=== PATIENT | male | born 1940 | race Caucasian/White ===

== ENCOUNTER 2016-09-14 11:49 | Observation (INO) | payer MEDICARE, BC ==
--- NOTE | 2016-09-14 12:02 | ED ---
General Adult HPI - General Chief complaint: Chest Pain Stated complaint: CHEST PAIN Time Seen by Provider: 09/14/16 12:01 Source: patient, family, RN notes reviewed, old records reviewed Mode of arrival: wheelchair Limitations: no limitations - History of Present Illness Initial comments: This is a 76-year-old male the ER for reevaluation of chest pain right shoulder pain abdominal pain. Patient has history of bowel surgery secondary to trauma, high blood pressure. Patient is also having irregular heart rate and heart rhythm, sometimes is having is elevated and sometimes as low, patient has known A. fib or irregular heart, but is been bradycardic, patient does not feel syncopal or weak but he has had continued pain which she is most concerned about. Patient states he has chronic pain but this pain is worse - Related Data Home Medications Medication Instructions Recorded Confirmed Gabapentin [Neurontin] 800 mg PO TID 12/20/13 09/14/16 Losartan/Hydrochlorothiazide 1 tab PO DAILY 12/20/13 09/14/16 [Losartan-Hctz 100-25 mg Tab] Lovastatin [Mevacor] 20 mg PO HS 12/20/13 09/14/16 Ranitidine HCl 150 mg PO BID 12/20/13 09/14/16 Albuterol Inhaler [Ventolin Hfa 1 - 2 puff INHALATION RT-Q6H PRN 09/14/16 Inhaler] Budesonide [Pulmicort Flexhaler] 1 puff INHALATION RT-HS PRN 09/14/16 09/14/16 Allergies Allergy/AdvReac Type Severity Reaction Status Date / Time No Known Allergies Allergy Verified 09/14/16 13:09 Review of Systems ROS Statement: Those systems with pertinent positive or pertinent negative responses have been documented in the HPI. ROS Other: All systems not noted in ROS Statement are negative. Past Medical History Past Medical History: GERD/Reflux, GI Bleed, Hyperlipidemia, Hypertension History of Any Multi-Drug Resistant Organisms: None Reported Past Surgical History: Orthopedic Surgery Past Psychological History: No Psychological Hx Reported Smoking Status: Never smoker Past Alcohol Use History: Occasional Past Drug Use History: None Reported General Exam Limitations: no limitations General appearance: alert, in no apparent distress Head exam: Present: atraumatic, normocephalic, normal inspection Eye exam: Present: normal appearance, PERRL, EOMI. Absent: scleral icterus, conjunctival injection, periorbital swelling ENT exam: Present: normal exam, mucous membranes moist Neck exam: Present: normal inspection. Absent: tenderness, meningismus, lymphadenopathy Respiratory exam: Present: normal lung sounds bilaterally. Absent: respiratory distress, wheezes, rales, rhonchi, stridor Cardiovascular Exam: Present: bradycardia, irregular rhythm, normal heart sounds. Absent: systolic murmur, diastolic murmur, rubs, gallop, clicks GI/Abdominal exam: Present: soft, normal bowel sounds. Absent: distended, tenderness, guarding, rebound, rigid Extremities exam: Present: normal inspection, full ROM, normal capillary refill. Absent: tenderness, pedal edema, joint swelling, calf tenderness Back exam: Present: normal inspection Neurological exam: Present: alert, oriented X3, CN II-XII intact Psychiatric exam: Present: normal affect, normal mood Skin exam: Present: warm, dry, intact, normal color. Absent: rash Course Vital Signs 09/14/16 11:51 Temperature 97.2 F L Pulse Rate 57 L Respiratory 16 Rate Blood Pressure 172/79 O2 Sat by Pulse 97 Oximetry - Reevaluation(s) Reevaluation #1: 09/14/16 15:49 Patient remains with pain, heart rate in the 40s and 50s EKG Findings - EKG Comments: EKG Findings:: EKG shows A. fib rate of 75, QRS 118, QTC 435 Medical Decision Making - Medical Decision Making 76 male to the ER with chest pain, patient presents here with chest pain discomfort heaviness and pressure, also found to be in A. fib with a slow rate, rates been in the bradycardic range of 40s, irregular, blood pressure is maintaining, patient is without syncope. But still remains a chest pain, will admit for cardiac observation - Lab Data Result diagrams: 09/14/16 12:15 09/14/16 12:15 Lab Results 09/14/16 09/14/16 09/14/16 Range/Units 12:15 12:15 12:15 WBC 6.1 (3.8-10.6) k/uL RBC 4.50 (4.30-5.90) m/uL Hgb 14.7 (13.0-17.5) gm/dL Hct 43.0 (39.0-53.0) % MCV 95.6 (80.0-100.0) fL MCH 32.7 (25.0-35.0) pg MCHC 34.2 (31.0-37.0) g/dL RDW 12.4 (11.5-15.5) % Plt Count 162 (150-450) k/uL Neutrophils % 60 % Lymphocytes % 25 % Monocytes % 8 % Eosinophils % 3 % Basophils % 1 % Neutrophils # 3.7 (1.3-7.7) k/uL Lymphocytes # 1.5 (1.0-4.8) k/uL Monocytes # 0.5 (0-1.0) k/uL Eosinophils # 0.2 (0-0.7) k/uL Basophils # 0.1 (0-0.2) k/uL PT (9.0-12.0) sec INR (<1.1) APTT (22.0-30.0) sec D-Dimer (<0.60) mg/L FEU Sodium 140 (137-145) mmol/L Potassium 4.2 (3.5-5.1) mmol/L Chloride 102 (98-107) mmol/L Carbon Dioxide 27 (22-30) mmol/L Anion Gap 11 mmol/L BUN 12 (9-20) mg/dL Creatinine 0.78 (0.66-1.25) mg/dL Est GFR (MDRD) Af Amer >60 (>60 ml/min/1.73 sqM) Est GFR (MDRD) Non-Af >60 (>60 ml/min/1.73 sqM) Glucose 288 H (74-99) mg/dL Calcium 9.4 (8.4-10.2) mg/dL Magnesium 1.8 (1.6-2.3) mg/dL Total Bilirubin 0.7 (0.2-1.3) mg/dL AST 26 (17-59) U/L ALT 48 (21-72) U/L Alkaline Phosphatase 68 (38-126) U/L Total Creatine Kinase 54 L (55-170) U/L CK-MB (CK-2) 0.8 (0.0-2.4) ng/mL CK-MB (CK-2) Rel Index 1.5 Troponin I <0.012 (0.000-0.034) ng/mL NT-Pro-B Natriuret Pep pg/mL Total Protein 6.5 (6.3-8.2) g/dL Albumin 3.8 (3.5-5.0) g/dL Lipase 108 (23-300) U/L 09/14/16 09/14/16 Range/Units 12:15 12:15 WBC (3.8-10.6) k/uL RBC (4.30-5.90) m/uL Hgb (13.0-17.5) gm/dL Hct (39.0-53.0) % MCV (80.0-100.0) fL MCH (25.0-35.0) pg MCHC (31.0-37.0) g/dL RDW (11.5-15.5) % Plt Count (150-450) k/uL Neutrophils % % Lymphocytes % % Monocytes % % Eosinophils % % Basophils % % Neutrophils # (1.3-7.7) k/uL Lymphocytes # (1.0-4.8) k/uL Monocytes # (0-1.0) k/uL Eosinophils # (0-0.7) k/uL Basophils # (0-0.2) k/uL PT 10.5 (9.0-12.0) sec INR 1.0 (<1.1) APTT 23.3 (22.0-30.0) sec D-Dimer 0.36 (<0.60) mg/L FEU Sodium (137-145) mmol/L Potassium (3.5-5.1) mmol/L Chloride (98-107) mmol/L Carbon Dioxide (22-30) mmol/L Anion Gap mmol/L BUN (9-20) mg/dL Creatinine (0.66-1.25) mg/dL Est GFR (MDRD) Af Amer (>60 ml/min/1.73 sqM) Est GFR (MDRD) Non-Af (>60 ml/min/1.73 sqM) Glucose (74-99) mg/dL Calcium (8.4-10.2) mg/dL Magnesium (1.6-2.3) mg/dL Total Bilirubin (0.2-1.3) mg/dL AST (17-59) U/L ALT (21-72) U/L Alkaline Phosphatase (38-126) U/L Total Creatine Kinase (55-170) U/L CK-MB (CK-2) (0.0-2.4) ng/mL CK-MB (CK-2) Rel Index Troponin I (0.000-0.034) ng/mL NT-Pro-B Natriuret Pep 242 pg/mL Total Protein (6.3-8.2) g/dL Albumin (3.5-5.0) g/dL Lipase (23-300) U/L - Radiology Data Radiology results: report reviewed (Chest x-ray is negative for acute disease, CTA chest and pelvis negative for acute disease), image reviewed Disposition Clinical Impression: Atypical chest pain, Chest pain, Bradycardia, Atrial fibrillation Disposition: ADMITTED IP TO THIS HOSP Condition: Good Instructions: Chest Pain (ED) Referrals: Aquiles Szymanski MD [Primary Care Provider] - 1-2 days
[2016-09-14] MEDS ORDERED: RX INFO: IV CONTRAST WAS GIVEN 1 EACH MISC MISCELLANE PRN (13:24)
[2016-09-14] MEDS ORDERED: SODIUM CHLORIDE 0.9% 1,000 ML IV STA (13:24)
[2016-09-14] MEDS ORDERED: MORPHINE SULFATE 4 MG/ML SYRINGE IV STA (13:24)
[2016-09-14 13:35] LABS: Basophils # (A) 0.1 k/uL (0-0.2); Basophils % (A) 1 %; CH 33.7; CHCM 35.4; Eosinophils # (A) 0.2 k/uL (0-0.7); Eosinophils % (A) 3 %; HDW 2.67; HGB 14.7 gm/dL (13.0-17.5); Luc # (Auto) 0.18; Luc % (Auto) 3; Lymphocytes # (A) 1.5 k/uL (1.0-4.8); Lymphocytes % (A) 25 %; MCH 32.7 pg (25.0-35.0); MCHC 34.2 g/dL (31.0-37.0); MCV 95.6 fL (80.0-100.0); Monocytes # (A) 0.5 k/uL (0-1.0); Monocytes % (A) 8 %; Neutrophils # (A) 3.7 k/uL (1.3-7.7); Neutrophils % (A) 60 %; RDW 12.4 % (11.5-15.5); WBC 6.1 k/uL (3.8-10.6); WBC (Perox) 6.07
[2016-09-14 13:49] LABS: Partial Thromboplastin Time 23.3 sec (22.0-30.0); Prothrombin Time 10.5 sec (9.0-12.0)
[2016-09-14 14:06] LABS: ALT 48 U/L (21-72); AST 26 U/L (17-59); Alkaline Phosphatase 68 U/L (38-126); Anion Gap 11 mmol/L; Blood Urea Nitrogen 12 mg/dL (9-20); Calcium 9.4 mg/dL (8.4-10.2); Carbon Dioxide 27 mmol/L (22-30); Chloride 102 mmol/L (98-107); Glucose 288 mg/dL (74-99); Magnesium 1.8 mg/dL (1.6-2.3); Non-African American GFR(MDRD) >60 (>60 ml/min/1.73 sqM); Potassium 4.2 mmol/L (3.5-5.1); Sodium 140 mmol/L (137-145); Total Bilirubin 0.7 mg/dL (0.2-1.3); Total Protein 6.5 g/dL (6.3-8.2)
[2016-09-14 14:14] LABS: Creatine Kinase 54 U/L (55-170)
[2016-09-14 14:26] LABS: Creatine Kinase MB 0.8 ng/mL (0.0-2.4); Troponin I <0.012 ng/mL (0.000-0.034)
[2016-09-14] MEDS ORDERED: ASPIRIN 81 MG CHEW PO STA (14:54)
[2016-09-14] MEDS ORDERED: NITROGLYCERIN SL TABS 0.4 MG TAB SUBLINGUAL PRN (14:54)
[2016-09-14] MEDS ORDERED: MORPHINE SULFATE 4 MG/ML SYRINGE IV PRN (14:54)
--- NOTE | 2016-09-14 15:23 | CT ---
EXAMINATION TYPE: CT angio chest DATE OF EXAM: 09/14/2016 2:51 PM COMPARISON: NONE HISTORY: Chest pain and shortness of breath. CT DLP: 2041.00 mGycm. Automated Exposure Control for Dose Reduction was Utilized. CONTRAST: CTA scan of the thorax is performed with IV Contrast, patient injected with 100 mL of Omnipaque 350, pulmonary embolism protocol. MIP Images are created on CT scanner and reviewed. FINDINGS: LUNGS: Exam is noted suboptimal as there is significant respiratory motion artifact degradation. Low lung volumes are present. Linear atelectatic change and/or scarring dependently and in both lower ajit gs is seen. No jennifer consolidation is identified. No significant pleural effusion or pneumothorax is evident bilaterally. Tracheobronchial tree is patent. MEDIASTINUM: There is satisfactory enhancement of the pulmonary artery and its branches, there is no CT evidence for pulmonary embolism. There are no greater than 1 cm hilar or mediastinal lymph nodes . There is marked cardiomegaly with severe biatrial dilatation. There is unusual tortuous course to t he right brachiocephalic artery which extends into the mediastinum inferiorly adjacent to the trachea . OTHER: Please refer to same day CT abdomen study for complete details of the upper abdomen. Multileve l spurring in the spine is present. IMPRESSION: 1. No CT evidence for pulmonary embolism. 2. Marked cardiomegaly with low lung volumes and scattered lower lung atelectatic change and/or scarr ing. No suspicious focal consolidation seen.
--- NOTE | 2016-09-14 15:29 | CT ---
EXAMINATION TYPE: CT abdomen pelvis w con DATE OF EXAM: 09/14/2016 2:53 PM COMPARISON: NONE HISTORY: Chest pain and shortness of breath. Abdominal pain not further specified CT DLP: 2041.00 mGycm, Automated Exposure Control for Dose Reduction was Utilized. CONTRAST: CT scan of the abdomen and pelvis is performed without oral and with IV Contrast, patient injected wi th 100 mL of Omnipaque 350. FINDINGS: LUNG BASES: Please refer to same day CTA chest report for complete details. LIVER/GB: Liver is low dense and may reflect product of fatty infiltration but should be correlated w ith ultrasound. PANCREAS: No significant abnormality is seen. SPLEEN: No significant abnormality is seen. ADRENALS: No significant abnormality is seen. KIDNEYS: There is lobulated otherwise simple appearing 6.3 cm cyst extending exophytically from the l ower pole of the left kidney medial aspect. A few scattered pelvic phleboliths are seen. BOWEL: Evaluation bowel is suboptimal due to lack of enteric contrast. There is no suspicious small o r large bowel dilatation seen. Sigmoid colonic diverticulosis is seen in somewhat redundant sigmoid c olon. No acute diverticulitis is clearly identified. PROSTATE/SEMINAL VESICLES: No gross abnormality seen. LYMPH NODES: No greater than 1cm abdominal or pelvic lymph nodes are appreciated. OSSEOUS STRUCTURES: Multilevel spurring in the thoracolumbar spine is present. There is facet arthrop athy lower lumbar levels. There is joint space loss and sclerosis at bilateral sacroiliac joints. The re is moderate joint space loss in both hips. There is old trauma to level of left superior and infer ior pelvic rami. OTHER: No significant additional abnormality is seen. IMPRESSION: No significant acute finding is seen to account for patient's clinical symptoms. Note is made of remote left pelvic trauma and chronic bilateral sacroiliitis.
[2016-09-14 18:05] VITALS: BMI 27.8
[2016-09-14] MEDS ORDERED: BUDESONIDE 0.5 MG/2 ML NEBU INHALATION PRN (19:03)
[2016-09-14] MEDS ORDERED: ALBUTEROL NEBULIZED 2.5 MG/3 ML INHALATION PRN (19:03)
[2016-09-14] MEDS ORDERED: TEMAZEPAM 15 MG CAP PO PRN (19:04)
[2016-09-14] MEDS ORDERED: ALPRAZolam 0.25 MG TAB PO PRN (19:04)
--- NOTE | 2016-09-14 19:32 | XR ---
EXAMINATION TYPE: XR chest 1V portable DATE OF EXAM: 09/14/2016 7:27 PM CLINICAL HISTORY: Chest pain and shortness of breath TECHNIQUE: Single AP portable frontal upright view of the chest is obtained. COMPARISON: Chest x-ray December 20, 2013. CTA chest from earlier today. FINDINGS: There is low lung volumes without suspicious focal air space opacity, pleural effusion, or pneumothorax seen. Elevated right hemidiaphragm is redemonstrated. The cardiac silhouette size remai ns enlarged. The osseous structures are demineralized. Surgical changes right humerus are partially imaged. IMPRESSION: Lung volumes and cardiomegaly redemonstrated without suspicious acute pulmonary process s een.
[2016-09-14 19:52] LABS: Creatine Kinase 44 U/L (55-170)
[2016-09-14 20:02] LABS: Creatine Kinase MB 0.8 ng/mL (0.0-2.4); Troponin I <0.012 ng/mL (0.000-0.034)
--- NOTE | 2016-09-14 20:35 | HP ---
DATE OF ADMISSION: CHIEF COMPLAINT: Chest pain and generalized aches and pains. HISTORY OF PRESENT ILLNESS: This 76-year-old gentleman with a past medical history of asthma, GERD, hypertension, hyperlipidemia, being followed Dr. Aquiles Szymanski as well as Elias Matthews in the outpatient setting is complaining of aches and pains for the last several days. The pain was increasing since yesterday. The patient reports pressure type of sensation to the lower part of the chest and as well as both shoulders, right arm, achy pain and because of multiple symptoms the family was concerned and the patient was taken to [facility] and admitted for further evaluation and treatment. The initial EKG showed multiple PVCs with almost like bigeminal rhythm. Otherwise, an abdominal and pelvis CT scan was also done, which showed no significant acute findings. A chest CT was also done and that showed no evidence of pulmonary embolism. Marked cardiomegaly was also noted. There is no history of fever, rigors. No history of headache, loss of consciousness or seizures. The patient apparently had complete cardiac work-up about a year ago with Dr. Hudson which was reported negative. Official report is not available at this time. The patient also complaining of some minimal increase in the pain while taking deep breath. PAST MEDICAL HISTORY: History of gastroesophageal reflux disease, history of asthma, hypertension, hyperlipidemia, history of DJD. Medications prior to admission include: 1. Pulmicort 1 mg q.h.s. p.r.n. 2. Amantadine 150 mg p.o. b.i.d. 3. Mevacor 20 mg q.h.s. 4. Losartan hydrochlorothiazide 100/25 mg p.o. daily. 5. Neurontin 800 mg p.o. t.i.d. 6. Ventolin HFA 1 puff q.6 p.r.n. ALLERGIES: None. FAMILY HISTORY: History of congestive heart failure in the family. SOCIAL HISTORY: No history of smoking, occasional alcohol intake. REVIEW OF SYSTEMS: ENT: No diminished hearing. No diminished vision. CARDIOVASCULAR: As mentioned earlier. RESPIRATORY: As mentioned earlier. GI: No nausea. : No dysuria. NERVOUS SYSTEM: No numbness or weakness. ALLERGY/IMMUNOLOGY: No asthma or hayfever. MUSCULOSKELETAL: As mentioned earlier. HEMATOLOGY: No history of anemia. ENDOCRINE: No history of diabetes or hypothyroidism. CONSTITUTIONAL: As mentioned earlier. DERMATOLOGY: Negative. RHEUMATOLOGY: Negative. PSYCHIATRY: As mentioned earlier. PHYSICAL EXAMINATION: Pulse is 58, blood pressure 150/74, respirations 16, temperature 97.7, pulse ox 97% on 2 liters. HEENT: Conjunctivae normal. Oral mucosa moist. NECK: No jugular venous distention or carotid bruit. No lymph node enlargement. CARDIOVASCULAR: S1 and S2, muffled. No S3, no S4. RESPIRATORY: Breath sounds diminished at the bases. No rhonchi, no crackles. No bronchial breath sounds. ABDOMEN: Soft, nontender. No mass palpable. No hepatosplenomegaly. No ascites. LEGS: No edema, no swelling. Pulses felt normally. NERVOUS SYSTEM: Higher function as mentioned. Moves all four limbs. No focal motor deficits. LYMPHATIC: No lymphadenopathy in the neck, axillae or groin. SKIN: No ulcer, rash or bleeding. Labs are CBC within normal limits. Glucose 288. Creatine kinase 54. ASSESSMENT: 1. Chest pain for evaluation rule out coronary artery disease. 2. Rule out pleuropericarditis. 3. Diffuse myalgia. 4. Possible diabetes mellitus type 2. 5. History of asthma. 6. History of gastroesophageal reflux disease. 7. History of gastrointestinal bleed. 8. Hypertension. 9. Hyperlipidemia. 10. History of degenerative joint disease. 11. FULL CODE. RECOMMENDATIONS AND DISCUSSION: In this 73-year-old gentleman who presented with multiple complex medical issues, we will monitor the patient closely. Continue the current medications, continue the symptomatic treatment. Rule out myocardial infarction. Cardiology consultation. Unstable angina protocol. I would also recommend resume the home medications. Accu-Cheks a.c. and at bedtime. Guarded prognosis because of multiple complex medical issues. Further recommendations to follow. Copy of dictation forwarded to Dr. Szymanski who is the primary physician. See orders for details.
[2016-09-14] MEDS: BUDESONIDE 0.5 MG/2 ML NEBU INHALATION PRN (20:39)
[2016-09-14] MEDS: LOSARTAN-HCTZ 50-12.5 MG 1 EACH TAB PO SCH (22:16)
[2016-09-14] MEDS: HYDROcodone/APAP 5-325MG 1 EACH TAB PO PRN (22:17)
[2016-09-14] MEDS: ATORVASTATIN 10 MG TAB PO SCH (22:18)
[2016-09-14] MEDS: GABAPENTIN 400 MG CAP PO SCH (22:18)
[2016-09-14] MEDS: FAMOTIDINE 20 MG TAB PO SCH (22:18)
[2016-09-15 01:26] LABS: Creatine Kinase MB 0.7 ng/mL (0.0-2.4); Troponin I 0.019 ng/mL (0.000-0.034)
[2016-09-15 07:30] LABS: Basophils % (A) 0 %; CH 33.1; CHCM 33.9; Eosinophils # (A) 0.2 k/uL (0-0.7); Eosinophils % (A) 5 %; HCT 41.1 % (39.0-53.0); HDW 2.67; HGB 13.5 gm/dL (13.0-17.5); Luc # (Auto) 0.18; Luc % (Auto) 4; Lymphocytes # (A) 1.3 k/uL (1.0-4.8); Lymphocytes % (A) 28 %; MCH 32.2 pg (25.0-35.0); MCHC 32.9 g/dL (31.0-37.0); MCV 98.2 fL (80.0-100.0); Mean Platelet Volume 7.2; Monocytes # (A) 0.4 k/uL (0-1.0); Monocytes % (A) 7 %; Neutrophils # (A) 2.7 k/uL (1.3-7.7); Neutrophils % (A) 56 %; RBC 4.19 m/uL (4.30-5.90); RDW 12.5 % (11.5-15.5); WBC 4.8 k/uL (3.8-10.6)
[2016-09-15] MEDS ORDERED: PANTOPRAZOLE 40 MG TABLET PO SCH (07:30)
[2016-09-15 07:43] LABS: Anion Gap 8 mmol/L; Blood Urea Nitrogen 9 mg/dL (9-20); Calcium 8.7 mg/dL (8.4-10.2); Carbon Dioxide 28 mmol/L (22-30); Chloride 106 mmol/L (98-107); Cholesterol 144 mg/dL (<200); Glucose 164 mg/dL (74-99); HDL Cholesterol 40 mg/dL (40-60); Non-African American GFR(MDRD) >60 (>60 ml/min/1.73 sqM); Potassium 3.9 mmol/L (3.5-5.1); Sodium 142 mmol/L (137-145); Triglycerides 165 mg/dL (<150)
[2016-09-15] MEDS: SODIUM CHLORIDE 0.9% 1,000 ML IV SCH ×3 (08:05→11:42)
[2016-09-15 09:05] LABS: Appearance,Urine Clear (Clear); Bilirubin,Urine Negative (Negative); Glucose,Urine (UA) 1+ (Negative); Ketones,Urine Negative (Negative); Leukocyte Esterase,Urine Negative (Negative); Nitrite,Urine Negative (Negative); PH, Urine 5.5 (5.0-8.0); Protein,Urine Negative (Negative); UA Billing (MACRO vs. MICRO) CHEM; Urobilinogen,Urine <2.0 mg/dL (<2.0)
[2016-09-15] MEDS: GABAPENTIN 400 MG CAP PO SCH ×3 (09:22→22:24)
[2016-09-15] MEDS: FAMOTIDINE 20 MG TAB PO SCH ×2 (09:22→22:24)
--- NOTE | 2016-09-15 11:18 | ECHOF ---
Referral Reason:chf MEASUREMENTS -------- HEIGHT: 170.2 cm WEIGHT: 80.3 kg BP: 140/70 RVIDd: 3.7 cm (< 3.3) IVSd: 1.4 cm (0.6 - 1.1) LVIDd: 5.1 cm (3.9 - 5.3) LVPWd: 1.4 cm (0.6 - 1.1) IVSs: 2.4 cm LVIDs: 3.2 cm LVPWs: 1.9 cm LA Diam: 4.7 cm (2.7 - 3.8) LAESV Index (A-L): 34.81 ml/m Ao Diam: 3.6 cm (2.0 - 3.7) AV Cusp: 1.8 cm (1.5 - 2.6) MV EXCURSION: 19.913 mm (> 18.000) MV EF SLOPE: 54 mm/s (70 - 150) EPSS: 0.2 cm MV E Yuan: 0.84 m/s MV DecT: 273 ms MV A Yuan: 1.18 m/s MV E/A Ratio: 0.72 AR PHT: 1888 ms RAP: 5.00 mmHg RVSP: 32.38 mmHg FINDINGS -------- Resting bradycardia (HR<60bpm). This was a technically good study. There is moderate concentric left ventricular hypertrophy. Overall left ventricular systolic function is normal with, an EF between 55 - 60 %. The right ventricle is mildly enlarged. LA is moderately dilated 34-39 ml/m2 The right atrium is normal in size. Aneurysmal Interatrial septum. Aortic valve is trileaflet and is mildly thickened. There is mild aortic regurgitation. The mitral valve leaflets are mildly thickened. Mild mitral annular calcification present. Venx-sm-pktffapy mitral regurgitation is present. There is mild mitral valve prolapse. Mild tricuspid regurgitation present. Right ventricular systolic pressure is normal at < 35 mmHg. Trace/mild (physiologic) pulmonic regurgitation. The aortic root size is normal. Normal inferior vena cava with normal inspiratory collapse consistent with estimated right atrial pressure of 5 mmHg. There is no pericardial effusion. CONCLUSIONS -------- 1. Resting bradycardia (HR<60bpm). 2. There is mild aortic regurgitation. 3. The mitral valve leaflets are mildly thickened. 4. Mild mitral annular calcification present. 5. Figo-oa-wplgdjad mitral regurgitation is present. 6. There is mild mitral valve prolapse. 7. Mild tricuspid regurgitation present. 8. Right ventricular systolic pressure is normal at < 35 mmHg. 9. Trace/mild (physiologic) pulmonic regurgitation. 10. The aortic root size is normal. 11. There is no pericardial effusion. 12. This was a technically good study. 13. There is moderate concentric left ventricular hypertrophy. 14. Overall left ventricular systolic function is normal with, an EF between 55 - 60 %. 15. The right ventricle is mildly enlarged. 16. LA is moderately dilated 34-39 ml/m2 17. The right atrium is normal in size. 18. Aneurysmal Interatrial septum. 19. Aortic valve is trileaflet and is mildly thickened. CORE WINDING OPERATOR: Dyana Parker RDCS
--- NOTE | 2016-09-15 12:45 | CONS ---
DATE OF CONSULTATION: Mr. Dale is a 76-year-old male who was transferred from a [place] with symptoms of chest discomfort. He has a known history of arrhythmia. He has been followed in the past by Dr. Chaudhary. He has underwent full cardiac work-up according to him including a stress test and echocardiogram about a year ago that were unremarkable. He started to complain of right chest and right arm discomfort a few days ago worsening with position and subsequently started to have discomfort in the middle of the chest. The discomfort was worse with deep breathing as well as with coughing and is positional in pattern. He has some dyspnea on exertion. He denies any syncope. He has some palpitations. He has no history of significant peripheral edema. No PND, orthopnea. No significant peripheral edema. According to him, he has no prior cardiac history except the history of the arrhythmia that was documented in the past according to him. He still has some discomfort during my examination. The discomfort is worse when he takes a deep breath as well as when he coughs. His coronary risk factors are remarkable for history of hypertension and hyperlipidemia. He is nonsmoker, nondiabetic. His medications at home include: 1. Albuterol. 2. Gabapentin. 3. Losartan/HCT 125 mg daily. 4. Lovastatin 20 mg daily. 5. Loratadine 150 mg twice a day. 6. Pulmicort. REVIEW OF SYSTEMS: RESPIRATORY SYSTEM: History of mild asthma. He has the recent cough. The dyspnea on exertion. GI system: He denies any recent GI bleeding. No peptic ulcer disease. system: No dysuria or hematuria. Nervous system: No stroke or seizure. PHYSICAL EXAMINATION: Blood pressure running in the 140s with a heart in the 70s. HEAD: Normocephalic. EYES: Sclerae anicteric. NECK: Good upstroke. No bruit. No jugular venous distention. LUNGS: Clear to auscultation. HEART: Regular rate rhythm. S1, S2 with extrasystole and a systolic murmur. No diastolic murmur. No rub. ABDOMEN: Soft, nontender, positive bowel sounds. No organomegaly. EXTREMITIES: No edema. Intact distal pulses. Musculoskeletal with reproducible pain with palpation of the chest. Lab data revealed BUN and creatinine of 9 and 0.75. His blood sugar is 164. Hemoglobin is 13.5. Troponin less than 0.012 and less than 0.019. NT-proBNP of 242. Cholesterol 144, LDL of 71. EKG revealed a sinus mechanism with, first-degree AV block and intraventricular conduction delay and frequent PACs. IMPRESSION: 1. Chest discomfort, atypical for ischemic heart disease, ( ) to be musculoskeletal in etiology. 2. Atrial arrhythmia and ventricular arrhythmia, chronic. 3. History of hypertension. 4. Hyperlipidemia. 5. Possible diabetes mellitus. RECOMMENDATION: From the cardiac standpoint, I will obtain the results of his prior work-up. I will obtain echocardiogram with Doppler. If there is no significant abnormality, then I do not believe that any further cardiac work-up will be needed at this time. He can follow up on a regular basis with Dr. Chaudhary. Thank you for this consult. We will follow with you.
[2016-09-15] MEDS: ASPIRIN 325 MG TAB PO SCH (16:23)
[2016-09-15] MEDS: MULTIVITAMINS, THERA 1 EACH TAB PO SCH (16:24)
--- NOTE | 2016-09-15 18:32 | P.CNPUL ---
History of Present Illness Consult date: 09/15/16 Reason for consult: dyspnea, chest pain History of present illness: 76-year-old male patient, who was transferred from [place] because of an evaluation of chest pain and some degree of shortness of breath. The patient started approximately week ago to experience pain involving the entire right hand, right shoulder, right upper back and right anterior chest. He felt that the patient was other constant and he was unable to make any decisions to activity or breathing. He was getting progressively more uncomfortable and for that reason he came into the hospital. Apparently discomfort was worse with some certain positional changes. No reported cough or sputum production however the patient has been having some increased shortness of breath and he claims to have some degree of wheeze. From a cardiac standpoint, the patient has been investigated in the past through Dr. Chaudhary. He has undergone a echocardiogram approximately a year ago and repeat echocardiogram was done during this current hospital stay and there is no evidence of any significant abnormalities. A stress test was done approximately year ago that was also negative. His current EKG showing some bradycardia arrhythmias with sinus bradycardia and occasional PVCs and his troponins all negative. Dr. Davidson will be seeing this patient and we are awaiting further input regarding any cardiac pathology contributing to this pain. Meanwhile, the patient has over the undergone a CT angios the chest and shows small lung volumes with elevation of the diaphragms bilaterally more so on the right. I noted that this patient also has a restrictive pattern on his permanent function test that was done through our office. The patient has a total lung capacity of around 69% of predicted and the patient has an FEV1 of 61 % of predicted with minimal reversibility post-bronchodilation. The patient was given a diagnosis of asthma on outpatient basis and he was treated on few occasions with a combination of bronchodilators and systemic steroids however this has not been a ongoing coronary chronic treatment for this patient. His been a lifetime nonsmoker. His CT angios the chest does not show any evidence of blood clots or pulmonary emboli. He has no calf pain. No DVTs. No swelling in lower extremities bilaterally. No heartburn. No signs of pneumonia on the computed tomography scan of the chest. 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 History of Any Multi-Drug Resistant Organisms: None Reported Past Surgical History: Orthopedic Surgery Additional Past Surgical History / Comment(s): torn rotator cuff, cervical disc removed in neck and fused 3 arthroscopy of the left knee, abdominal surgery, left hand/thumb surgery Past Anesthesia/Blood Transfusion Reactions: No Reported Reaction Past Psychological History: No Psychological Hx Reported Smoking Status: Never smoker Past Alcohol Use History: Occasional Past Drug Use History: None Reported - Past Family History Father History Unknown: Yes Family Medical History: Congestive Heart Failure (CHF) Mother History Unknown: Yes Family Medical History: Myocardial Infarction ([place]) Medications and Allergies Home Medications Medication Instructions Recorded Confirmed Type Gabapentin [Neurontin] 800 mg PO TID 12/20/13 09/14/16 History Losartan/Hydrochlorothiazide 1 tab PO DAILY 12/20/13 09/14/16 History [Losartan-Hctz 100-25 mg Tab] Lovastatin [Mevacor] 20 mg PO HS 12/20/13 09/14/16 History Ranitidine HCl 150 mg PO BID 12/20/13 09/14/16 History Albuterol Inhaler [Ventolin Hfa 1 - 2 puff INHALATION RT-Q6H PRN 09/14/16 History Inhaler] Budesonide [Pulmicort Flexhaler] 1 puff INHALATION RT-HS PRN 09/14/16 09/14/16 History Allergies Allergy/AdvReac Type Severity Reaction Status Date / Time No Known Allergies Allergy Verified 09/14/16 13:09 Physical Exam Vitals: Vital Signs Temp Pulse Pulse Pulse Resp BP BP 09/15/16 11:52 162/76 09/15/16 07:41 97.5 F L 71 18 164/118 199/77 09/15/16 04:00 97.5 F L 42 L 16 140/70 09/15/16 00:00 44 L 16 09/14/16 23:54 97.6 F 57 L 16 123/70 09/14/16 20:36 69 09/14/16 20:00 98.1 F 45 L 16 137/69 BP Pulse Ox 09/15/16 11:52 154/78 09/15/16 07:41 95 09/15/16 04:00 96 09/15/16 00:00 09/14/16 23:54 96 09/14/16 20:36 09/14/16 20:00 98 Intake and Output 09/15/16 09/15/16 09/15/16 06:59 14:59 22:59 Intake Total 236 Balance 236 Intake: Oral 236 Other: Voiding Method Toilet Toilet Toilet # Voids 1 Head exam was generally normal. There was no scleral icterus or corneal arcus. Mucous membranes were moist.Neck was supple and without jugular venous distension, thyromegaly, or carotid bruits. Carotids were easily palpable bilaterally. There was no adenopathy. Lung sounds are diminished in lung bases more so on the rightCardiac exam revealed the PMI to be normally situated and sized. The rhythm was regular and no extrasystoles were noted during several minutes of auscultation. The first and second heart sounds were normal and physiologic splitting of the second heart sound was noted. There were no murmurs , rubs, clicks, or gallops.Abdominal exam revealed normal bowel sounds. The abdomen was soft, non-tender, and without masses, organomegaly, or appreciable enlargement of the abdominal aorta.Examination of the extremities revealed easily palpable radial, femoral and pedal pulses. There was no cyanosis, clubbing or edema. Results - Laboratory Findings CBC and BMP: 09/15/16 07:01 09/15/16 07:01 PT/INR, D-dimer PT 10.5 sec (9.0-12.0) 09/14/16 12:15 INR 1.0 (<1.1) 09/14/16 12:15 D-Dimer 0.36 mg/L FEU (<0.60) 09/14/16 12:15 Abnormal lab findings: Abnormal Labs 09/14/16 09/15/16 09/15/16 19:01 00:31 07:01 RBC Plt Count Glucose 164 H Total Creatine Kinase 44 L 40 L Triglycerides 165 H Urine Glucose (UA) 09/15/16 09/15/16 07:01 08:45 RBC 4.19 L Plt Count 131 L Glucose Total Creatine Kinase Triglycerides Urine Glucose (UA) 1+ H - Diagnostic Findings CT scan - chest: image reviewed Assessment and Plan Plan: Impression 1 pain involving the right chest, shoulder, right upper extremity and back. Certainly this is not a cardiac pain and was still awaiting cardiology evaluation in this regard. Echocardiogram is nonrevealing. Cardiac enzymes have been negative and the BNP level is not elevated. Skeletal pain is to be considered. Certainly, this patient is also known pulmonary in nature. CT angios the chest shows no major pathology revealed the patient's thorax including no evidence of any pulmonary embolism, pneumonia, atelectasis, effusions, or any other abnormalities contributing to pain. 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 Suspected cervical spine surgery affecting the patient's diaphragmatic functions 3 questionable asthma 4 episodic shortness of breath 5 atrial arrhythmia/PAC 6 hypertension 7 hyperlipidemia Plan Reassured the patient. Give the patient trial of bronchodilators and I will placed on DuoNeb nebulized treatments around the clock 4 times a day and a quick prednisone burst taper for a suspected underlying asthmatic disorder. Nevertheless, the patient shortness of breath essentially due to chronic restrictive lung disease as mentioned above. Consider also an outpatient cardiac stress test.
[2016-09-15] MEDS: IPRATROPIUM-ALBUTEROL 3 ML NEB INHALATION SCH (20:32)
[2016-09-15] MEDS: LOSARTAN-HCTZ 50-12.5 MG 1 EACH TAB PO SCH (22:18)
[2016-09-15] MEDS: ATORVASTATIN 10 MG TAB PO SCH (22:23)
[2016-09-15] MEDS: predniSONE 20 MG TAB PO SCH (22:24)
[2016-09-15] MEDS: HYDROcodone/APAP 5-325MG 1 EACH TAB PO PRN (22:28)
[2016-09-16] MEDS: BUDESONIDE 0.5 MG/2 ML NEBU INHALATION PRN (07:13)
[2016-09-16] MEDS: IPRATROPIUM-ALBUTEROL 3 ML NEB INHALATION SCH ×2 (07:13→11:37)
[2016-09-16 07:35] LABS: Basophils % (A) 0 %; CH 33.5; CHCM 34.9; Eosinophils % (A) 0 %; HCT 41.6 % (39.0-53.0); HDW 2.66; HGB 13.8 gm/dL (13.0-17.5); Luc # (Auto) 0.03; Luc % (Auto) 1; Lymphocytes # (A) 0.4 k/uL (1.0-4.8); Lymphocytes % (A) 9 %; MCHC 33.2 g/dL (31.0-37.0); MCV 96.4 fL (80.0-100.0); Mean Platelet Volume 7.7; Monocytes # (A) 0.1 k/uL (0-1.0); Monocytes % (A) 2 %; Neutrophils # (A) 4.1 k/uL (1.3-7.7); Neutrophils % (A) 89 %; RBC 4.31 m/uL (4.30-5.90); RDW 12.3 % (11.5-15.5); WBC 4.6 k/uL (3.8-10.6); WBC (Perox) 4.61
[2016-09-16 07:53] LABS: Anion Gap 12 mmol/L; Blood Urea Nitrogen 10 mg/dL (9-20); Carbon Dioxide 22 mmol/L (22-30); Chloride 107 mmol/L (98-107); Glucose 282 mg/dL (74-99); Non-African American GFR(MDRD) >60 (>60 ml/min/1.73 sqM); Potassium 4.5 mmol/L (3.5-5.1); Sodium 141 mmol/L (137-145)
[2016-09-16 08:19] VITALS: RESP 18
[2016-09-16] MEDS: predniSONE 20 MG TAB PO SCH (08:54)
[2016-09-16] MEDS: FAMOTIDINE 20 MG TAB PO SCH (08:54)
[2016-09-16] MEDS: GABAPENTIN 400 MG CAP PO SCH (08:54)
[2016-09-16] MEDS: ASPIRIN 325 MG TAB PO SCH (08:54)
[2016-09-16] MEDS: LOSARTAN-HCTZ 50-12.5 MG 1 EACH TAB PO SCH (08:54)
--- NOTE | 2016-09-16 09:38 | PN ---
DATE OF SERVICE: 09/15/2016 This is a 76-year-old gentleman who was admitted with chest pain. He is being closely monitored. Cardiology is following the patient closely. A 2-D echo with Doppler has been done, which showed ejection fraction 50% to 60%. Cardiology has seen the patient and they are thinking that the pain is possibly musculoskeletal in nature. Pulmonary has seen the patient for the shortness of breath, possibility of restrictive lung disease with diaphragmatic weakness suspected by Dr. David. No chest pain or palpitations. No fever. On exam, alert, oriented x3. Pulse 71, blood pressure 164/80, respirations 18, temperature 97, pulse ox 94% on room air. HEENT: Conjunctivae normal. NECK: No JVD. CARDIOVASCULAR: S1 and S2 muffled. RESPIRATORY: Breath sounds diminished at the bases. Bilateral few scattered rhonchi, no crackles. ABDOMEN: Soft, nontender. EXTREMITIES: Legs, no edema. NERVOUS SYSTEM: No focal deficits. LABS: Platelets 131. 165. UA shows 1+ glucose. ASSESSMENT: 1. Chest pain for evaluation, possibly musculoskeletal, rule out coronary artery disease. 2. Rule out pleural pericarditis. 3. Diffuse myalgias. 4. Shortness of breath, possibly related to diaphragmatic weakness and restrictive lung disease per pulmonary. 5. Possible diabetes mellitus type 2. 6. History of asthma. 7. History of gastroesophageal reflux disease. 8. History of gastrointestinal bleed. 9. Hypertension. 10. Hypertension. 11. History of degenerative joint disease. 12. FULL CODE. RECOMMENDATIONS: This 76-year-old gentleman admitted with multiple complex medical issues, we will monitor the patient closely. Continue medications. Troponins are negative at this time. Cardiology is following the patient with medical management. Pulmonary input appreciated. Guarded prognosis because of multiple complex medical issues. Further recommendations to follow. MTDD
[2016-09-16 11:45] VITALS: BP 152/94; PULSE 85; TEMP 97.4
--- NOTE | 2016-09-16 12:12 | PN ---
Mr. Dale is a 76-year-old male with a known history of hypertension, hyperlipidemia, who presented with respirophasic chest pain. He is feeling better today. He has been ambulating. He still has some discomfort when he lays supine. He denies any exertional chest pain. His breathing has been stable. He denies any dizziness or palpitation. On the monitor, he is in sinus mechanism with blocked PACs and PVCs. He was seen by Dr. David yesterday. He continues to be at this time on albuterol and aspirin, Lipitor 10 mg daily, gabapentin, ipratropium, losartan HCT 100/25 mg daily and Prednisone 40 mg daily. PHYSICAL EXAMINATION: Blood pressure running in the 120s to 140s with a heart in the 60s. LUNGS: With decreased air exchange. No wheezes. HEART: Regular rate rhythm. S1, S2, no S3, no rub. ABDOMEN: Soft, nontender. EXTREMITIES: No edema. Lab data revealed a BUN and creatinine 10 and 0.67. Blood sugar 282. His cholesterol was 144. His echocardiogram revealed a preserved systolic function with no evidence of segmental wall motion abnormality and no evidence of pulmonary hypertension. IMPRESSION: 1. Chest discomfort, atypical for ischemic heart disease, appears to be respiratory status. 2. Atrial arrhythmia, chronic. 3. Hypertension. 4. Hyperlipidemia. 5. Diabetes mellitus untreated. RECOMMENDATIONS: From the cardiac standpoint, I see no evidence for active ischemic issues. He had a stress test about a year ago that was unremarkable. He should be able to be discharged home today from the cardiac standpoint and follow as an outpatient with Dr. Chaudhary.
[2016-09-16] MEDS: MULTIVITAMINS, THERA 1 EACH TAB PO SCH (12:53)
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
== END 2016-09-16 14:55 | disposition home health service (06) ==
LOC: EC 11:49 → 3OBS 14:54
PROVIDERS: ADMIT Hospitalist; ATTEND Hospitalist
DX: R07.89 Other chest pain (principal); E78.5 Hyperlipidemia, unspecified; G89.29 Other chronic pain; I11.9 Hypertensive heart disease without heart failure; I48.91 Unspecified atrial fibrillation; I49.3 Ventricular premature depolarization; I51.7 Cardiomegaly; J45.909 Unspecified asthma, uncomplicated; J98.4 Other disorders of lung; J98.6 Disorders of diaphragm; K21.9 Gastro-esophageal reflux disease without esophagitis; M79.1 Myalgia; M25.511 Pain in right shoulder; R10.9 Unspecified abdominal pain; R00.1 Bradycardia, unspecified; M19.90 Unspecified osteoarthritis, unspecified site; Z79.899 Other long term (current) drug therapy
CPT/HCPCS: 36415; 94640 ×4; 94760; 93005; 93306; 85379; 83880; 80061; 80053; 80048 ×2; 82550 ×2; 82553 ×2; 83690; 83735; 84484 ×2; 85025 ×3; 85610; 85730; 81003; 71010; 71275; 74177; 99285; 96374; G0378 ×3; J2270; Q9967; J7512 ×2; 96361

== ENCOUNTER 2017-12-07 11:51 | Inpatient (IN) | payer MEDICARE, BC ==
[2017-12-07] MEDS ORDERED: ATROPINE SULFATE 0.1 MG/ML 10ML SYRINGE IV STA (12:22)
--- NOTE | 2017-12-07 12:22 | ED ---
General Adult HPI - General Chief complaint: Dizziness Stated complaint: Low Heart Rate, Dizziness Time Seen by Provider: 12/07/17 12:14 Source: patient, RN notes reviewed, old records reviewed Mode of arrival: wheelchair Limitations: no limitations - History of Present Illness Initial comments: This is a 77-year-old male the ER today coming in for evaluation. Patient resents today for evaluation regards to abnormal EKG, abnormal heart rate. Patient went to 7 Dr. Schofield normal normal blood sugar appointment today. Patient's heart rate was noted to be extremely well, patient denies chest pain or complaint. No prior history of symptoms similar significantly low heart rate. Patient does not feel syncopal or pass out. Has no pain - Related Data Home Medications Medication Instructions Recorded Confirmed Gabapentin [Neurontin] 800 mg PO Q8HR 12/20/13 12/07/17 Losartan/Hydrochlorothiazide 1 tab PO DAILY 12/20/13 12/07/17 [Losartan-Hctz 100-25 mg Tab] Lovastatin [Mevacor] 20 mg PO HS 12/20/13 12/07/17 Ranitidine HCl 150 mg PO BID 12/20/13 12/07/17 Albuterol Inhaler [Ventolin Hfa 2 puff INHALATION RT-Q6H PRN 12/07/17 12/07/17 Inhaler] Budesonide [Pulmicort Flexhaler] 2 puff INHALATION RT-DAILY 12/07/17 12/07/17 Fluticasone Nasal [place] [Flonase 2 spr EA NOSTRIL DAILY 12/07/17 12/07/17 Nasal [place]] Glimepiride [Amaryl] 1 mg PO DAILY 12/07/17 12/07/17 Multivitamins, Thera [Multivitamin 1 tab PO DAILY 12/07/17 12/07/17 (formulary)] Allergies Allergy/AdvReac Type Severity Reaction Status Date / Time No Known Allergies Allergy Verified 12/07/17 12:31 Review of Systems ROS Statement: Those systems with pertinent positive or pertinent negative responses have been documented in the HPI. ROS Other: All systems not noted in ROS Statement are negative. 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 History of Any Multi-Drug Resistant Organisms: None Reported Past Surgical History: Orthopedic Surgery Additional Past Surgical History / Comment(s): torn rotator cuff, cervical disc removed in neck and fused 3 arthroscopy of the left knee, abdominal surgery, left hand/thumb surgery Past Anesthesia/Blood Transfusion Reactions: No Reported Reaction Past Psychological History: No Psychological Hx Reported Smoking Status: Never smoker Past Alcohol Use History: Occasional Past Drug Use History: None Reported - Past Family History Father History Unknown: Yes Family Medical History: Congestive Heart Failure (CHF) Mother History Unknown: Yes Family Medical History: Myocardial Infarction ([place]) General Exam Limitations: no limitations General appearance: alert, in no apparent distress Head exam: Present: atraumatic, normocephalic, normal inspection Eye exam: Present: normal appearance, PERRL, EOMI. Absent: scleral icterus, conjunctival injection, periorbital swelling ENT exam: Present: normal exam, mucous membranes moist Neck exam: Present: normal inspection. Absent: tenderness, meningismus, lymphadenopathy Respiratory exam: Present: normal lung sounds bilaterally. Absent: respiratory distress, wheezes, rales, rhonchi, stridor Cardiovascular Exam: Present: bradycardia, normal heart sounds. Absent: systolic murmur, diastolic murmur, rubs, gallop, clicks GI/Abdominal exam: Present: soft, normal bowel sounds. Absent: distended, tenderness, guarding, rebound, rigid Extremities exam: Present: normal inspection, full ROM, normal capillary refill. Absent: tenderness, pedal edema, joint swelling, calf tenderness Back exam: Present: normal inspection Neurological exam: Present: alert, oriented X3, CN II-XII intact Psychiatric exam: Present: normal affect, normal mood Skin exam: Present: warm, dry, intact, normal color. Absent: rash Course Vital Signs 12/07/17 12/07/17 12/07/17 12:06 12:41 12:50 Temperature 97.5 F L Pulse Rate 29 L 30 L 37 L Respiratory 16 18 Rate Blood Pressure 202/84 208/78 O2 Sat by Pulse 98 100 Oximetry - Reevaluation(s) Reevaluation #1: 12/07/17 13:15 Patient has no effectiveness tarry with atropine Reevaluation #2: 12/07/17 13:15 Patient remains relatively asymptomatic EKG Findings - EKG Comments: EKG Findings:: EKG shows undetermined rhythm rate of 27, QRS 150, QTc 383 Medical Decision Making - Medical Decision Making 77 male the ER for evaluation of severely low blood pressure. Heart rate in the 20s 30s, patient does have normal or hypertensive blood pressure, no rate control medications or plan started currently. Patient admitted for cardiology observation - Lab Data Result diagrams: 12/07/17 12:32 12/07/17 12:32 Lab Results 12/07/17 12/07/17 12/07/17 Range/Units 12:32 12:32 12:32 WBC 5.5 (3.8-10.6) k/uL RBC 5.12 (4.30-5.90) m/uL Hgb 15.7 (13.0-17.5) gm/dL Hct 47.2 (39.0-53.0) % MCV 92.2 (80.0-100.0) fL MCH 30.7 (25.0-35.0) pg MCHC 33.3 (31.0-37.0) g/dL RDW 12.9 (11.5-15.5) % Plt Count 132 L (150-450) k/uL Neutrophils % 61 % Lymphocytes % 25 % Monocytes % 9 % Eosinophils % 3 % Basophils % 0 % Neutrophils # 3.3 (1.3-7.7) k/uL Lymphocytes # 1.4 (1.0-4.8) k/uL Monocytes # 0.5 (0-1.0) k/uL Eosinophils # 0.2 (0-0.7) k/uL Basophils # 0.0 (0-0.2) k/uL PT (9.0-12.0) sec INR (<1.2) APTT (22.0-30.0) sec Sodium 144 (137-145) mmol/L Potassium 4.1 (3.5-5.1) mmol/L Chloride 107 (98-107) mmol/L Carbon Dioxide 26 (22-30) mmol/L Anion Gap 11 mmol/L BUN 16 (9-20) mg/dL Creatinine 0.74 (0.66-1.25) mg/dL Est GFR (CKD-EPI)AfAm >90 (>60 ml/min/1.73 sqM) Est GFR (CKD-EPI)NonAf 89 (>60 ml/min/1.73 sqM) Glucose 99 (74-99) mg/dL Plasma Lactic Acid Tim[place] 1.2 (0.7-2.0) mmol/L Calcium 9.8 (8.4-10.2) mg/dL Total Bilirubin 1.0 (0.2-1.3) mg/dL AST 26 (17-59) U/L ALT 37 (21-72) U/L Alkaline Phosphatase 54 (38-126) U/L Total Protein 6.6 (6.3-8.2) g/dL Albumin 4.2 (3.5-5.0) g/dL 12/07/17 Range/Units 12:32 WBC (3.8-10.6) k/uL RBC (4.30-5.90) m/uL Hgb (13.0-17.5) gm/dL Hct (39.0-53.0) % MCV (80.0-100.0) fL MCH (25.0-35.0) pg MCHC (31.0-37.0) g/dL RDW (11.5-15.5) % Plt Count (150-450) k/uL Neutrophils % % Lymphocytes % % Monocytes % % Eosinophils % % Basophils % % Neutrophils # (1.3-7.7) k/uL Lymphocytes # (1.0-4.8) k/uL Monocytes # (0-1.0) k/uL Eosinophils # (0-0.7) k/uL Basophils # (0-0.2) k/uL PT 10.8 (9.0-12.0) sec INR 1.1 (<1.2) APTT 24.7 (22.0-30.0) sec Sodium (137-145) mmol/L Potassium (3.5-5.1) mmol/L Chloride (98-107) mmol/L Carbon Dioxide (22-30) mmol/L Anion Gap mmol/L BUN (9-20) mg/dL Creatinine (0.66-1.25) mg/dL Est GFR (CKD-EPI)AfAm (>60 ml/min/1.73 sqM) Est GFR (CKD-EPI)NonAf (>60 ml/min/1.73 sqM) Glucose (74-99) mg/dL Plasma Lactic Acid [place] (0.7-2.0) mmol/L Calcium (8.4-10.2) mg/dL Total Bilirubin (0.2-1.3) mg/dL AST (17-59) U/L ALT (21-72) U/L Alkaline Phosphatase (38-126) U/L Total Protein (6.3-8.2) g/dL Albumin (3.5-5.0) g/dL Critical Care Time Critical Care Time: Yes Total Critical Care Time: 31 Critical Care Time: 31 Disposition Clinical Impression: Bradycardia, Dizziness Disposition: ADMITTED IP TO THIS [facility] Condition: Serious Instructions: Dizziness (ED) Is patient prescribed a controlled substance at d/c from ED?: No Referrals: Aquiles Szymanski MD [Primary Care Provider] - 1-2 days
[2017-12-07 12:47] LABS: Basophils % (A) 0 %; Eosinophils # (A) 0.2 k/uL (0-0.7); Eosinophils % (A) 3 %; HCT 47.2 % (39.0-53.0); HGB 15.7 gm/dL (13.0-17.5); Lymphocytes # (A) 1.4 k/uL (1.0-4.8); Lymphocytes % (A) 25 %; MCH 30.7 pg (25.0-35.0); MCHC 33.3 g/dL (31.0-37.0); MCV 92.2 fL (80.0-100.0); Mean Platelet Volume 8.1; Monocytes # (A) 0.5 k/uL (0-1.0); Monocytes % (A) 9 %; Neutrophils # (A) 3.3 k/uL (1.3-7.7); Neutrophils % (A) 61 %; Platelet Count 132 k/uL (150-450); RBC 5.12 m/uL (4.30-5.90); RDW 12.9 % (11.5-15.5); WBC 5.5 k/uL (3.8-10.6)
[2017-12-07 12:57] LABS: ALT 37 U/L (21-72); AST 26 U/L (17-59); Albumin 4.2 g/dL (3.5-5.0); Alkaline Phosphatase 54 U/L (38-126); Anion Gap 11 mmol/L; Blood Urea Nitrogen 16 mg/dL (9-20); Calcium 9.8 mg/dL (8.4-10.2); Carbon Dioxide 26 mmol/L (22-30); Chloride 107 mmol/L (98-107); Glucose 99 mg/dL (74-99); INR 1.1 (<1.2); Partial Thromboplastin Time 24.7 sec (22.0-30.0); Potassium 4.1 mmol/L (3.5-5.1); Prothrombin Time 10.8 sec (9.0-12.0); Sodium 144 mmol/L (137-145); Total Protein 6.6 g/dL (6.3-8.2)
--- NOTE | 2017-12-07 13:05 | XR ---
EXAMINATION TYPE: XR chest 1V portable DATE OF EXAM: 12/07/2017 COMPARISON: Chest x-ray and CTA chest September 14, 2016. HISTORY: History of hypertension with slow heart rate. TECHNIQUE: Single AP portable frontal upright view of the chest is obtained. FINDINGS: Low lung volumes with left greater than right bibasilar linear scarring and/or atelectasis remains present. There is no suspicious new focal air space opacity, pleural effusion, or pneumothor ax seen. The cardiac silhouette size is enlarged with atherosclerotic and ectatic thoracic aorta. The osseous structures are demineralized. IMPRESSION: Low lung volumes and cardiomegaly with bibasilar linear scarring and/or atelectasis. No suspicious new acute pulmonary process.
[2017-12-07] MEDS ORDERED: NITROGLYCERIN SL TABS 0.4 MG TAB SUBLINGUAL PRN (13:13)
[2017-12-07 13:27] LABS: Creatine Kinase MB 1.2 ng/mL (0.0-2.4); Troponin I 0.019 ng/mL (0.000-0.034)
[2017-12-07 14:26] LABS: Appearance,Urine Clear (Clear); Bilirubin,Urine Negative (Negative); Blood,Urine Negative (Negative); Color,Urine Light Yellow; Glucose,Urine (UA) Negative (Negative); Ketones,Urine Negative (Negative); Leukocyte Esterase,Urine Negative (Negative); Nitrite,Urine Negative (Negative); PH, Urine 6.5 (5.0-8.0); Protein,Urine Negative (Negative); Specific Gravity,Urine 1.008 (1.001-1.035); Urobilinogen,Urine <2.0 mg/dL (<2.0)
[2017-12-07 17:12] LABS: Glucose,Whole Blood 85 mg/dL (75-99)
[2017-12-07] MEDS: amLODIPine 5 MG TAB PO SCH (17:44)
[2017-12-07] MEDS: LOSARTAN-HCTZ 50-12.5 MG 1 EACH TAB PO SCH (17:44)
[2017-12-07 19:03] LABS: Creatine Kinase MB 1.1 ng/mL (0.0-2.4); Troponin I 0.029 ng/mL (0.000-0.034)
[2017-12-07] MEDS: ATORVASTATIN 10 MG TAB PO SCH (20:06)
[2017-12-07] MEDS: GABAPENTIN 400 MG CAP PO SCH (20:06)
[2017-12-07 21:13] LABS: Glucose,Whole Blood 99 mg/dL (75-99)
--- NOTE | 2017-12-07 22:24 | HP ---
HISTORY AND PHYSICAL DATE OF SERVICE: 12/07/2017 PRESENTING COMPLAINT: Occasional dizziness. HISTORY OF PRESENTING COMPLAINT: This is a very pleasant 77-year-old patient of Dr. Aquiles Szymanski. Chronic stable medical conditions include asthma, GERD, hypertension, hyperlipidemia, osteoarthritis. He had gone for his regular checkup to get his HbA1c checked. He was discovered to have a very low heart rate and he was sent down here. The ER called me that patient's heart rate was in the 30s to 40s. The patient was admitted for the same. Patient occasionally does get dizzy, lightheaded, though denies any palpitation. Did nearly pass out 2 months ago. Otherwise patient does feel tired. REVIEW OF SYSTEMS: CONSTITUTIONAL: Tired. HEENT: None. RESPIRATORY: Occasional shortness of breath. CARDIOVASCULAR: As above. GASTROINTESTINAL: Heartburn. GENITOURINARY: None. MUSCULOSKELETAL: Arthritic pain in the joints. DERMATOLOGICAL: None. HEMATOLOGICAL: None. LYMPHATICS: None. PSYCHIATRY: None. NEUROLOGICAL: None. PAST MEDICAL HISTORY: 1. Asthma. 2. GERD. 3. Hypertension. 4. Hyperlipidemia. 5. Osteoarthritis. 6. Diaphragmatic weakness. PAST SURGICAL HISTORY: 1. Orthopedic surgery. 2. Torn rotator cuff. 3. Cervical disc removed in neck and fused. 4. Arthroscopy of the left knee. 5. Abdominal surgery. The patient did have a tractor go over him many years ago. SOCIAL HISTORY: . Does not smoke. 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 FAMILY HISTORY: Congestive heart failure. HOME MEDICATIONS: 1. Mevacor 20 mg at bedtime. 2. Ventolin HFA 2 puffs q.6 p.r.n. 3. Losartan/hydrochlorothiazide 100/25 one tablet p.o. daily. 4. Amaryl 1 mg p.o. daily. 5. Flonase 2 sprays each nostril daily. 6. Zantac 150 mg b.i.d. 7. Multivitamin 1 tablet p.o. daily. 8. Neurontin 800 mg q.8. 9. Pulmicort 2 puffs inhalation daily p.r.n. ALLERGIES: NONE. PHYSICAL EXAMINATION: VITAL SIGNS ON PRESENTATION: Temperature 97.5, heart rate 30, respiration 16, blood pressure 163/79, pulse ox 98% on 2 L. GENERAL APPEARANCE: Average build. Sitting up, comfortable. EYES: Pupils equal. Conjunctivae normal. HEENT: External appearance of nose and ears normal. Oral cavity normal. NECK: JVD not raised. Mass not palpable. RESPIRATORY: Effort normal. LUNGS: Slightly decreased breath sounds. CARDIOVASCULAR. Heart sounds regular. No edema. ABDOMEN: Soft, nontender. Liver and spleen not palpable. LYMPHATIC: No lymph node palpable in neck or axillae. PSYCHIATRY: Alert and oriented x3. Mood and affect normal. NEUROLOGICAL: Pupils equal. Cranial nerves grossly intact. Power and sensation grossly intact. MUSCULOSKELETAL: Evidence of osteoarthritis, especially in the hands. INVESTIGATIONS: EKG and telemetry strips show going between second degree and complete heart block. Potassium 4.1. BUN and creatinine are normal. Troponin 0.019, 0.029. TSH normal. ASSESSMENT: 1. This is a patient going between complete heart block and second-degree heart block. 2. Intermittent asthma. 3. Gastroesophageal reflux disease. 4. Diabetes mellitus, type 2, on oral hypoglycemic. 5. Essential hypertension. 6. Hyperlipidemia. 7. Primary osteoarthritis. PLAN: I spoke to the nurse to get a 12-lead EKG and inform Cardiology. Patient will need a pacemaker. Patient is relatively controlled right now. Will need an external pacer overnight until seen by Cardiology. Care was discussed with the patient's . Questions were answered. MMODL / IJN: [id number] /
[2017-12-07 23:01] LABS: Glucose,Whole Blood 86 mg/dL (75-99)
[2017-12-08] MEDS ORDERED: ISOPROTERENOL 200 MCG/ML 5 ML AMP IV ONE (00:34)
[2017-12-08] MEDS ORDERED: ISOPROTERENOL 200 MCG/ML 5 ML AMP IV SCH (00:45)
[2017-12-08 00:55] LABS: Troponin I 0.028 ng/mL (0.000-0.034)
[2017-12-08] MEDS ORDERED: ISOPROTERENOL IV SCH ×4 (01:00→01:45)
[2017-12-08] MEDS ORDERED: DEXTROSE 5% IV SCH ×4 (01:00→01:45)
[2017-12-08] MEDS ORDERED: WATER IV SCH ×4 (01:00→01:45)
[2017-12-08] MEDS: DEXTROSE 5% IV SCH ×2 (02:37→11:02)
[2017-12-08] MEDS: WATER IV SCH ×2 (02:37→11:02)
[2017-12-08] MEDS: ISOPROTERENOL IV SCH ×2 (02:37→11:02)
[2017-12-08 04:31] LABS: HCT 43.4 % (39.0-53.0); HGB 14.9 gm/dL (13.0-17.5); MCH 32.3 pg (25.0-35.0); MCHC 34.3 g/dL (31.0-37.0); MCV 94.2 fL (80.0-100.0); Mean Platelet Volume 7.9; Platelet Count 103 k/uL (150-450); RBC 4.61 m/uL (4.30-5.90); WBC 6.3 k/uL (3.8-10.6)
[2017-12-08 04:48] LABS: Anion Gap 12 mmol/L; Blood Urea Nitrogen 15 mg/dL (9-20); Calcium 9.5 mg/dL (8.4-10.2); Carbon Dioxide 24 mmol/L (22-30); Chloride 106 mmol/L (98-107); Cholesterol 117 mg/dL (<200); Glucose 138 mg/dL (74-99); HDL Cholesterol 55 mg/dL (40-60); LDL Cholesterol,Calculated 45 mg/dL (0-99); Magnesium 1.9 mg/dL (1.6-2.3); Phosphorus 3.8 mg/dL (2.5-4.5); Potassium 3.1 mmol/L (3.5-5.1); Sodium 142 mmol/L (137-145); Triglycerides 87 mg/dL (<150)
[2017-12-08] MEDS ORDERED: Potassium Replacement Protocol 1 EACH MISC MISCELLANE PRN (06:36)
[2017-12-08 07:33] LABS: Glucose,Whole Blood 158 mg/dL (75-99)
[2017-12-08] MEDS: POTASSIUM CHLORIDE ER 20 MEQ TAB.ER PO SCH ×2 (08:31→09:29)
[2017-12-08] MEDS: GABAPENTIN 400 MG CAP PO SCH ×3 (08:32→23:17)
[2017-12-08] MEDS ORDERED: GLIMEPIRIDE 1 MG TAB PO SCH (09:00)
--- NOTE | 2017-12-08 09:47 | P.CRDCN ---
History of Present Illness Consult date: 12/08/17 History of present illness: During this is a 77-year-old gentleman with history of hypertension, hypercholesterolemia and known mild bradycardia with evidence of right bundle- branch block and left axis deviation, who went to see is a primary care physician yesterday to have his blood sugar check. He was found to be bradycardic. At that point patient was asymptomatic. Patient however was sent to the hospital for further evaluation. In the hospital. Patient was found to have it is decrease of heart block including first-degree, second-degree and occasional A-V dissociation. Patient was started on Isuprel. His heart rate is in the 40s, now. He is EKG shows evidence of possible left bundle-branch block pattern. Patient is advised to have permanent pacemaker implantation. His potassium is low at 3.1 today, which is being replaced. He denies any chest pain, denies any palpitations or dizziness. He does feel that is having some mild difficulty with shortness of breath. Review of Systems As per HPI Past Medical History Past Medical History: Asthma, GERD/Reflux, GI Bleed, Hyperlipidemia, Hypertension, Osteoarthritis (OA) Additional Past Medical History / Comment(s): Second lung disease possibly due to some diaphragmatic weakness bilaterally more so on the right, cervical disc disease undergone previous neck surgeries, hypertension, hyperlipidemia, questionable asthma, atrial arrhythmias and ventricular arrhythmias main in the form of PACs and PVCs. History of Any Multi-Drug Resistant Organisms: None Reported Past Surgical History: Orthopedic Surgery Additional Past Surgical History / Comment(s): torn rotator cuff, cervical disc removed in neck and fused 3 arthroscopy of the left knee, abdominal surgery, left hand/thumb surgery Past Anesthesia/Blood Transfusion Reactions: No Reported Reaction Past Psychological History: No Psychological Hx Reported Smoking Status: Never smoker Past Alcohol Use History: Occasional Past Drug Use History: None Reported - Past Family History Father History Unknown: Yes Family Medical History: Congestive Heart Failure (CHF) Mother History Unknown: Yes Family Medical History: Myocardial Infarction ([place]) Medications and Allergies Home Medications Medication Instructions Recorded Confirmed Type Gabapentin [Neurontin] 800 mg PO Q8HR 12/20/13 12/07/17 History Losartan/Hydrochlorothiazide 1 tab PO DAILY 12/20/13 12/07/17 History [Losartan-Hctz 100-25 mg Tab] Lovastatin [Mevacor] 20 mg PO HS 12/20/13 12/07/17 History Ranitidine HCl 150 mg PO BID 12/20/13 12/07/17 History Albuterol Inhaler [Ventolin Hfa 2 puff INHALATION RT-Q6H PRN 12/07/17 12/07/17 History Inhaler] Budesonide [Pulmicort Flexhaler] 2 puff INHALATION RT-DAILY 12/07/17 12/07/17 History Fluticasone Nasal [place] [Flonase 2 spr EA NOSTRIL DAILY 12/07/17 12/07/17 History Nasal [place]] Glimepiride [Amaryl] 1 mg PO DAILY 12/07/17 12/07/17 History Multivitamins, Thera [Multivitamin 1 tab PO DAILY 12/07/17 12/07/17 History (formulary)] Allergies Allergy/AdvReac Type Severity Reaction Status Date / Time No Known Allergies Allergy Verified 12/07/17 12:31 Physical Exam Vitals: Vital Signs Temp Pulse Pulse Resp BP BP Pulse Ox 12/08/17 09:00 47 L 16 119/51 93 L 12/08/17 08:30 45 L 20 128/47 92 L 12/08/17 08:00 97.7 F 45 L 19 137/50 94 L 12/08/17 07:00 51 L 18 137/50 94 L 12/08/17 06:00 49 L 16 124/49 92 L 12/08/17 05:30 52 L 21 127/47 93 L 12/08/17 05:00 46 L 20 136/52 93 L 12/08/17 04:30 52 L 41 H 132/53 92 L 12/08/17 04:00 98.2 F 43 L 32 H 131/52 94 L 12/08/17 03:39 16 12/08/17 03:30 61 19 125/54 89 L 12/08/17 03:00 42 L 18 140/53 94 L 12/08/17 02:30 54 L 23 117/55 93 L 12/08/17 02:00 37 L 16 159/82 93 L 12/08/17 01:30 29 L 16 161/65 92 L 12/08/17 01:00 29 L 21 156/67 93 L 12/08/17 00:30 29 L 20 170/64 91 L 12/08/17 00:00 98.2 F 31 L 18 170/64 93 L 12/07/17 23:30 37 L 17 194/89 96 12/07/17 23:00 33 L 10 L 194/89 94 L 12/07/17 19:45 98.2 F 33 L 16 148/65 95 12/07/17 18:22 98.2 F 25 L 16 142/60 99 12/07/17 18:10 98.2 F 25 L 16 142/60 99 12/07/17 17:10 97.5 F L 33 L 18 182/86 94 L 12/07/17 16:00 33 L 18 182/86 12/07/17 14:58 36 L 18 196/89 94 L 12/07/17 14:03 32 L 18 185/64 97 12/07/17 13:16 33 L 18 163/79 98 12/07/17 12:50 37 L 18 208/78 100 12/07/17 12:41 30 L 12/07/17 12:06 97.5 F L 29 L 16 202/84 98 Intake and Output 12/07/17 12/08/17 12/08/17 22:59 06:59 14:59 Intake Total 360 522.5 40 Balance 360 522.5 40 Intake: IV 522.5 40 0.9% NS 140 40 Isoproterenol. 382.5 Oral 360 Other: Voiding Method Toilet Toilet # Voids 1 1 GENERAL EXAM: Patient is alert and oriented and doesn't appear to be in any acute distress HEENT: Normocephalic. Normal reaction of pupils, equal size, normal range of extraocular motion. No erythema or exudates in the throat. NECK: No masses, no nuchal rigidity. CHEST: No chest wall deformity. LUNGS: Equal air entry with no crackles or wheeze. HEART: S1 and S2 normal with no audible mumurs or gallops. Regular rhythm, bradycardic.. ABDOMEN: No hepatosplenomegaly, normal bowel sounds, no guarding or rigidity. SKIN: No rashes CENTRAL NERVOUS SYSTEM: No focal deficits. EXTREMITIES: No cyanosis, clubbing or edema. Results 12/08/17 04:22 12/08/17 04:22 Cardiac Enzymes 12/07/17 12/07/17 12/07/17 Range/Units 12:32 12:32 17:54 AST 26 (17-59) U/L CK-MB (CK-2) 1.2 1.1 (0.0-2.4) ng/mL Troponin I 0.019 0.029 (0.000-0.034) ng/mL 12/08/17 Range/Units 00:03 AST (17-59) U/L CK-MB (CK-2) 1.0 (0.0-2.4) ng/mL Troponin I 0.028 (0.000-0.034) ng/mL Coagulation 12/07/17 Range/Units 12:32 PT 10.8 (9.0-12.0) sec APTT 24.7 (22.0-30.0) sec Lipids 12/08/17 Range/Units 04:22 Triglycerides 87 (<150) mg/dL Cholesterol 117 (<200) mg/dL HDL Cholesterol 55 (40-60) mg/dL CBC 12/07/17 12/08/17 Range/Units 12:32 04:22 WBC 5.5 6.3 (3.8-10.6) k/uL RBC 5.12 4.61 (4.30-5.90) m/uL Hgb 15.7 14.9 (13.0-17.5) gm/dL Hct 47.2 43.4 (39.0-53.0) % Plt Count 132 L 103 L (150-450) k/uL Comprehensive Metabolic Panel 12/07/17 12/08/17 Range/Units 12:32 04:22 Sodium 144 142 (137-145) mmol/L Potassium 4.1 3.1 L (3.5-5.1) mmol/L Chloride 107 106 (98-107) mmol/L Carbon Dioxide 26 24 (22-30) mmol/L BUN 16 15 (9-20) mg/dL Creatinine 0.74 0.80 (0.66-1.25) mg/dL Glucose 99 138 H (74-99) mg/dL Calcium 9.8 9.5 (8.4-10.2) mg/dL AST 26 (17-59) U/L ALT 37 (21-72) U/L Alkaline Phosphatase 54 (38-126) U/L Total Protein 6.6 (6.3-8.2) g/dL Albumin 4.2 (3.5-5.0) g/dL Current Medications Generic Name Dose Route Start Last Admin Trade Name Freq PRN Reason Stop Dose Admin Amlodipine Besylate 5 mg 12/07/17 16:00 12/07/17 17:44 Norvasc PO 5 mg DAILY REYNA Administration Aspirin 325 mg 12/08/17 09:00 Aspirin PO DAILY REYNA Atorvastatin Calcium 10 mg 12/07/17 21:00 12/07/17 20:06 Lipitor PO 10 mg HS REYNA Administration Gabapentin 800 mg 12/08/17 00:00 12/08/17 08:32 Neurontin PO 800 mg Q8HR REYNA Administration Glimepiride 1 mg 12/08/17 09:00 Amaryl PO DAILY REYNA HCTZ/Losartan Potassium 2 each 12/07/17 16:00 12/07/17 17:44 Hyzaar 50-12.5 PO 2 each DAILY REYNA Administration Isoproterenol HCl 2,000 mcg/ 510 mls @ 76.5 mls/hr 12/08/17 02:37 12/08/17 02 :37 Dextrose/Water IV 5 mcg/min .Q6H40M REYNA 76.5 mls/hr Protocol Administration 5 MCG/MIN Potassium Chloride 10 meq/ IV 100 mls @ 100 mls/hr 12/08/17 09:45 Solution IVPB 12/08/17 13:44 Q1H [facility] Miscellaneous Information 1 each 12/08/17 06:36 Potassium Per Protocol MISCELLANE DAILY PRN Per Protocol Protocol Multivitamins 1 each 12/08/17 12:00 Theragran PO 1200 REYNA Nitroglycerin 0.4 mg 12/07/17 13:13 Nitrostat SUBLINGUAL Q5M PRN Chest Pain Intake and Output 12/07/17 12/08/17 12/08/17 22:59 06:59 14:59 Intake Total 360 522.5 40 Balance 360 522.5 40 Intake: IV 522.5 40 0.9% NS 140 40 Isoproterenol. 382.5 Oral 360 Other: Voiding Method Toilet Toilet # Voids 1 1 12/08/17 04:22 12/08/17 04:22 EKG Interpretations (text) Sinus rhythm with various decrease of heart block. Interventricular conduction delay Assessment and Plan (1) High degree atrioventricular block Current Visit: Yes Status: Acute Code(s): I44.39 - OTHER ATRIOVENTRICULAR BLOCK SNOMED Code(s): 542765974 (2) Bradycardia Current Visit: Yes Status: Acute Code(s): R00.1 - BRADYCARDIA, UNSPECIFIED SNOMED Code(s): 75358851 (3) High blood pressure Current Visit: Yes Status: Acute Code(s): I10 - ESSENTIAL (PRIMARY) HYPERTENSION SNOMED Code(s): 32019831 (4) Hypokalemia Current Visit: Yes Status: Acute Code(s): E87.6 - HYPOKALEMIA SNOMED Code( s): 11519698 Plan: We'll proceed with temporary and permanent pacemaker implantation. Patient unfortunately ate this morning. We'll correct his hypokalemia and proceed with permanent pacemaker implantation this afternoon.
[2017-12-08] MEDS: POTASSIUM CHLORIDE 10 MEQ in WATER FOR INJECTION 1 100ML.BAG IVPB SCH ×4 (10:22→14:08)
[2017-12-08] MEDS: amLODIPine 5 MG TAB PO SCH (11:03)
[2017-12-08] MEDS: LOSARTAN-HCTZ 50-12.5 MG 1 EACH TAB PO SCH (11:03)
[2017-12-08] MEDS: ASPIRIN 325 MG TAB PO SCH (11:04)
[2017-12-08] MEDS: MULTIVITAMINS, THERA 1 EACH TAB PO SCH (11:31)
[2017-12-08 11:51] LABS: Glucose,Whole Blood 181 mg/dL (75-99)
[2017-12-08] MEDS ORDERED: ceFAZolin 1,000 MG in SODIUM CHLORIDE 0.9% IRRIGATIO 250 ML IRRIGATION ONE (12:03)
[2017-12-08] MEDS ORDERED: ceFAZolin IN SWFI 2 GM/20 ML SYRINGE IVP ONE (12:03)
--- NOTE | 2017-12-08 12:39 | ECHOF ---
Referral Reason:bradycardia MEASUREMENTS -------- HEIGHT: 170.2 cm WEIGHT: 72.6 kg BP: RVIDd: 3.6 cm (< 3.3) IVSd: 1.2 cm (0.6 - 1.1) LVIDd: 5.9 cm (3.9 - 5.3) LVPWd: 1.1 cm (0.6 - 1.1) IVSs: 1.7 cm LVIDs: 4.0 cm LVPWs: 1.6 cm LAESV Index (A-L): 58.88 ml/m Ao Diam: 3.6 cm (2.0 - 3.7) AV Cusp: 2.0 cm (1.5 - 2.6) LA Diam: 4.3 cm (2.7 - 3.8) EPSS: 0.8 cm MV E Yuan: 0.62 m/s MV DecT: 462 ms MV A Yuan: 1.07 m/s MV E/A Ratio: 0.58 AR PHT: 1309 ms RAP: 5.00 mmHg RVSP: 36.52 mmHg MV EF SLOPE: 31.15 mm/s (70 - 150) MV EXCURSION: 1.95 cm (> 18.000) FINDINGS -------- Resting bradycardia (HR<60bpm). This was a technically adequate study. The left ventricular size is normal. There is mild concentric left ventricular hypertrophy. Overa ll left ventricular systolic function is low-normal with, an EF between 50 - 55 %. The right ventricle is mildly enlarged. LA is severely dilated >40 ml/m2 The right atrium is normal in size. Aortic valve is trileaflet and is mildly thickened. There is mild aortic regurgitation. There is no evidence of aortic stenosis. Mild mitral annular calcification present. Moderate mitral regurgitation is present. Mild tricuspid regurgitation present. There is mild pulmonary hypertension. The right ventricular systolic pressure, as measured by Doppler, is 36.52mmHg. The pulmonic valve was not well visualized. There is no pulmonic regurgitation present. The aortic root is mildy dilated up to 3.8 cm. Normal inferior vena cava with normal inspiratory collapse consistent with estimated right atrial pre ssure of 5 mmHg. There is no pericardial effusion. CONCLUSIONS -------- 1. Resting bradycardia (HR<60bpm). 2. This was a technically adequate study. 3. The left ventricular size is normal. 4. There is mild concentric left ventricular hypertrophy. 5. Overall left ventricular systolic function is low-normal with, an EF between 50 - 55 %. 6. The right ventricle is mildly enlarged. 7. LA is severely dilated >40 ml/m2 8. Aortic valve is trileaflet and is mildly thickened. 9. There is mild aortic regurgitation. 10. Mild mitral annular calcification present. 11. Moderate mitral regurgitation is present. 12. Mild tricuspid regurgitation present. 13. There is mild pulmonary hypertension. 14. The pulmonic valve was not well visualized. 15. There is no pulmonic regurgitation present. 16. The aortic root is mildy dilated up to 3.8 cm. 17. There is no pericardial effusion. STORE MERCHANDISER: Jesus Aguirre RDCS
[2017-12-08] MEDS ORDERED: LIDOCAINE 2% INJ 20 MG/ML SQ ONE (13:24)
[2017-12-08] MEDS ORDERED: SODIUM CHLORIDE 0.9% 500 ML IV ONE (13:25)
[2017-12-08] MEDS ORDERED: fentaNYL (PF) 50 MCG/ML 2 ML AMP IVP ONE (13:26)
[2017-12-08] MEDS ORDERED: MIDAZOLAM 2 MG/2 ML VIAL IVP ONE (13:26)
--- NOTE | 2017-12-08 13:44 | P.PCN ---
Date of Procedure: 12/08/17 Preoperative Diagnosis: Severe bradycardia, high degree AV block Postoperative Diagnosis: The same Procedure(s) Performed: Temporary pacemaker implantation Description of Procedure: This patient is admitted to the hospital with a severe bradycardia with high degree AV block. Patient is on Isuprel drip maintaining heart rate about 40 with complete heart block. Patient is advised to have temporary pacemaker. Patient will be scheduled for permanent pacemaker later. Patient was brought to the lab in a fasting state. He was prepped and draped in the usual fashion. He was given IV Versed 1 mg and 25 mg of fentanyl for sedation. The groin is a infiltrated with lidocaine. The right femoral vein was entered using Seldinger technique and a 6-[place] sheath was advanced and placed in the femoral vein. A 5-[place]ian balloontipped temporary pacemaker was advanced and was placed at the apex of the right ventricle. Pacing thresholds were excellent less than 0.5. The pacemaker is programmed to a rate of 50 and output of 30. Final impression and plan: Successful temporary pacemaker insertion under fluoroscopy. The duration of the procedure was 14 minutes. Patient went continuously monitored during the procedure. The Isuprel be gradually tapered off as tolerated. Permanent pacemaker insertion later on.
[2017-12-08] MEDS: SODIUM CHLORIDE 0.9% 1,000 ML IV SCH ×2 (14:18)
[2017-12-08 17:15] LABS: Glucose,Whole Blood 150 mg/dL (75-99)
--- NOTE | 2017-12-08 19:36 | PN ---
PROGRESS NOTE DATE OF SERVICE: 12/08/17 PRESENTING COMPLAINT: Dizziness. INTERVAL HISTORY: This is a very pleasant gentleman, now in the ICU presented with a high-degree AV block including second-degree and complete heart block. Does have a transvenous pacemaker placed by Dr. Chaudhary, awaiting a permanent pacemaker. It was held back because of scheduling issues in the OR. The patient's and other son and other family are present. The patient otherwise is comfortable. The patient did get atropine x1 once this afternoon and then also got IV isoproterenol overnight. REVIEW OF SYSTEMS: Done for constitutional, cardiovascular, GI, pulmonary; relevant findings as above. CURRENT MEDICATIONS: Reviewed and include IV fluids. PHYSICAL EXAMINATION: On examination, afebrile, pulse 48, respirations 16, blood pressure 95/59, pulse ox 96% on 2 L. GENERAL APPEARANCE: Lying in bed comfortable. EYES: Pupils equal. Conjunctivae normal. HEENT: External appearance of nose and ears normal. Oral cavity normal. NECK: JVD not raised. Mass not palpable. RESPIRATORY: Effort normal. Lungs, decreased breath sounds. CARDIOVASCULAR: Heart sounds irregular. No edema. ABDOMEN: Soft, nontender. Liver and spleen not palpable. PSYCHIATRY: Alert and oriented x3. Mood and affect normal. INVESTIGATIONS: Potassium 3.1. BUN and creatinine normal. Accu-Cheks are noted. ASSESSMENT: 1. Second-degree heart block and complete heart block requiring IV isoproterenol and temporary pacemaker until pacemaker is placed. 2. Intermittent asthma. 3. Gastroesophageal reflux disease. 4. Diabetes mellitus type 2 on oral hypoglycemic. 5. Essential hypertension. 6. Hyperlipidemia. 7. Primary osteoarthritis. PLAN: At this point, the patient's Amaryl to be held and can be resumed after the procedure once patient starts eating. In the meantime, the patient be kept on sliding scale. Care was discussed with the patient's family at the bedside. Questions were answered. MMODL / IJN: [id number] /
[2017-12-08] MEDS: INSULIN ASPART 100 UNIT/ML 1 ML 10 ML VIAL SQ SCH (20:26)
[2017-12-08 20:27] LABS: Glucose,Whole Blood 109 mg/dL (75-99)
[2017-12-08] MEDS: ATORVASTATIN 10 MG TAB PO SCH (21:17)
[2017-12-09 03:45] LABS: Hemoglobin A1C 5.7 % (4.0-6.0)
[2017-12-09 05:06] LABS: HCT 42.3 % (39.0-53.0); HGB 14.2 gm/dL (13.0-17.5); MCH 31.5 pg (25.0-35.0); MCHC 33.5 g/dL (31.0-37.0); Mean Platelet Volume 8.3; Platelet Count 136 k/uL (150-450); RDW 13.1 % (11.5-15.5); WBC 6.2 k/uL (3.8-10.6)
[2017-12-09 05:31] LABS: INR 1.2 (<1.2); Partial Thromboplastin Time 24.3 sec (22.0-30.0); Prothrombin Time 11.1 sec (9.0-12.0)
[2017-12-09 05:47] LABS: Anion Gap 8 mmol/L; Blood Urea Nitrogen 17 mg/dL (9-20); Carbon Dioxide 28 mmol/L (22-30); Chloride 108 mmol/L (98-107); Glucose 90 mg/dL (74-99); Phosphorus 4.2 mg/dL (2.5-4.5); Potassium 4.2 mmol/L (3.5-5.1); Sodium 144 mmol/L (137-145)
[2017-12-09] MEDS: ASPIRIN 325 MG TAB PO SCH (07:06)
[2017-12-09] MEDS: amLODIPine 5 MG TAB PO SCH (07:06)
[2017-12-09] MEDS: LOSARTAN-HCTZ 50-12.5 MG 1 EACH TAB PO SCH (07:06)
[2017-12-09] MEDS: INSULIN ASPART 100 UNIT/ML 1 ML 10 ML VIAL SQ SCH ×4 (07:11→21:38)
[2017-12-09 07:13] LABS: Glucose,Whole Blood 84 mg/dL (75-99)
[2017-12-09] MEDS: SODIUM CHLORIDE 0.9% 1,000 ML IV SCH ×2 (07:53→07:54)
[2017-12-09] MEDS ORDERED: ceFAZolin 1,000 MG in SODIUM CHLORIDE 0.9% IRRIGATIO 250 ML IRRIGATION ONE (08:00)
[2017-12-09] MEDS: ceFAZolin IN SWFI 2 GM/20 ML SYRINGE IVP ONE ×2 (08:04→08:50)
[2017-12-09] MEDS ORDERED: IOPAMIDOL-250 50ML BTL IV ONE (08:40)
[2017-12-09] MEDS ORDERED: LIDOCAINE 1% INJ 10MG/ML (20 ML MDV) ONE (08:45)
[2017-12-09] MEDS ORDERED: IV FLUID CONTINUATION 1,000 ML IV ONE (08:50)
[2017-12-09] MEDS ORDERED: MIDAZOLAM 2 MG/2 ML VIAL IV ONE (08:55)
[2017-12-09] MEDS ORDERED: fentaNYL (PF) 50 MCG/ML 2 ML AMP IV ONE (08:55)
[2017-12-09] MEDS ORDERED: MIDAZOLAM 2 MG/2 ML VIAL ONE (08:56)
[2017-12-09] MEDS ORDERED: fentaNYL (PF) 50 MCG/ML 2 ML AMP ONE (08:56)
[2017-12-09] MEDS ORDERED: LIDOCAINE 1% INJ 10MG/ML (20 ML MDV) SQ ONE (08:57)
[2017-12-09] MEDS ORDERED: hydrALAZINE HCL 20 MG/ML 1 ML VIAL ONE (09:44)
[2017-12-09] MEDS ORDERED: NITROGLYCERIN OINT 1 INCH/GM PACKET TOPICAL ONE ×2 (09:46→09:48)
[2017-12-09] MEDS ORDERED: hydrALAZINE HCL 20 MG/ML 1 ML VIAL IV ONE (09:47)
[2017-12-09] MEDS ORDERED: ACETAMINOPHEN TAB 325 MG TAB PO PRN (10:14)
[2017-12-09] MEDS ORDERED: ACETAMINOPHEN IV (For NPO) 1,000 MG in EMPTY BAG 1 BAG IVPB ONE (10:14)
--- NOTE | 2017-12-09 10:24 | P.PCN ---
Date of Procedure: 12/09/17 Preoperative Diagnosis: High degree AV block and bradycardia Postoperative Diagnosis: Complete heart block Procedure(s) Performed: Axillary venography, dual-chamber permanent pacemaker implantation, removal of the temporary pacemaker under fluoroscopy Description of Procedure: HISTORY: This is a 77-year-old gentleman who was admitted to the hospital with severe bradycardia and evidence of high degree AV block. Patient is a advised to have permanent pacemaker. He had a temporary pacemaker inserted yesterday. CONSENT:I have discussed the risks, benefits and alternative therapies for the above-mentioned procedure and for both sedation/analgesia as well as necessary blood product administration, if indicated, as they pertain to this patient. The patient has indicated understanding and acceptance of the risks and procedures discussed. PROCEDURE: Patient was brought to the lab in a fasting state. Patient was prepped and draped in the usual fashion. Patient was given IV sedation with fentanyl and Versed. The skin below the left clavicle was infiltrated with lidocaine. An incision was made parallel to deltopectoral groove was deepened until the pectoral fascia was exposed. A pocket was created by blunt dissection and cautery. Axillary venography was performed to delineate the course of the axillary vein. 2 sticks were performed into extrathoracic portion of the axillary vein and 2 sheaths were advanced over the guidewires and left in subclavian vein. Conscious Sedation: Versed 1mg Fentanyl 25 g Duration 62minutes LEADS: ATRIAL: This is manufactured by [employer]. Model number is 1882 and the serial number is [id number]. VENTRICULAR: This is manufactured by [employer]. Serial number is [id number]. And the model number is [id number]. The ventricular lead is maneuvered l with help of a straight and curved stylets into the left ventricle apical region. Satisfactory position was obtained and threshold measurements were made. The atrial lead was then maneuvered into the right atrial appendage. Both leads are screw-in leads. And thresholds were obtained. THRESHOLDS: ATRIUM: The minimum patient threshold is on 75 V at pulse width of 0.4 ms. Impedance is 4:30 ohms. The sensing is 2.4 mV P-wave: 2.4 mV VENTRICLE: The minimal patient threshold was 0.5 at pulse width of 0.4 ms. Impedance is 640 ohms R-wave: Could not be measured because patient is pacemaker dependent. The leads and pulse generator remained in the pocket after it was washed with antibiotics. Pocket was closed in the usual fashion. The fascia was closed with 2-0 Prolene ,the subcutaneous tissue was closed with 3-0 Prolene and the skin was closed with 4-0 Prolene. Temporary pacemaker was pulled out under fluoroscopy. Hemostasis was obtained. The groin by manual compression. PROGRAMMING: MODE: DDDR RATE: 60 to 1:30 OUTPUT: Atrium : 3.5 V Ventricle: 3.5 V FINAL IMPRESSION: 1. Axillary venography #2. Dual-chamber permanent pacemaker implantation #3. Removal of temporary pacemaker under fluoroscopy. COMPLICATIONS: None PLAN: Continue prophylactic antibiotics. Monitor patient on the telemetry unit. Chest x-ray in the morning. Possible discharge in a.m.
[2017-12-09] MEDS: GABAPENTIN 400 MG CAP PO SCH ×3 (10:26→21:35)
[2017-12-09 11:29] LABS: Glucose,Whole Blood 92 mg/dL (75-99)
[2017-12-09] MEDS: ACETAMINOPHEN TAB 325 MG TAB PO PRN ×2 (12:51→21:47)
[2017-12-09] MEDS: MULTIVITAMINS, THERA 1 EACH TAB PO SCH (12:51)
[2017-12-09] MEDS: ceFAZolin IN SWFI 2 GM/20 ML SYRINGE IVP SCH ×2 (14:18→21:37)
[2017-12-09 16:36] LABS: Glucose,Whole Blood 113 mg/dL (75-99)
[2017-12-09 20:10] VITALS: RESP 16
[2017-12-09 21:24] LABS: Glucose,Whole Blood 161 mg/dL (75-99)
[2017-12-09] MEDS: ATORVASTATIN 10 MG TAB PO SCH (21:35)
[2017-12-10] MEDS: ceFAZolin IN SWFI 2 GM/20 ML SYRINGE IVP SCH ×2 (04:33→10:25)
[2017-12-10] MEDS: SODIUM CHLORIDE 0.9% 1,000 ML IV SCH (04:40)
[2017-12-10 06:23] LABS: Glucose,Whole Blood 113 mg/dL (75-99)
[2017-12-10] MEDS: INSULIN ASPART 100 UNIT/ML 1 ML 10 ML VIAL SQ SCH ×2 (06:27→13:12)
--- NOTE | 2017-12-10 06:36 | PN ---
PROGRESS NOTE DATE OF SERVICE: 12/09/2017 PRESENTING COMPLAINT: Heart block. INTERVAL HISTORY: This patient was seen by me yesterday afternoon, status post pacemaker placement. The patient walking up and down the calle, feeling better. No dizziness. No lightheadedness. No chest pain. REVIEW OF SYSTEMS: Review of systems done for constitutional, cardiovascular, GI, pulmonary; relevant findings as above. CURRENT MEDICATIONS: Current medications are reviewed that included IV Kefzol. PHYSICAL EXAMINATION: On examination, temperature 96.8, pulse , blood pressure 140/74, pulse ox 92% on room air. GENERAL APPEARANCE: Comfortable. EYES: Pupils equal. Conjunctivae normal. HENT: External appearance of nose and ears normal. Oral cavity normal. NECK: JVD not raised. Mass not palpable. RESPIRATORY: Effort normal. LUNGS: Decreased breath sounds. CARDIOVASCULAR: Heart sounds muffled, no edema. ABDOMEN: Soft, nontender. Liver and spleen not palpable. PSYCHIATRY: Alert and oriented x3. Mood and affect normal. There is dressing over the pacemaker. INVESTIGATIONS: Accu-Cheks are noted. ASSESSMENT: 1. A high-degree AV block now patient has got a DDD pacemaker. 2. Intermittent asthma. 3. Gastroesophageal reflux disease. 4. Diabetes mellitus type 2 on oral hypoglycemic. 5. Essential hypertension. 6. Hyperlipidemia. 7. Primary osteoarthritis. Care was discussed with the patient and . Doing well. Continue current medication and treatment plan. MMABDULAZIZL / SYN: [id number] /
[2017-12-10 06:37] LABS: Basophils % (A) 0 %; Eosinophils # (A) 0.3 k/uL (0-0.7); Eosinophils % (A) 4 %; HCT 45.6 % (39.0-53.0); Lymphocytes # (A) 1.5 k/uL (1.0-4.8); Lymphocytes % (A) 19 %; MCH 31.3 pg (25.0-35.0); MCHC 32.9 g/dL (31.0-37.0); MCV 95.1 fL (80.0-100.0); Monocytes # (A) 0.8 k/uL (0-1.0); Monocytes % (A) 10 %; Neutrophils # (A) 5.4 k/uL (1.3-7.7); Neutrophils % (A) 66 %; Platelet Count 124 k/uL (150-450); RBC 4.79 m/uL (4.30-5.90); WBC 8.1 k/uL (3.8-10.6)
[2017-12-10 06:53] LABS: Anion Gap 11 mmol/L; Blood Urea Nitrogen 12 mg/dL (9-20); Calcium 9.3 mg/dL (8.4-10.2); Carbon Dioxide 25 mmol/L (22-30); Chloride 106 mmol/L (98-107); Glucose 112 mg/dL (74-99); Potassium 4.2 mmol/L (3.5-5.1); Sodium 142 mmol/L (137-145)
--- NOTE | 2017-12-10 07:40 | XR ---
EXAMINATION TYPE: XR chest 2V DATE OF EXAM: 12/10/2017 COMPARISON: 12/07/2017 HISTORY: Lead placement. Chest pain. TECHNIQUE: Frontal and lateral views of the chest are obtained. FINDINGS: Dual lead left-sided cardiac device is been inserted in the interim with atrial and ventri cular leads. There is mild cardiomegaly. Right hemidiaphragm elevation is unchanged from the prior. S trand-like left basilar airspace disease has improved in the interim. No focal consolidation. Partial visualization of postsurgical change of the right proximal humerus. No pneumothorax is seen. IMPRESSION: Interval insertion of a dual lead left-sided cardiac device. Persistent right hemidiaphr agm elevation and improvement of the strand-like left basilar opacity, likely atelectasis.
[2017-12-10] MEDS: amLODIPine 5 MG TAB PO SCH (07:42)
[2017-12-10] MEDS: GABAPENTIN 400 MG CAP PO SCH ×2 (07:42→15:36)
[2017-12-10] MEDS: LOSARTAN-HCTZ 50-12.5 MG 1 EACH TAB PO SCH (07:43)
[2017-12-10] MEDS: MULTIVITAMINS, THERA 1 EACH TAB PO SCH (07:43)
[2017-12-10] MEDS: ACETAMINOPHEN TAB 325 MG TAB PO PRN (10:26)
[2017-12-10 11:32] LABS: Glucose,Whole Blood 114 mg/dL (75-99)
[2017-12-10 14:58] VITALS: TEMP 96.9
--- NOTE | 2017-12-10 15:12 | P.PN ---
Subjective Progress Note Date: 12/10/17 During this is a 77-year-old gentleman with history of hypertension, hypercholesterolemia and known mild bradycardia with evidence of right bundle- branch block and left axis deviation, who went to see is a primary care physician yesterday to have his blood sugar check. He was found to be bradycardic. At that point patient was asymptomatic. Patient however was sent to the hospital for further evaluation. In the hospital. Patient was found to have it is decrease of heart block including first-degree, second-degree and occasional A-V dissociation. Patient was started on Isuprel. His heart rate is in the 40s, now. He is EKG shows evidence of possible left bundle-branch block pattern. Patient is advised to have permanent pacemaker implantation. His potassium is low at 3.1 today, which is being replaced. He denies any chest pain, denies any palpitations or dizziness. He does feel that is having some mild difficulty with shortness of breath. 12/10 2017 Patient underwent implantation of a permanent pacemaker yesterday, in the afternoon he had an episode where he felt very woozy and lightheaded, we did get him back into the bed, his blood pressure at that time was around 108 systolic. He was seen and examined this morning, feeling well, he's been up ambulating in the calle without any difficulty. Device was interrogated and is functioning appropriately, chest x-ray was reviewed which did not reveal any evidence of a pneumothorax. Objective - Vital Signs Vital signs: Vital Signs Temp 96.9 F L 12/10/17 14:00 Pulse 62 12/10/17 14:00 Resp 16 12/10/17 14:00 BP 124/72 12/10/17 14:00 Pulse Ox 95 12/10/17 14:00 Intake & Output 12/09/17 12/10/17 12/10/17 18:59 06:59 18:59 Intake Total 613 800 576 Output Total 1100 Balance 613 -300 576 Weight 75.9 kg 72.5 kg Intake: IV 340 800 0.9% NS 90 800 Oral 273 576 Output: Urine 1100 Other: Voiding Method Urinal Urinal Urinal # Voids 1 - Exam PHYSICAL EXAMINATION: HEENT: Head is atraumatic, normocephalic. Pupils equal, round. Neck is supple. There is no elevated jugular venous pressure. HEART EXAMINATION: Heart S1, S2 normal. No murmur or gallop heard. Site of pacemaker implantation dressing is dry and intact. CHEST EXAMINATION: Lungs are clear to auscultation and precussion. No chest wall tenderness is noted on palpation or with deep breathing. ABDOMEN: Soft, nontender. Bowel sounds are heard. No organomegaly noted. EXTREMITIES: 2+ peripheral pulses with no evidence of peripheral edema and no calf tenderness noted. NEUROLOGIC patient is awake, alert and oriented -3. . - Labs CBC & Chem 7: 12/10/17 06:23 12/10/17 06:23 Labs: Abnormal Lab Results - Last 24 Hours (Table) 12/09/17 12/09/17 12/10/17 Range/Units 16:34 21:23 06:21 Plt Count (150-450) k/uL Glucose (74-99) mg/dL POC Glucose (mg/dL) 113 H 161 H 113 H (75-99) mg/dL 12/10/17 12/10/17 12/10/17 Range/Units 06:23 06:23 11:30 Plt Count 124 L (150-450) k/uL Glucose 112 H (74-99) mg/dL POC Glucose (mg/dL) 114 H (75-99) mg/dL Assessment and Plan Plan: Assessment and plan #1 status post implantation of a permanent pacemaker for complete heart block #2 hypertension #3 hypokalemia Plan From cardiology's perspective, patient may be able to be discharged home once cleared by primary. We will make him a follow-up appointment in the device clinic in one week. He will continue antibiotics for 3 days post discharge. DNP note has been reviewed, I agree with a documented findings and plan of care. Patient was seen and examined.
[2017-12-10 15:52] VITALS: BP 136/63; PULSE 60
--- NOTE | 2017-12-11 07:16 | DS ---
DISCHARGE SUMMARY DATE OF ADMISSION: 12/07/17. DATE OF DISCHARGE: December 10, 2017. FINAL DIAGNOSES: 1. 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 2. Intermittent asthma. 3. Gastroesophageal reflux disease. 4. Diabetes mellitus type 2 on oral hypoglycemic. 5. Essential hypertension. 6. Hyperlipidemia. 7. Primary osteoarthritis. 8. Moderate mitral regurgitation, nonrheumatic. CONSULTATION: Dr. Chaudhary from Cardiology. HOSPITAL COURSE: This patient presented with bradycardia, found to be in high-degree AV block, including complete heart block and high-degree second-degree block. The patient has got a permanent pacemaker doing well after that. Care was discussed with the patient and today. 2D echo. The patient did have a 2D echo that showed the EF of 50-55%. On examination lungs are clear. The patient has a left arm in a sling. DISCHARGE MEDICATIONS: 1. Neurontin 800 mg q.8h. 2. Losartan hydrochlorothiazide 100/25 1 tab twice a day. 3. Mevacor 20 mg q.h.s. 4. Zantac 150 mg b.i.d. 5. Ventolin 2 puffs q.6h p.r.n. 6. Pulmicort 2 puffs daily. 7. Flonase 2 sprays each nostril daily. 8. Amaryl 1 mg p.o. daily. 9. Multivitamin 1 tablet p.o. daily. 10.Keflex 100 mg p.o. Q 8. 11.Norvasc 5 mg p.o. daily. FOLLOWUP: Follow up with Dr. Matthews on December 17, 2017 and follow up with Dr. Chaudhary 12/17/17 in the pacemaker Clinic. Other instructions were given as per Cardiology. Copy to Dr. Matthews. Copy to Dr. Aquiles Szymanski. MMODL / IJN: [id number] /
== END 2017-12-10 16:28 | disposition home or self-care (01) | DRG 244 ==
LOC: EC 11:51 → 6SEL 13:13 → 6ICU 22:54 → 6SEL 12-09 10:12
PROVIDERS: ADMIT Hospitalist; ATTEND Hospitalist
PROC: 5A1223Z Performance of Cardiac Pacing, Continuous (ICD-10-PCS; 2017-12-08)
PROC: 02H63JZ Insertion of Pacemaker Lead into Right Atrium, Percutaneous Approach (ICD-10-PCS; 2017-12-09)
PROC: B51M1ZA Fluoroscopy of Right Upper Extremity Veins using Low Osmolar Contrast, Guidance (ICD-10-PCS; 2017-12-09)
PROC: 0WP8XYZ Removal of Other Device from Chest Wall, External Approach (ICD-10-PCS; 2017-12-09)
PROC: 02HK3JZ Insertion of Pacemaker Lead into Right Ventricle, Percutaneous Approach (ICD-10-PCS; 2017-12-09)
PROC: 0JH606Z Insertion of Pacemaker, Dual Chamber into Chest Subcutaneous Tissue and Fascia, Open Approach (ICD-10-PCS; principal; 2017-12-09 08:10)
DX: I44.2 Atrioventricular block, complete (principal); R00.1 Bradycardia, unspecified; R42 Dizziness and giddiness; J45.20 Mild intermittent asthma, uncomplicated; E87.6 Hypokalemia; I45.89 Other specified conduction disorders; I34.0 Nonrheumatic mitral (valve) insufficiency; E11.9 Type 2 diabetes mellitus without complications; K21.9 Gastro-esophageal reflux disease without esophagitis; E78.00 Pure hypercholesterolemia, unspecified; I10 Essential (primary) hypertension; M19.91 Primary osteoarthritis, unspecified site; Z79.01 Long term (current) use of anticoagulants; Z82.49 Family history of ischemic heart disease and other diseases of the circulatory system; Z79.899 Other long term (current) drug therapy; Z79.84 Long term (current) use of oral hypoglycemic drugs
CPT/HCPCS: 33208; 33210; 36415; 71045; 71046; 80048; 80053; 80061; 81003; 82550; 82553; 83036; 83605; 83735; 84100; 84443; 84484; 85025; 85027; 85610; 85730; 93005; 93306; 96374; 99291

== ENCOUNTER 2021-09-10 06:10 | Day surgery (SDC) | payer MEDICARE, BC ==
[2021-09-06 10:48] VITALS: BMI 25.8
[~2021-09-10 06:10] MED LIST: SODIUM CHLORIDE 0.9% 1,000 ML IV SCH
[2021-09-10] MEDS ORDERED: SODIUM CHLORIDE 0.9% 500 ML 500 ML IV ONE (06:50)
[2021-09-10 07:06] VITALS: BP 154/86; PULSE 60; RESP 16; TEMP 98
[2021-09-10 07:11] LABS: Glucose,Whole Blood 104 mg/dL (75-99)
[2021-09-10] MEDS ORDERED: IOPAMIDOL-370 50ML BTL INJ ONE (07:33)
[2021-09-10 07:42] LABS: INR 2.9 (<1.2); Prothrombin Time 28.7 sec (9.0-12.0)
--- NOTE | 2021-09-10 08:00 | P.EPPROC ---
- EP Procedure Note Electrophysiology Procedure Note: Diagnosis Worsening cardio myopathy 100% RV pacing, complete heart block Status post 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 medical Prepped the entire chest left and right side and then get left-sided access
== END 2021-09-10 08:03 | disposition home or self-care (01) ==
LOC: CATHEP 06:10
PROVIDERS: ATTEND Internal Medicine Clinical Cardiac Electrophysiology
DX: I82.B12 Acute embolism and thrombosis of left subclavian vein (principal); I42.9 Cardiomyopathy, unspecified; I44.2 Atrioventricular block, complete; E11.9 Type 2 diabetes mellitus without complications; I48.0 Paroxysmal atrial fibrillation; I10 Essential (primary) hypertension; E78.5 Hyperlipidemia, unspecified; Z79.01 Long term (current) use of anticoagulants; Z79.84 Long term (current) use of oral hypoglycemic drugs; Z79.51 Long term (current) use of inhaled steroids; Z79.899 Other long term (current) drug therapy
CPT/HCPCS: 36005; 75820; 85610; Q9967

== ENCOUNTER 2021-10-01 09:49 | Day surgery (SDC) | payer MEDICARE, BC ==
[2021-09-30 08:50] VITALS: BMI 26.6
[2021-10-01] MEDS ORDERED: SODIUM CHLORIDE 0.9% 1,000 ML IV ONE (10:10)
[2021-10-01 10:26] LABS: Glucose,Whole Blood 108 mg/dL (75-99)
[2021-10-01 10:41] LABS: INR 2.5 (<1.2); Prothrombin Time 25.4 sec (9.0-12.0)
[2021-10-01] MEDS ORDERED: LIDOCAINE 1% INJ 10MG/ML (20 ML MDV) ONE ×2 (10:56→12:39)
[2021-10-01] MEDS ORDERED: ROCURONIUM 10 MG/ML (5 ML VIAL) IV ONE (12:39)
[2021-10-01] MEDS ORDERED: PROPOFOL 10 MG/ML 20 ML VIAL IV ONE (12:39)
[2021-10-01] MEDS ORDERED: MIDAZOLAM 2 MG/2 ML VIAL ONE (12:39)
[2021-10-01] MEDS ORDERED: PHENYLEPHRINE-0.9% NACL SYG 1,000 MCG/10 ML SYRINGE ONE (12:39)
[2021-10-01] MEDS ORDERED: NEOSTIGMINE 1 MG/ML 10 ML VIAL ONE (12:39)
[2021-10-01] MEDS ORDERED: fentaNYL (PF) 50 MCG/ML 2 ML AMP ONE (12:39)
[2021-10-01] MEDS ORDERED: GLYCOPYRROLATE 0.2 MG/ML 2 ML VIAL ONE (12:39)
[2021-10-01] MEDS ORDERED: SUCCINYLCHOLINE CHLORIDE 100 MG/5 ML SYR IV ONE (12:39)
[2021-10-01] MEDS: ceFAZolin 1 GM in SODIUM CHLORIDE 0.9% IRRIG BTL 250 ML IRRIGATION PRN ×2 (13:26→13:42)
[2021-10-01] MEDS ORDERED: LIDOCAINE 1% INJ 10MG/ML (20 ML MDV) SQ ONE ×3 (13:49→14:34)
[2021-10-01] MEDS ORDERED: IOPAMIDOL-370 50ML BTL INJ ONE (14:58)
[2021-10-01] MEDS ORDERED: SODIUM CHLORIDE 0.9% 500 ML 500 ML IV ONE (14:59)
[2021-10-01] MEDS ORDERED: ACETAMINOPHEN IV (For NPO) 1,000 MG in EMPTY BAG 1 BAG IVPB ONE (15:52)
[2021-10-01] MEDS ORDERED: ACETAMINOPHEN TAB 325 MG TAB PO PRN (15:52)
--- NOTE | 2021-10-01 15:59 | P.PRLE ---
RE: Mahesh Dale Dear Negrita Mr. Dale underwent an upgrade to biventricular pacemaker (with an LV lead) for gradual progressive cardio myopathy with 100% RV pacing Hopefully with biventricular pacing his LV function normalizes He will continue his current cardiac medications and will follow with you and Dr. Chaudhary as before Thank you for entrusting me with the care of the patient Warm regards Sincerely Yeison Toribio
--- NOTE | 2021-10-01 16:05 | P.EPPROC ---
- EP Procedure Note Electrophysiology Procedure Note: Diagnosis Complete heart block with progressive cardio myopathy, 100% RV pacing, CHF Procedure Upgrade to a biventricular pacemaker with implantation of new LV lead Details Patient was brought to the EP lab in a fasting state. Written informed consent was obtained prior to the procedure. Conscious sedation provided by anesthesia team IV antibiotics administered. Local anesthesia administered. A 4 cm incision made in the pectoral area. Subfascial pocket made. Venous access obtained Venous sheath placed. Sheaths and Leads placed in the right heart Atrial lead position the right atrial appendage. Chronic atrial lead Pacing threshold 0.7 V at 0.4 ms, P waves 3.2 mV in pacing impedance 390 ohms RV lead position in the RV apex. Chronic RV lead Pacing threshold 0.7 V at 0.5 ms, no underlying QRS, pacing impedance 560 ohms LV lead positioned in the LV vein. The coronary sinus was cannulated Lateral and posterior lateral veins and a common origin The lateral vein was a large size vein that was started for LV lead placement LV lead was successfully placed Thresholds were higher than usual However alternate site obtained within this vein and diaphragmatic stimulation Therefore slightly different position was achieved to avoid diaphragmatic stimulation Best pacing threshold 2 V at 0.8 ms, M2-CAN, pacing impedance 390 ohms No diaphragmatic stimulation LV offset by 40 ms Paced QRS width 155 ms DDDR 60-130 bpm paced AV delay 200 ms The old, chronic dual-chamber pacemaker generator was explanted A new biventricular pacemaker generator was implanted Device connected to the leads and placed in the subfascial pocket Patient tolerated the procedure well without acute complications
[2021-10-01 16:19] LABS: Glucose,Whole Blood 88 mg/dL (75-99)
[2021-10-01] MEDS: SODIUM CHLORIDE 0.9% 1,000 ML IV SCH (17:32)
[2021-10-01] MEDS: LACTATED RINGERS 1,000 ML IV SCH (17:32)
[2021-10-01 20:21] LABS: Glucose,Whole Blood 182 mg/dL (75-99)
[2021-10-01] MEDS: GABAPENTIN 400 MG CAP PO SCH (20:25)
[2021-10-01 21:48] VITALS: RESP 18
[2021-10-02] MEDS: SODIUM CHLORIDE 0.9% 1,000 ML IV SCH (03:37)
[2021-10-02] MEDS: LACTATED RINGERS 1,000 ML IV SCH (05:19)
--- NOTE | 2021-10-02 06:40 | XR ---
EXAM: XR Chest, 1 View CLINICAL HISTORY: ITS.REASON XR Reason: Lead placement check TECHNIQUE: Frontal view of the chest. COMPARISON: 12/07/17. FINDINGS: Lungs: Lungs are underinflated but clear. Pleural space: Unremarkable. No pneumothorax. Heart: Unremarkable. No cardiomegaly. Mediastinum: Unremarkable. Bones/joints: Unremarkable. Tubes, lines and devices: Please of left pacer are over the region of right atrium, right ventricle and coronary sinus IMPRESSION: No acute findings in the chest. Left pacer leads are in place.
[2021-10-02 08:00] LABS: Glucose,Whole Blood 148 mg/dL (75-99)
--- NOTE | 2021-10-02 08:20 | P.DS ---
Providers Attending physician: Yeison Toribio Primary care physician: Myles Caban MD Hospital Course: Patient is doing well. 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 Chaudhary He is already received his antibiotics X-rays within normal limits Plan - Discharge Summary Discharge Rx Participant: No New Discharge Prescriptions: Discontinued Fish Oil/Dha/Epa [Fish Oil 1,200 mg Fish Oil] 1 each PO DAILY No Action Gabapentin [Neurontin] 800 mg PO Q8HR Lovastatin [Mevacor] 20 mg PO HS Glimepiride [Amaryl] 1 mg PO DAILY hydroCHLOROthiazide 25 mg PO DAILY Losartan Potassium [Cozaar] 100 mg PO DAILY Nf-Symbicort Dose Unk 1 - 2 puff INHALATION BID Multivitamins, Thera [Multivitamin (formulary)] 1 tab PO DAILY Metoprolol Tartrate 25 mg PO BID Warfarin [Coumadin] 2.5 mg PO MOWEFR Warfarin [Coumadin] 5 mg PO SUTUTHSA Cholecalciferol [Vitamin D3 (10 Mcg = 400 Iu)] 10 mcg PO DAILY Discharge Medication List Gabapentin [Neurontin] 800 mg PO Q8HR 12/20/13 [History] Lovastatin [Mevacor] 20 mg PO HS 12/20/13 [History] Glimepiride [Amaryl] 1 mg PO DAILY 12/07/17 [History] Losartan Potassium [Cozaar] 100 mg PO DAILY 09/06/21 [History] Metoprolol Tartrate 25 mg PO BID 09/06/21 [History] Nf-Symbicort Dose Unk 1 - 2 puff INHALATION BID 09/06/21 [History] Warfarin [Coumadin] 2.5 mg PO MOWEFR 09/06/21 [History] Warfarin [Coumadin] 5 mg PO SUTUTHSA 09/06/21 [History] hydroCHLOROthiazide 25 mg PO DAILY 09/06/21 [History] Cholecalciferol [Vitamin D3 (10 Mcg = 400 Iu)] 10 mcg PO DAILY 09/30/21 [History] Multivitamins, Thera [Multivitamin (formulary)] 1 tab PO DAILY 09/30/21 [History] Follow up Appointment(s)/Referral(s): Anastasiya Chaudhary MD [STAFF PHYSICIAN] - 1 Week (Device clinic follow-up in 1 week Follow-up Dr. Chaudhary in 4 weeks) Activity/Diet/Wound Care/Special Instructions: PATIENT EDUCATION MATERIAL Instructions following a heart rhythm device implant. 1. Keep dressing DRY for 7 DAYS. You may cover the area with Saran or Cling Wrap, prior to a shower. 2. The dressing will be removed in the Device Clinic at [facility]. Absorbable sutures were used to close the wound. 3. Avoid raising the left arm above the shoulder level. 4 week restriction 4. Avoid arm movements, like backscratching, rubbing the head, or pulling on a cord. 4 weeks restriction 5. Gentle range of motion movements of the shoulder, closest to the incision should be performed to avoid a frozen shoulder. (Pendulum exercises of the shoulder) 6. The opposite arm may be used freely. 7. Avoid driving for 7 days. 8. Avoid activities such as golfing, swimming, weed whacking, lifting more than 10 pounds weight, bowling, gymnastics and weight training/lifting. (6 weeks restriction) 9. Activities such as wood chopping with an axe, pull-ups in the gymnasium, power lifting, arc-welding, being close to home induction cooktops will always be a problem. 10. Arm sling is only a reminder not to raise the arm above the head. You do not need to keep the arm completely immobilized. Your free to move the arm and use it and for normal activities. In case of any problems, please call [facility], [facility] Lopez, @ [phone], Attention: Device Clinic Device clinic follow-up in 7 days Follow-up with primary social work professor in 1 months Discharge Disposition: HOME SELF-CARE
[2021-10-02] MEDS: GABAPENTIN 400 MG CAP PO SCH (08:28)
[2021-10-02 08:50] VITALS: BP 107/61; PULSE 77; TEMP 98.3
== END 2021-10-02 11:56 | disposition home or self-care (01) ==
LOC: CATHEP 09:49 → 6NMEDSUR 15:23 → CATHEP 10-02 11:56
PROVIDERS: ATTEND Internal Medicine Clinical Cardiac Electrophysiology
DX: I50.9 Heart failure, unspecified (principal); I44.2 Atrioventricular block, complete; I42.9 Cardiomyopathy, unspecified; I10 Essential (primary) hypertension; E11.9 Type 2 diabetes mellitus without complications; E78.5 Hyperlipidemia, unspecified; Z97.2 Presence of dental prosthetic device (complete) (partial); Z79.01 Long term (current) use of anticoagulants; Z79.84 Long term (current) use of oral hypoglycemic drugs; Z79.51 Long term (current) use of inhaled steroids; Z79.899 Other long term (current) drug therapy; J45.909 Unspecified asthma, uncomplicated; M19.90 Unspecified osteoarthritis, unspecified site
CPT/HCPCS: 33225; 33229; 85610; 71045; C1769 ×4; C1892; C1730; C1887; C1900; C2621; J2250; J2710; J0690 ×2; J2001; J3010; J2370; J0330; J2704; Q9967

== ENCOUNTER 2022-04-27 09:50 | Observation (INO) | payer MEDICARE, BC ==
[2022-04-27 10:36] LABS: Basophils % (A) 0 %; Eosinophils % (A) 1 %; HCT 45.9 % (39.0-53.0); HGB 15.4 gm/dL (13.0-17.5); Lymphocytes # (A) 0.5 k/uL (1.0-4.8); Lymphocytes % (A) 8 %; MCHC 33.7 g/dL (31.0-37.0); MCV 95.2 fL (80.0-100.0); Mean Platelet Volume 9.6; Monocytes # (A) 0.3 k/uL (0-1.0); Monocytes % (A) 5 %; Neutrophils # (A) 5.2 k/uL (1.3-7.7); Neutrophils % (A) 86 %; Platelet Count 116 k/uL (150-450); RBC 4.82 m/uL (4.30-5.90); RDW 12.8 % (11.5-15.5)
[2022-04-27 10:45] LABS: INR 3.9 (<1.2); Partial Thromboplastin Time 36.1 sec (22.0-30.0); Prothrombin Time 38.4 sec (9.0-12.0)
[2022-04-27 10:46] LABS: ALT 32 U/L (4-49); AST 25 U/L (17-59); African American GFR (CKD) >90 (>60 ml/min/1.73 sqM); Albumin 3.8 g/dL (3.5-5.0); Alkaline Phosphatase 80 U/L (38-126); Anion Gap 9 mmol/L; Blood Urea Nitrogen 14 mg/dL (9-20); Calcium 8.8 mg/dL (8.4-10.2); Carbon Dioxide 22 mmol/L (22-30); Chloride 107 mmol/L (98-107); Glucose 176 mg/dL (74-99); Magnesium 1.9 mg/dL (1.6-2.3); Non-African American GFR(CKD) >90 (>60 ml/min/1.73 sqM); Potassium 4.3 mmol/L (3.5-5.1); Sodium 138 mmol/L (137-145); Total Protein 6.1 g/dL (6.3-8.2)
--- NOTE | 2022-04-27 10:59 | ED ---
General Adult HPI - General Chief complaint: Arrhythmia/Palpitations Stated complaint: Hypertension/Elevated HR Time Seen by Provider: 04/27/22 10:00 Source: patient, RN notes reviewed, old records reviewed Mode of arrival: ambulatory Limitations: no limitations - History of Present Illness Initial comments: 81-year-old male presenting for evaluation of elevated heart rate and elevated blood pressure. Patient has had multiple medication changes in the past week. He had previously been on metoprolol twice a day he was switched to Toprol-XL once daily and then ultimately had his Toprol discontinued as well as his hydrochlorothiazide. He had some additional medication changes which the and patient not completely certain of. He is presenting with palpitations and elevated blood pressure. He has no chest pain. No dyspnea. No abdominal pain or vomiting. He does have a pacemaker which is placed in the spring of this year. - Related Data Home Medications Medication Instructions Recorded Confirmed Gabapentin [Neurontin] 800 mg PO TID 12/20/13 04/27/22 Lovastatin [Mevacor] 20 mg PO DAILY 12/20/13 04/27/22 Glimepiride [Amaryl] 1 mg PO DAILY 12/07/17 04/27/22 Losartan Potassium [Cozaar] 100 mg PO DAILY 09/06/21 04/27/22 Warfarin [Coumadin] 5 mg PO SUTUTHSA@209909/06/21 04/27/22 Albuterol Sulfate [Ventolin HFA] 2 puff INHALATION RT-Q6H PRN 04/27/22 04/27/22 Metoprolol Succinate [Toprol XL] 100 mg PO DAILY 04/27/22 04/27/22 Valsartan 320 mg PO DAILY 04/27/22 04/27/22 Warfarin [Coumadin] 2.5 mg PO MOWEFR@209904/27/22 04/27/22 predniSONE See Taper PO DIRECTED 04/27/22 04/27/22 Allergies Allergy/AdvReac Type Severity Reaction Status Date / Time No Known Allergies Allergy Verified 04/27/22 11:24 Review of Systems ROS Statement: Those systems with pertinent positive or pertinent negative responses have been documented in the HPI. ROS Other: All systems not noted in ROS Statement are negative. Past Medical History Past Medical History: Asthma, Diabetes Mellitus, GERD/Reflux, GI Bleed, Hyperlipidemia, Hypertension, Osteoarthritis (OA) Additional Past Medical History / Comment(s): SEE DR BISHOP'S H&P. NECK PAIN, States has not had covid in the last 12 weeks. History of Any Multi-Drug Resistant Organisms: None Reported Past Surgical History: Back Surgery, Orthopedic Surgery Additional Past Surgical History / Comment(s): torn rotator cuff, cervical disc removed in neck and fused 3 arthroscopy of the left knee, abdominal surgery, left hand/thumb surgery Past Anesthesia/Blood Transfusion Reactions: No Reported Reaction Past Psychological History: No Psychological Hx Reported Smoking Status: Never smoker Past Alcohol Use History: None Reported Past Drug Use History: None Reported - Past Family History Father History Unknown: Yes Family Medical History: Congestive Heart Failure (CHF) Mother History Unknown: Yes Family Medical History: Myocardial Infarction ([place]) General Exam Limitations: no limitations General appearance: alert, in no apparent distress Head exam: Present: atraumatic, normocephalic Eye exam: Present: normal appearance, PERRL ENT exam: Present: normal exam Neck exam: Present: normal inspection. Absent: meningismus Respiratory exam: Present: normal lung sounds bilaterally. Absent: respiratory distress, wheezes Cardiovascular Exam: Present: normal rhythm, tachycardia GI/Abdominal exam: Present: soft. Absent: distended, tenderness Extremities exam: Present: normal inspection, normal capillary refill Neurological exam: Present: alert, oriented X3, CN II-XII intact. Absent: motor sensory deficit Psychiatric exam: Present: normal affect, normal mood Skin exam: Present: warm, dry, intact. 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 Medical Decision Making - Medical Decision Making 81-year-old male with a pacemaker presenting for evaluation of palpitation per patient's heart rate is 100. He has a biventricular pacemaker which was placed in the spring of this year. He has had several medication changes this week and it does seem as though the patient had inadvertently discontinued his Toprol over the past 4 days. This is the likely cause of increased heart rate. He has normal electrolytes. His Coumadin level is mildly elevated at 3.9 with no active bleeding. His troponin is minimally elevated at 0.55. 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 He is already anticoagulated at baseline. Case discussed with some physician group who will admit to observation with cardiology on consultation. Cardiac enzymes trended, metoprolol XL 100 mg given in the emergency department. Case discussed with the admitting physician and Dr. Card covering for cardiology - Lab Data Result diagrams: 04/27/22 10:25 04/27/22 10:25 Lab Results 04/27/22 04/27/22 04/27/22 Range/Units 10:25 10:25 10:25 WBC 6.0 (3.8-10.6) k/uL RBC 4.82 (4.30-5.90) m/uL Hgb 15.4 (13.0-17.5) gm/dL Hct 45.9 (39.0-53.0) % MCV 95.2 (80.0-100.0) fL MCH 32.0 (25.0-35.0) pg MCHC 33.7 (31.0-37.0) g/dL RDW 12.8 (11.5-15.5) % Plt Count 116 L (150-450) k/uL MPV 9.6 Neutrophils % 86 % Lymphocytes % 8 % Monocytes % 5 % Eosinophils % 1 % Basophils % 0 % Neutrophils # 5.2 (1.3-7.7) k/uL Lymphocytes # 0.5 L (1.0-4.8) k/uL Monocytes # 0.3 (0-1.0) k/uL Eosinophils # 0.0 (0-0.7) k/uL Basophils # 0.0 (0-0.2) k/uL PT 38.4 H (9.0-12.0) sec INR 3.9 H (<1.2) APTT 36.1 H (22.0-30.0) sec Sodium 138 (137-145) mmol/L Potassium 4.3 (3.5-5.1) mmol/L Chloride 107 (98-107) mmol/L Carbon Dioxide 22 (22-30) mmol/L Anion Gap 9 mmol/L BUN 14 (9-20) mg/dL Creatinine 0.65 L (0.66-1.25) mg/dL Est GFR (CKD-EPI)AfAm >90 (>60 ml/min/1.73 sqM) Est GFR (CKD-EPI)NonAf >90 (>60 ml/min/1.73 sqM) Glucose 176 H (74-99) mg/dL Calcium 8.8 (8.4-10.2) mg/dL Magnesium 1.9 (1.6-2.3) mg/dL Total Bilirubin 1.0 (0.2-1.3) mg/dL AST 25 (17-59) U/L ALT 32 (4-49) U/L Alkaline Phosphatase 80 (38-126) U/L Troponin I (0.000-0.034) ng/mL Total Protein 6.1 L (6.3-8.2) g/dL Albumin 3.8 (3.5-5.0) g/dL 04/27/22 Range/Units 10:25 WBC (3.8-10.6) k/uL RBC (4.30-5.90) m/uL Hgb (13.0-17.5) gm/dL Hct (39.0-53.0) % MCV (80.0-100.0) fL MCH (25.0-35.0) pg MCHC (31.0-37.0) g/dL RDW (11.5-15.5) % Plt Count (150-450) k/uL MPV Neutrophils % % Lymphocytes % % Monocytes % % Eosinophils % % Basophils % % Neutrophils # (1.3-7.7) k/uL Lymphocytes # (1.0-4.8) k/uL Monocytes # (0-1.0) k/uL Eosinophils # (0-0.7) k/uL Basophils # (0-0.2) k/uL PT (9.0-12.0) sec INR (<1.2) APTT (22.0-30.0) sec Sodium (137-145) mmol/L Potassium (3.5-5.1) mmol/L Chloride (98-107) mmol/L Carbon Dioxide (22-30) mmol/L Anion Gap mmol/L BUN (9-20) mg/dL Creatinine (0.66-1.25) mg/dL Est GFR (CKD-EPI)AfAm (>60 ml/min/1.73 sqM) Est GFR (CKD-EPI)NonAf (>60 ml/min/1.73 sqM) Glucose (74-99) mg/dL Calcium (8.4-10.2) mg/dL Magnesium (1.6-2.3) mg/dL Total Bilirubin (0.2-1.3) mg/dL AST (17-59) U/L ALT (4-49) U/L Alkaline Phosphatase (38-126) U/L Troponin I 0.055 H* (0.000-0.034) ng/mL Total Protein (6.3-8.2) g/dL Albumin (3.5-5.0) g/dL Disposition Clinical Impression: Tachycardia, Elevated troponin Disposition: [facility] Condition: Stable Is patient prescribed a controlled substance at d/c from ED?: No Referrals: Myles Caban MD [Primary Care Provider] - 1-2 days Time of Disposition: 12:41
--- NOTE | 2022-04-27 11:19 | XR ---
EXAMINATION TYPE: XR chest 2V DATE OF EXAM: 04/27/2022 10:46 AM COMPARISON: Chest radiographs from 10/12/2021 TECHNIQUE: XR chest 2V Frontal and lateral views of the chest. CLINICAL INDICATION:Male, 81 years old with history of dysrhythmia; FINDINGS: Lungs/Pleura: Low lung volumes are present. There is no evidence of pleural effusion, focal consolida tion, or pneumothorax. Pulmonary vascularity: Unremarkable. Heart/mediastinum: Cardiomediastinal silhouette is unremarkable. Three lead cardiac conduction device overlying the left hemithorax with lead tips projecting over the right ventricle, right atrium and c oronary sinus. Musculoskeletal: No acute osseous pathology. IMPRESSION: Low lung volumes without acute cardiopulmonary disease/process.
[2022-04-27] MEDS: METOPROLOL SUCCINATE (ER) 100 MG TAB.ER.24H PO STA ×2 (12:03→12:07)
[2022-04-27] MEDS ORDERED: ACETAMINOPHEN TAB 325 MG TAB PO PRN (12:35)
[2022-04-27] MEDS ORDERED: NALOXONE 0.4 MG/ML 1 ML VIAL IV PRN (12:35)
[2022-04-27] MEDS ORDERED: ALBUTEROL HFA INHALER INHALATION PRN (13:09)
--- NOTE | 2022-04-27 13:12 | P.HPIM ---
History of Present Illness H&P Date: 04/27/22 Chief Complaint: increased HR Patient is a 81-year-old male with past medical history of hypertension, dyslipidemia, atrial fibrillation on warfarin, status post biventricular pacemaker, nonischemic systolic cardiomyopathy presenting with elevated heart rate and blood pressure. Per patient, he had multiple medication changes recently. He is unsure whether or not he is still on metoprolol. He did complain of palpitations that started at 2 AM in the morning. He occasionally feels chest heaviness which clears with cough. He denies any lightheadedness, chest pain, shortness of breath, abdominal pain, nausea, vomiting, diarrhea, or constipation, urinary complaints. He denies any recent sick contacts or travel history. In the ED, he was tachycardic up to 103, afebrile, blood pressure of 176/116. EKG showed paced rhythm. Chest x-ray showed no acute pathology. Lab work was consistent with supratherapeutic INR of 3.9, and troponin elevation of 0.055. He was given oral metoprolol in the ED. Patient seen and examined at bedside. Pertinent positives and negatives as discussed in HPI, a complete review of systems was performed and all other systems are negative. Vital signs reviewed General: nontoxic, no distress, appears at stated age Derm: warm, dry Head: atraumatic, normocephalic, symmetric Eyes: EOMI, no lid lag, anicteric sclera, pupils equal round reactive to light ENT: Nose and ears atraumatic, no thrush, no pharyngeal erythema Neck: No thyromegaly, no cervical lymphadenopathy, trachea midline, supple Mouth: no lip lesion, mucus membranes moist Cardiovascular: S1S2 reg, no murmur, positive posterior tibial pulse bilateral, no edema, capillary refill less than 2 seconds Lungs: clear to auscultation bilateral, no rhonchi, no rales, no wheeze, no accessory muscle use Abdominal: soft, nontender to palpation, no guarding, no appreciable organomegaly, normal bowel sounds Ext: no gross muscle atrophy, muscle strength muscle strength 5 out of 5 in all 4 extremities, no contractures Neuro: CN II-XII grossly intact, light touch intact all 4 extremities, finger to nose within normal limits, Psych: Alert, oriented, appropriate affect Assessment/Plan: Tachycardia, ventricular pacemaker -Likely in the setting of missing metoprolol dose -Resume metoprolol Troponin elevation -Likely demand ischemia -Cardiology consult Supratherapeutic INR History of Atrial fibrillation -Hold warfarin Hypertension -Continue home medications History of nonischemic cardiomyopathy Diabetes Dyslipidemia -Continue home medications The patient is admitted with an anticipated less than 2 midnight stay for evaluation of tachycardia. Surrogate decision-maker: CODE STATUS: Full code DVT prophylaxis: supratherapeutic INR, SCD Anticipated discharge date: 04/28/[address]: Home A total of 43 minutes was spent on the care of this complex patient more than 50% of the time was spent in counseling and care coordination. Past Medical History Past Medical History: Asthma, Diabetes Mellitus, GERD/Reflux, GI Bleed, Hyperlip idemia, Hypertension, Osteoarthritis (OA) Additional Past Medical History / Comment(s): SEE DR BISHOP'S H&P. NECK PAIN, States has not had covid in the last 12 weeks. History of Any Multi-Drug Resistant Organisms: None Reported Past Surgical History: Back Surgery, Orthopedic Surgery Additional Past Surgical History / Comment(s): torn rotator cuff, cervical disc removed in neck and fused 3 arthroscopy of the left knee, abdominal surgery, left hand/thumb surgery Past Anesthesia/Blood Transfusion Reactions: No Reported Reaction Past Psychological History: No Psychological Hx Reported Smoking Status: Never smoker Past Alcohol Use History: None Reported Past Drug Use History: None Reported - Past Family History Father History Unknown: Yes Family Medical History: Congestive Heart Failure (CHF) Mother History Unknown: Yes Family Medical History: Myocardial Infarction (UT) Medications and Allergies Home Medications Medication Instructions Recorded Confirmed Type Gabapentin [Neurontin] 800 mg PO TID 12/20/13 04/27/22 History Lovastatin [Mevacor] 20 mg PO DAILY 12/20/13 04/27/22 History Glimepiride [Amaryl] 1 mg PO DAILY 12/07/17 04/27/22 History Losartan Potassium [Cozaar] 100 mg PO DAILY 09/06/21 04/27/22 History Warfarin [Coumadin] 5 mg PO SUTUTHSA@2100 09/06/21 04/27/22 History Albuterol Sulfate [Ventolin HFA] 2 puff INHALATION RT-Q6H PRN 04/27/22 04/27/22 History Metoprolol Succinate [Toprol XL] 100 mg PO DAILY 04/27/22 04/27/22 History Valsartan 320 mg PO DAILY 04/27/22 04/27/22 History Warfarin [Coumadin] 2.5 mg PO MOWEFR@2100 04/27/22 04/27/22 History predniSONE See Taper PO DIRECTED 04/27/22 04/27/22 History Allergies Allergy/AdvReac Type Severity Reaction Status Date / Time No Known Allergies Allergy Verified 04/27/22 11:24 Physical Exam Vitals: Vital Signs Temp Pulse Pulse Resp BP Pulse Ox 04/27/22 12:08 100 20 153/115 96 04/27/22 10:46 100 04/27/22 09:52 98.1 F 103 H 20 176/116 97 Intake and Output 04/26/22 04/27/22 04/27/22 22:59 06:59 14:59 Other: Weight 76.204 kg Results CBC & Chem 7: 04/27/22 10:25 04/27/22 10:25 Labs: Abnormal Lab Results - Last 24 Hours (Table) 04/27/22 04/27/22 04/27/22 Range/Units 10:25 10:25 10:25 Plt Count 116 L (150-450) k/uL Lymphocytes # 0.5 L (1.0-4.8) k/uL PT 38.4 H (9.0-12.0) sec INR 3.9 H (<1.2) APTT 36.1 H (22.0-30.0) sec Creatinine 0.65 L (0.66-1.25) mg/dL Glucose 176 H (74-99) mg/dL Troponin I (0.000-0.034) ng/mL Total Protein 6.1 L (6.3-8.2) g/dL 04/27/22 Range/Units 10:25 Plt Count (150-450) k/uL Lymphocytes # (1.0-4.8) k/uL PT (9.0-12.0) sec INR (<1.2) APTT (22.0-30.0) sec Creatinine (0.66-1.25) mg/dL Glucose (74-99) mg/dL Troponin I 0.055 H* (0.000-0.034) ng/mL Total Protein (6.3-8.2) g/dL
[2022-04-27] MEDS: GABAPENTIN 400 MG CAP PO SCH ×2 (15:14→21:01)
[2022-04-27 16:51] LABS: Glucose,Whole Blood 159 mg/dL (70-110)
[2022-04-27 19:40] LABS: Glucose,Whole Blood 153 mg/dL (70-110)
--- NOTE | 2022-04-28 01:08 | CONS ---
CONSULTATION CHIEF COMPLAINT: Palpitations and elevated blood pressure. HISTORY OF PRESENT ILLNESS: Mahesh is an 81-year-old gentleman with history of sick sinus syndrome, status post permanent pacemaker, hypertension, diabetes, permanent atrial fibrillation, who comes to hospital because of elevated heart rate. He was recently changed from a short- acting form to long-acting form, and subsequently has had issues with his blood pressure and was told to start on valsartan and he inadvertently stopped taking the Toprol-XL. His heart rate is elevated around 100 beats per minute. Blood pressure is also poorly controlled. He is otherwise doing well and does not have any other symptoms. The plan at this stage is to resume the losartan 100 mg daily and Toprol-XL 100 mg daily, which controlled both his blood pressure and the elevated heart rate. He is on Coumadin for anticoagulation, and most recent INR is 3.9. Please keep the INR around 2.5. PAST MEDICAL HISTORY: Significant for carotid stenosis, status post right carotid endarterectomy, permanent atrial fibrillation, sick sinus syndrome, status post permanent pacemaker, hypertension, dyslipidemia, diabetes, osteoarthritis. MEDICATIONS: Medications at home included; 1. Prednisone. 2. Amaryl. 3. Valsartan. 4. Toprol-XL. 5. Ventolin. 6. Mevacor. 7. Cozaar. 8. Neurontin. ALLERGIES: There are no known drug allergies. FAMILY HISTORY: Negative for premature coronary artery disease. SOCIAL HISTORY: Negative for current smoking, EtOH abuse or drug abuse. REVIEW OF SYSTEMS: HEENT: Unremarkable. CARDIAC: As described above. RESPIRATORY: As described above. GI: Negative. GENITOURINARY: Negative. ALLERGY/IMMUNOLOGY: Negative. MUSCULOSKELETAL: Significant for arthritis. PSYCHOSOCIAL: Negative. DERM: Negative. CONSTITUTIONAL: Negative. ONCOLOGICAL: Negative. CUSTODIAN ATHLETIC EQUIPMENT: Negative. Rest of the system review is not relevant. PHYSICAL EXAMINATION: VITAL SIGNS: Rate is 100 beats per minute, irregular. Blood pressure is 153/110, respiratory rate 18, O2 saturation is 96% on room air. NECK: There is no jugular venous distention. Carotid upstroke is normal. There is no bruit. CHEST: Reveals good air entry bilaterally. HEART: Reveals first and second heart sounds, irregular rhythm and a systolic murmur at the left lower sternal border. ABDOMEN: Soft. EXTREMITIES: Did not reveal any edema. Peripheral pulses are felt. LABORATORY DATA: Labs show a hemoglobin of 15.4. INR is 3.9, potassium is 4.3, creatinine is 0.6. Troponin is 0.05. ASSESSMENT: Persistent atrial fibrillation with poorly controlled ventricular rate, sick sinus syndrome, status post permanent pacemaker, uncontrolled hypertension, elevated troponin probably secondary to supply/demand mismatch related to atrial fibrillation with poorly- controlled ventricular rate. PLAN: Continue Coumadin to maintain an INR of around 2-2.5. Resume the beta blockers and the ARBs, and once the blood pressure and heart rate are better controlled, we should be able to discharge him home. Obtain a 2D echo in the morning. MMODL / IJN: [id number] /
[2022-04-28 06:07] LABS: Glucose,Whole Blood 134 mg/dL (70-110)
[2022-04-28 07:21] LABS: African American GFR (CKD) >90 (>60 ml/min/1.73 sqM); Anion Gap 6 mmol/L; Blood Urea Nitrogen 14 mg/dL (9-20); Calcium 8.6 mg/dL (8.4-10.2); Carbon Dioxide 26 mmol/L (22-30); Chloride 105 mmol/L (98-107); Glucose 131 mg/dL (74-99); Non-African American GFR(CKD) 89 (>60 ml/min/1.73 sqM); Potassium 4.2 mmol/L (3.5-5.1); Sodium 137 mmol/L (137-145)
[2022-04-28 08:56] LABS: INR 3.3 (<1.2); Prothrombin Time 32.8 sec (9.0-12.0)
[2022-04-28] MEDS ORDERED: GLIMEPIRIDE 1 MG TAB PO SCH (09:00)
[2022-04-28] MEDS ORDERED: ATORVASTATIN 10 MG TAB PO SCH (09:00)
[2022-04-28] MEDS ORDERED: VALSARTAN 160 MG TAB PO SCH (09:00)
[2022-04-28] MEDS ORDERED: METOPROLOL SUCCINATE (ER) 100 MG TAB.ER.24H PO SCH (09:00)
[2022-04-28] MEDS: GABAPENTIN 400 MG CAP PO SCH (09:19)
[2022-04-28 10:27] VITALS: BP 148/75; RESP 16; TEMP 96.3
--- NOTE | 2022-04-28 10:42 | CA ---
Transthoracic Echo Report Name: Mahesh Dale Age: 81 Gender: M : 1940 Exam Date: 04/28/2022 08:49 Exam Location: [facility] Ht (in): 67 Wt (lb): 168 Ordering Physician: Yassine Kirby MD Attending/Referring Phys: Stone Operator Elisha Shipman RDCS Procedure CPT: Indications: elevated troponin Cardiac Hx: Technical Quality: Good Contrast 1: Total Dose (mL): Contrast 2: Total Dose (mL): MEASUREMENTS (Male / Female) Normal Values 2D ECHO LV Diastolic Diameter PLAX 4.9 cm 4.2 - 5.9 / 3.9 - 5.3 cm LV Systolic Diameter PLAX 4.0 cm IVS Diastolic Thickness 1.3 cm 0.6 - 1.0 / 0.6 - 0.9 cm LVPW Diastolic Thickness 1.4 cm 0.6 - 1.0 / 0.6 - 0.9 cm LV Relative Wall Thickness 0.6 RV Internal Dim ED PLAX 3.4 cm LVOT Diameter 2.6 cm LA Systolic Diameter LX 4.7 cm 3.0 - 4.0 / 2.7 - 3.8 cm LA Volume 71.9 cm??? 18 - 58 / 22 - 52 cm??? M-MODE Aortic Root Diameter MM 3.9 cm MV E Point Septal Separation 0.3 cm AV Cusp Separation MM 2.5 cm DOPPLER AV Peak Velocity 103.1 cm/s AV Peak Gradient 4.3 mmHg AI Peak Velocity 417.1 cm/s AI Peak Gradient 69.6 mmHg AI Pressure Half Time 529.5 ms MV Peak Velocity 119.1 cm/s MV Peak Gradient 5.7 mmHg MV Mean Velocity 69.6 cm/s MV Mean Gradient 2.4 mmHg MV Velocity Time Integral 21.2 cm MV Area PHT 5.1 cm??? MV Deceleration Time 139.2 ms MV E' Velocity 6.2 cm/s TR Peak Velocity 257.0 cm/s TR Peak Gradient 26.4 mmHg Right Ventricular Systolic Press 31.0 mmHg FINDINGS Left Ventricle Left ventricular ejection fraction is estimated at 55-60 %. Left ventricular cavity size normal. Moderate concentric left ventricular hypertrophy. Right Ventricle Mild right ventricular dilatation. Right ventricular systolic pressure within normal limits. Right Atrium Normal right atrial size. Left Atrium Moderately increased left atrial diameter. Moderately increased left atrial volume. Mildly increased left atrial area. No evidence for an atrial septal defect. Mitral Valve Mitral valve thickened. Moderate mitral regurgitation.moderate mitral annular calcification. Aortic Valve Trileaflet aortic valve. No aortic valve stenosis , mild aortic regurgitation. Tricuspid Valve Mild tricuspid regurgitation.structurally normal tricuspid valve. Pulmonic Valve Mild pulmonic regurgitation. Pericardium No pericardial effusion. Aorta Mild aortic dilatation at the level of the sinuses of valsalva 39 mm CONCLUSIONS 1. Normal left ventricle size and systolic function 2. Moderate mitral was mild aortic and tricuspid regurgitation 3. Mildly dilated ascending aorta Previewed by: Dr. Violet Davidson MD (Electronically Signed) Final Date: 28 April 2022 10:41
--- NOTE | 2022-04-28 11:55 | P.DS ---
Providers Date of admission: 04/27/22 12:37 Expected date of discharge: 04/28/22 Attending physician: Yassine Kirby MD Consults: 04/27/22 12:35 Consult Physician Routine Consulting Provider: Mick Card Consult Reason/Comments: Medication error, palpitation, elevated troponin Do you want consulting provider notified?: Yes Primary care physician: Myles Caban MD Hospital Course: Discharge Diagnosis: Tachycardia, has a ventricular pacemaker Troponin elevation Supratherapeutic INR Hypertension History of nonischemic cardiomyopathy History of diabetes History of dyslipidemia Hospital Course: 81-year-old male with history of atrial fibrillation, biventricular pacemaker, nonischemic cardiomyopathy, hypertension presented with elevated heart rate and blood pressure. He was also occasionally noticing palpitations as well as chest heaviness. His symptoms were likely related to medication noncompliance in the setting of recent medication changes. He had a lot of different medication changes, and was confused which one he was actually taking. He was also recently started on steroid taper for chest congestion, had already taken steroids for more than 5 days. Cardiology was consulted, echo was completed which showed normal LV size and systolic function, moderate mitral regurgitation. At the time of discharge patient's heart rate was 100, v entricularly paced. His blood pressure was in the systolics 130s to 140s. He will continue his home medication including valsartan and metoprolol. Prednisone was discontinued. For his supratherapeutic INR, his warfarin was held. He has an INR check machine at home, will check his INR and call his clinic prior to resuming warfarin. At the time of discharge his INR was still elevated at 3.3. Patient seen and examined at bedside. Vital signs reviewed and stable. General: nontoxic, no distress, appears at stated age Derm: warm, dry Head: atraumatic, normocephalic, symmetric Eyes: EOMI, no lid lag, anicteric sclera Mouth: no lip lesion, mucus membranes moist Cardiovascular: S1S2 reg, no murmur Lungs: CTA bilateral, no rhonchi, no rales , no accessory muscle use Abdominal: soft, nontender to palpation, no guarding, no appreciable organomegaly Ext: no gross muscle atrophy, no edema, no contractures Neuro: CN II-XI grossly intact, no focal neuro deficits Psych: Alert, oriented, appropriate affect A total of 39 minutes of time were spent preparing this complex discharge summary. Patient was discharged on 04/28/22 at 11:48. Patient Condition at Discharge: Stable Plan - Discharge Summary New Discharge Prescriptions: Continue Gabapentin [Neurontin] 800 mg PO TID Lovastatin [Mevacor] 20 mg PO DAILY Glimepiride [Amaryl] 1 mg PO DAILY Valsartan 320 mg PO DAILY Albuterol Sulfate [Ventolin HFA] 2 puff INHALATION RT-Q6H PRN PRN Reason: Shortness Of Breath Warfarin [Coumadin] 5 mg PO SUTUTHSA@2099 Metoprolol Succinate [Toprol XL] 100 mg PO DAILY Warfarin [Coumadin] 2.5 mg PO MOWEFR@2100 Discontinued Losartan Potassium [Cozaar] 100 mg PO DAILY predniSONE See Taper PO DIRECTED Discharge Medication List Gabapentin [Neurontin] 800 mg PO TID 12/20/13 [History] Lovastatin [Mevacor] 20 mg PO DAILY 12/20/13 [History] Glimepiride [Amaryl] 1 mg PO DAILY 12/07/17 [History] Warfarin [Coumadin] 5 mg PO SUTUTHSA@209909/06/21 [History] Albuterol Sulfate [Ventolin HFA] 2 puff INHALATION RT-Q6H PRN 04/27/22 [History] Metoprolol Succinate [Toprol XL] 100 mg PO DAILY 04/27/22 [History] Valsartan 320 mg PO DAILY 04/27/22 [History] Warfarin [Coumadin] 2.5 mg PO MOWEFR@209904/27/22 [History] Follow up Appointment(s)/Referral(s): Myles Caban MD [Primary Care Provider] - 1-2 days Patient Instructions/Handouts: Tachycardia (GEN), Warfarin (By mouth) Activity/Diet/Wound Care/Special Instructions: Please see your PCP in 1-2 days. Do not take your warfarin today. Check your INR like we discussed and call the clinic to see if you can start your warfarin again. Discharge Disposition: HOME SELF-CARE
[2022-04-28 12:00] LABS: Glucose,Whole Blood 81 mg/dL (70-110)
[2022-04-28 13:35] VITALS: PULSE 100
--- NOTE | 2022-04-28 15:27 | PN ---
PROGRESS NOTE SUBJECTIVE: Mr. Dale has a permanent pacemaker. He came in with somewhat of a tachycardia. He has some confusion with the dose of his metoprolol succinate and instead he took valsartan. However, he is doing better today, he is in a paced rhythm. Vitals are stable. I am recommending that he should be on the beta manoj, increase activity and he can be discharged. PT/INR is high at 3.3. Hold Coumadin for today tomorrow. Recheck on Thursday and start at the low end of the dose. Explained this to the patient. He will be given written instructions. OBJECTIVE: VITAL SIGNS: Stable. NECK: No JVD. HEART: S1, S2 heard normally. Short systolic murmur. LUNGS: Revealed decent air entry. ABDOMEN: Exam is unchanged. LOWER EXTREMITIES: Exam is unchanged. PLAN: To continue current medications, increase activity and discharge today. Hold Coumadin today, tomorrow, and check on Thursday. MMODL / IJN: [id number] /
== END 2022-04-28 13:34 | disposition home or self-care (01) ==
LOC: EC 09:50 → 3SCARD 12:37
PROVIDERS: ADMIT Student in an Organized Health Care Education/Training Program; ATTEND Student in an Organized Health Care Education/Training Program
DX: I47.20 Ventricular tachycardia, unspecified (principal); R77.8 Other specified abnormalities of plasma proteins; I10 Essential (primary) hypertension; I34.0 Nonrheumatic mitral (valve) insufficiency; I42.8 Other cardiomyopathies; I48.21 Permanent atrial fibrillation; J45.909 Unspecified asthma, uncomplicated; I49.5 Sick sinus syndrome; Z95.0 Presence of cardiac pacemaker; T44.7X6A Underdosing of beta-adrenoreceptor antagonists, initial encounter; E11.9 Type 2 diabetes mellitus without complications; K21.9 Gastro-esophageal reflux disease without esophagitis; E78.5 Hyperlipidemia, unspecified; M19.90 Unspecified osteoarthritis, unspecified site; Z87.19 Personal history of other diseases of the digestive system; Z98.1 Arthrodesis status; Z98.890 Other specified postprocedural states; Z82.49 Family history of ischemic heart disease and other diseases of the circulatory system; Z79.01 Long term (current) use of anticoagulants; Z79.84 Long term (current) use of oral hypoglycemic drugs; Z79.899 Other long term (current) drug therapy
CPT/HCPCS: 99285; 36415; 94640; 93005; 93306; 80053; 80048; 83735 ×2; 84484; 85025; 85610 ×2; 85730; 71046; G0378 ×2

== ENCOUNTER 2022-11-10 10:14 | Inpatient (IN) | payer MEDICARE, BC ==
[2022-11-10] MEDS ORDERED: methylPREDNISolone SOD SUCCI 125 MG/2 ML VIAL IV STA (10:43)
[2022-11-10] MEDS ORDERED: IPRATROPIUM-ALBUTEROL 3 ML NEB INHALATION STA (10:43)
--- NOTE | 2022-11-10 10:46 | ED ---
General Adult HPI - General Chief complaint: Shortness of Breath Stated complaint: sob Time Seen by Provider: 11/10/22 10:34 Source: patient, RN notes reviewed Mode of arrival: ambulatory Limitations: no limitations - History of Present Illness Initial comments: Patient is a pleasant 82-year-old male presenting to the emergency department with family with concerns for difficulty breathing. Onset of symptoms was yesterday. Symptoms much worse today. Minimal cough. Patient does feel short of breath. Patient does have history of smoke exposure at work and does take inhalers at home. No history of smoking. No leg pain or leg swelling. Patient states his lungs feel tight. No chest pain otherwise. No fevers. - Related Data Home Medications Medication Instructions Recorded Confirmed Gabapentin [Neurontin] 800 mg PO TID PRN 12/20/13 11/10/22 Lovastatin [Mevacor] 20 mg PO HS 12/20/13 11/10/22 Glimepiride [Amaryl] 1 mg PO DAILY 12/07/17 11/10/22 Warfarin [Coumadin] 5 mg PO SUTUTH@209909/06/21 11/10/22 Albuterol Sulfate [Ventolin HFA] 2 puff INHALATION RT-Q6H PRN 04/27/22 11/10/22 Metoprolol Succinate [Toprol XL] 100 mg PO DAILY 04/27/22 11/10/22 Valsartan 320 mg PO DAILY 04/27/22 11/10/22 Warfarin [Coumadin] 2.5 mg PO MOWEFRSA@2100 04/27/22 11/10/22 Albuterol Nebulized [Ventolin 2.5 mg INHALATION RT-Q6H PRN 11/10/22 11/10/22 Nebulized] Flecainide Acetate 50 mg PO BID 11/10/22 11/10/22 Triamterene/Hydrochlorothiazid 1 tab PO DAILY 11/10/22 11/10/22 [Triamterene-Hctz 37.5-25 mg Tb] Allergies Allergy/AdvReac Type Severity Reaction Status Date / Time No Known Allergies Allergy Verified 11/10/22 11:19 Review of Systems ROS Statement: Those systems with pertinent positive or pertinent negative responses have been documented in the HPI. ROS Other: All systems not noted in ROS Statement are negative. Constitutional: Denies: fever Eyes: Denies: eye pain ENT: Denies: ear pain Respiratory: Reports: as per HPI, dyspnea Cardiovascular: Reports: as per HPI Endocrine: Denies: fatigue Gastrointestinal: Denies: abdominal pain Genitourinary: Denies: dysuria Musculoskeletal: Denies: back pain Skin: Denies: rash Neurological: Denies: weakness Past Medical History Past Medical History: Asthma, Diabetes Mellitus, GERD/Reflux, GI Bleed, Hyperlipidemia, Hypertension, Osteoarthritis (OA) Additional Past Medical History / Comment(s): SEE DR BISHOP'S H&P. NECK PAIN, States has not had covid in the last 12 weeks. History of Any Multi-Drug Resistant Organisms: None Reported Past Surgical History: Back Surgery, Orthopedic Surgery Additional Past Surgical History / Comment(s): torn rotator cuff, cervical disc removed in neck and fused 3 arthroscopy of the left knee, abdominal surgery, left hand/thumb surgery Past Anesthesia/Blood Transfusion Reactions: No Reported Reaction Past Psychological History: No Psychological Hx Reported Smoking Status: Never smoker Past Alcohol Use History: None Reported Past Drug Use History: None Reported - Past Family History Father History Unknown: Yes Family Medical History: Congestive Heart Failure (CHF) Mother History Unknown: Yes Family Medical History: Myocardial Infarction ([place]) General Exam Limitations: no limitations General appearance: alert, in no apparent distress Head exam: Present: normocephalic Eye exam: Present: normal appearance Neck exam: Present: normal inspection Respiratory exam: Present: wheezes (Mild), decreased breath sounds Cardiovascular Exam: Present: tachycardia GI/Abdominal exam: Present: soft. Absent: tenderness Extremities exam: Present: normal inspection. Absent: pedal edema, calf tenderness Back exam: Present: normal inspection Neurological exam: Present: alert Psychiatric exam: Present: normal affect, normal mood Skin exam: Present: normal color Course Vital Signs 11/10/22 11/10/22 11/10/22 10:20 11:08 11:34 Temperature 97.6 F Pulse Rate 116 H 70 120 H Respiratory 22 18 Rate Blood Pressure 98/40 99/67 O2 Sat by Pulse 94 L 97 Oximetry 11/10/22 11:44 Temperature Pulse Rate 120 H Respiratory Rate Blood Pressure O2 Sat by Pulse Oximetry - Reevaluation(s) Reevaluation #1: 11/10/22 11:53 Repeat EKG shows paced rhythm rate 112. AK 17. QRS 206. QT 37. QTC 454. Superior axis. Q waves with wide QRS complex. EKG Findings - EKG Results: EKG: interpreted by ERMD (Paced rhythm. Superior axis. Wide QRS complex. Nonspecific ST-T.) EKG shows: tachycardia Medical Decision Making - Medical Decision Making Was pt. sent in by a medical professional or institution (, [facility], C[facility], urgent care, hospital, or jail...) When possible be specific @ -No Did you speak to anyone other than the patient for history (EMS, parent, family, police, friend...)? What history was obtained from this source @ -Family members present as well to provide history including patient's history of COPD Did you review nursing and triage notes (agree or disagree)? Why? @ -I reviewed and agree with nursing and triage notes Were old charts reviewed (outside hosp., previous admission, EMS record, old EKG, old radiological studies, urgent care reports/EKG's, jail records)? Report findings @ -No old charts were reviewed Differential Diagnosis (chest pain, altered mental status, abdominal pain women, abdominal pain men, vaginal bleeding, weakness, fever, dyspnea, syncope, headache, dizziness, GI bleed, back pain, seizure, CVA, palpatations, mental health)? @ -Differential Dyspnea: Coronary syndrome, arrhythmia, tamponade, asthma, COPD, pulmonary embolism, pneumonia, pneumothorax, pulmonary effusion, anaphylaxis, diabetic ketoacidosis, flailed chest, pulmonary contusion, diaphragmatic rupture, anemia, neuromuscular, this is not meant to be an all-inclusive list. EKG interpreted by me (3pts min.). @ -As above X-rays interpreted by me (1pt min.). @ -Chest x-ray does not reveal acute abnormality CT interpreted by me (1pt min.). @ -None done U/S interpreted by me (1pt. min.). @ -None done What testing was considered but not performed or refused? (CT, X-rays, U/S, labs)? Why? @ -None What meds were considered but not given or refused? Why? @ -None Did you discuss the management of the patient with other professionals (professionals i.e. [facility] Horton, C[facility] GR[facility]ER, lab, RT, psych nurse, rn social services, it security consulting director, teacher, disability hearing officer, telehealth case manager)? Give summary @ -Case was discussed with Dr. Liu, who will admit for hospital call. Was smoking cessation discussed for >3mins.? @ -No Was critical care preformed (if so, how long)? @ -No Were there social determinants of health that impacted care today? How? (Homelessness, low income, unemployed, alcoholism, drug addiction, transportation, low edu. Level, literacy, decrease access to med. care, senior living, rehab)? @ -No Was there de-escalation of care discussed even if they declined (Discuss DNR or withdrawal of care, Hospice)? DNR status @ -No What co-morbidities impacted this encounter? (DM, HTN, Smoking, COPD, CAD, Cancer, CVA, ARF, Chemo, Hep., AIDS, mental health diagnosis, sleep apnea, mo rbid obesity)? @ -None Was patient admitted / discharged? Hospital course, mention meds given and route, prescriptions, significant lab abnormalities, going to OR and other pertinent info. @ -Patient reevaluated and still feeling short of breath, only mild improvement. Patient remained somewhat tachycardic. Borderline blood pressure. Patient will be admitted for COPD treatment and IV fluids. Patient will need further evaluation. Undiagnosed new problem with uncertain prognosis? @ -No Drug Therapy requiring intensive monitoring for toxicity (Heparin, Nitro, Insulin, Cardizem)? @ -No Were any procedures done? @ -No Diagnosis/symptom? @ -Acute COPD Acute, or Chronic, or Acute on Chronic? @ -Acute on chronic Uncomplicated (without systemic symptoms) or Complicated (systemic symptoms)? @ -default Side effects of treatment? @ -No Exacerbation, Progression, or Severe Exacerbation? @ -No Poses a threat to life or bodily function? How? (Chest pain, [place], [place], pneumonia, PE, COPD, DKA, ARF, appy, cholecystitis, CVA, Diverticulitis, Homicidal, Suicidal, threat to staff... and all critical care pts) @ -No - Lab Data Result diagrams: 11/10/22 11:03 11/10/22 11:03 Lab Results 11/10/22 11/10/22 11/10/22 Range/Units 11:03 11:03 11:03 WBC 6.2 (3.8-10.6) k/uL RBC 4.95 (4.30-5.90) m/uL Hgb 16.0 (13.0-17.5) gm/dL Hct 46.6 (39.0-53.0) % MCV 94.0 (80.0-100.0) fL MCH 32.3 (25.0-35.0) pg MCHC 34.3 (31.0-37.0) g/dL RDW 12.9 (11.5-15.5) % Plt Count 139 L (150-450) k/uL MPV 9.4 Neutrophils % 63 % Lymphocytes % 23 % Monocytes % 8 % Eosinophils % 2 % Basophils % 0 % Neutrophils # 3.9 (1.3-7.7) k/uL Lymphocytes # 1.4 (1.0-4.8) k/uL Monocytes # 0.5 (0-1.0) k/uL Eosinophils # 0.2 (0-0.7) k/uL Basophils # 0.0 (0-0.2) k/uL PT 23.0 H (9.0-12.0) sec INR 2.3 H (<1.2) APTT 32.4 H (22.0-30.0) sec D-Dimer 0.31 (<0.60) mg/L FEU Sodium 142 (137-145) mmol/L Potassium 5.2 H (3.5-5.1) mmol/L Chloride 105 (98-107) mmol/L Carbon Dioxide 28 (22-30) mmol/L Anion Gap 9 mmol/L BUN 28 H (9-20) mg/dL Creatinine 1.40 H (0.66-1.25) mg/dL Est GFR (CKD-EPI)AfAm 54 (>60 ml/min/1.73 sqM) Est GFR (CKD-EPI)NonAf 47 (>60 ml/min/1.73 sqM) Glucose 143 H (74-99) mg/dL Plasma Lactic Acid Timbo (0.7-2.0) mmol/L Calcium 9.3 (8.4-10.2) mg/dL Magnesium 2.3 (1.6-2.3) mg/dL Total Bilirubin 0.6 (0.2-1.3) mg/dL AST 28 (17-59) U/L ALT 27 (4-49) U/L Alkaline Phosphatase 78 (38-126) U/L Troponin I (0.000-0.034) ng/mL NT-Pro-B Natriuret Pep pg/mL Total Protein 6.7 (6.3-8.2) g/dL Albumin 3.9 (3.5-5.0) g/dL 11/10/22 11/10/22 11/10/22 Range/Units 11:03 11:03 11:03 WBC (3.8-10.6) k/uL RBC (4.30-5.90) m/uL Hgb (13.0-17.5) gm/dL Hct (39.0-53.0) % MCV (80.0-100.0) fL MCH (25.0-35.0) pg MCHC (31.0-37.0) g/dL RDW (11.5-15.5) % Plt Count (150-450) k/uL MPV Neutrophils % % Lymphocytes % % Monocytes % % Eosinophils % % Basophils % % Neutrophils # (1.3-7.7) k/uL Lymphocytes # (1.0-4.8) k/uL Monocytes # (0-1.0) k/uL Eosinophils # (0-0.7) k/uL Basophils # (0-0.2) k/uL PT (9.0-12.0) sec INR (<1.2) APTT (22.0-30.0) sec D-Dimer (<0.60) mg/L FEU Sodium (137-145) mmol/L Potassium (3.5-5.1) mmol/L Chloride (98-107) mmol/L Carbon Dioxide (22-30) mmol/L Anion Gap mmol/L BUN (9-20) mg/dL Creatinine (0.66-1.25) mg/dL Est GFR (CKD-EPI)AfAm (>60 ml/min/1.73 sqM) Est GFR (CKD-EPI)NonAf (>60 ml/min/1.73 sqM) Glucose (74-99) mg/dL Plasma Lactic Acid Timbo 1.2 (0.7-2.0) mmol/L Calcium (8.4-10.2) mg/dL Magnesium (1.6-2.3) mg/dL Total Bilirubin (0.2-1.3) mg/dL AST (17-59) U/L ALT (4-49) U/L Alkaline Phosphatase (38-126) U/L Troponin I 0.015 (0.000-0.034) ng/mL NT-Pro-B Natriuret Pep 2220 pg/mL Total Protein (6.3-8.2) g/dL Albumin (3.5-5.0) g/dL Disposition Clinical Impression: Acute exacerbation of chronic obstructive pulmonary disease Disposition: ADMITTED IP TO THIS HOSP Is patient prescribed a controlled substance at d/c from ED?: No Referrals: Myles Caban MD [Primary Care Provider] - 1-2 days Time of Disposition: 12:10
[2022-11-10 11:16] LABS: Basophils % (A) 0 %; Eosinophils # (A) 0.2 k/uL (0-0.7); Eosinophils % (A) 2 %; HCT 46.6 % (39.0-53.0); Lymphocytes # (A) 1.4 k/uL (1.0-4.8); Lymphocytes % (A) 23 %; MCH 32.3 pg (25.0-35.0); MCHC 34.3 g/dL (31.0-37.0); Mean Platelet Volume 9.4; Monocytes # (A) 0.5 k/uL (0-1.0); Monocytes % (A) 8 %; Neutrophils # (A) 3.9 k/uL (1.3-7.7); Neutrophils % (A) 63 %; Platelet Count 139 k/uL (150-450); RBC 4.95 m/uL (4.30-5.90); RDW 12.9 % (11.5-15.5); WBC 6.2 k/uL (3.8-10.6)
[2022-11-10 11:33] LABS: INR 2.3 (<1.2); Partial Thromboplastin Time 32.4 sec (22.0-30.0)
--- NOTE | 2022-11-10 11:36 | XR ---
EXAMINATION TYPE: XR chest 2V DATE OF EXAM: 11/10/2022 11:30 AM COMPARISON: Chest radiographs from 04/27/2022 TECHNIQUE: XR chest 2V Frontal and lateral views of the chest. CLINICAL INDICATION:Male, 82 years old with history of difficulty breathing; FINDINGS: Lungs/Pleura: Low lung volumes are present. There is no evidence of pleural effusion, focal consolida tion, or pneumothorax. Elevation of the right hemidiaphragm redemonstrated. Pulmonary vascularity: Unremarkable. Heart/mediastinum: Cardiomediastinal silhouette is enlarged and stable. Three lead cardiac conduction device overlying the left hemithorax with lead tips projecting over the right ventricle, right atriu m and coronary sinus. Musculoskeletal: Multiple level degenerative disc disease changes seen throughout the spine. No acute osseous abnormality. IMPRESSION: Chronic changes with low lung volumes without evidence for acute pulmonary process.
[2022-11-10 11:38] LABS: Albumin 3.9 g/dL (3.5-5.0); Calcium 9.3 mg/dL (8.4-10.2); Magnesium 2.3 mg/dL (1.6-2.3); Potassium 5.2 mmol/L (3.5-5.1); Total Bilirubin 0.6 mg/dL (0.2-1.3); Total Protein 6.7 g/dL (6.3-8.2)
[2022-11-10] MEDS ORDERED: ACETAMINOPHEN TAB 325 MG TAB PO PRN (12:10)
[2022-11-10] MEDS ORDERED: IPRATROPIUM-ALBUTEROL 3 ML NEB INHALATION PRN (12:10)
[2022-11-10] MEDS ORDERED: NALOXONE 0.4 MG/ML 1 ML VIAL IVP PRN (12:10)
[2022-11-10] MEDS ORDERED: SODIUM CHLORIDE 0.9% 500 ML 500 ML IV STA (12:11)
[2022-11-10] MEDS: IPRATROPIUM-ALBUTEROL 3 ML NEB INHALATION SCH ×2 (15:56→20:04)
[2022-11-10] MEDS: methylPREDNISolone SOD SUCCI 125 MG/2 ML VIAL IV SCH ×2 (18:12→23:02)
--- NOTE | 2022-11-10 20:28 | CT ---
EXAMINATION TYPE: CT chest wo con DATE OF EXAM: 11/10/2022 COMPARISON: 09/14/2016 HISTORY: cap CT DLP: 384.8 mGycm, Automated exposure control for dose reduction was used. CONTRAST: Performed injected with 0 mL of Isovue 300. TECHNIQUE: Axial images were obtained at 5 mm thick sections. Reconstructed images are reviewed on [employer] computer in the coronal plane. FINDINGS: Portion of the thyroid visualized is normal. There may be some mild subsegmental atelectasis at the lung bases. Lung windows otherwise appear rob r. No enlarged mediastinal or hilar adenopathy is evident. The ascending aorta diameter at the level o f the main pulmonary artery is 4.4 cm. The main pulmonary artery diameter at the bifurcation is 3.0 cm. Heart, vascular and great vessels structures have an unusual orientation. Note is made of coronar y artery calcification. Limited CT sections are obtained through the upper abdomen. There is some calcification within the po rtion of the liver visualized. Vascular calcifications within the aorta. Vascular calcifications with in the splenic artery. Pancreas spleen adrenal glands as visualized appear unremarkable. There is arenas ited visualization of the kidneys. IMPRESSIONS: 1. Mild subsegmental atelectasis may be present.
[2022-11-10 20:36] LABS: Glucose,Whole Blood 356 mg/dL (70-110)
[2022-11-10] MEDS: ATORVASTATIN 10 MG TAB PO SCH (23:01)
[2022-11-10] MEDS: GABAPENTIN 400 MG CAP PO PRN (23:02)
[2022-11-10] MEDS: FLECAINIDE 50 MG TAB PO SCH (23:02)
[2022-11-11] MEDS: ZOLPIDEM 5 MG TAB PO PRN ×2 (00:10→22:55)
[2022-11-11] MEDS: SODIUM CHLORIDE 0.9% 1,000 ML IV SCH ×2 (02:07→22:56)
[2022-11-11] MEDS: GLIMEPIRIDE 1 MG TAB PO SCH (06:05)
[2022-11-11] MEDS: methylPREDNISolone SOD SUCCI 125 MG/2 ML VIAL IV SCH ×4 (06:05→22:54)
[2022-11-11 06:06] LABS: Glucose,Whole Blood 251 mg/dL (70-110)
[2022-11-11 06:58] LABS: INR 2.7 (<1.2); Prothrombin Time 26.5 sec (9.0-12.0)
[2022-11-11] MEDS ORDERED: ALBUTEROL HFA INHALER INHALATION PRN (08:10)
[2022-11-11] MEDS: IPRATROPIUM-ALBUTEROL 3 ML NEB INHALATION SCH (08:11)
[2022-11-11] MEDS: TIOTROPIUM 2.5 MCG INHALER INHALATION SCH (08:12)
[2022-11-11] MEDS: ALBUTEROL HFA INHALER INHALATION SCH ×4 (08:13→22:13)
--- NOTE | 2022-11-11 09:39 | HP ---
HISTORY AND PHYSICAL HISTORY OF PRESENT ILLNESS: This 82-year-old white male came in to the hospital for difficulty breathing, symptoms started yesterday. Minimal cough, shortness of breath. Had some history of smoke exposure at work and does take some inhalers at home. No leg pain or leg swelling. Lungs feel tight. He has some allergies. HOME MEDICINES: 1. Mevacor 20 daily. 2. Amaryl 1 mg daily. 3. Neurontin 800 t.i.d. 4. Coumadin 5 mg daily. 5. Toprol-XL 100 daily. 6. Valsartan 320 daily. 7. Coumadin 2.5 every other day and 5 every other day. 8. Flecainide 50 b.i.d. 9. Dyazide 1 daily. ALLERGIES: Negative. REVIEW OF SYSTEMS: A 14-point review of systems otherwise negative. FAMILY HISTORY: Father, congestive heart failure. Mother, myocardial infarction. PHYSICAL EXAMINATION: VITAL SIGNS: Blood pressure is 97.6, pulse is 70s to 120, respiratory rate 18 to 25, blood pressure is low 90s over 60s. GENERAL: He is a white male, appears in no acute distress. HEENT: Head normocephalic, atraumatic. Pupils equal, round, reactive. NECK: Supple. LUNGS: Scattered wheeze x4. CARDIOVASCULAR: S1, S2. HEMATOLOGY: 2+ edema. OPHTHALMOLOGICAL: Pupils equal, round, reactive. ABDOMEN: Soft, nontender. PSYCH: Fair mood and affect. NEUROLOGIC: Cranial nerves intact. CAT scan of the chest is negative. He has high BUN and creatinine. His O2 saturation 94 to 97. ASSESSMENT: Prerenal azotemia secondary to dehydration, shortness of breath secondary to COPD exacerbation, possible allergic asthma. Cardiology and Pulmonary consult. Possible diastolic heart failure, hypertension acceleration with prerenal azotemia. Prognosis guarded. Please see further orders. MMODL / IJN: [id number] /
[2022-11-11] MEDS: METOPROLOL SUCCINATE (ER) 100 MG TAB.ER.24H PO SCH (09:49)
[2022-11-11] MEDS: TRIAMTERENE-HCTZ 37.5-25MG 1 EACH TAB PO SCH (09:49)
[2022-11-11] MEDS: FLECAINIDE 50 MG TAB PO SCH ×2 (09:49→22:55)
[2022-11-11 12:28] LABS: Glucose,Whole Blood 150 mg/dL (70-110)
--- NOTE | 2022-11-11 13:31 | P.CRDCN ---
History of Present Illness Consult date: 11/11/22 Consult reason: congestive heart failure History of present illness: History of present illness: This is an 82-year-old male patient of Dr. Toribio with past medical history of COPD, hypertension, complete heart block status post permanent pacemaker, atrial fibrillation status post cardioversion with flecainide. Patient's last hospital visit was 06/11/2022 at which time device interrogation showed several brief episodes of atrial fibrillation the longest lasting 17 hours. This was post cardioversion. We have been asked to evaluate the patient for heart failure. Patient presented to the hospital due to difficulty breathing that started on Thursday. His initial blood pressure was 98/40, heart rate was 116. Patient was admitted to the observation unit and started on treatment for COPD exacerbation, home cardiac medications were resumed. He has been followed by pulmonary medicine. EKG ventricularly paced rhythm #120 bpm, #2 Ventricular paced 112 bpm, #3 ventricularly paced 60 bpm Chest x-ray: Chronic changes with low lung volumes without evidence of acute pulmonary process. CAT scan of the chest revealed mild subsegmental atelectasis may be present. WBC 6.2, hemoglobin 16, platelet count 139. INR 2.7. Sodium 142, potassium 5.2. BUN 48 creatinine 1.4. Liver function tests within normal limits. Lactic acid 1.2. Magnesium 2.3. Troponin negative 1. ProBNP 2220. Coronal virus PCR detected. Influenza A and influenza B not detected. Home cardiac medications: Flecainide 50 mg twice daily, lovastatin 20 mg at bedtime, Toprol-XL 100 mg daily, triamterene/hydrochlorothiazide 30 7. 525 milligrams daily, losartan 320 mg daily, Coumadin 2.5 mg on Thursday and 5 mg on Thursday. Echocardiogram 04/2020 EF 55-60%, moderate left atrial hypertrophy, moderate MR, moderate MAC, aortic root 3.9 cm, RVSP 31 mmHg. Review Of Systems: At the time of my evaluation: Constitutional: No fever, no chills. No weakness, fatigue or lethargy. EENT: No headache. No dizziness. Lungs: No shortness of breath, cough, no sputum production. No wheezing. Cardiovascular: No chest pain, no lower extremity edema. No palpitations. No paroxysmal nocturnal dyspnea. No orthopnea. No lightheadedness or dizziness. No syncopal episodes. Abdominal: No abdominal pain. No nausea, vomiting. No diarrhea. No constipation. No bloody or tarry stools. Genitourinary: No dysuria.. No urinary retention. Musculoskeletal: No myalgias. No muscle weakness, no frequent falls. No back pain. No neck pain. Integumentary: No wounds. No rash. No unusual bruising. Neurologic: No aphasia. No facial droop. No change in mentation. No head injury. No headache. Physical examination: Gen: This is an 82-year-old male. He is resting flat in bed appears to be comfortable. VS: reviewed. Blood pressure 132/69, heart rate in the 60s, pulse ox 96% on room air. Afebrile. HEENT: Head is atraumatic, normocephalic. Pupils equal, round. Sclerae is anicteric. NECK: Supple. No JVD. . LUNGS: Scattered rhonchi and expiratory wheeze. No intercostal retractions. HEART: Regular rate and rhythm. Systolic murmur. ABDOMEN: Soft No tenderness. EXTREMITIES: No pedal edema bilaterally. No calf tenderness. NEUROLOGICAL: Patient is awake, alert and oriented x3. Assessment: Covid 19 Dyspnea secondary to COPD exacerbation, Covid 19 Elevated BNP possibly secondary to COVID-19, no signs on clinical exam of heart failure Hypertension Complete heart block status post permanent pacemaker Atrial fibrillation status post cardioversion Thrombocytopenia Acute kidney injury Plan: Continue patient's home cardiac medications No plan for any further workup and cardiology. Patient may follow-up with Dr. Toribio at the time of discharge. Thank you kindly for this consultation. Nurse practitioner note has been reviewed, I agree with documented findings and plan of care. Patient was seen and examined. Past Medical History Past Medical History: Asthma, Diabetes Mellitus, GERD/Reflux, GI Bleed, Hyperlipidemia, Hypertension, Osteoarthritis (OA) Additional Past Medical History / Comment(s): SEE DR TORIBIO'S H&P. NECK PAIN, History of Any Multi-Drug Resistant Organisms: None Reported Past Surgical History: Back Surgery, Orthopedic Surgery Additional Past Surgical History / Comment(s): torn rotator cuff, cervical disc removed in neck and fused 3 arthroscopy of the left knee, abdominal surgery, left hand/thumb surgery Past Anesthesia/Blood Transfusion Reactions: No Reported Reaction Past Psychological History: No Psychological Hx Reported Smoking Status: Never smoker Past Alcohol Use History: None Reported Past Drug Use History: None Reported - Past Family History Father History Unknown: Yes Family Medical History: Congestive Heart Failure (CHF) Mother History Unknown: Yes Family Medical History: Myocardial Infarction ([place]) Medications and Allergies Home Medications Medication Instructions Recorded Confirmed Type Gabapentin [Neurontin] 800 mg PO TID PRN 12/20/13 11/10/22 History Lovastatin [Mevacor] 20 mg PO HS 12/20/13 11/10/22 History Glimepiride [Amaryl] 1 mg PO DAILY 12/07/17 11/10/22 History Warfarin [Coumadin] 5 mg PO SUTUTH@2100 09/06/21 11/10/22 History Albuterol Sulfate [Ventolin HFA] 2 puff INHALATION RT-Q6H PRN 04/27/22 11/10/22 History Metoprolol Succinate [Toprol XL] 100 mg PO DAILY 04/27/22 11/10/22 History Valsartan 320 mg PO DAILY 04/27/22 11/10/22 History Warfarin [Coumadin] 2.5 mg PO MOWEFRSA@2100 04/27/22 11/10/22 History Albuterol Nebulized [Ventolin 2.5 mg INHALATION RT-Q6H PRN 11/10/22 11/10/22 History Nebulized] Flecainide Acetate 50 mg PO BID 11/10/22 11/10/22 History Triamterene/Hydrochlorothiazid 1 tab PO DAILY 11/10/22 11/10/22 History [Triamterene-Hctz 37.5-25 mg Tb] Allergies Allergy/AdvReac Type Severity Reaction Status Date / Time No Known Allergies Allergy Verified 11/10/22 11:19 Physical Exam Vitals: Vital Signs Temp Pulse Pulse Resp BP BP Pulse Ox 11/11/22 07:47 97.4 F L 61 16 132/69 96 11/11/22 04:37 66 11/11/22 04:30 60 11/11/22 02:21 98.0 F 61 18 118/64 93 L 11/10/22 20:46 97.9 F 70 20 112/66 95 11/10/22 20:22 76 04/17/23 20:04 72 11/10/22 18:00 68 18 100/65 96 11/10/22 15:56 68 11/10/22 15:00 68 18 101/74 97 11/10/22 14:00 108/76 11/10/22 13:30 105 H 16 96/65 97 Intake and Output 11/10/22 11/11/22 11/11/22 22:59 06:59 14:59 Intake Total 0 Balance 0 Intake: Oral 0 Other: # Voids 2 2 Results 11/10/22 11:03 11/10/22 11:03 Coagulation 11/11/22 Range/Units 06:04 PT 26.5 H (9.0-12.0) sec Current Medications Generic Name Dose Route Start Last Admin Trade Name Freq PRN Reason Stop Dose Admin Acetaminophen 650 mg 11/10/22 12:10 Acetaminophen Tab 325 Mg Tab PO Q4HR PRN Mild Pain or Fever > 100.5 Albuterol Sulfate 2 puff 11/11/22 12:00 11/11/22 12:08 Albuterol Hfa Inhaler INHALATION 2 puff RT-QID REYNA Administration Albuterol Sulfate 2 puff 11/11/22 08:10 Albuterol Hfa Inhaler INHALATION RT-Q2H PRN Shortness Of Breath Atorvastatin Calcium 10 mg 11/10/22 21:00 11/10/22 23:01 Atorvastatin 10 Mg Tab PO 10 mg HS REYNA Administration Flecainide Acetate 50 mg 11/10/22 21:00 11/11/22 09:49 Flecainide 50 Mg Tab PO 50 mg BID REYNA Administration Gabapentin 800 mg 11/10/22 15:49 11/10/22 23:02 Gabapentin 400 Mg Cap PO 800 mg TID PRN Administration Pain Glimepiride 1 mg 11/11/22 07:30 11/11/22 06:05 Glimepiride 1 Mg Tab PO 1 mg [id number] REYNA Administration Sodium Chloride 1,000 mls @ 50 mls/hr 11/11/22 00:45 11/11/22 02:07 Saline 0.9% IV Not Given .Q20H REYNA Methylprednisolone Sodium Succinate 60 mg 11/10/22 18:00 11/11/22 06:05 Methylprednisolone Sod Succi 125 Mg/2 Ml Vial IV 60 mg Q6HR REYNA Administration Metoprolol Succinate 100 mg 11/11/22 09:00 11/11/22 09:49 Metoprolol Succinate (Er) 100 Mg Tab.Er.24h PO 100 mg DAILY REYNA Administration Miscellaneous Information 0 each 11/11/22 01:09 Warfarin Per Pharmacy MISCELLANE DIRECTED PRN PER PROTOCOL Naloxone HCl 0.2 mg 11/10/22 12:10 Naloxone 0.4 Mg/Ml 1 Ml Vial IVP Q2M PRN Opioid Reversal Tiotropium [place] 2 puff 11/11/22 08:30 11/11/22 08:12 Tiotropium 2.5 Mcg Inhaler INHALATION 2 puff RT-DAILY REYNA Administration Triamterene/Hydrochlorothiazide 1 each 11/11/22 09:00 11/11/22 09:49 Triamterene-Hctz 37.5-25mg 1 Each Tab PO 1 each DAILY REYNA Administration Warfarin Sodium 2.5 mg 11/11/22 18:00 Warfarin 2.5 Mg Tab PO 11/11/22 18:01 ONCE@1800 ONE Zolpidem Tartrate 5 mg 11/10/22 23:49 11/11/22 00:10 Zolpidem 5 Mg Tab PO 5 mg HS PRN Administration Insomnia Intake and Output 11/10/22 11/11/22 11/11/22 22:59 06:59 14:59 Intake Total 0 Balance 0 Intake: Oral 0 Other: # Voids 2 2 11/10/22 11:03 11/10/22 11:03
[2022-11-11 17:57] LABS: Glucose,Whole Blood 156 mg/dL (70-110)
[2022-11-11] MEDS ORDERED: WARFARIN 2.5 MG TAB PO ONE (18:00)
[2022-11-11 20:07] LABS: Glucose,Whole Blood 274 mg/dL (70-110)
--- NOTE | 2022-11-11 20:10 | P.CNPUL ---
History of Present Illness Consult date: 11/11/22 Reason for consult: COPD Chief complaint: Shortness of breath History of present illness: 82-year-old male patient presented to the ED complaining of progressive worsening shortness of breath over the past few days. Denies having any chest pain. No reported fever or chills. No increase in lower extremity swelling. 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 He also has COPD, hypertension, previous history of pacemaker insertion for a complete heart block and history of chronic atrial fibrillation post-cardioversion and the patient is currently on flecainide night. [employer] on the case and the patient's last interrogation of the pacemaker was on 06/11/2022 that showed brief episodes of atrial fibrillation. In the emergency, the patient had blood work that showed a WBC count of 6.2 with a hemoglobin of 16 and a platelet count of 139. Sodium is at 142 with a potassium level of 5.2, BUN is 28 with a creatinine of 1.4. His d- dimer was at 0.31. ProBNP level was 2220 and the rest of the coagulation profile shows an INR of 2.3 with a PT of 23. LFTs were normal. The patient tested positive for Covid 19. Influenza A and B were both negative. CAT scan of the chest showed some mild subsegmental atelectasis in the lung bases. Right hemidiaphragm was quite elevated. Ascending aorta diameter was around 4.4 and the level of the main pulmonary artery. Rest the vascular structures were essentially within normal limits. No mediastinal lymphadenopathy. Lungs are otherwise clear. Previous echocardiogram from 2021 showed a preserved LV function with an EF of around 55-60%. Moderate concentric LVH. Mild RV dilatation. Mild dilation of the ascending aorta. Moderate mitral and mild aortic valve regurgitation. EKG showed a paced ventricular rhythm. Patient was accordingly started on steroids and currently is on Solu-Medrol 60 mg every 6 hours. He does believe of maintenance regarding his COPD. He remains on warfarin with therapeutic PT/INR. Rest of the antihypertensive medication was resumed including flecainide regarding his chronic A. fib. He is on a dose of flecainide 50 mg by mouth twice a day. Is also on metoprolol XL 100 mg by mouth daily. He takes Maxzide for blood pressure control. He is on 2 L oxygen nasal cannula with a pulse ox of 90%. No nausea. No vomiting. No diarrhea. Past Medical History Past Medical History: Atrial Fibrillation, COPD, Diabetes Mellitus, GERD/Reflux, GI Bleed, Hyperlipidemia, Hypertension, Osteoarthritis (OA) Additional Past Medical History / Comment(s): Chronic right hemidiaphragmatic paralysis, history of pacemaker insertion for complete heart block, chronic neck pain History of Any Multi-Drug Resistant Organisms: None Reported Past Surgical History: Back Surgery, Orthopedic Surgery Additional Past Surgical History / Comment(s): torn rotator cuff, cervical disc removed in neck and fused 3 arthroscopy of the left knee, abdominal surgery, left hand/thumb surgery Past Anesthesia/Blood Transfusion Reactions: No Reported Reaction Past Psychological History: No Psychological Hx Reported Smoking Status: Never smoker Past Alcohol Use History: None Reported Past Drug Use History: None Reported - Past Family History Father History Unknown: Yes Family Medical History: Congestive Heart Failure (CHF) Mother History Unknown: Yes Family Medical History: Myocardial Infarction (UT) Medications and Allergies Home Medications Medication Instructions Recorded Confirmed Type Gabapentin [Neurontin] 800 mg PO TID PRN 12/20/13 11/10/22 History Lovastatin [Mevacor] 20 mg PO HS 12/20/13 11/10/22 History Glimepiride [Amaryl] 1 mg PO DAILY 12/07/17 11/10/22 History Warfarin [Coumadin] 5 mg PO SUTUTH@2100 09/06/21 11/10/22 History Albuterol Sulfate [Ventolin HFA] 2 puff INHALATION RT-Q6H PRN 04/27/22 11/10/22 History Metoprolol Succinate [Toprol XL] 100 mg PO DAILY 04/27/22 11/10/22 History Valsartan 320 mg PO DAILY 04/27/22 11/10/22 History Warfarin [Coumadin] 2.5 mg PO MOWEFRSA@2100 04/27/22 11/10/22 History Albuterol Nebulized [Ventolin 2.5 mg INHALATION RT-Q6H PRN 11/10/22 11/10/22 History Nebulized] Flecainide Acetate 50 mg PO BID 11/10/22 11/10/22 History Triamterene/Hydrochlorothiazid 1 tab PO DAILY 11/10/22 11/10/22 History [Triamterene-Hctz 37.5-25 mg Tb] Allergies Allergy/AdvReac Type Severity Reaction Status Date / Time No Known Allergies Allergy Verified 11/10/22 11:19 Physical Exam Vitals: Vital Signs Temp Pulse Pulse Resp BP BP Pulse Ox 11/11/22 07:47 97.4 F L 61 16 132/69 96 11/11/22 04:37 66 11/11/22 04:30 60 11/11/22 02:21 98.0 F 61 18 118/64 93 L 11/10/22 20:46 97.9 F 70 20 112/66 95 11/10/22 20:22 76 11/10/22 20:04 72 11/10/22 18:00 68 18 100/65 96 11/10/22 15:56 68 11/10/22 15:00 68 18 101/74 97 Intake and Output 11/10/22 11/11/22 11/11/22 22:59 06:59 14:59 Intake Total 0 Balance 0 Intake: Oral 0 Other: # Voids 2 2 Gen. appearance the patient is calm and comfortable and the patient is currently on 2 L O2 nasal cannula. Head exam was generally normal. There was no scleral icterus or corneal arcus. Mucous membranes were moist.Neck was supple and without jugular venous distension, thyromegaly, or carotid bruits. Carotids were easily palpable bilaterally. There was no adenopathy. Lung sounds are diminished in lung bases more so on the right and a limited amount of wheezing. Cardiac exam revealed the PMI to be normally situated and sized. The rhythm was regular and no extrasystoles were noted during several minutes of auscultation. The first and second heart sounds were normal and physiologic splitting of the second heart sound was noted. There were no murmurs, rubs, clicks, or gallops. The patient is a pacemaker pocket of the left anterior chest area. Abdominal exam revealed normal bowel sounds. The abdomen was soft, non-tender, and without masses, organomegaly, or appreciable enlargement of the abdominal aorta.Examination of the extremities revealed easily palpable radial, femoral and pedal pulses. There was no cyanosis, clubbing or edema. Results - Laboratory Findings CBC and BMP: 11/10/22 11:03 11/10/22 11:03 PT/INR, D-dimer PT 26.5 sec (9.0-12.0) H 11/11/22 06:04 INR 2.7 (<1.2) H 11/11/22 06:04 D-Dimer 0.31 mg/L FEU (<0.60) 11/10/22 11:03 Abnormal lab findings: Abnormal Labs 11/10/22 11/10/22 11/10/22 11:03 11:03 11:03 Plt Count 139 L PT 23.0 H INR 2.3 H APTT 32.4 H Potassium 5.2 H BUN 28 H Creatinine 1.40 H Glucose 143 H POC Glucose (mg/dL) Coronavirus (PCR) 11/10/22 11/11/22 11/11/22 20:35 06:00 06:04 Plt Count PT 26.5 H INR 2.7 H APTT Potassium BUN Creatinine Glucose POC Glucose (mg/dL) 356 H Coronavirus (PCR) Detected A 11/11/22 11/11/22 06:04 12:26 Plt Count PT INR APTT Potassium BUN Creatinine Glucose POC Glucose (mg/dL) 251 H 150 H Coronavirus (PCR) - Diagnostic Findings Chest x-ray: image reviewed CT scan - chest: image reviewed Assessment and Plan Plan: Acute Covid 19 infection. The patient has been vaccinated in the past. No evidence of any acute pneumonia based on CAT scan findings. 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 Suspected cervical spine surge ry affecting the patient's diaphragmatic functions Acute kidney injury, creatinine is at 1.4 from a normal baseline. Consider intravascular volume depletion/dehydration in setting of Covid 19 infection History of complete heart block and the patient has a pacemaker in place, current rhythm is paced History approximately A. fib maintained on metoprolol and flecainide and the patient is on long-term and coagulation with warfarin with therapeutic PT/INR hypertension hyperlipidemia Plan Titrate O2 currently on 2 L Patient has chronic respiratory insufficiency to diaphragmatic on the right in addition to COPD we'll continue bronchodilators Continue IV Solu-Medrol for the next 24 hours Hydrated patient monitor renal function Monitor the blood sugar in light of systemic steroid use Abuse/scale insulin coverage for blood sugar control Monitor PT/INR daily therapeutic between 2 and 3 Cardiology consultation We'll follow
[2022-11-11] MEDS ORDERED: WARFARIN 5 MG TAB PO SCH (21:00)
[2022-11-11] MEDS: ATORVASTATIN 10 MG TAB PO SCH (22:55)
[2022-11-11] MEDS: GABAPENTIN 400 MG CAP PO PRN (22:55)
--- NOTE | 2022-11-12 03:43 | PN ---
PROGRESS NOTE SUBJECTIVE: This -[id number] white male, history of atrial fibrillation, hypertension, COPD, GERD, GI bleed, diabetes mellitus, came with shortness of breath. Seen Pulmonary, seen Cardiology, feels better. He has a pacemaker. OBJECTIVE: ABDOMEN: Soft. LUNGS: Scattered wheeze. HEMATOLOGY: Negative for Homans. BUN is 28, creatinine 1.4. D-dimer is 0.3. He has acute COVID-19 infection, vaccinated in the past, no acute pneumonia, acute hypoxic respiratory failure, on 2 L oxygen, COPD exacerbation, restrictive lung disease, suspected cervical spinal surgery, acute kidney injury with prerenal azotemia. Rehydrate. Treat for COVID. IV Solu- Medrol. Rehydrate. Monitor sugar, Accu-Chek protocol. Cardiology consultation, has atrial fibrillation, maintained on metoprolol, flecainide. Prognosis guarded. Please see further orders. MMODL / IJN: [id number] /
[2022-11-12 06:10] LABS: Glucose,Whole Blood 175 mg/dL (70-110)
[2022-11-12] MEDS: GLIMEPIRIDE 1 MG TAB PO SCH (06:15)
[2022-11-12] MEDS: methylPREDNISolone SOD SUCCI 125 MG/2 ML VIAL IV SCH ×3 (06:16→17:34)
[2022-11-12] MEDS: FLECAINIDE 50 MG TAB PO SCH ×2 (08:46→20:33)
[2022-11-12] MEDS: TRIAMTERENE-HCTZ 37.5-25MG 1 EACH TAB PO SCH (08:46)
[2022-11-12] MEDS: METOPROLOL SUCCINATE (ER) 100 MG TAB.ER.24H PO SCH (08:46)
[2022-11-12] MEDS: ALBUTEROL HFA INHALER INHALATION SCH ×4 (09:56→18:41)
[2022-11-12] MEDS: TIOTROPIUM 2.5 MCG INHALER INHALATION SCH (09:56)
[2022-11-12 10:57] LABS: Basophils # (A) 0.02 X 10*3/uL (0.00-0.10); Basophils % (A) 0.1 %; Eosinophils # (A) 0 X 10*3/uL (0.04-0.35); Eosinophils % (A) 0 %; HGB 13.1 g/dL (13.0-17.0); Immature Grans, Automated 0.8 %; Lymphocytes # (A) 0.57 X 10*3/uL (0.90-5.00); Lymphocytes % (A) 3.6 %; MCH 31.8 pg (27.0-32.0); MCHC 32.8 g/dL (32.0-37.0); MCV 97.1 fL (80.0-97.0); Mean Platelet Volume 11.1 fL (9.5-12.2); Monocytes # (A) 0.86 X 10*3/uL (0.20-1.00); Monocytes % (A) 5.5 %; NRBC Per 100 WBC 0 /100 WBCS (0.0-0.0); Neutrophils # (A) 14.08 X 10*3/uL (1.80-7.70); Platelet Count 121 X 10*3/uL (140-440); RBC 4.12 X 10*6/uL (4.40-5.60); RDW 12.5 % (11.5-14.5); WBC 15.66 X 10*3/uL (4.50-10.00)
[2022-11-12 11:01] LABS: African American GFR (CKD) 53.8 (60.0-200.0); Albumin 3.9 g/dL (3.8-4.9); Albumin/Globulin Ratio 2.17 (1.60-3.17); Anion Gap 8.4 mmol/L (10.00-18.00); BUN/Creat Ratio 26.36 Ratio (12.00-20.00); Blood Urea Nitrogen 36.9 mg/dL (9.0-27.0); Calcium 9.2 mg/dL (8.7-10.3); Carbon Dioxide 26.6 mmol/L (20.0-27.5); Globulin 1.8 g/dL (1.6-3.3); Non-African American GFR(CKD) 46.5 (60.0-200.0); Potassium 4.7 mmol/L (3.5-5.5); Total Bilirubin 0.3 mg/dL (0.30-1.20); Total Protein 5.7 g/dL (6.2-8.2)
[2022-11-12 12:07] LABS: Glucose,Whole Blood 228 mg/dL (70-110)
[2022-11-12] MEDS ORDERED: DEXTROSE 50% SYRINGE 50 ML IVP PRN ×2 (13:22)
[2022-11-12] MEDS: INSULIN ASPART (NovoLOG) 100 UNIT/ML VIAL SQ SCH ×3 (14:52→21:01)
[2022-11-12 14:58] LABS: Glucose,Whole Blood 280 mg/dL (70-110)
[2022-11-12 15:27] LABS: INR 2.38 (0.90-1.11)
--- NOTE | 2022-11-12 17:02 | P.PN ---
Subjective Progress Note Date: 11/12/22 82-year-old male patient presented to the ED complaining of progressive worsening shortness of breath over the past few days. Denies having any chest pain. No reported fever or chills. No increase in lower extremity swelling. He is known to have chronic respiratory insufficiency with diaphragmatic we akness/paralysis on the right. He also has COPD, hypertension, previous history of pacemaker insertion for a complete heart block and history of chronic atrial fibrillation post-cardioversion and the patient is currently on flecainide night. [employer] on the case and the patient's last interrogation of the pacemaker was on 06/11/2022 that showed brief episodes of atrial fibrillation. In the emergency, the patient had blood work that showed a WBC count of 6.2 with a hemoglobin of 16 and a platelet count of 139. Sodium is at 142 with a potassium level of 5.2, BUN is 28 with a creatinine of 1.4. His d-dimer was at 0.31. ProBNP level was 2220 and the rest of the coagulation profile shows an INR of 2.3 with a PT of 23. LFTs were normal. The patient tested positive for Covid 19. Influenza A and B were both negative. CAT scan of the chest showed some mild subsegmental atelectasis in the lung bases. Right hemidiaphragm was quite elevated. Ascending aorta diameter was around 4.4 and the level of the main pulmonary artery. Rest the vascular structures were essentially within no rmal limits. No mediastinal lymphadenopathy. Lungs are otherwise clear. Previous echocardiogram from 2021 showed a preserved LV function with an EF of around 55-60%. Moderate concentric LVH. Mild RV dilatation. Mild dilation of the ascending aorta. Moderate mitral and mild aortic valve regurgitation. EKG showed a paced ventricular rhythm. Patient was accordingly started on steroids and currently is on Solu-Medrol 60 mg every 6 hours. He does believe of maintenance regarding his COPD. He remains on warfarin with therapeutic PT/INR. Rest of the antihypertensive medication was resumed including flecainide regarding his chronic A. fib. He is on a dose of flecainide 50 mg by mouth tw ice a day. Is also on metoprolol XL 100 mg by mouth daily. He takes Maxzide for blood pressure control. He is on 2 L oxygen nasal cannula with a pulse ox of 90%. No nausea. No vomiting. No diarrhea. On today's evaluation of 11/12/2022, the patient continues to have cough and congestion and wheeze. He was able to cough out some minimal amount of mucus today. He is positive for Covid 19 as mentioned and he has chronic respiratory insufficiency because of a right diaphragmatic weakness. Partial left-sided diaphragmatic weakness is also suspected. Meanwhile, his white cell count is somewhat elevated at 15.6. His pro calcitonin level was low at 0.06. His sodium was at 141. BUN is at 36 with a creatinine of 1.4. He has developed some mild hyperglycemia related to systemic steroids. INR is at 2.3. He is afebrile. He is communicating. No altered mentation. He is on sliding scale insulin coverage for blood sugar control. He is also using albuterol HFA 4 times a day scheduled. He is also on Spiriva. Objective - Vital Signs Vital signs: Vital Signs Temp 97.8 F 11/12/22 14:47 Pulse 60 11/12/22 14:47 Resp 18 11/12/22 14:47 BP 125/65 11/12/22 14:47 Pulse Ox 98 11/12/22 14:47 FiO2 Intake & Output 11/11/22 11/12/22 11/12/22 18:59 06:59 18:59 Intake Total 238 Balance 238 Intake: Oral 238 Other: # Voids 1 1 - Exam Gen. appearance the patient is calm and comfortable and the patient is currently on 2 L O2 nasal cannula. Head exam was generally normal. There was no scleral icterus or corneal arcus. Mucous membranes were moist.Neck was supple and without jugular venous distension, thyromegaly, or carotid bruits. Carotids were easily palpable bilaterally. There was no adenopathy. Lung sounds are diminished in lung bases more so on the right and a limited amount of wheezing. Cardiac exam revealed t he PMI to be normally situated and sized. The rhythm was regular and no extrasystoles were noted during several minutes of auscultation. The first and second heart sounds were normal and physiologic splitting of the second heart sound was noted. There were no murmurs, rubs, clicks, or gallops. The patient is a pacemaker pocket of the left anterior chest area. Abdominal exam revealed normal bowel sounds. The abdomen was soft, non-tender, and without masses, organomegaly, or appreciable enlargement of the abdominal aorta.Examination of the extremities revealed easily palpable radial, femoral and pedal pulses. There was no cyanosis, clubbing or edema. - Labs CBC & Chem 7: 11/12/22 06:46 11/12/22 06:46 Labs: Abnormal Lab Results - Last 24 Hours (Table) 11/11/22 11/11/22 11/12/22 Range/Units 17:55 20:05 06:09 WBC (4.50-10.00) X 10*3/uL RBC (4.40-5.60) X 10*6/uL MCV (80.0-97.0) fL Plt Count (140-440) X 10*3/uL Immature Gran # (0.00-0.04) X 10*3/uL Neutrophils # (1.80-7.70) X 10*3/uL Lymphocytes # (0.90-5.00) X 10*3/uL Eosinophils # (0.04-0.35) X 10*3/uL PT (9.9-11.9) sec INR (0.90-1.11) Anion Gap (10.00-18.00) mmol/L BUN (9.0-27.0) mg/dL Est GFR (CKD-EPI)AfAm (60.0-200.0) Est GFR (CKD-EPI)NonAf (60.0-200.0) BUN/Creatinine Ratio (12.00-20.00) Ratio Glucose (70-110) mg/dL POC Glucose (mg/dL) 156 H 274 H 175 H (70-110) mg/dL Total Protein (6.2-8.2) g/dL 11/12/22 11/12/22 11/12/22 Range/Units 06:46 06:46 06:46 WBC 15.66 H (4.50-10.00) X 10*3/uL RBC 4.12 L (4.40-5.60) X 10*6/uL MCV 97.1 H (80.0-97.0) fL Plt Count 121 L (140-440) X 10*3/uL Immature Gran # 0.13 H (0.00-0.04) X 10*3/uL Neutrophils # 14.08 H (1.80-7.70) X 10*3/uL Lymphocytes # 0.57 L (0.90-5.00) X 10*3/uL Eosinophils # 0 L (0.04-0.35) X 10*3/uL PT 26.0 H (9.9-11.9) sec INR 2.38 H (0.90-1.11) Anion Gap 8.40 L (10.00-18.00) mmol/L BUN 36.9 H (9.0-27.0) mg/dL Est GFR (CKD-EPI)AfAm 53.8 L (60.0-200.0) Est GFR (CKD-EPI)NonAf 46.5 L (60.0-200.0) BUN/Creatinine Ratio 26.36 H (12.00-20.00) Ratio Glucose 192 H (70-110) mg/dL POC Glucose (mg/dL) (70-110) mg/dL Total Protein 5.7 L (6.2-8.2) g/dL 11/12/22 11/12/22 Range/Units 12:03 14:55 WBC (4.50-10.00) X 10*3/uL RBC (4.40-5.60) X 10*6/uL MCV (80.0-97.0) fL Plt Count (140-440) X 10*3/uL Immature Gran # (0.00-0.04) X 10*3/uL Neutrophils # (1.80-7.70) X 10*3/uL Lymphocytes # (0.90-5.00) X 10*3/uL Eosinophils # (0.04-0.35) X 10*3/uL PT (9.9-11.9) sec INR (0.90-1.11) Anion Gap (10.00-18.00) mmol/L BUN (9.0-27.0) mg/dL Est GFR (CKD-EPI)AfAm (60.0-200.0) Est GFR (CKD-EPI)NonAf (60.0-200.0) BUN/Creatinine Ratio (12.00-20.00) Ratio Glucose (70-110) mg/dL POC Glucose (mg/dL) 228 H 280 H (70-110) mg/dL Total Protein (6.2-8.2) g/dL Assessment and Plan Plan: Acute Covid 19 infection. The patient has been vaccinated in the past. No evidence of any acute pneumonia based on CAT scan findings. 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 Suspected cervical spine surgery affecting the patient's diaphragmatic functions Acute kidney injury, creatinine is at 1.4 from a normal baseline. Consider intravascular volume depletion/dehydration in setting of Covid 19 infection History of complete heart block and the patient has a pacemaker in place, current rhythm is paced History approximately A. fib maintained on metoprolol and flecainide and the patient is on long-term and coagulation with warfarin with therapeutic PT/INR hypertension hyperlipidemia Plan Limited improvement since yesterday The patient developed some leukocytosis Repeat labs in the morning including a white cell count Pro calcitonin level is low Continue steroids Add Levemir insulin 10 units for that the blood sugar control in addition to a sliding scale coverage Hydrate the patient with half-normal seen today to 75 mL an hour Repeat labs including renal function tomorrow Monitor PT/INR daily therapeutic between 2 and 3 Cardiology consultation We'll follow
[2022-11-12 17:21] LABS: Glucose,Whole Blood 214 mg/dL (70-110)
[2022-11-12] MEDS: SODIUM CHLORIDE 0.45% 1,000 ML IV SCH (17:35)
[2022-11-12] MEDS ORDERED: WARFARIN 2.5 MG TAB PO ONE (18:00)
[2022-11-12] MEDS: SODIUM CHLORIDE 0.9% 1,000 ML IV SCH (18:02)
[2022-11-12] MEDS: ATORVASTATIN 10 MG TAB PO SCH (20:33)
[2022-11-12 20:53] LABS: Glucose,Whole Blood 258 mg/dL (70-110)
[2022-11-12] MEDS ORDERED: WARFARIN 5 MG TAB PO SCH (21:00)
[2022-11-12] MEDS: INSULIN DETEMIR (LEVEMIR) 100 UNIT/ML SYR SQ SCH (21:01)
[2022-11-13] MEDS: methylPREDNISolone SOD SUCCI 125 MG/2 ML VIAL IV SCH ×4 (00:43→18:14)
--- NOTE | 2022-11-13 01:26 | PN ---
PROGRESS NOTE SUBJECTIVE: An 82-year-old white male. He has cough, congestion, up ambulating. He is short of breath with ambulation. He remains on insulin, Toprol-XL, IV steroids for COVID, and COPD exacerbation, Spiriva, Ventolin, steroids, updrafts. He has cough, congestion. OBJECTIVE: VITAL SIGNS: He is 97 on 2 L. Temperature 97.8, pulse 62, respiratory rate 16 to 18. Blood pressure 120s over 65, LUNGS: Scattered rhonchi, wheeze x4. CARDIOVASCULAR: S1, S2. NEUROLOGIC: Alert and oriented x3. HEMATOLOGY: Negative Homans. EXTREMITIES: 2+ edema. White count 15.6, platelets 121, BUN 36, creatinine 1.4. ASSESSMENT: COVID pneumonia, chronic obstructive pulmonary disease exacerbation, acute hypoxemic respiratory failure. Continue the steroids updrafts. Hypoxemic respiratory failure on 2 L oxygen, chronic respiratory insufficiency, restrictive lung disease, acute kidney injury, history of complete heart block in the pacemaker, history of atrial fibrillation, on metoprolol flecainide. He is on warfarin for prophylaxis for DVTs, hypertension, dyslipidemia. Please see further orders. MMODL / IJN: [id number] /
[2022-11-13 06:30] LABS: Basophils % (A) 0 %; Eosinophils % (A) 0 %; HCT 40.7 % (39.0-53.0); HGB 13.5 gm/dL (13.0-17.5); Lymphocytes # (A) 0.4 k/uL (1.0-4.8); Lymphocytes % (A) 4 %; MCH 31.9 pg (25.0-35.0); MCHC 33.3 g/dL (31.0-37.0); MCV 95.7 fL (80.0-100.0); Mean Platelet Volume 9.5; Monocytes # (A) 0.7 k/uL (0-1.0); Monocytes % (A) 6 %; Neutrophils # (A) 10.6 k/uL (1.3-7.7); Neutrophils % (A) 89 %; Platelet Count 113 k/uL (150-450); RBC 4.25 m/uL (4.30-5.90); RDW 12.4 % (11.5-15.5); WBC 11.9 k/uL (3.8-10.6)
[2022-11-13 06:44] LABS: ALT 29 U/L (4-49); AST 28 U/L (17-59); African American GFR (CKD) 84 (>60 ml/min/1.73 sqM); Albumin 3.4 g/dL (3.5-5.0); Albumin/Globulin Ratio 1.4; Alkaline Phosphatase 59 U/L (38-126); Anion Gap 3 mmol/L; Blood Urea Nitrogen 37 mg/dL (9-20); Calcium 8.8 mg/dL (8.4-10.2); Carbon Dioxide 30 mmol/L (22-30); Chloride 103 mmol/L (98-107); Globulin 2.4 g/dL; Glucose 123 mg/dL (74-99); INR 3.1 (<1.2); Non-African American GFR(CKD) 73 (>60 ml/min/1.73 sqM); Potassium 4.6 mmol/L (3.5-5.1); Prothrombin Time 30.1 sec (9.0-12.0); Sodium 136 mmol/L (137-145); Total Bilirubin 0.5 mg/dL (0.2-1.3); Total Protein 5.8 g/dL (6.3-8.2)
[2022-11-13 08:00] LABS: Glucose,Whole Blood 118 mg/dL (70-110)
[2022-11-13] MEDS: SODIUM CHLORIDE 0.45% 1,000 ML IV SCH (08:35)
[2022-11-13] MEDS: TRIAMTERENE-HCTZ 37.5-25MG 1 EACH TAB PO SCH (08:35)
[2022-11-13] MEDS: GLIMEPIRIDE 1 MG TAB PO SCH (08:35)
[2022-11-13] MEDS: FLECAINIDE 50 MG TAB PO SCH ×2 (08:35→21:45)
[2022-11-13] MEDS: METOPROLOL SUCCINATE (ER) 100 MG TAB.ER.24H PO SCH (08:35)
[2022-11-13] MEDS: INSULIN ASPART (NovoLOG) 100 UNIT/ML VIAL SQ SCH ×4 (08:36→21:45)
[2022-11-13] MEDS: ALBUTEROL HFA INHALER INHALATION SCH ×4 (09:35→18:50)
[2022-11-13] MEDS: TIOTROPIUM 2.5 MCG INHALER INHALATION SCH (09:35)
[2022-11-13 11:56] LABS: Glucose,Whole Blood 185 mg/dL (70-110)
[2022-11-13] MEDS ORDERED: guaiFENesin-DM 100-10MG/5ML 10 ML CUP PO PRN (14:03)
--- NOTE | 2022-11-13 14:09 | P.PN ---
Subjective Progress Note Date: 11/13/22 Principal diagnosis: COVID-19 82-year-old male patient presented to the ED complaining of progressive worsening shortness of breath over the past few days. Denies having any chest pain. No reported fever or chills. No increase in lower extremity swelling. 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 He also has COPD, hypertension, previous history of pacemaker insertion for a complete heart block and history of chronic atrial fibrillation post-cardioversion and the patient is currently on flecainide night. 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 In the emergency, the patient had blood work that showed a WBC count of 6.2 with a hemoglobin of 16 and a platelet count of 139. Sodium is at 142 with a potassium level of 5.2, BUN is 28 with a creatinine of 1.4. His d- dimer was at 0.31. ProBNP level was 2220 and the rest of the coagulation profile shows an INR of 2.3 with a PT of 23. LFTs were normal. The patient tested positive for Covid 19. Influenza A and B were both negative. CAT scan of the chest showed some mild subsegmental atelectasis in the lung bases. Right hemidiaphragm was quite elevated. Ascending aorta diameter was around 4.4 and the level of the main pulmonary artery. Rest the vascular structures were essentially within normal limits. No mediastinal lymphadenopathy. Lungs are otherwise clear. Previous echocardiogram from 2021 showed a preserved LV function with an EF of around 55-60%. Moderate concentric LVH. Mild RV dilatation. Mild dilation of the ascending aorta. Moderate mitral and mild aortic valve regurgitation. EKG showed a paced ventricular rhythm. Patient was accordingly started on steroids and currently is on Solu-Medrol 60 mg every 6 hours. He does believe of maintenance regarding his COPD. He remains on warfarin with therapeutic PT/INR. Rest of the antihypertensive medication was resumed including flecainide regarding his chronic A. fib. He is on a dose of flecainide 50 mg by mouth twice a day. Is also on metoprolol XL 100 mg by mouth daily. He takes Maxzide for blood pressure control. He is on 2 L oxygen nasal cannula with a pulse ox of 90%. No nausea. No vomiting. No diarrhea. On today's evaluation of 11/12/2022, the patient continues to have cough and congestion and wheeze. He was able to cough out some minimal amount of mucus today. He is positive for Covid 19 as mentioned and he has chronic respiratory insufficiency because of a right diaphragmatic weakness. Partial left-sided diaphragmatic weakness is also suspected. Meanwhile, his white cell count is somewhat elevated at 15.6. His pro calcitonin level was low at 0.06. His sodium was at 141. BUN is at 36 with a creatinine of 1.4. He has developed some mild hyperglycemia related to systemic steroids. INR is at 2.3. He is afebrile. He is communicating. No altered mentation. He is on sliding scale insulin coverage for blood sugar control. He is also using albuterol HFA 4 times a day scheduled. He is also on Spiriva. I'm seeing this patient in follow-up today 11/13/2022 on the general medical floor. Patient is currently sitting beside the bed, 2 liters nasal cannula, in no acute distress. He is oxygenating at 100%. He still quite bronchospastic. He also has a frequent cough with minimal sputum production is yellow. He kendy nues on a combination of Ventolin HFA, IV Solu-Medrol, Spiriva. No new chest x- ray today. CBC from today shows an improvement in patient's WBC count down to 11.9, 13.5, hematocrit 40.7, platelets 113,000. Patient is on warfarin and patient's INR is 3.1. Patient's BMP from today shows a sodium 136, potassium 4.6, chloride 103, serum CO2 30, BUN 37, creatinine 0.97, glucose 123. Patient's vital signs are stable at this time. Objective - Vital Signs Vital signs: Vital Signs Temp 98.1 F 11/13/22 07:00 Pulse 60 11/13/22 08:00 Resp 18 11/13/22 08:00 BP 165/81 11/13/22 07:00 Pulse Ox 100 11/13/22 07:00 FiO2 Intake & Output 11/12/22 11/13/22 11/13/22 18:59 06:59 18:59 Intake Total 238 238 Balance 238 238 Intake: Oral 238 238 Other: Voiding Method Toilet Toilet # Voids 1 1 - Exam GENERAL EXAM: Alert, 82-year-old white male, comfortable in no apparent distress. HEAD: Normocephalic and atraumatic EYES: Normal reaction of pupils, equal size. NOSE: Clear with pink turbinates. THROAT: No erythema or exudates. NECK: No masses, no JVD. CHEST: No chest wall deformity. There is a left upper chest implanted device LUNGS: Equal air entry with bilateral expiratory wheezes throughout. no crackles,rhonchi or dullness. On 2 L nasal cannula. No conversational dyspnea or accessory muscle use.. CVS: S1 and S2 normal with no audible murmur, regular rhythm. No extra heart sounds ABDOMEN: No hepatosplenomegaly, active bowel sounds, no guarding or rigidity. SPINE: No scoliosis or deformity SKIN: No rashes CENTRAL NERVOUS SYSTEM: No focal deficits, tone is normal in all 4 extremities. EXTREMITIES: There is no peripheral edema, clubbing, or cyanosis. Peripheral pulses are intact. - Labs CBC & Chem 7: 11/13/22 06:09 11/13/22 06:13 Labs: Abnormal Lab Results - Last 24 Hours (Table) 11/12/22 11/12/22 11/12/22 Range/Units 06:46 14:55 17:20 WBC (3.8-10.6) k/uL RBC (4.30-5.90) m/uL Plt Count (150-450) k/uL Neutrophils # (1.3-7.7) k/uL Lymphocytes # (1.0-4.8) k/uL PT 26.0 H (9.9-11.9) sec INR 2.38 H (0.90-1.11) Sodium (137-145) mmol/L BUN (9-20) mg/dL Glucose (74-99) mg/dL POC Glucose (mg/dL) 280 H 214 H (70-110) mg/dL Hemoglobin A1c (0.0-6.0) % Total Protein (6.3-8.2) g/dL Albumin (3.5-5.0) g/dL 11/12/22 11/13/22 11/13/22 Range/Units 20:52 06:09 06:13 WBC 11.9 H (3.8-10.6) k/uL RBC 4.25 L (4.30-5.90) m/uL Plt Count 113 L (150-450) k/uL Neutrophils # 10.6 H (1.3-7.7) k/uL Lymphocytes # 0.4 L (1.0-4.8) k/uL PT (9.9-11.9) sec INR (0.90-1.11) Sodium (137-145) mmol/L BUN (9-20) mg/dL Glucose (74-99) mg/dL POC Glucose (mg/dL) 258 H (70-110) mg/dL Hemoglobin A1c 7.0 H (0.0-6.0) % Total Protein (6.3-8.2) g/dL Albumin (3.5-5.0) g/dL 11/13/22 11/13/22 11/13/22 Range/Units 06:13 06:13 07:54 WBC (3.8-10.6) k/uL RBC (4.30-5.90) m/uL Plt Count (150-450) k/uL Neutrophils # (1.3-7.7) k/uL Lymphocytes # (1.0-4.8) k/uL PT 30.1 H (9.9-11.9) sec INR 3.1 H (0.90-1.11) Sodium 136 L (137-145) mmol/L BUN 37 H (9-20) mg/dL Glucose 123 H (74-99) mg/dL POC Glucose (mg/dL) 118 H (70-110) mg/dL Hemoglobin A1c (0.0-6.0) % Total Protein 5.8 L (6.3-8.2) g/dL Albumin 3.4 L (3.5-5.0) g/dL 11/13/22 Range/Units 11:53 WBC (3.8-10.6) k/uL RBC (4.30-5.90) m/uL Plt Count (150-450) k/uL Neutrophils # (1.3-7.7) k/uL Lymphocytes # (1.0-4.8) k/uL PT (9.9-11.9) sec INR (0.90-1.11) Sodium (137-145) mmol/L BUN (9-20) mg/dL Glucose (74-99) mg/dL POC Glucose (mg/dL) 185 H (70-110) mg/dL Hemoglobin A1c (0.0-6.0) % Total Protein (6.3-8.2) g/dL Albumin (3.5-5.0) g/dL Assessment and Plan Assessment: Acute Covid 19 infection. The patient has been vaccinated in the past. No evidence of any acute pneumonia based on CAT scan findings. 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 Suspected cervical spine surgery affecting the patient's diaphragmatic functions Acute kidney injury, creatinine is at 1.4 from a normal baseline. Consider intravascular volume depletion/dehydration in setting of Covid 19 infection, improved, and subsequently the kidney function normalized. History of complete heart block and the patient has a pacemaker in place, current rhythm is paced History approximately A. fib maintained on metoprolol and flecainide and the patient is on long-term and coagulation with warfarin with therapeutic PT/INR hypertension hyperlipidemia Plan Patient's medications were reviewed Continues on supplemental oxygen at 2 L/m, however, patient's oxygen 100% this can probably be weaned down Leukocytosis has improved Procalcitonin level was low We will continue IV steroids as the patient is still quite bronchospastic Continue bronchodilators and Symbicort Will add Robitussin-DM for cough Patient's oral intake is adequate and IV fluids could be discontinued Increase activity as tolerated We will continue I have personally seen and examined the patient, performed the documentation and the assessment and plan as written. Number of minutes spent on the visit:10 this is a joint evaluation that is being done along with a nurse practitioner. The patient is doing slightly better on examination. Less bronchospastic. Less wheezy. He remains on 2 L of oxygen by nasal cannula. No other new complaints otherwise for now. Continues to use incentive spirometer. Continues to be on Symbicort and bronchodilators. We'll continue to follow. Evaluation was done in more than 15 minutes. Note that his kidney function also normalized. Time with Patient: Less than 30
[2022-11-13 17:13] LABS: Glucose,Whole Blood 228 mg/dL (70-110)
[2022-11-13] MEDS ORDERED: WARFARIN 0.5 MG TAB PO ONE (18:00)
[2022-11-13] MEDS: SYMBICORT 160-4.5 MCG INHALER INHALATION SCH (18:51)
[2022-11-13 20:32] LABS: Glucose,Whole Blood 272 mg/dL (70-110)
[2022-11-13] MEDS: ATORVASTATIN 10 MG TAB PO SCH (21:45)
[2022-11-13] MEDS: ZOLPIDEM 5 MG TAB PO PRN (21:45)
[2022-11-13] MEDS: INSULIN DETEMIR (LEVEMIR) 100 UNIT/ML SYR SQ SCH (21:45)
[2022-11-14] MEDS: methylPREDNISolone SOD SUCCI 125 MG/2 ML VIAL IV SCH ×3 (01:24→12:24)
[2022-11-14 06:19] LABS: INR 2.5 (<1.2); Prothrombin Time 24.1 sec (9.0-12.0)
[2022-11-14 08:07] LABS: Glucose,Whole Blood 117 mg/dL (70-110)
[2022-11-14] MEDS: TRIAMTERENE-HCTZ 37.5-25MG 1 EACH TAB PO SCH (08:25)
[2022-11-14] MEDS: FLECAINIDE 50 MG TAB PO SCH (08:25)
[2022-11-14] MEDS: METOPROLOL SUCCINATE (ER) 100 MG TAB.ER.24H PO SCH (08:25)
[2022-11-14] MEDS: INSULIN ASPART (NovoLOG) 100 UNIT/ML VIAL SQ SCH ×2 (08:26→12:25)
[2022-11-14] MEDS: GLIMEPIRIDE 1 MG TAB PO SCH (08:26)
[2022-11-14 08:40] LABS: Basophils # (A) 0.01 X 10*3/uL (0.00-0.10); Basophils % (A) 0.1 %; Eosinophils # (A) 0 X 10*3/uL (0.04-0.35); Eosinophils % (A) 0 %; HCT 39.1 % (39.6-50.0); HGB 13.2 g/dL (13.0-17.0); Immature Grans, Automated 0.9 %; Lymphocytes # (A) 0.47 X 10*3/uL (0.90-5.00); Lymphocytes % (A) 4.7 %; MCH 31.7 pg (27.0-32.0); MCHC 33.8 g/dL (32.0-37.0); MCV 93.8 fL (80.0-97.0); Mean Platelet Volume 10.9 fL (9.5-12.2); Monocytes # (A) 0.97 X 10*3/uL (0.20-1.00); Monocytes % (A) 9.6 %; NRBC Per 100 WBC 0 /100 WBCS (0.0-0.0); Neutrophils # (A) 8.54 X 10*3/uL (1.80-7.70); Neutrophils % (A) 84.7 %; Platelet Count 105 X 10*3/uL (140-440); RBC 4.17 X 10*6/uL (4.40-5.60); RDW 12.1 % (11.5-14.5); WBC 10.08 X 10*3/uL (4.50-10.00)
--- NOTE | 2022-11-14 09:32 | XR ---
EXAMINATION TYPE: XR chest 1V portable DATE OF EXAM: 11/14/2022 COMPARISON: 11/10/2022 HISTORY: Dyspnea TECHNIQUE: Single frontal view of the chest is obtained. FINDINGS: There is a left-sided triple lead pacemaker. There is moderate to severe cardiomegaly, which is simil ar in appearance when compared to previous examination. There is tortuosity of the aorta. There is el evation of the right hemidiaphragm which is similar in appearance compared to previous examination. T here are lowerings between lung volumes. There are a few linear opacities at the left lung base, comp atible with mild subsegmental atelectasis. There is no pneumothorax. IMPRESSION: Hypoventilatory changes with minimal left basilar subsegmental atelectasis.
[2022-11-14] MEDS: SYMBICORT 160-4.5 MCG INHALER INHALATION SCH (09:45)
[2022-11-14] MEDS: ALBUTEROL HFA INHALER INHALATION SCH ×3 (09:45→16:28)
[2022-11-14 09:47] LABS: African American GFR (CKD) 72.1 (60.0-200.0); Albumin 3.5 g/dL (3.8-4.9); Albumin/Globulin Ratio 1.84 (1.60-3.17); Anion Gap 7.6 mmol/L (10.00-18.00); BUN/Creat Ratio 29.09 Ratio (12.00-20.00); Calcium 9.1 mg/dL (8.7-10.3); Carbon Dioxide 28.4 mmol/L (20.0-27.5); Globulin 1.9 g/dL (1.6-3.3); Non-African American GFR(CKD) 62.2 (60.0-200.0); Potassium 4.2 mmol/L (3.5-5.5); Total Bilirubin 0.5 mg/dL (0.30-1.20); Total Protein 5.4 g/dL (6.2-8.2)
[2022-11-14 12:14] LABS: Glucose,Whole Blood 178 mg/dL (70-110)
[2022-11-14 15:00] VITALS: BP 163/77; PULSE 61; RESP 18; TEMP 97.7
--- NOTE | 2022-11-14 15:49 | P.PN ---
Subjective Progress Note Date: 11/14/22 82-year-old male patient presented to the ED complaining of progressive worsening shortness of breath over the past few days. Denies having any chest pain. No reported fever or chills. No increase in lower extremity swelling. He is known to have chronic respiratory insufficiency with diaphragmatic wea kness/paralysis on the right. He also has COPD, hypertension, previous history of pacemaker insertion for a complete heart block and history of chronic atrial fibrillation post-cardioversion and the patient is currently on flecainide night. Vp Compliance on the case and the patient's last interrogation of the pacemaker was on 06/11/2022 that showed brief episodes of atrial fibrillation. In the emergency, the patient had blood work that showed a WBC count of 6.2 with a hemoglobin of 16 and a platelet count of 139. Sodium is at 142 with a potassium level of 5.2, BUN is 28 with a creatinine of 1.4. His d-dimer was at 0.31. ProBNP level was 2220 and the rest of the coagulation profile shows an INR of 2.3 with a PT of 23. LFTs were normal. The patient tested positive for Covid 19. Influenza A and B were both negative. CAT scan of the chest showed some mild subsegmental atelectasis in the lung bases. Right hemidiaphragm was quite elevated. Ascending aorta diameter was around 4.4 and the level of the main pulmonary artery. Rest the vascular structures were essentially within nor mal limits. No mediastinal lymphadenopathy. Lungs are otherwise clear. Previous echocardiogram from 2021 showed a preserved LV function with an EF of around 55-60%. Moderate concentric LVH. Mild RV dilatation. Mild dilation of the ascending aorta. Moderate mitral and mild aortic valve regurgitation. EKG showed a paced ventricular rhythm. Patient was accordingly started on steroids and currently is on Solu-Medrol 60 mg every 6 hours. He does believe of maintenance regarding his COPD. He remains on warfarin with therapeutic PT/INR. Rest of the antihypertensive medication was resumed including flecainide regarding his chronic A. fib. He is on a dose of flecainide 50 mg by mouth twi ce a day. Is also on metoprolol XL 100 mg by mouth daily. He takes Maxzide for blood pressure control. He is on 2 L oxygen nasal cannula with a pulse ox of 90%. No nausea. No vomiting. No diarrhea. On today's evaluation of 11/12/2022, the patient continues to have cough and congestion and wheeze. He was able to cough out some minimal amount of mucus today. He is positive for Covid 19 as mentioned and he has chronic respiratory insufficiency because of a right diaphragmatic weakness. Partial left-sided diaphragmatic weakness is also suspected. Meanwhile, his white cell count is somewhat elevated at 15.6. His pro calcitonin level was low at 0.06. His sodium was at 141. BUN is at 36 with a creatinine of 1.4. He has developed some mild hyperglycemia related to systemic steroids. INR is at 2.3. He is afebrile. He is communicating. No altered mentation. He is on sliding scale insulin coverage for blood sugar control. He is also using albuterol HFA 4 times a day scheduled. He is also on Spiriva. I'm seeing this patient in follow-up today 11/13/2022 on the general medical floor. Patient is currently sitting beside the bed, 2 liters nasal cannula, in no acute distress. He is oxygenating at 100%. He still quite bronchospastic. He also has a frequent cough with minimal sputum production is yellow. He continues on a combination of Ventolin HFA, IV Solu-Medrol, Spiriva. No new chest x-ray today. CBC from today shows an improvement in patient's WBC count down to 11.9, 13.5, hematocrit 40.7, platelets 113,000. Patient is on warfarin and patient's INR is 3.1. Patient's BMP from today shows a sodium 136, potassium 4.6, chloride 103, serum CO2 30, BUN 37, creatinine 0.97, glucose 123. Patient's vital signs are stable at this time. On today's evaluation 11/14/2022, the patient is doing well. No new complaints. Oxygen is improved. The patient is much less bronchospastic and wheezy. The patient is ambulating. He has no specific complaints otherwise for now. Overnight, the patient had a sundowner as he became somewhat delirious and this essentially recovered. Steroids could've also contributed to this. He remains on Symbicort, the Ventolin HFA and IV Solu-Medrol. He is also on long-term and incontinence with warfarin. The blood work from today shows WBC of 10 hemoglobin 16.2, INR is at 2.5, sodium is at 141 with a BUN of 32 and a creati nine of 1.1. Liver function tests are essentially within normal limits. Objective - Vital Signs Vital signs: Vital Signs Temp 97.7 F 11/14/22 14:59 Pulse 61 11/14/22 14:59 Resp 18 11/14/22 14:59 BP 163/77 11/14/22 14:59 Pulse Ox 95 11/14/22 14:59 FiO2 Intake & Output 11/13/22 11/14/22 11/14/22 18:59 06:59 18:59 Intake Total 356 118 Balance 356 118 Intake: Oral 356 118 Other: Voiding Method Toilet Toilet Toilet # Voids 4 6 4 - Exam GENERAL EXAM: Alert, 82-year-old white male, comfortable in no apparent distress. HEAD: Normocephalic and atraumatic EYES: Normal reaction of pupils, equal size. NOSE: Clear with pink turbinates. THROAT: No erythema or exudates. NECK: No masses, no JVD. CHEST: No chest wall deformity. There is a left upper chest implanted device LUNGS: Equal air entry with bilateral expiratory wheezes throughout. no crackles,rhonchi or dullness. On 2 L nasal cannula. No conversational dyspnea or accessory muscle use.. CVS: S1 and S2 normal with no audible murmur, regular rhythm. No extra heart sounds ABDOMEN: No hepatosplenomegaly, active bowel sounds, no guarding or rigidity. SPINE: No scoliosis or deformity SKIN: No rashes CENTRAL NERVOUS SYSTEM: No focal deficits, tone is normal in all 4 extremities. EXTREMITIES: There is no peripheral edema, clubbing, or cyanosis. Peripheral pulses are intact. - Labs CBC & Chem 7: 11/14/22 05:31 11/14/22 05:31 Labs: Abnormal Lab Results - Last 24 Hours (Table) 11/13/22 11/13/22 11/14/22 Range/Units 17:11 20:30 05:31 WBC (4.50-10.00) X 10*3/uL RBC (4.40-5.60) X 10*6/uL Hct (39.6-50.0) % Plt Count (140-440) X 10*3/uL Immature Gran # (0.00-0.04) X 10*3/uL Neutrophils # (1.80-7.70) X 10*3/uL Lymphocytes # (0.90-5.00) X 10*3/uL Eosinophils # (0.04-0.35) X 10*3/uL PT 24.1 H (9.0-12.0) sec INR 2.5 H (<1.2) Carbon Dioxide (20.0-27.5) mmol/L Anion Gap (10.00-18.00) mmol/L BUN (9.0-27.0) mg/dL BUN/Creatinine Ratio (12.00-20.00) Ratio POC Glucose (mg/dL) 228 H 272 H (70-110) mg/dL ALT (10-49) U/L Total Protein (6.2-8.2) g/dL Albumin (3.8-4.9) g/dL 11/14/22 11/14/22 11/14/22 Range/Units 05:31 05:31 08:04 WBC 10.08 H (4.50-10.00) X 10*3/uL RBC 4.17 L (4.40-5.60) X 10*6/uL Hct 39.1 L (39.6-50.0) % Plt Count 105 L (140-440) X 10*3/uL Immature Gran # 0.09 H (0.00-0.04) X 10*3/uL Neutrophils # 8.54 H (1.80-7.70) X 10*3/uL Lymphocytes # 0.47 L (0.90-5.00) X 10*3/uL Eosinophils # 0 L (0.04-0.35) X 10*3/uL PT (9.0-12.0) sec INR (<1.2) Carbon Dioxide 28.4 H (20.0-27.5) mmol/L Anion Gap 7.60 L (10.00-18.00) mmol/L BUN 32.0 H (9.0-27.0) mg/dL BUN/Creatinine Ratio 29.09 H (12.00-20.00) Ratio POC Glucose (mg/dL) 117 H (70-110) mg/dL ALT 52 H (10-49) U/L Total Protein 5.4 L (6.2-8.2) g/dL Albumin 3.5 L (3.8-4.9) g/dL 11/14/22 Range/Units 12:12 WBC (4.50-10.00) X 10*3/uL RBC (4.40-5.60) X 10*6/uL Hct (39.6-50.0) % Plt Count (140-440) X 10*3/uL Immature Gran # (0.00-0.04) X 10*3/uL Neutrophils # (1.80-7.70) X 10*3/uL Lymphocytes # (0.90-5.00) X 10*3/uL Eosinophils # (0.04-0.35) X 10*3/uL PT (9.0-12.0) sec INR (<1.2) Carbon Dioxide (20.0-27.5) mmol/L Anion Gap (10.00-18.00) mmol/L BUN (9.0-27.0) mg/dL BUN/Creatinine Ratio (12.00-20.00) Ratio POC Glucose (mg/dL) 178 H (70-110) mg/dL ALT (10-49) U/L Total Protein (6.2-8.2) g/dL Albumin (3.8-4.9) g/dL Assessment and Plan Assessment: Acute Covid 19 infection. The patient has been vaccinated in the past. No evidence of any acute pneumonia based on CAT scan findings. 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 Suspected cervical spine surgery affecting the patient's diaphragmatic functions Acute kidney injury, creatinine is at 1.4 from a normal baseline. Consider intravascular volume depletion/dehydration in setting of Covid 19 infection, improved, and subsequently the kidney function normalized. History of complete heart block and the patient has a pacemaker in place, current rhythm is paced History approximately A. fib maintained on metoprolol and flecainide and the patient is on long-term and coagulation with warfarin with therapeutic PT/INR hypertension hyperlipidemia Plan Oxygen patient is improved Discontinue IV Solu-Medrol also the patient prednisone burst taper Room air pulse ox is in order of 97% Degenerative evaluation of the warfarin and INR therapeutic Patient can be discharged home from the pulmonary standpoint. I'm going to sign off the case.
[2022-11-14] MEDS ORDERED: predniSONE 20 MG TAB PO SCH (16:00)
[2022-11-14] MEDS ORDERED: WARFARIN 2.5 MG TAB PO ONE (18:00)
== END 2022-11-14 16:41 | disposition home or self-care (01) | DRG 190 ==
LOC: EC 10:14 → 6NMEDSUR 12:18 → OBSVTOIN 11-12 11:17
PROVIDERS: ADMIT Family Medicine; ATTEND Family Medicine
DX: J44.0 Chronic obstructive pulmonary disease with (acute) lower respiratory infection (principal); J96.01 Acute respiratory failure with hypoxia; U07.1 COVID-19; I50.32 Chronic diastolic (congestive) heart failure; I44.2 Atrioventricular block, complete; I48.20 Chronic atrial fibrillation, unspecified; J98.11 Atelectasis; D69.6 Thrombocytopenia, unspecified; E78.5 Hyperlipidemia, unspecified; E86.0 Dehydration; Z20.822 Contact with and (suspected) exposure to COVID-19; I77.810 Thoracic aortic ectasia; J44.1 Chronic obstructive pulmonary disease with (acute) exacerbation; J98.4 Other disorders of lung; R32 Unspecified urinary incontinence; T38.0X5A Adverse effect of glucocorticoids and synthetic analogues, initial encounter; I08.0 Rheumatic disorders of both mitral and aortic valves; Z79.01 Long term (current) use of anticoagulants; J98.6 Disorders of diaphragm; M19.90 Unspecified osteoarthritis, unspecified site; Z79.84 Long term (current) use of oral hypoglycemic drugs; I11.0 Hypertensive heart disease with heart failure; K21.9 Gastro-esophageal reflux disease without esophagitis; J45.909 Unspecified asthma, uncomplicated; Z79.899 Other long term (current) drug therapy; Z95.0 Presence of cardiac pacemaker; Z82.49 Family history of ischemic heart disease and other diseases of the circulatory system; X58.XXXA Exposure to other specified factors, initial encounter
CPT/HCPCS: 36415; 71045; 71046; 71250; 80053; 83036; 83605; 83735; 83880; 84145; 84484; 85025; 85379; 85610; 85730; 87502; 87635; 93005; 94640; 96361; 96374; 96376; 99285

== ENCOUNTER 2023-05-11 15:36 | Inpatient (IN) | payer MEDICARE, BC ==
--- NOTE | 2023-05-11 15:57 | ED ---
SOB HPI - General Source: patient, family Mode of arrival: ambulatory Limitations: no limitations <Angelina Joya - Last Filed: 05/11/23 15:56> <Nahun Clarke - Last Filed: 05/11/23 18:55> - General Stated Complaint: SOB Time Seen by Provider: 05/11/23 15:56 - History of Present Illness Initial Comments: 82-year-old male presenting with chief complaint of shortness of breath. He admits to chest tightness. (Angelina Joya) This 82-year-old male presents with the complaint of some shortness of breath. This seems to be worsening over the past week or so. He has had an occasional nonproductive cough as well. He states that he has been going in and out of atrial fibrillation. They will monitor his heart rate is junk to about 1:15 at times and then go back to the 60s. He does have a history of atrial fibrillation. He denies any leg pain or swelling. He currently is on Coumadin for his atrial fibrillation. He states that the shortness of breath is much worse with any exertion. He's had twinges of chest pain in the midsternal region as well. His apparently was coughing earlier this week as well but her symptoms resolved and his has persisted. He apparently had a negative home covid test yesterday. He states that his last stress test was about one year ago or more. No other complaints or modifying factors. Denies any fevers or chills. He does relate that he has had Covid 2 times previously this year. He denies any history of kidney disease. (Nahun Clarke) - Related Data Home Medications Medication Instructions Recorded Confirmed Gabapentin [Neurontin] 800 mg PO TID PRN 12/20/13 11/10/22 Lovastatin [Mevacor] 20 mg PO HS 12/20/13 11/10/22 Glimepiride [Amaryl] 1 mg PO DAILY 12/07/17 11/10/22 Warfarin [Coumadin] 5 mg PO SUTUTH@2100 09/06/21 11/10/22 Albuterol Sulfate [Ventolin HFA] 2 puff INHALATION RT-Q6H PRN 04/27/22 11/10/22 Metoprolol Succinate [Toprol XL] 100 mg PO DAILY 04/27/22 11/10/22 Valsartan 320 mg PO DAILY 04/27/22 11/10/22 Warfarin [Coumadin] 2.5 mg PO MOWEFRSA@2100 04/27/22 11/10/22 Albuterol Nebulized [Ventolin 2.5 mg INHALATION RT-Q6H PRN 11/10/22 11/10/22 Nebulized] Flecainide Acetate 50 mg PO BID 11/10/22 11/10/22 Triamterene/Hydrochlorothiazid 1 tab PO DAILY 11/10/22 11/10/22 [Triamterene-Hctz 37.5-25 mg Tb] Previous Rx's Medication Instructions Recorded Budesonide-Formot 160-4.5 Mcg 2 puff INHALATION RT-BID 30 Days 11/14/22 [Symbicort 160-4.5 Mcg Inhaler] #1 each Insulin Detemir (Levemir) [Levemir] 10 unit SQ HS 30 Days #30 each 11/14/22 predniSONE [Deltasone] 40 mg PO DAILY 5 Days #5 tab 11/14/22 Allergies Allergy/AdvReac Type Severity Reaction Status Date / Time No Known Allergies Allergy Verified 05/11/23 15:57 Review of Systems ROS Other: All systems not noted in ROS Statement are negative. <Angelina Joya - Last Filed: 05/11/23 15:56> ROS Other: All systems not noted in ROS Statement are negative. <Nahun Clarke - Last Filed: 05/11/23 18:55> ROS Statement: Those systems with pertinent positive or pertinent negative responses have been documented in the HPI. Past Medical History Past Medical History: Atrial Fibrillation, COPD, Diabetes Mellitus, GERD/Reflux, GI Bleed, Hyperlipidemia, Hypertension, Osteoarthritis (OA) Additional Past Medical History / Comment(s): Chronic right hemidiaphragmatic paralysis, history of pacemaker insertion for complete heart block, chronic neck pain History of Any Multi-Drug Resistant Organisms: None Reported Past Surgical History: Back Surgery, Orthopedic Surgery Additional Past Surgical History / Comment(s): torn rotator cuff, cervical disc removed in neck and fused 3 arthroscopy of the left knee, abdominal surgery, left hand/thumb surgery Past Anesthesia/Blood Transfusion Reactions: No Reported Reaction Past Psychological History: No Psychological Hx Reported Smoking Status: Never smoker Past Alcohol Use History: None Reported Past Drug Use History: None Reported - Past Family History Father History Unknown: Yes Family Medical History: Congestive Heart Failure (CHF) Mother History Unknown: Yes Family Medical History: Myocardial Infarction ([place]) <Angelina Joya - Last Filed: 05/11/23 15:56> General Exam <Angelina Joya - Last Filed: 05/11/23 15:56> <Nahun Clarke - Last Filed: 05/11/23 18:55> - General Exam Comments Initial Comments: Visual Physical Exam Vital signs reviewed General: nontoxic, appears short of breath. Head: Normocephalic, atraumatic Eyes: PERRLA, EOMI ENT: Airway patent Chest: labored breathing Skin: No visual rash, normal skin tone Neuro: Alert and oriented 3 Musculoskeletal: No gross abnormalities (Angelina Joya) GENERAL: The patient is well nourished and well hydrated. VITAL SIGNS: Heart rate, blood pressure, respiratory rate reviewed as recorded in nurse's notes. EYES: Pupils are round and reactive. Extraocular movements are intact. No conjunctival / lid redness or swelling. ENT: No external evidence of injury, swelling, or ecchymosis. Airway is patent. Throat is clear. NECK: Nontender. No swelling or evidence of injury. No subcutaneous emphysema. Trachea is midline. No thyroid mass. HEART: Regular rate and rhythm. Good peripheral pulses. LUNGS/CHEST: Breath sounds clear and equal bilaterally. No rales, rhonchi, or wheezes. No ecchymosis, subcutaneous emphysema, or tenderness. ABDOMEN: Abdomen soft without tenderness. No palpable masses or organomegaly. No peritoneal signs. No abdominal wall swelling or ecchymosis. EXTREMITIES: No extremity tenderness. Normal muscle tone and function. No thoracolumbar tenderness. NEUROLOGIC: Sensation is grossly intact. Cranial nerve exam reveals face is symmetrical, tongue is midline, speech is clear. SKIN: No abrasions or ecchymosis is noted. No induration or masses noted. PSYCHIATRIC: Alert and oriented. Appropriate behavior and judgment. (Nahun Clarke) Course Vital Signs 05/11/23 05/11/23 15:53 17:51 Temperature 98.1 F Pulse Rate 60 60 Respiratory 22 Rate Blood Pressure 128/74 130/73 O2 Sat by Pulse 98 97 Oximetry Medical Decision Making - Lab Data Result diagrams: 05/11/23 15:59 05/11/23 15:59 <Nahun Clarke - Last Filed: 05/11/23 18:55> - Medical Decision Making The patient was seen and examined. All diagnostics are reviewed. The EKG shows a paced rhythm at a rate of 60. There is widened QRS duration of 216 likely related to the pacemaker. There is some T-wave inversions in the anterolateral leads from a interpretation. QTc interval is at high limits of normal at 485. OK intervals 193. Patient had a chest x-ray which did not show any acute abnormalities per my interpretation. The laboratory came back showing elevation of the creatinine at 1.6 which is increased as compared to previous of 1.1. The potassium also is elevated at 5.5. Troponin is negative. The COVID-19 test came back positive. This would be the third time that he hasn't this year. He likely does have an exacerbation of his COPD. Pulmonology will be consulted in this regard. He also relates that he's been having some intermittent chest pains and intermittent atrial fibrillation with rapid ventricular response. The cardiology team will be consulted in this regard. Case is discussed with Dr. Liu who is agreeable with admission. Patient does receive somelokalema, IV fluids, a DuoNeb breathing treatment, aspirin, Nitropaste, and Solu-Medrol. Was pt. sent in by a medical professional or institution (ARNULFO Horton, COMPLEX CARE NURSE PRACTITIONER, urgent care, hospital, or longterm...) When possible be specific @ -The patient called his pulmonology office and they sent him to the emergency department. Did you speak to anyone other than the patient for history (EMS, parent, family, police, friend...)? What history was obtained from this source @ -Case is discussed with who is present and gives additional history. Did you review nursing and triage notes (agree or disagree)? Why? @ -[I reviewed and agree with nursing and triage notes] Were old charts reviewed (outside hosp., previous admission, EMS record, old EKG, old radiological studies, urgent care reports/EKG's, longterm records)? Report findings @ -Old records are reviewed. Differential Diagnosis (chest pain, altered mental status, abdominal pain women, abdominal pain men, vaginal bleeding, weakness, fever, dyspnea, syncope, headache, dizziness, GI bleed, back pain, seizure, CVA, palpatations, mental health, musculoskeletal)? @ -Chest pain, acute coronary syndrome, COPD exacerbation, COVID-19 infection, pneumonia, bronchitis, kidney injury EKG interpreted by me (3pts min.). @ -[As above] X-rays interpreted by me (1pt min.). @ -As above CT interpreted by me (1pt min.). @ -[None done] U/S interpreted by me (1pt. min.). @ -[None done] What testing was considered but not performed or refused? (CT, X-rays, U/S, labs)? Why? @ -[None] What meds were considered but not given or refused? Why? @ -[None] Did you discuss the management of the patient with other professionals (professionals i.e. , PA, COMPLEX CARE NURSE PRACTITIONER, lab, RT, psych nurse, director of social work, boss dyer, teacher, enforcement safety officer, dependency case manager)? Give summary @ -This is discussed with internal medicine physician. Was smoking cessation discussed for >3mins.? @ -[No] Was critical care preformed (if so, how long)? @ -[No] Were there social determinants of health that impacted care today? How? (Homelessness, low income, unemployed, alcoholism, drug addiction, transportation, low edu. Level, literacy, decrease access to med. care, residential, rehab)? @ -[No] Was there de-escalation of care discussed even if they declined (Discuss DNR or withdrawal of care, Hospice)? DNR status @ -[No] What co-morbidities impacted this encounter? (DM, HTN, Smoking, COPD, CAD, Can cer, CVA, ARF, Chemo, Hep., AIDS, mental health diagnosis, sleep apnea, morbid obesity)? @ -Atrial fibrillation, COPD Was patient admitted / discharged? Hospital course, mention meds given and route, prescriptions, significant lab abnormalities, going to OR and other pertinent info. @ -Patient is admitted. Undiagnosed new problem with uncertain prognosis? @ -[No] Drug Therapy requiring intensive monitoring for toxicity (Heparin, Nitro, Insulin, Cardizem)? @ -[No] Were any procedures done? @ -[No] Diagnosis/symptom? @ -Covid 19, COPD exacerbation, chest pain, angina, hyperkalemia, acute kidney injury. Acute, or Chronic, or Acute on Chronic? @ -Acute Uncomplicated (without systemic symptoms) or Complicated (systemic symptoms)? @ -Uncomplicated Side effects of treatment? @ -[No] Exacerbation, Progression, or Severe Exacerbation? @ -Exacerbation Poses a threat to life or bodily function? How? (Chest pain, [place], [place], pneumonia, PE, COPD, DKA, ARF, appy, cholecystitis, CVA, Diverticulitis, Homicidal, Suicidal, threat to staff... and all critical care pts) @ -yes (Nahun Clarke) - Lab Data Lab Results 05/11/23 05/11/23 05/11/23 Range/Units 15:59 15:59 15:59 WBC 8.2 (3.8-10.6) k/uL RBC 4.04 L (4.30-5.90) m/uL Hgb 13.1 (13.0-17.5) gm/dL Hct 39.3 (39.0-53.0) % MCV 97.4 (80.0-100.0) fL MCH 32.4 (25.0-35.0) pg MCHC 33.3 (31.0-37.0) g/dL RDW 13.2 (11.5-15.5) % Plt Count 132 L (150-450) k/uL MPV 9.3 Neutrophils % 69 % Lymphocytes % 17 % Monocytes % 8 % Eosinophils % 3 % Basophils % 0 % Neutrophils # 5.6 (1.3-7.7) k/uL Lymphocytes # 1.4 (1.0-4.8) k/uL Monocytes # 0.6 (0-1.0) k/uL Eosinophils # 0.3 (0-0.7) k/uL Basophils # 0.0 (0-0.2) k/uL PT 29.7 H (10.0-12.5) sec INR 3.0 H (<1.2) APTT 34.7 H (22.0-30.0) sec Sodium 139 (137-145) mmol/L Potassium 5.5 H (3.5-5.1) mmol/L Chloride 108 H (98-107) mmol/L Carbon Dioxide 20 L (22-30) mmol/L Anion Gap 11 mmol/L BUN 37 H (9-20) mg/dL Creatinine 1.61 H (0.66-1.25) mg/dL Est GFR (CKD-EPI)AfAm 46 (>60 ml/min/1.73 sqM) Est GFR (CKD-EPI)NonAf 39 (>60 ml/min/1.73 sqM) Glucose 95 (74-99) mg/dL Calcium 9.1 (8.4-10.2) mg/dL Total Bilirubin 0.4 (0.2-1.3) mg/dL AST 30 (17-59) U/L ALT 21 (4-49) U/L Alkaline Phosphatase 72 (38-126) U/L Troponin I (0.000-0.034) ng/mL Total Protein 6.5 (6.3-8.2) g/dL Albumin 3.9 (3.5-5.0) g/dL Influenza Type A (PCR) (Not Detectd) Influenza Type B (PCR) (Not Detectd) RSV (PCR) (Not Detectd) SARS-CoV-2 (PCR) (Not Detectd) 05/11/23 05/11/23 Range/Units 15:59 15:59 WBC (3.8-10.6) k/uL RBC (4.30-5.90) m/uL Hgb (13.0-17.5) gm/dL Hct (39.0-53.0) % MCV (80.0-100.0) fL MCH (25.0-35.0) pg MCHC (31.0-37.0) g/dL RDW (11.5-15.5) % Plt Count (150-450) k/uL MPV Neutrophils % % Lymphocytes % % Monocytes % % Eosinophils % % Basophils % % Neutrophils # (1.3-7.7) k/uL Lymphocytes # (1.0-4.8) k/uL Monocytes # (0-1.0) k/uL Eosinophils # (0-0.7) k/uL Basophils # (0-0.2) k/uL PT (10.0-12.5) sec INR (<1.2) APTT (22.0-30.0) sec Sodium (137-145) mmol/L Potassium (3.5-5.1) mmol/L Chloride (98-107) mmol/L Carbon Dioxide (22-30) mmol/L Anion Gap mmol/L BUN (9-20) mg/dL Creatinine (0.66-1.25) mg/dL Est GFR (CKD-EPI)AfAm (>60 ml/min/1.73 sqM) Est GFR (CKD-EPI)NonAf (>60 ml/min/1.73 sqM) Glucose (74-99) mg/dL Calcium (8.4-10.2) mg/dL Total Bilirubin (0.2-1.3) mg/dL AST (17-59) U/L ALT (4-49) U/L Alkaline Phosphatase (38-126) U/L Troponin I 0.018 (0.000-0.034) ng/mL Total Protein (6.3-8.2) g/dL Albumin (3.5-5.0) g/dL Influenza Type A (PCR) Not Detected (Not Detectd) Influenza Type B (PCR) Not Detected (Not Detectd) RSV (PCR) Not Detected (Not Detectd) SARS-CoV-2 (PCR) Detected A (Not Detectd) Disposition <Angelina Joya - Last Filed: 05/11/23 15:56> Is patient prescribed a controlled substance at d/c from ED?: No Time of Disposition: 18:42 Decision Date: 05/11/23 Decision Time: 18:42 <Nahun Clarke - Last Filed: 05/11/23 18:55> Clinical Impression: Acute kidney injury, Hyperkalemia, COVID-19, Dyspnea, Chest pain, COPD exacerbation, Angina at rest Disposition: ADMITTED IP TO THIS HOSP Condition: Fair Referrals: Myles Caban MD [Primary Care Provider] - 1-2 days
[2023-05-11 16:22] LABS: Basophils % (A) 0 %; Eosinophils # (A) 0.3 k/uL (0-0.7); Eosinophils % (A) 3 %; HCT 39.3 % (39.0-53.0); HGB 13.1 gm/dL (13.0-17.5); Lymphocytes # (A) 1.4 k/uL (1.0-4.8); Lymphocytes % (A) 17 %; MCH 32.4 pg (25.0-35.0); MCHC 33.3 g/dL (31.0-37.0); MCV 97.4 fL (80.0-100.0); Mean Platelet Volume 9.3; Monocytes # (A) 0.6 k/uL (0-1.0); Monocytes % (A) 8 %; Neutrophils # (A) 5.6 k/uL (1.3-7.7); Neutrophils % (A) 69 %; Platelet Count 132 k/uL (150-450); RBC 4.04 m/uL (4.30-5.90); RDW 13.2 % (11.5-15.5); WBC 8.2 k/uL (3.8-10.6)
--- NOTE | 2023-05-11 16:41 | XR ---
EXAMINATION TYPE: XR chest 2V DATE OF EXAM: 05/11/2023 COMPARISON: 11/14/2022 INDICATION: Difficulty breathing short of breath TECHNIQUE: Frontal and lateral views of the chest are obtained. FINDINGS: The heart size is normal. 2 Lead pacemaker overlies the chest The pulmonary vasculature is normal. No suspicious infiltrate is evident. Follow up exams can be performed as clinically indicated. There is chronic elevation of the right diaphragm IMPRESSION: 1. No acute pulmonary process.
[2023-05-11 16:43] LABS: ALT 21 U/L (4-49); AST 30 U/L (17-59); African American GFR (CKD) 46 (>60 ml/min/1.73 sqM); Albumin 3.9 g/dL (3.5-5.0); Alkaline Phosphatase 72 U/L (38-126); Anion Gap 11 mmol/L; Blood Urea Nitrogen 37 mg/dL (9-20); Calcium 9.1 mg/dL (8.4-10.2); Carbon Dioxide 20 mmol/L (22-30); Chloride 108 mmol/L (98-107); Glucose 95 mg/dL (74-99); Non-African American GFR(CKD) 39 (>60 ml/min/1.73 sqM); Potassium 5.5 mmol/L (3.5-5.1); Sodium 139 mmol/L (137-145); Total Bilirubin 0.4 mg/dL (0.2-1.3); Total Protein 6.5 g/dL (6.3-8.2)
[2023-05-11 16:53] LABS: Partial Thromboplastin Time 34.7 sec (22.0-30.0); Prothrombin Time 29.7 sec (10.0-12.5)
[2023-05-11] MEDS ORDERED: IPRATROPIUM-ALBUTEROL 3 ML NEB INHALATION STA (18:44)
[2023-05-11] MEDS ORDERED: NITROGLYCERIN OINT 1 INCH/GM PACKET TOPICAL STA (18:44)
[2023-05-11] MEDS ORDERED: ASPIRIN 81 MG PO STA (18:44)
[2023-05-11] MEDS ORDERED: methylPREDNISolone SOD SUCCI 125 MG/2 ML VIAL IV STA (18:45)
[2023-05-11] MEDS ORDERED: SODIUM CHLORIDE 0.9% 500 ML IV STA (18:48)
[2023-05-11] MEDS ORDERED: SODIUM CHLORIDE 0.9% 1,000 ML IV STA (18:48)
[2023-05-11] MEDS ORDERED: ACETAMINOPHEN TAB 325 MG TAB PO PRN (18:56)
[2023-05-11] MEDS ORDERED: NALOXONE 0.4 MG/ML 1 ML VIAL IV PRN (18:56)
[2023-05-11] MEDS ORDERED: IPRATROPIUM-ALBUTEROL 3 ML NEB INHALATION SCH (20:00)
[2023-05-11] MEDS: SODIUM ZIRCONIUM CYCLOSILICATE 10 GM PACKET PO SCH ×2 (20:54→22:33)
[2023-05-11] MEDS ORDERED: ALBUTEROL HFA INHALER INHALATION PRN ×2 (21:35→22:32)
[2023-05-11] MEDS ORDERED: ALBUTEROL NEBULIZED 2.5 MG/3 ML INHALATION PRN (21:35)
[2023-05-11] MEDS ORDERED: METOPROLOL SUCCINATE (ER) 100 MG TAB.ER.24H PO SCH (22:00)
[2023-05-11] MEDS: methylPREDNISolone SOD SUCCI 125 MG/2 ML VIAL IV SCH (22:22)
[2023-05-11] MEDS: NITROGLYCERIN OINT 1 INCH/GM PACKET TOPICAL SCH (22:23)
[2023-05-11] MEDS: METOPROLOL SUCCINATE (ER) 50 MG TAB.ER.24H PO SCH (22:32)
[2023-05-11] MEDS: GABAPENTIN 400 MG CAP PO SCH (22:32)
[2023-05-12] MEDS: ALBUTEROL HFA INHALER INHALATION SCH ×6 (00:36→21:46)
--- NOTE | 2023-05-12 03:17 | P.CNPUL ---
History of Present Illness Consult date: 05/12/23 Requesting physician: Nahun Clarke Reason for consult: dyspnea Chief complaint: Shortness of breath History of present illness: I am seeing this patient in consultation today 05/12/2023 for acute dyspnea. Patient is a 82-year-old male with past medical history significant for COPD/asthma, paroxysmal atrial fibrillation anticoagulated on Coumadin, hypertension, hyperlipidemia, type 2 diabetes mellitus, permanent pacemaker for history of complete heart block. 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 His primary care provider is a nurse practitioner, Negrita Matthews, out of [place]. Patient has followed with Dr. Garnica in the pulmonary office in the past. Patient normally utilizes a combination of albuterol nebulizations around the clock and Symbicort maintenance inhaler. He does have a when necessary albuterol inhaler. Patient presented to emergency room yesterday afternoon complaining of shortness of breath, a nonproductive persistent cough, and chest congestion. Patient did test positive for COVID-19 on arrival. Patient has had COVID twice in the last year. He is vaccinated and boosted. Patient is currently sitting up in bed, on room air, in no acute distress. His is at bedside, and answers most of his questions. Patient denies any fevers, chills, myalgias, chest pain, hemoptysis. Appetite is good, and he has been eating and drinking okay. Denies any nausea, vomiting, diarrhea, abdominal pain. Chest x-ray on arrival did not show any acute cardiopulmonary process. Patient has already been started on a combination of bronchodilators, Symbicort inhaler, and IV Solu-Medrol. He stated he that his breathing better than on arrival. CBC on arrival was unremarkable. BMP on arrival shows sodium 139, potassium 5.5, chloride 108, serum bicarbonate 20, BUN 37, creatinine 1.61, glucose 95. Normal saline is infusing at 100 ML's per hour. Troponins were not elevated at 0.018, 0.019, and 0.025. Rhythm is AV paced on bedside monitor at 60 bpm. Patient appears hemodynamically stable. Review of Systems REVIEW OF SYSTEMS: CONSTITUTIONAL: Denies any recent significant weight loss or weight gain. EYES: Denies change in vision. EARS, NOSE, MOUTH, THROAT: Denies headaches, denies sore throat. CARDIOVASCULAR: Denies chest pain, palpitations or syncopal episodes. RESPIRATORY: See HPI GASTROINTESTINAL: Denies change in appetite, abdominal pain, nausea and vomiting, or diarrhea GENITOURINARY: Denies hematuria, denies infections. MUSKULOSKELETAL: Denies pain, denies swelling. INTEGUMENTARY: Denies rash, denies eczema. NEUROLOGICAL: Denies recent memory loss, no recent seizure activity. PSYCHIATRIC: Denies anxiety, denies depression. HEMATOLOGIC/LYMPHATIC: Denies anemia, denies enlarged lymph node Past Medical History Past Medical History: Atrial Fibrillation, COPD, Diabetes Mellitus, GERD/Reflux, GI Bleed, Hyperlipidemia, Hypertension, Osteoarthritis (OA) Additional Past Medical History / Comment(s): Chronic right hemidiaphragmatic paralysis, history of pacemaker insertion for complete heart block, chronic neck pain History of Any Multi-Drug Resistant Organisms: None Reported Past Surgical History: Back Surgery, Orthopedic Surgery Additional Past Surgical History / Comment(s): torn rotator cuff, cervical disc removed in neck and fused 3 arthroscopy of the left knee, abdominal surgery, left hand/thumb surgery Past Anesthesia/Blood Transfusion Reactions: No Reported Reaction Past Psychological History: No Psychological Hx Reported Smoking Status: Never smoker Past Alcohol Use History: None Reported Past Drug Use History: None Reported - Past Family History Father History Unknown: Yes Family Medical History: Congestive Heart Failure (CHF) Mother History Unknown: Yes Family Medical History: Myocardial Infarction ([place]) Medications and Allergies Home Medications Medication Instructions Recorded Confirmed Type Gabapentin [Neurontin] 800 mg PO TID 12/20/13 05/11/23 History Lovastatin [Mevacor] 20 mg PO HS 12/20/13 05/11/23 History Glimepiride [Amaryl] 1 mg PO DAILY 12/07/17 05/11/23 History Warfarin [Coumadin] 5 mg PO Q48H 09/06/21 05/11/23 History Albuterol Sulfate [Ventolin HFA] 2 puff INHALATION RT-Q6H PRN 04/27/22 05/11/23 History Metoprolol Succinate [Toprol XL] 50 mg PO TID 04/27/22 05/11/23 History Valsartan 320 mg PO DAILY 04/27/22 05/11/23 History Warfarin [Coumadin] 2.5 mg PO Q48H 04/27/22 05/11/23 History Albuterol Nebulized [Ventolin 2.5 mg INHALATION RT-Q6H PRN 11/10/22 05/11/23 History Nebulized] Flecainide Acetate 50 mg PO BID 11/10/22 05/11/23 History Triamterene/Hydrochlorothiazid 1 tab PO DAILY 11/10/22 05/11/23 History [Triamterene-Hctz 37.5-25 mg Tb] Budesonide-Formot 160-4.5 Mcg 2 puff INHALATION RT-BID 30 Days 11/14/22 05/11/23 Rx [Symbicort 160-4.5 Mcg Inhaler] #1 each Allergies Allergy/AdvReac Type Severity Reaction Status Date / Time No Known Allergies Allergy Verified 05/11/23 19:13 Physical Exam Vitals: Vital Signs Temp Pulse Resp BP Pulse Ox 05/12/23 02:23 60 14 05/12/23 00:00 60 05/11/23 22:34 60 18 118/71 93 L 05/11/23 20:05 18 05/11/23 19:46 98.6 F 60 18 120/84 95 05/11/23 19:27 60 05/11/23 19:21 65 05/11/23 19:00 60 18 146/78 96 05/11/23 17:51 60 130/73 97 05/11/23 15:53 98.1 F 60 22 128/74 98 Intake and Output 05/11/23 05/11/23 05/12/23 14:59 22:59 06:59 Other: Weight 74.389 kg GENERAL EXAM: Alert, 82-year-old white male appearing stated age, comfortable in no apparent distress. HEAD: Normocephalic and atraumatic EYES: Normal reaction of pupils, equal size. NOSE: Clear with pink turbinates. THROAT: No erythema or exudates. NECK: No masses, no JVD. CHEST: No chest wall deformity. LUNGS: Equal air entry with no crackles, wheeze, rhonchi or dullness. On room air. No conversational dyspnea or accessory muscle use.. CVS: S1 and S2 normal with no audible murmur, regular rhythm. No extra heart sounds ABDOMEN: No hepatosplenomegaly, active bowel sounds, no guarding or rigidity. SPINE: No scoliosis or deformity SKIN: No rashes CENTRAL NERVOUS SYSTEM: No focal deficits, tone is normal in all 4 extremities. EXTREMITIES: There is no peripheral edema, clubbing, or cyanosis. Peripheral pulses are intact. Results - Laboratory Findings CBC and BMP: 05/11/23 15:59 05/11/23 15:59 PT/INR, D-dimer PT 29.7 sec (10.0-12.5) H 05/11/23 15:59 INR 3.0 (<1.2) H 05/11/23 15:59 Abnormal lab findings: Abnormal Labs 05/11/23 05/11/23 05/11/23 15:59 15:59 15:59 RBC 4.04 L Plt Count 132 L PT 29.7 H INR 3.0 H APTT 34.7 H Potassium 5.5 H Chloride 108 H Carbon Dioxide 20 L BUN 37 H Creatinine 1.61 H SARS-CoV-2 (PCR) 05/11/23 15:59 RBC Plt Count PT INR APTT Potassium Chloride Carbon Dioxide BUN Creatinine SARS-CoV-2 (PCR) Detected A - Diagnostic Findings Chest x-ray: image reviewed Assessment and Plan Assessment: Acute COVID-19 infection, patient has reportedly contracted Covid-19 twice in the last year. He is vaccinated and boosted. Chest x-ray on arrival did not show any focal infiltrates or evidence of Covid pneumonia. Negative for influenza and RSV Acute COPD exacerbation Acute kidney injury, creatinine 1.61 Hyperkalemia History complete heart block, status post permanent pacemaker History of paroxysmal atrial fibrillation, anticoagulated on Coumadin, currently paced rhythm. Benign essential hypertension Hyperlipidemia Diabetes mellitus type 2, [id number] Plan: Patient's medications, labs, chest x-ray reviewed On room air Continue supportive treatment Continue bronchodilators, Symbicort inhaler, and IV Solu-Medrol On my evaluation, patient's pulmonary status already appears improved Normal saline is infusing at 100 ML's per hour Lokelma was given for hyperkalemia Repeat electrolytes in the morning Coumadin was restarted, INR therapeutic at 3 Patient will be monitored on the cardiac stepdown unit once bed available We will continue to follow I have personally seen and examined the patient, performed the documentation and the assessment and plan as written. Number of minutes spent on the visit:20 Time with Patient: Greater than 30
[2023-05-12] MEDS: GABAPENTIN 400 MG CAP PO SCH ×3 (08:25→21:36)
[2023-05-12] MEDS: FLECAINIDE 50 MG TAB PO SCH ×2 (08:25→21:36)
[2023-05-12] MEDS: methylPREDNISolone SOD SUCCI 125 MG/2 ML VIAL IV SCH ×4 (08:25→21:36)
[2023-05-12] MEDS: METOPROLOL SUCCINATE (ER) 50 MG TAB.ER.24H PO SCH ×3 (08:25→21:35)
[2023-05-12] MEDS: PANTOPRAZOLE 40 MG TABLET PO SCH (08:25)
[2023-05-12] MEDS: NITROGLYCERIN OINT 1 INCH/GM PACKET TOPICAL SCH (08:26)
[2023-05-12] MEDS: TRIAMTERENE-HCTZ 37.5-25MG 1 EACH TAB PO SCH (08:26)
[2023-05-12] MEDS: VALSARTAN 160 MG TAB PO SCH (08:26)
[2023-05-12] MEDS: GLIMEPIRIDE 1 MG TAB PO SCH (08:26)
[2023-05-12] MEDS: SYMBICORT 160-4.5 MCG INHALER INHALATION SCH ×2 (08:35→21:46)
[2023-05-12 08:53] LABS: INR 2.9 (<1.2); Prothrombin Time 28.8 sec (10.0-12.5)
[2023-05-12] MEDS ORDERED: ASPIRIN 325 MG TAB PO SCH (09:00)
[2023-05-12] MEDS: SODIUM ZIRCONIUM CYCLOSILICATE 10 GM PACKET PO SCH (09:13)
[2023-05-12 10:34] LABS: Anion Gap 11 mmol/L; Blood Urea Nitrogen 34 mg/dL (9-20); C Reactive Protein <0.5 mg/dL (<1.0); Calcium 8.5 mg/dL (8.4-10.2); Carbon Dioxide 20 mmol/L (22-30); Chloride 107 mmol/L (98-107); Glucose 189 mg/dL (74-99); LDH 162 U/L (120-246); Potassium 4.7 mmol/L (3.5-5.1); Sodium 138 mmol/L (137-145)
--- NOTE | 2023-05-12 12:34 | P.CRDCN ---
History of Present Illness History of present illness: HISTORY OF PRESENT ILLNESS: This is a 82-year-old male with a past medical history significant for nonischemic cardiomyopathy, complete heart block with biventricular pacemaker implantation, persistent atrial fibrillation, hypertension, moderate mitral regurgitation, and hyperlipidemia. Patient follows in the office with Dr. Toribio. We have been asked to see the patient in consultation for chest pain and atrial fibrillation. Patient examined at the bedside in the emergency room. Patient presented to the hospital with a chief complaint of shortness of breath. He also reports a nonproductive cough at home. He reports he has been waking up at night short of breath and feels like he is choking. He was found to be positive for Covid. Patient's spouse at the bedside and states the patient also had Covid in September and February of this year. The patient currently denies any chest pain or pressure. He does report shortness of breath at the time of examination. * EKG reveals paced rhythm * Chest xray negative for acute process * Laboratory data: WBC 8.2. Hemoglobin 13.1. Platelet count 132. INR 2.9. D- dimer 0.28. Sodium 138. Potassium 4.7. BUN 34. Creatinine 1.38. Troponin negative 3. * Current home cardiac medications include Coumadin 2.5 mg every 48 hours, 5 mg every 48 hours, valsartan 320 mg daily, metoprolol succinate 50 mg 3 times a d ay, flecainide 50mg TID, and Triamterene/hydrochlorothiazide 37.525 mg daily * Most recent echocardiogram obtained in April 2022 revealing ejection fraction 55-60%, moderate mitral regurgitation and mild aortic regurgitation, and mild tricuspid regurgitation * Cardiac catheterization history: Unknown REVIEW OF SYSTEMS: At the time of my exam: CONSTITUTIONAL: Denies fever or chills. HEENT: Denies blurred vision, vision changes, or eye pain. Denies hemoptysis CARDIOVASCULAR: Denies chest pain. Denies orthopnea. Denies PND. Denies palpitations RESPIRATORY: Denies shortness of breath. GASTROINTESTINAL: Denies abdominal pain. Denies nausea or vomiting. HEMATOLOGIC: Denies bleeding disorders. GENITOURINARY: Denies any blood in urine. SKIN: Denies pruitis. Denies rash. PHYSICAL EXAM: VITAL SIGNS: Reviewed. GENERAL: Well-developed in no acute distress. HEENT: Head is normocephalic. Pupils are equal, round. Sclerae anicteric. Mucous membranes of the mouth are moist. Neck supple. No JVD or thyromegaly LUNGS: Respirations even and unlabored. Lungs with expiratory wheezing noted HEART: Regular rate and rhythm. S1 and S2 heard. Systolic murmur noted ABDOMEN: Soft. Nondistended. Nontender. EXTREMITIES: Normal range of motion. No clubbing or cyanosis. Peripheral pulses intact. No lower extremity edema NEUROLOGIC: Awake and alert. Oriented x 3. ASSESSMENT: Shortness of breath Acute Covid 19 Acute COPD exacerbation Acute kidney injury Hyperkalemia, resolved Persistent atrial fibrillation Nonischemic cardiomyopathy History of complete heart block with biventricular pacemaker implantation Hypertension Hyperlipidemia Diabetes Moderate mitral regurgitation History of Covid 19, September and February 2023 PLAN: Obtain 2-D echo to assess cardiac structure and function Resume home cardiac medications Continue telemetry monitoring Continue anticoagulation with Coumadin. Monitor INR. Pulmonary following Patient is stable from a cardiac perspective Further recommendations pending patient's course Nurse practitioner note has been reviewed by physician. Signing provider agrees with the documented findings, assessment, and plan of care. Past Medical History Past Medical History: Atrial Fibrillation, COPD, Diabetes Mellitus, GERD/Reflux, GI Bleed, Hyperlipidemia, Hypertension, Osteoarthritis (OA) Additional Past Medical History / Comment(s): Chronic right hemidiaphragmatic paralysis, history of pacemaker insertion for complete heart block, chronic neck pain History of Any Multi-Drug Resistant Organisms: None Reported Past Surgical History: Back Surgery, Orthopedic Surgery Additional Past Surgical History / Comment(s): torn rotator cuff, cervical disc removed in neck and fused 3 arthroscopy of the left knee, abdominal surgery, left hand/thumb surgery Past Anesthesia/Blood Transfusion Reactions: No Reported Reaction Past Psychological History: No Psychological Hx Reported Smoking Status: Never smoker Past Alcohol Use History: None Reported Past Drug Use History: None Reported - Past Family History Father History Unknown: Yes Family Medical History: Congestive Heart Failure (CHF) Mother History Unknown: Yes Family Medical History: Myocardial Infarction (ND) Medications and Allergies Home Medications Medication Instructions Recorded Confirmed Type Gabapentin [Neurontin] 800 mg PO TID 12/20/13 05/11/23 History Lovastatin [Mevacor] 20 mg PO HS 12/20/13 05/11/23 History Glimepiride [Amaryl] 1 mg PO DAILY 12/07/17 05/11/23 History Warfarin [Coumadin] 5 mg PO Q48H 09/06/21 05/11/23 History Albuterol Sulfate [Ventolin HFA] 2 puff INHALATION RT-Q6H PRN 04/27/22 05/11/23 History Metoprolol Succinate [Toprol XL] 50 mg PO TID 04/27/22 05/11/23 History Valsartan 320 mg PO DAILY 04/27/22 05/11/23 History Warfarin [Coumadin] 2.5 mg PO Q48H 04/27/22 05/11/23 History Albuterol Nebulized [Ventolin 2.5 mg INHALATION RT-Q6H PRN 11/10/22 05/11/23 History Nebulized] Flecainide Acetate 50 mg PO BID 11/10/22 05/11/23 History Triamterene/Hydrochlorothiazid 1 tab PO DAILY 11/10/22 05/11/23 History [Triamterene-Hctz 37.5-25 mg Tb] Budesonide-Formot 160-4.5 Mcg 2 puff INHALATION RT-BID 30 Days 11/14/22 05/11/23 Rx [Symbicort 160-4.5 Mcg Inhaler] #1 each Allergies Allergy/AdvReac Type Severity Reaction Status Date / Time No Known Allergies Allergy Verified 05/11/23 19:13 Physical Exam Vitals: Vital Signs Temp Pulse Resp BP Pulse Ox 05/12/23 10:58 60 18 94 L 05/12/23 08:35 18 05/12/23 08:21 98.0 F 60 18 124/61 94 L 05/12/23 03:57 97.6 F 60 20 141/80 93 L 05/12/23 02:23 60 14 05/12/23 00:00 60 05/11/23 22:34 60 18 118/71 93 L 05/11/23 20:05 18 05/11/23 19:46 98.6 F 60 18 120/84 95 05/11/23 19:27 60 05/11/23 19:21 65 05/11/23 19:00 60 18 146/78 96 05/11/23 17:51 60 130/73 97 05/11/23 15:53 98.1 F 60 22 128/74 98 Intake and Output 05/11/23 05/12/23 05/12/23 22:59 06:59 14:59 Other: Weight 74.389 kg Results 05/11/23 15:59 05/12/23 08:11 Cardiac Enzymes 05/11/23 05/11/23 05/11/23 Range/Units 15:59 15:59 21:12 AST 30 (17-59) U/L Lactate Dehydrogenase (120-246) U/L Troponin I 0.018 0.019 (0.000-0.034) ng/mL 05/11/23 05/12/23 Range/Units 23:24 08:11 AST (17-59) U/L Lactate Dehydrogenase 162 (120-246) U/L Troponin I 0.025 (0.000-0.034) ng/mL Coagulation 05/11/23 05/12/23 Range/Units 15:59 08:11 PT 29.7 H 28.8 H (10.0-12.5) sec APTT 34.7 H (22.0-30.0) sec CBC 05/11/23 Range/Units 15:59 WBC 8.2 (3.8-10.6) k/uL RBC 4.04 L (4.30-5.90) m/uL Hgb 13.1 (13.0-17.5) gm/dL Hct 39.3 (39.0-53.0) % Plt Count 132 L (150-450) k/uL Comprehensive Metabolic Panel 05/11/23 05/12/23 Range/Units 15:59 08:11 Sodium 139 138 (137-145) mmol/L Potassium 5.5 H 4.7 (3.5-5.1) mmol/L Chloride 108 H 107 (98-107) mmol/L Carbon Dioxide 20 L 20 L (22-30) mmol/L BUN 37 H 34 H (9-20) mg/dL Creatinine 1.61 H 1.38 H (0.66-1.25) mg/dL Glucose 95 189 H (74-99) mg/dL Calcium 9.1 8.5 (8.4-10.2) mg/dL AST 30 (17-59) U/L ALT 21 (4-49) U/L Alkaline Phosphatase 72 (38-126) U/L Total Protein 6.5 (6.3-8.2) g/dL Albumin 3.9 (3.5-5.0) g/dL Current Medications Generic Name Dose Route Start Last Admin Trade Name Freq PRN Reason Stop Dose Admin Acetaminophen 650 mg 05/11/23 18:56 Acetaminophen Tab 325 Mg Tab PO Q6HR PRN Mild Pain or Fever > 100.5 Albuterol Sulfate 2 puff 05/11/23 22:32 Albuterol Hfa Inhaler INHALATION RT-Q6H PRN Shortness Of Breath Albuterol Sulfate 2 puff 05/12/23 00:00 05/12/23 11:41 Albuterol Hfa Inhaler INHALATION 2 puff RT-Q4H REYNA Administration Atorvastatin Calcium 10 mg 05/12/23 21:00 Atorvastatin 10 Mg Tab PO HS REYNA Budesonide/Formoterol Fumarate 2 puff 05/12/23 08:00 05/12/23 08:35 Symbicort 160-4.5 Mcg Inhaler INHALATION 2 puff RT-BID REYNA Administration Flecainide Acetate 50 mg 05/12/23 09:00 05/12/23 08:25 Flecainide 50 Mg Tab PO 50 mg BID REYNA Administration Gabapentin 800 mg 05/11/23 22:00 05/12/23 08:25 Gabapentin 400 Mg Cap PO 800 mg TID REYNA Administration Glimepiride 1 mg 05/12/23 07:30 05/12/23 08:26 Glimepiride 1 Mg Tab PO 1 mg AC-[id number] REYNA Administration Methylprednisolone Sodium Succinate 60 mg 05/11/23 22:00 05/12/23 08:25 Methylprednisolone Sod Succi 125 Mg/2 Ml Vial IV 60 mg QID REYNA Administration Metoprolol Succinate 50 mg 05/11/23 22:00 05/12/23 08:25 Metoprolol Succinate (Er) 50 Mg Tab.Er.24h PO 50 mg TID REYNA Administration Miscellaneous Information 0 each 05/11/23 21:43 Warfarin Per Pharmacy MISCELLANE DIRECTED PRN PHARMACY DOSING WARFARIN Naloxone HCl 0.2 mg 05/11/23 18:56 Naloxone 0.4 Mg/Ml 1 Ml Vial IV Q2M PRN Opioid Reversal Pantoprazole Sodium 40 mg 05/12/23 07:30 05/12/23 08:25 Pantoprazole 40 Mg Tablet PO 40 mg AC-BRKFST REYNA Administration Triamterene/Hydrochlorothiazide 1 each 05/12/23 09:00 05/12/23 08:26 Triamterene-Hctz 37.5-25mg 1 Each Tab PO 1 each DAILY REYNA Administration Valsartan 320 mg 05/12/23 09:00 05/12/23 08:26 Valsartan 160 Mg Tab PO 320 mg DAILY REYNA Administration Warfarin Sodium 2.5 mg 05/13/23 18:00 Warfarin 2.5 Mg Tab PO Q48H REYNA Protocol Warfarin Sodium 5 mg 05/14/23 18:00 Warfarin 5 Mg Tab PO Q48H REYNA Protocol Warfarin Sodium 2.5 mg 05/12/23 18:00 Warfarin 2.5 Mg Tab PO 05/12/23 18:01 ONCE@1800 ONE Protocol Intake and Output 05/11/23 05/12/23 05/12/23 22:59 06:59 14:59 Other: Weight 74.389 kg 05/11/23 15:59 05/12/23 08:11
[2023-05-12] MEDS ORDERED: WARFARIN 2.5 MG TAB PO ONE (18:00)
[2023-05-12 20:38] LABS: Glucose,Whole Blood 255 mg/dL (70-110)
[2023-05-12] MEDS ORDERED: ATORVASTATIN 10 MG TAB PO SCH (21:00)
[2023-05-13] MEDS: ALBUTEROL HFA INHALER INHALATION SCH ×5 (00:17→15:34)
[2023-05-13 06:05] LABS: Glucose,Whole Blood 200 mg/dL (70-110)
[2023-05-13] MEDS: SYMBICORT 160-4.5 MCG INHALER INHALATION SCH (08:02)
--- NOTE | 2023-05-13 08:17 | PN ---
PROGRESS NOTE SUBJECTIVE: An 82-year-old white male, COVID, COPD exacerbation that has improved. OBJECTIVE: CARDIOVASCULAR: S1, S2. LUNGS: Transmitted upper sounds. HEMATOLOGY: Negative Homans. PSYCH: Fair mood and affect. PLAN: Continue current treatment for COVID, COPD. Prognosis guarded. Please see further orders. MMODL / IJN: [id number] /
[2023-05-13] MEDS: FLECAINIDE 50 MG TAB PO SCH (08:19)
[2023-05-13] MEDS: methylPREDNISolone SOD SUCCI 125 MG/2 ML VIAL IV SCH (08:19)
[2023-05-13] MEDS: METOPROLOL SUCCINATE (ER) 50 MG TAB.ER.24H PO SCH (08:19)
[2023-05-13] MEDS: GABAPENTIN 400 MG CAP PO SCH (08:19)
[2023-05-13] MEDS: VALSARTAN 160 MG TAB PO SCH (08:19)
[2023-05-13] MEDS: TRIAMTERENE-HCTZ 37.5-25MG 1 EACH TAB PO SCH (08:19)
--- NOTE | 2023-05-13 08:34 | CT ---
EXAMINATION TYPE: CT chest wo con DATE OF EXAM: 05/12/2023 COMPARISON: 11/10/2022. HISTORY: 82-year-old male shortness of breath, Dyspnea, covid positive. TECHNIQUE: Contiguous axial scanning of the chest without IV contrast. Coronal/sagittal reconstructi ons performed. CT DLP: 363.4mGycm. Automatic exposure control utilized for a dose reduction. FINDINGS: 3-lead left anterior chest wall pacemaker generator. The heart is mildly enlarged with trace pericardial fluid. LAD coronary calcifications. 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 Mild episodic arch calcifications with conventional arch vessel branching anatomy. Ectatic upper descending thoracic aorta measuring up to 3.4 cm. Large caliber to the main right and left pulmonary arteries measuring up to 2.8 cm suggesting underly ing pulmonary hypertension. No thoracic lymphadenopathy by CT size criteria. There is a trace right pleural effusion. Strandy scarring at the lung bases but with new/worsening fo charli air space disease posterior right base. Visualized upper abdomen shows no gross abnormality. 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 IMPRESSION: 1. Mild cardiomegaly with trace pericardial effusion. Pulmonary arterial hypertension and trace right pleural effusion. Correlate for possible mild fluid overload state. 2. There are stranding areas of bibasilar scarring present. However, consolidation at the posterior r ight base is new increased. Correlate for pneumonia here. 3. Similar aneurysm ascending aorta at 4.3 cm.
[2023-05-13 08:51] VITALS: RESP 18; TEMP 98.1
[2023-05-13 09:02] LABS: African American GFR (CKD) 54 (>60 ml/min/1.73 sqM); Anion Gap 12 mmol/L; Blood Urea Nitrogen 45 mg/dL (9-20); Calcium 8.8 mg/dL (8.4-10.2); Carbon Dioxide 21 mmol/L (22-30); Chloride 105 mmol/L (98-107); Glucose 204 mg/dL (74-99); Non-African American GFR(CKD) 47 (>60 ml/min/1.73 sqM); Potassium 4.5 mmol/L (3.5-5.1); Sodium 138 mmol/L (137-145)
[2023-05-13 09:34] LABS: INR 2.6 (<1.2); Prothrombin Time 25.8 sec (10.0-12.5)
[2023-05-13] MEDS: GLIMEPIRIDE 1 MG TAB PO SCH (10:22)
[2023-05-13] MEDS: PANTOPRAZOLE 40 MG TABLET PO SCH (10:23)
--- NOTE | 2023-05-13 10:27 | CA ---
Transthoracic Echo Report Name: Mahesh Dale Age: 82 Gender: M : 1940 Exam Date: 05/12/2023 11:52 Exam Location: [facility] Ht (in): 64 Wt (lb): 164 Ordering Physician: Evelina Sierra Attending/Referring Phys: [id number], Mariela Spinneret Person Leonel Chicas Procedure CPT: Indications: SOB, eval MR Cardiac Hx: Technical Quality: Fair Contrast 1: Total Dose (mL): Contrast 2: Total Dose (mL): MEASUREMENTS (Male / Female) Normal Values 2D ECHO LV Diastolic Diameter PLAX 5.5 cm 4.2 - 5.9 / 3.9 - 5.3 cm LV Systolic Diameter PLAX 4.1 cm IVS Diastolic Thickness 1.2 cm 0.6 - 1.0 / 0.6 - 0.9 cm LVPW Diastolic Thickness 1.3 cm 0.6 - 1.0 / 0.6 - 0.9 cm LV Relative Wall Thickness 0.4 RV Internal Dim ED PLAX 3.9 cm LVOT Diameter 2.3 cm Aortic Root Diameter 3.1 cm LA Systolic Diameter LX 3.6 cm 3.0 - 4.0 / 2.7 - 3.8 cm LV Diastolic Volume MOD BP 65.0 cm??? 67 - 155 / 56 - 104 cm??? LV Systolic Volume MOD BP 25.3 cm??? 22 - 58 / 19 - 49 cm??? LV Ejection Fraction MOD BP 61.2 % >= 55 % LV Cardiac Index MOD BP 1309.4 cm???/min???m??? LV Diastolic Volume MOD 4C 57.0 cm??? LV Systolic Volume MOD 4C 27.1 cm??? LV Ejection Fraction MOD 4C 52.4 % LV Cardiac Index MOD 4C 984.2 cm???/min???m??? LV Diastolic Length 4C 6.5 cm LV Systolic Length 4C 5.7 cm LV Diastolic Volume MOD 2C 71.9 cm??? LV Systolic Volume MOD 2C 21.4 cm??? LV Ejection Fraction MOD 2C 70.2 % LV Cardiac Index MOD 2C 1663.3 cm???/min???m??? LV Diastolic Length 2C 6.7 cm LV Systolic Length 2C 5.2 cm LA Volume 85.3 cm??? 18 - 58 / 22 - 52 cm??? LA Volume Index 46.0 cm???/m??? 16 - 28 cm???/m??? Ascending Aorta Diameter 3.8 cm DOPPLER AV Peak Velocity 105.0 cm/s AV Peak Gradient 4.4 mmHg AI Peak Velocity 390.7 cm/s AI Peak Gradient 61.1 mmHg AI Pressure Half Time 592.6 ms LVOT Peak Velocity 73.9 cm/s LVOT Peak Gradient 2.2 mmHg LVOT Velocity Time Integral 16.8 cm LVOT Stroke Volume 67.9 cm??? LVOT Stroke Volume Index 37.8 ml/m??? LVOT Cardiac Index 2235.7 cm???/min???m??? AV Area Cont Eq pk 2.8 cm??? MV Peak Velocity 103.8 cm/s MV Peak Gradient 4.3 mmHg MV Mean Velocity 52.5 cm/s MV Mean Gradient 1.3 mmHg MV Velocity Time Integral 40.8 cm MR Peak Velocity 487.5 cm/s MR Peak Gradient 95.1 mmHg Mitral E Point Velocity 108.5 cm/s Mitral A Point Velocity 63.7 cm/s Mitral E to A Ratio 1.7 MV Deceleration Time 235.6 ms MV E' Velocity 4.7 cm/s Mitral E to MV E' Ratio 23.1 TR Peak Velocity 228.0 cm/s TR Peak Gradient 20.8 mmHg Right Ventricular Systolic Press 27.0 mmHg PV Peak Velocity 69.7 cm/s PV Peak Gradient 1.9 mmHg FINDINGS Left Ventricle Normal LV size. Mild concentric LVH. Left ventricular ejection fraction is estimated at 50-55 %. Right Ventricle Normal right ventricular size. RVSP= 37mmHg. Right Atrium Right atrium not well visualized. Normal right atrial size. Left Atrium Left atrial dilatation. LA volume index= 47ml/m2 Mitral Valve Mild to moderate posterior Mitral annulus and valve thickening. There is a question of posterior MVP. Moderate MR. Aortic Valve Trileaflet aortic valve. Moderate AI. Tricuspid Valve Tricuspid valve not well visualized. Mild TR. Pulmonic Valve Pulmonic valve not well visualized. Mild PI. Pericardium Not well visualized. Grossly normal. Aorta Normal size aortic root. Ascending Aorta dorcas= 3.8cm CONCLUSIONS Mild LVH with preserved systolic function Suboptimal visualization of the mitral leaflets, then may be very mild mitral prolapse Eccentric moderate mitral regurgitation Previewed by: Dr. Yeison Toribio MD (Electronically Signed) Final Date: 13 May 2023 10:26
[2023-05-13 11:44] LABS: Glucose,Whole Blood 281 mg/dL (70-110)
[2023-05-13 12:24] VITALS: BP 124/62; PULSE 60
--- NOTE | 2023-05-13 13:25 | P.PN ---
Subjective HISTORY OF PRESENT ILLNESS: This is a 82-year-old male with a past medical history significant for nonischemic cardiomyopathy, complete heart block with biventricular pacemaker implantation, persistent atrial fibrillation, hypertension, moderate mitral regurgitation, and hyperlipidemia. Patient follows in the office with Dr. Toribio. We have been asked to see the patient in consultation for chest pain and atrial fibrillation. Patient examined at the bedside in the emergency room. Patient presented to the hospital with a chief complaint of shortness of breath. He also reports a nonproductive cough at home. He reports he has been waking up at night short of breath and feels like he is choking. He was found to be positive for Covid. Patient's spouse at the bedside and states the patient also had Covid in September and February of this year. The patient currently denies any chest pain or pressure. He does report shortness of breath at the time of examination. * EKG reveals paced rhythm * Chest xray negative for acute process * Laboratory data: WBC 8.2. Hemoglobin 13.1. Platelet count 132. INR 2.9. D- dimer 0.28. Sodium 138. Potassium 4.7. BUN 34. Creatinine 1.38. Troponin negative 3. * Current home cardiac medications include Coumadin 2.5 mg every 48 hours, 5 mg every 48 hours, valsartan 320 mg daily, metoprolol succinate 50 mg 3 times a day, flecainide 50mg TID, and Triamterene/hydrochlorothiazide 37.525 mg daily * Most recent echocardiogram obtained in April 2022 revealing ejection fraction 55-60%, moderate mitral regurgitation and mild aortic regurgitation, and mild tricuspid regurgitation * Cardiac catheterization history: Unknown 05/13/2023 Patient examined this morning the bedside. Patients family member is present. Patient denies chest pain or pressure. He reports shortness of breath with exertion. He has been transitioned to oral steroids. Echocardiogram performed revealing ejection fraction 50-55% with moderate MR, mild TR, moderate AI PHYSICAL EXAM: VITAL SIGNS: Reviewed. GENERAL: Well-developed in no acute distress. HEENT: Head is normocephalic. Pupils are equal, round. Sclerae anicteric. Mucous membranes of the mouth are moist. Neck supple. No JVD or thyromegaly LUNGS: Respirations even and unlabored. Lungs with expiratory wheezing noted HEART: Regular rate and rhythm. S1 and S2 heard. Systolic murmur noted ABDOMEN: Soft. Nondistended. Nontender. EXTREMITIES: Normal range of motion. No clubbing or cyanosis. Peripheral pulses intact. No lower extremity edema NEUROLOGIC: Awake and alert. Oriented x 3. ASSESSMENT: Shortness of breath Acute Covid 19 Acute COPD exacerbation Acute kidney injury Hyperkalemia, resolved Persistent atrial fibrillation Nonischemic cardiomyopathy History of complete heart block with biventricular pacemaker implantation Hypertension Hyperlipidemia Diabetes Moderate mitral regurgitation History of Covid 19, September and February 2023 PLAN: Continue current cardiac medications Patient is currently stable from a cardiac perspective with no further inpatient recommendations We will sign off. Please reconsult if needed. Nurse practitioner note has been reviewed by physician. Signing provider agrees with the documented findings, assessment, and plan of care. Objective - Vital Signs Vital signs: Vital Signs Temp 98.1 F 05/13/23 08:39 Pulse 60 05/13/23 12:00 Resp 18 05/13/23 12:00 BP 124/62 05/13/23 12:00 Pulse Ox 93 L 05/13/23 12:00 FiO2 Intake & Output 05/12/23 05/13/23 05/13/23 18:59 06:59 18:59 Intake Total 118 120 118 Balance 118 120 118 Weight 74.389 kg Intake: Oral 118 120 118 Other: Voiding Method Toilet # Voids 1 - Labs CBC & Chem 7: 05/11/23 15:59 05/13/23 08:27 Labs: Abnormal Lab Results - Last 24 Hours (Table) 05/12/23 05/13/23 05/13/23 Range/Units 20:36 05:53 08:27 PT 25.8 H (10.0-12.5) sec INR 2.6 H (<1.2) Carbon Dioxide (22-30) mmol/L BUN (9-20) mg/dL Creatinine (0.66-1.25) mg/dL Glucose (74-99) mg/dL POC Glucose (mg/dL) 255 H 200 H (70-110) mg/dL 05/13/23 05/13/23 Range/Units 08:27 11:40 PT (10.0-12.5) sec INR (<1.2) Carbon Dioxide 21 L (22-30) mmol/L BUN 45 H (9-20) mg/dL Creatinine 1.40 H (0.66-1.25) mg/dL Glucose 204 H (74-99) mg/dL POC Glucose (mg/dL) 281 H (70-110) mg/dL
[2023-05-13] MEDS ORDERED: WARFARIN 2.5 MG TAB PO SCH (18:00)
--- NOTE | 2023-05-13 20:08 | PN ---
PROGRESS NOTE This is a Pulmonary/Critical Care Progress Note. SUBJECTIVE: This is an 82-year-old male, who was seen in consultation on the . The patient presented to the emergency department with shortness of breath. The patient did test positive for coronavirus, but we felt the patient was not having coronavirus-associated pneumonia. He does have a well-established history of COPD. We felt like he was having a COPD exacerbation. He was seen today in room 375. He is currently on room air with saturation of 93%. His blood pressure was 124/62. The Solu-Medrol was converted to prednisone 30 mg a day. His chest x-ray showed a possible infiltrate at the right lung base. He was very stable and wanting to be discharged home. His was concerned because she did not want to drive home back up to [place] at nighttime. We asked the nurse to call the primary service, to see whether or not the patient could be discharged. OBJECTIVE: CURRENT VITAL SIGNS: Include a temperature 98.1, heart rate 60, respiratory rate 18, blood pressure 124/62, mean 82, and room air saturation of 93%. GENERAL: The patient appears in no acute distress. No respiratory distress. No conversational dyspnea or use of accessory muscles. HEENT: Grossly unremarkable. NECK: Supple. Full range of motion. No adenopathy. Neck veins are flat. CARDIOVASCULAR: Reveals regular rhythm and rate. Heart sounds are distant. LUNGS: Reveal expiratory rhonchi and mild expiratory wheezes. Breath sounds equal. No crackles. ABDOMEN: Soft. Bowel sounds are heard. EXTREMITIES: Intact. No cyanosis, clubbing, or edema. SKIN: Without rash. NEUROLOGIC: Brief, but nonfocal. LABORATORY DATA: Include PT of 25.8, INR 2.6. Sodium 138, potassium 4.5, chloride 105, CO2 of 21, BUN 45, and creatinine 1.40. IMAGING STUDIES: A chest CT showed mild cardiomegaly with trace pericardial effusion. There is a small right pleural effusion. There are also some stranding areas of bibasilar scarring, more so at the right base. ASSESSMENT: 1. Acute hypoxemic respiratory failure, likely on the basis of chronic obstructive pulmonary disease exacerbation. 2. The patient tested positive for coronavirus, without coronavirus-associated pneumonia. 3. Acute kidney injury with a creatinine of 1.61. 4. Mild hyperkalemia. 5. History of complete heart block, status post permanent pacemaker insertion. 6. History of paroxysmal atrial fibrillation. 7. Benign essential hypertension. 8. Hyperlipidemia. 9. Type 2 diabetes mellitus. PLAN: The patient's Solu-Medrol was converted to prednisone. The patient is stable in my opinion to be discharged home. The family is really pushing to be discharged as the does not want to drive the patient home back to [place] at nighttime. The patient can follow up with me in the office. No additional recommendations are made. CAT scan is reviewed. Labs, x-rays, and medications are reviewed. MMODL / IJN: [id number] /
[2023-05-14] MEDS ORDERED: predniSONE 10 MG TAB PO SCH (09:00)
[2023-05-14] MEDS ORDERED: WARFARIN 5 MG TAB PO SCH (18:00)
== END 2023-05-13 16:17 | disposition home or self-care (01) | DRG 177 ==
LOC: EC 15:36 → 3SCARD 19:01
PROVIDERS: ADMIT Family Medicine; ATTEND Family Medicine
DX: U07.1 COVID-19 (principal); J96.01 Acute respiratory failure with hypoxia; I42.8 Other cardiomyopathies; J44.1 Chronic obstructive pulmonary disease with (acute) exacerbation; I48.19 Other persistent atrial fibrillation; N17.9 Acute kidney failure, unspecified; Z20.822 Contact with and (suspected) exposure to COVID-19; I25.119 Atherosclerotic heart disease of native coronary artery with unspecified angina pectoris; I08.3 Combined rheumatic disorders of mitral, aortic and tricuspid valves; G89.29 Other chronic pain; M54.2 Cervicalgia; M19.90 Unspecified osteoarthritis, unspecified site; G83.89 Other specified paralytic syndromes; E78.5 Hyperlipidemia, unspecified; I10 Essential (primary) hypertension; E87.5 Hyperkalemia; I48.0 Paroxysmal atrial fibrillation; Z79.01 Long term (current) use of anticoagulants; Z79.4 Long term (current) use of insulin; Z79.51 Long term (current) use of inhaled steroids; Z79.84 Long term (current) use of oral hypoglycemic drugs; Z79.899 Other long term (current) drug therapy; Z82.49 Family history of ischemic heart disease and other diseases of the circulatory system; Z95.0 Presence of cardiac pacemaker
CPT/HCPCS: 36415; 71046; 71250; 80048; 80053; 83615; 84145; 84484; 85025; 85379; 85610; 85730; 86140; 87636; 93005; 93306; 94640; 96361; 96374; 96375; 99285

== ENCOUNTER 2023-06-08 10:37 | Inpatient (IN) | payer MEDICARE, BC ==
[2023-06-08] MEDS ORDERED: FLECAINIDE 50 MG TAB PO STA (10:52)
--- NOTE | 2023-06-08 10:56 | ED ---
Arrhythmia/Palpitations HPI - General Chief Complaint: Arrhythmia/Palpitations Stated Complaint: A-Fib Time Seen by Provider: 06/08/23 10:43 Source: patient, RN notes reviewed Mode of arrival: ambulatory Limitations: no limitations - History of Present Illness Initial Comments: 82-year-old male presents emergency Department with chief complaint of A. fib. Patient states a Pro[place]l overnight states he felt very shaky heart racing lightheaded. Patient states that he went to his mortgage loan officer originator follow-up appointment today and is found to be in A. fib RVR. Patient takes flecainide, metoprolol. Patient states he did take his medications this morning. Patient does have a pacemaker. Patient denies leg swelling, leg pain he is on Coumadin for his initial fibrillation also. - Related Data Home Medications Medication Instructions Recorded Confirmed Gabapentin [Neurontin] 800 mg PO TID 12/20/13 06/08/23 Lovastatin [Mevacor] 20 mg PO HS 12/20/13 06/08/23 Glimepiride [Amaryl] 1 mg PO DAILY 12/07/17 06/08/23 Warfarin [Coumadin] 5 mg PO Q48H 09/06/21 06/08/23 Albuterol Sulfate [Ventolin HFA] 2 puff INHALATION RT-Q6H PRN 04/27/22 06/08/23 Metoprolol Succinate [Toprol XL] 50 mg PO TID 04/27/22 06/08/23 Valsartan 320 mg PO DAILY 04/27/22 06/08/23 Warfarin [Coumadin] 2.5 mg PO Q48H 04/27/22 06/08/23 Albuterol Nebulized [Ventolin 2.5 mg INHALATION RT-Q6H PRN 11/10/22 06/08/23 Nebulized] Flecainide Acetate 50 mg PO TID 11/10/22 06/08/23 Triamterene/Hydrochlorothiazid 1 cap PO DAILY 06/08/23 06/08/23 [Triamterene-Hctz 37.5-25 mg Cp] Previous Rx's Medication Instructions Recorded Budesonide-Formot 160-4.5 Mcg 2 puff INHALATION RT-BID 30 Days 11/14/22 [Symbicort 160-4.5 Mcg Inhaler] #1 each Pantoprazole [Protonix] 40 mg PO AC-BRKFST tab 05/13/23 Allergies Allergy/AdvReac Type Severity Reaction Status Date / Time No Known Allergies Allergy Verified 06/08/23 10:42 Review of Systems ROS Statement: Those systems with pertinent positive or pertinent negative responses have been documented in the HPI. ROS Other: All systems not noted in ROS Statement are negative. Past Medical History Past Medical History: Atrial Fibrillation, COPD, Diabetes Mellitus, GERD/Reflux, GI Bleed, Hyperlipidemia, Hypertension, Osteoarthritis (OA) Additional Past Medical History / Comment(s): Chronic right hemidiaphragmatic paralysis, history of pacemaker insertion for complete heart block, chronic neck pain, COVID x3 History of Any Multi-Drug Resistant Organisms: None Reported Past Surgical History: Back Surgery, Orthopedic Surgery Additional Past Surgical History / Comment(s): torn rotator cuff, cervical disc removed in neck and fused 3 arthroscopy of the left knee, abdominal surgery, left hand/thumb surgery Past Anesthesia/Blood Transfusion Reactions: No Reported Reaction Past Psychological History: No Psychological Hx Reported Smoking Status: Never smoker Past Alcohol Use History: None Reported Past Drug Use History: None Reported - Past Family History Father History Unknown: Yes Family Medical History: Congestive Heart Failure (CHF) Mother History Unknown: Yes Family Medical History: Myocardial Infarction ([place]) General Exam Limitations: no limitations General appearance: alert, in no apparent distress Head exam: Present: atraumatic, normocephalic, normal inspection Eye exam: Present: normal appearance, PERRL, EOMI. Absent: scleral icterus, conjunctival injection, periorbital swelling ENT exam: Present: normal exam, normal oropharynx, mucous membranes moist Neck exam: Present: normal inspection, full ROM. Absent: tenderness, meningismus, lymphadenopathy Respiratory exam: Present: normal lung sounds bilaterally. Absent: respiratory distress, wheezes, rales, rhonchi, stridor Cardiovascular Exam: Present: tachycardia, irregular rhythm, normal heart sounds. Absent: regular rate, normal rhythm, systolic murmur, diastolic murmur, rubs, gallop, clicks Neurological exam: Present: alert, oriented X3 Skin exam: Present: warm, dry, intact, normal color. Absent: rash Course Vital Signs 06/08/23 06/08/23 06/08/23 10:40 10:59 11:35 Temperature 98.4 F Pulse Rate 136 H 146 H 128 H Respiratory 20 18 18 Rate Blood Pressure 97/60 86/61 82/63 O2 Sat by Pulse 96 98 95 Oximetry 06/08/23 06/08/23 11:53 12:21 Temperature Pulse Rate 128 H 123 H Respiratory 18 18 Rate Blood Pressure 75/57 93/65 O2 Sat by Pulse 95 97 Oximetry EKG Findings - EKG Comments: EKG Findings:: EKG performed at 10:50 face ventricular rhythm rate 129 QRS 214 QT/QTC 390/416 - EKG Results: EKG: interpreted by FRIEDA Medical Decision Making - Medical Decision Making Was pt. sent in by a medical professional or institution (, PA, INSURANCE AGENTS SUPERVISOR, urgent care, hospital, or shelter...) When possible be specific @ -No Did you speak to anyone other than the patient for history (EMS, parent, family, police, friend...)? What history was obtained from this source @ -No Did you review nursing and triage notes (agree or disagree)? Why? @ -I reviewed and agree with nursing and triage notes Were old charts reviewed (outside hosp., previous admission, EMS record, old EKG, old radiological studies, urgent care reports/EKG's, shelter records)? Report findings @ -No old charts were reviewed Differential Diagnosis (chest pain, altered mental status, abdominal pain women, abdominal pain men, vaginal bleeding, weakness, fever, dyspnea, syncope, headache, dizziness, GI bleed, back pain, seizure, CVA, palpatations, mental health, musculoskeletal)? @ -nDifferential Palpitations Ventricular arrhythmias, atrial arrhythmias, myocardial infarction, anemia, thy rotoxicosis, electrolyte imbalance, hypokalemia, pulmonary embolism, pulmonary disease, drugs, alcohol, anxiety, stress.... This is not meant to be an all-inclusive list.le EKG interpreted by me (3pts min.). @ -As above X-rays interpreted by me (1pt min.). @ -Chest x-ray shows no acute process CT interpreted by me (1pt min.). @ -None done U/S interpreted by me (1pt. min.). @ -None done What testing was considered but not performed or refused? (CT, X-rays, U/S, labs)? Why? @ -None What meds were considered but not given or refused? Why? @ -None Did you discuss the management of the patient with other professionals (professionals i.e. DrNicolasa, PA, INSURANCE AGENTS SUPERVISOR, lab, RT, psych nurse, social worker delinquency prevention, train engineer, teacher, labor relations officer, case therapist)? Give summary @ -[Discussed the case with on-call cardiology team evaluate the patient and order further medication, fluid bolus, I discuss case with . she for admission Was smoking cessation discussed for >3mins.? @ -No Was critical care preformed (if so, how long)? @ -No Were there social determinants of health that impacted care today? How? (Homelessness, low income, unemployed, alcoholism, drug addiction, transportation, low edu. Level, literacy, decrease access to med. care, long-term, rehab)? @ -No Was there de-escalation of care discussed even if they declined (Discuss DNR or withdrawal of care, Hospice)? DNR status @ -No What co-morbidities impacted this encounter? (DM, HTN, Smoking, COPD, CAD, Cancer, CVA, ARF, Chemo, Hep., AIDS, mental health diagnosis, sleep apnea, morbid obesity)? @ -A. fib, cardiopathy, CHF Was patient admitted / discharged? Hospital course, mention meds given and route, prescriptions, significant lab abnormalities, going to OR and other pertinent info. @ -[Admitted patient was initially found to be hypotensive, persistent ta chycardia. Patient is currently being paced at a tachycardic rate and may be underlying atrial fibrillation. Patient does have history patient was given flecainide patient was given his metoprolol dose. Patient was also given fluid bolus secondary hypertension which is improved. I discuss case with cardiology, internal medicine Undiagnosed new problem with uncertain prognosis? @ -No Drug Therapy requiring intensive monitoring for toxicity (Heparin, Nitro, Insulin, Cardizem)? @ -No Were any procedures done? @ -No Diagnosis/symptom? @ -Tachycardia, A. fib, hypertension Acute, or Chronic, or Acute on Chronic? @ -Acute Uncomplicated (without systemic symptoms) or Complicated (systemic symptoms)? @ - complicated Side effects of treatment? @ -No Exacerbation, Progression, or Severe Exacerbation? @ -No Poses a threat to life or bodily function? How? (Chest pain, [place], [place], pneumonia, PE, COPD, DKA, ARF, appy, cholecystitis, CVA, Diverticulitis, Homicidal, Suicidal, threat to staff... and all critical care pts) @ -Yes cardiac arrhythmia with hypotension - Lab Data Result diagrams: 06/08/23 10:54 06/08/23 10:54 Lab Results 06/08/23 06/08/23 06/08/23 Range/Units 10:54 10:54 10:54 WBC 6.3 (3.8-10.6) k/uL RBC 3.67 L (4.30-5.90) m/uL Hgb 12.0 L (13.0-17.5) gm/dL Hct 36.1 L (39.0-53.0) % MCV 98.2 (80.0-100.0) fL MCH 32.6 (25.0-35.0) pg MCHC 33.2 (31.0-37.0) g/dL RDW 13.0 (11.5-15.5) % Plt Count 218 (150-450) k/uL MPV 8.9 Neutrophils % 67 % Lymphocytes % 20 % Monocytes % 7 % Eosinophils % 2 % Basophils % 1 % Neutrophils # 4.2 (1.3-7.7) k/uL Lymphocytes # 1.3 (1.0-4.8) k/uL Monocytes # 0.4 (0-1.0) k/uL Eosinophils # 0.1 (0-0.7) k/uL Basophils # 0.0 (0-0.2) k/uL PT 30.1 H (10.0-12.5) sec INR 3.1 H (<1.2) APTT 35.6 H (22.0-30.0) sec Sodium 140 (137-145) mmol/L Potassium 5.1 (3.5-5.1) mmol/L Chloride 106 (98-107) mmol/L Carbon Dioxide 27 (22-30) mmol/L Anion Gap 7 mmol/L BUN 29 H (9-20) mg/dL Creatinine 1.86 H (0.66-1.25) mg/dL Est GFR (CKD-EPI)AfAm 38 (>60 ml/min/1.73 sqM) Est GFR (CKD-EPI)NonAf 33 (>60 ml/min/1.73 sqM) Glucose 152 H (74-99) mg/dL Calcium 9.0 (8.4-10.2) mg/dL Magnesium 2.2 (1.6-2.3) mg/dL Total Bilirubin 0.5 (0.2-1.3) mg/dL AST 23 (17-59) U/L ALT 21 (4-49) U/L Alkaline Phosphatase 74 (38-126) U/L Troponin I (0.000-0.034) ng/mL Total Protein 6.0 L (6.3-8.2) g/dL Albumin 3.5 (3.5-5.0) g/dL 06/08/23 Range/Units 10:54 WBC (3.8-10.6) k/uL RBC (4.30-5.90) m/uL Hgb (13.0-17.5) gm/dL Hct (39.0-53.0) % MCV (80.0-100.0) fL MCH (25.0-35.0) pg MCHC (31.0-37.0) g/dL RDW (11.5-15.5) % Plt Count (150-450) k/uL MPV Neutrophils % % Lymphocytes % % Monocytes % % Eosinophils % % Basophils % % Neutrophils # (1.3-7.7) k/uL Lymphocytes # (1.0-4.8) k/uL Monocytes # (0-1.0) k/uL Eosinophils # (0-0.7) k/uL Basophils # (0-0.2) k/uL PT (10.0-12.5) sec INR (<1.2) APTT (22.0-30.0) sec Sodium (137-145) mmol/L Potassium (3.5-5.1) mmol/L Chloride (98-107) mmol/L Carbon Dioxide (22-30) mmol/L Anion Gap mmol/L BUN (9-20) mg/dL Creatinine (0.66-1.25) mg/dL Est GFR (CKD-EPI)AfAm (>60 ml/min/1.73 sqM) Est GFR (CKD-EPI)NonAf (>60 ml/min/1.73 sqM) Glucose (74-99) mg/dL Calcium (8.4-10.2) mg/dL Magnesium (1.6-2.3) mg/dL Total Bilirubin (0.2-1.3) mg/dL AST (17-59) U/L ALT (4-49) U/L Alkaline Phosphatase (38-126) U/L Troponin I 0.048 H* (0.000-0.034) ng/mL Total Protein (6.3-8.2) g/dL Albumin (3.5-5.0) g/dL Critical Care Time Critical Care Time: Yes Total Critical Care Time: 35 Disposition Clinical Impression: Tachycardia, Atrial fibrillation, Hypotension Disposition: ADMITTED IP TO THIS HOSP Condition: Fair Referrals: Myles Caban MD [Primary Care Provider] - 1-2 days Time of Disposition: 13:08
[2023-06-08 11:14] LABS: Basophils % (A) 1 %; Eosinophils # (A) 0.1 k/uL (0-0.7); Eosinophils % (A) 2 %; HCT 36.1 % (39.0-53.0); Lymphocytes # (A) 1.3 k/uL (1.0-4.8); Lymphocytes % (A) 20 %; MCH 32.6 pg (25.0-35.0); MCHC 33.2 g/dL (31.0-37.0); MCV 98.2 fL (80.0-100.0); Mean Platelet Volume 8.9; Monocytes # (A) 0.4 k/uL (0-1.0); Monocytes % (A) 7 %; Neutrophils # (A) 4.2 k/uL (1.3-7.7); Neutrophils % (A) 67 %; Platelet Count 218 k/uL (150-450); RBC 3.67 m/uL (4.30-5.90); WBC 6.3 k/uL (3.8-10.6)
[2023-06-08] MEDS ORDERED: SODIUM CHLORIDE 0.9% 500 ML 500 ML IV STA ×2 (11:20→11:55)
[2023-06-08 11:29] LABS: ALT 21 U/L (4-49); AST 23 U/L (17-59); African American GFR (CKD) 38 (>60 ml/min/1.73 sqM); Albumin 3.5 g/dL (3.5-5.0); Alkaline Phosphatase 74 U/L (38-126); Anion Gap 7 mmol/L; Blood Urea Nitrogen 29 mg/dL (9-20); Carbon Dioxide 27 mmol/L (22-30); Chloride 106 mmol/L (98-107); Glucose 152 mg/dL (74-99); Magnesium 2.2 mg/dL (1.6-2.3); Non-African American GFR(CKD) 33 (>60 ml/min/1.73 sqM); Potassium 5.1 mmol/L (3.5-5.1); Sodium 140 mmol/L (137-145); Total Bilirubin 0.5 mg/dL (0.2-1.3)
[2023-06-08 11:32] LABS: INR 3.1 (<1.2); Partial Thromboplastin Time 35.6 sec (22.0-30.0); Prothrombin Time 30.1 sec (10.0-12.5)
--- NOTE | 2023-06-08 11:41 | XR ---
EXAMINATION TYPE: XR chest 2V DATE OF EXAM: 06/08/2023 11:25 AM COMPARISON: Chest radiographs from 05/11/2023, CT chest 05/12/2023 TECHNIQUE: XR chest 2V Frontal and lateral views of the chest. CLINICAL INDICATION:Male, 82 years old with history of dysrhythmia; FINDINGS: Lungs/Pleura: No pleural effusion, pneumothorax, focal consolidation. Elevation the right hemidiaphra gm redemonstrated. Pulmonary vascularity: Unremarkable. Heart/mediastinum: Cardiomediastinal silhouette is enlarged and stable. Atherosclerotic calcificatio ns are seen in the aorta. Three lead cardiac conduction device overlying the left hemithorax with luis d tips projecting over the right ventricle, right atrium and coronary sinus. Musculoskeletal: Multiple level degenerative disc disease changes seen throughout the spine. IMPRESSION: Chronic changes without evidence for acute process.
[2023-06-08] MEDS ORDERED: SODIUM CHLORIDE 0.9% 500 ML 500 ML IV ONE (12:36)
[2023-06-08] MEDS ORDERED: NITROGLYCERIN SL TABS 0.4 MG TAB SUBLINGUAL PRN (13:39)
[2023-06-08] MEDS: SODIUM CHLORIDE 0.9% 1,000 ML IV SCH (14:14)
--- NOTE | 2023-06-08 14:40 | P.CRDCN ---
History of Present Illness History of present illness: HISTORY OF PRESENT ILLNESS: This is a 89-year-old male with a past medical history significant for COPD, diabetes, nonischemic cardiomyopathy with recovered EF, complete heart block with biventricular pacemaker implantation, persistent atrial fibrillation, hypertension, hyperlipidemia, and moderate mitral regurgitation. Patient follows in the office with Dr. Toribio. We have been asked to see the patient in consultation for tachycardia. Patient examined at the bedside in the emergency room. It is noted that the patient was hospitalized in April 2023 secondary to Covid 19 and COPD exacerbation. The patient states he has been feeling fairly well since been discharged from the hospital. The patient states yesterday evening he felt a little off and felt as though he may be in atrial fibrillation. He states that he went to bed and then was feeling better this morning. He had an appointment with his trail construction worker, Dr. Garnica, today who noted that the patient was in atrial fibrillation with RVR and instructed him to come to the emergency room. The patient currently denies chest pain or pressure. He denies shortness of breath. He denies palpitations. He reports that he never feels when he is in A. fib with RVR. The patient was found to be hypotensive upon arrival to the hospital with a systolic blood pressure in the 70s and 80s. He has received 1 L in fluid boluses. Blood pressure has improved with a systolic in the 90s. Bedside telemetry reveals atrial fibrillation with a heart rate around 120. * EKG reveals ventricular paced rhythm with underlying atrial fibrillation. * Chest xray chronic changes without evidence for acute process * Laboratory data: WBC 6.3. Hemoglobin 12.0. Platelet count 218. INR 3.1. Sodium 140. Potassium 5.1. BUN 29. Creatinine 1.86. Troponin 0.048. * Current home cardiac medications include Coumadin, lovastatin 20 mg at night, valsartan 320 mg daily, Triamterene-hydrochlorothiazide 37.5 mg25 mg daily, metoprolol succinate 50 mg 3 times a day * Most recent echocardiogram obtained in April 2023 revealed ejection fraction 50-55%, moderate mitral regurgitation, moderate aortic insufficiency, mild TR * Cardiac catheterization history: Unknown REVIEW OF SYSTEMS: At the time of my exam: CONSTITUTIONAL: Denies fever or chills. HEENT: Denies blurred vision, vision changes, or eye pain. Denies hemoptysis CARDIOVASCULAR: Denies chest pain. Denies orthopnea. Denies PND. Denies palpitations RESPIRATORY: Denies shortness of breath. GASTROINTESTINAL: Denies abdominal pain. Denies nausea or vomiting. HEMATOLOGIC: Denies bleeding disorders. GENITOURINARY: Denies any blood in urine. SKIN: Denies pruitis. Denies rash. PHYSICAL EXAM: VITAL SIGNS: Reviewed. GENERAL: Well-developed in no acute distress. HEENT: Head is normocephalic. Pupils are equal, round. Sclerae anicteric. Mucous membranes of the mouth are moist. Neck supple. No JVD or thyromegaly LUNGS: Respirations even and unlabored. Lungs essentially clear to auscultation bilaterally. HEART: Tachycardic. Irregular rate and rhythm. S1 and S2 heard. Systolic murmur noted ABDOMEN: Soft. Nondistended. Nontender. EXTREMITIES: Normal range of motion. No clubbing or cyanosis. Peripheral pulses intact. No lower extremity edema NEUROLOGIC: Awake and alert. Oriented x 3. ASSESSMENT: Persistent atrial fibrillation with RVR Hypotension, improved with IVF Acute kidney injury Abnormal troponin, likely secondary to tachycardia and acute kidney injury, no evidence of acute coronary syndrome History of complete heart block with biventricular pacemaker implantation History of nonischemic cardiomyopathy with recovered EF Hypertension Hyperlipidemia Moderate mitral regurgitation Diabetes History of Covid , September, February, and April 2023 PLAN: No need to repeat echocardiogram as this was performed last month Given additional 500 mL fluid bolus over one hour and then continue maintenance IV fluids at 75 mL an hour Increase flecainide to 100 mg twice a day Continue metoprolol tartrate. Hold for systolic blood pressure less than 90. Patient to receive 2.5 mg of Coumadin tonight per Dr. Toribio. Continue to monitor INR. Continue telemetry monitoring Nothing by mouth at midnight Patient to undergo cardioversion tomorrow with Dr. Toribio Will consider AV node ablation in the future if patient continues to have episodes of atrial fibrillation with RVR Further recommendations pending patient's course Nurse practitioner note has been reviewed by physician. Signing provider agrees with the documented findings, assessment, and plan of care. Past Medical History Past Medical History: Atrial Fibrillation, COPD, Diabetes Mellitus, GERD/Reflux, GI Bleed, Hyperlipidemia, Hypertension, Osteoarthritis (OA) Additional Past Medical History / Comment(s): Chronic right hemidiaphragmatic paralysis, history of pacemaker insertion for complete heart block, chronic neck pain, COVID x3 History of Any Multi-Drug Resistant Organisms: None Reported Past Surgical History: Back Surgery, Orthopedic Surgery Additional Past Surgical History / Comment(s): torn rotator cuff, cervical disc removed in neck and fused 3 arthroscopy of the left knee, abdominal surgery, left hand/thumb surgery Past Anesthesia/Blood Transfusion Reactions: No Reported Reaction Past Psychological History: No Psychological Hx Reported Smoking Status: Never smoker Past Alcohol Use History: None Reported Past Drug Use History: None Reported - Past Family History Father History Unknown: Yes Family Medical History: Congestive Heart Failure (CHF) Mother History Unknown: Yes Family Medical History: Myocardial Infarction ([place]) Medications and Allergies Home Medications Medication Instructions Recorded Confirmed Type Gabapentin [Neurontin] 800 mg PO TID 12/20/13 06/08/23 History Lovastatin [Mevacor] 20 mg PO HS 12/20/13 06/08/23 History Glimepiride [Amaryl] 1 mg PO DAILY 12/07/17 06/08/23 History Warfarin [Coumadin] 5 mg PO Q48H 09/06/21 06/08/23 History Albuterol Sulfate [Ventolin HFA] 2 puff INHALATION RT-Q6H PRN 04/27/22 06/08/23 History Metoprolol Succinate [Toprol XL] 50 mg PO TID 04/27/22 06/08/23 History Valsartan 320 mg PO DAILY 04/27/22 06/08/23 History Warfarin [Coumadin] 2.5 mg PO Q48H 04/27/22 06/08/23 History Albuterol Nebulized [Ventolin 2.5 mg INHALATION RT-Q6H PRN 11/10/22 06/08/23 History Nebulized] Flecainide Acetate 50 mg PO TID 11/10/22 06/08/23 History Budesonide-Formot 160-4.5 Mcg 2 puff INHALATION RT-BID 30 Days 11/14/22 06/08/23 Rx [Symbicort 160-4.5 Mcg Inhaler] #1 each Pantoprazole [Protonix] 40 mg PO AC-BRKFST tab 05/13/23 06/08/23 Rx Triamterene/Hydrochlorothiazid 1 cap PO DAILY 06/08/23 06/08/23 History [Triamterene-Hctz 37.5-25 mg Cp] Allergies Allergy/AdvReac Type Severity Reaction Status Date / Time No Known Allergies Allergy Verified 06/08/23 10:42 Physical Exam Vitals: Vital Signs Temp Pulse Resp BP Pulse Ox 06/08/23 14:26 128 H 18 89/56 96 06/08/23 12:21 123 H 18 93/65 97 06/08/23 11:53 128 H 18 75/57 95 06/08/23 11:35 128 H 18 82/63 95 06/08/23 10:59 146 H 18 86/61 98 06/08/23 10:40 98.4 F 136 H 20 97/60 96 Intake and Output 06/07/23 06/08/23 06/08/23 22:59 06:59 14:59 Other: Weight 77.564 kg Results 06/08/23 10:54 06/08/23 10:54 Cardiac Enzymes 06/08/23 06/08/23 Range/Units 10:54 10:54 AST 23 (17-59) U/L Troponin I 0.048 H* (0.000-0.034) ng/mL Coagulation 06/08/23 Range/Units 10:54 PT 30.1 H (10.0-12.5) sec APTT 35.6 H (22.0-30.0) sec CBC 06/08/23 Range/Units 10:54 WBC 6.3 (3.8-10.6) k/uL RBC 3.67 L (4.30-5.90) m/uL Hgb 12.0 L (13.0-17.5) gm/dL Hct 36.1 L (39.0-53.0) % Plt Count 218 (150-450) k/uL Comprehensive Metabolic Panel 06/08/23 Range/Units 10:54 Sodium 140 (137-145) mmol/L Potassium 5.1 (3.5-5.1) mmol/L Chloride 106 (98-107) mmol/L Carbon Dioxide 27 (22-30) mmol/L BUN 29 H (9-20) mg/dL Creatinine 1.86 H (0.66-1.25) mg/dL Glucose 152 H (74-99) mg/dL Calcium 9.0 (8.4-10.2) mg/dL AST 23 (17-59) U/L ALT 21 (4-49) U/L Alkaline Phosphatase 74 (38-126) U/L Total Protein 6.0 L (6.3-8.2) g/dL Albumin 3.5 (3.5-5.0) g/dL Current Medications Generic Name Dose Route Start Last Admin Trade Name Freq PRN Reason Stop Dose Admin Atorvastatin Calcium 10 mg 06/08/23 21:00 Atorvastatin 10 Mg Tab PO HS REYNA Flecainide Acetate 100 mg 06/08/23 21:00 Flecainide 50 Mg Tab PO BID [facility] Sodium Chloride 1,000 mls @ 75 mls/hr 06/08/23 12:45 06/08/23 14:14 Saline 0.9% IV 75 mls/hr .[id number] REYNA Administration Metoprolol Succinate 50 mg 06/08/23 16:00 Metoprolol Succinate (Er) 50 Mg Tab.Er.24h PO TID [facility] Miscellaneous Information 1 each 06/08/23 12:58 Warfarin Per Pharmacy MISCELLANE DIRECTED PRN Per Protocol Protocol Nitroglycerin 0.4 mg 06/08/23 13:39 Nitroglycerin Sl Tabs 0.4 Mg Tab SUBLINGUAL Q5M PRN Chest Pain Warfarin Sodium 2.5 mg 06/08/23 18:00 Warfarin 2.5 Mg Tab PO 06/08/23 18:01 ONCE@1800 ONE Protocol Intake and Output 06/07/23 06/08/23 06/08/23 22:59 06:59 14:59 Other: Weight 77.564 kg Patient Weight 06/09/23 06:59 Weight 77.564 kg 06/08/23 10:54 06/08/23 10:54
[2023-06-08 16:21] LABS: Glucose,Whole Blood 133 mg/dL (70-110)
[2023-06-08] MEDS: METOPROLOL SUCCINATE (ER) 50 MG TAB.ER.24H PO SCH ×2 (16:35→21:25)
[2023-06-08] MEDS ORDERED: WARFARIN 2.5 MG TAB PO ONE (18:00)
[2023-06-08] MEDS ORDERED: WARFARIN 2 MG TAB PO ONE (18:00)
[2023-06-08] MEDS ORDERED: ALBUTEROL HFA INHALER INHALATION PRN (18:35)
--- NOTE | 2023-06-08 18:46 | P.HPIM ---
History of Present Illness This is a pleasant 82 years old male with past medical history of Atrial Fibrillation, COPD, Diabetes Mellitus, GERD/Reflux, GI Bleed, Hyperlipidemia, Hypertension, Osteoarthritis ,Chronic right hemidiaphragmatic paralysis, history of pacemaker insertion for complete heart block, chronic neck pain, COVID x3 Patient secondary to Covid infection without evidence of pneumonia, he has regular follow-up with his polisher dial Dr. Larsen today where he was found to be in A. fib and RVR and he was referred to emergency room overt symptoms of chest pain dizziness. He has little short of breath this morning with little cough but denies diarrhea and vomiting abdominal pain, no urinary complaints. He is little dizzy especially when he tries to get up but no limb weakness or numbness. No smoking alcohol or illicit drugs In the emergency room patient was found to be hypotensive with a blood pressure was 85/60 and he was tachycardic with heart rate around 129, EKG showing A. fib with RVR at 129 Labs reviewed showing hemoglobin of 12, INR 3.1 while he is on warfarin He takes Coumadin 5 mg daily and she wants to receive 2.5 mg tonight. Rest of liver enzymes is unremarkable Patient metabolic panel showing worsening creatinine from baseline of 1.3-1.4 up to 1.8 today. Chest x-ray showed chronic changes without acute process. Emergency room preserved bolus of normal saline and continued at a rate of 75 mL/h, also flecainide was increased to 100 mg twice daily. Cardiology on the case and plan for cardioversion tomorrow Review of Systems Review of systems CONSTITUTIONAL: No fever, no malaise, no fatigue. HEENT: No recent visual problems or hearing problems. Denied any sore throat. CARDIOVASCULAR: No orthopnea, PND, no palpitations, no syncope. PULMONARY: No shortness of breath, no cough, no hemoptysis. GASTROINTESTINAL: No diarrhea, no nausea, no vomiting, no abdominal pain. Normoactive bowel sounds. NEUROLOGICAL: No headaches, no weakness, no numbness. HEMATOLOGICAL: Denies any bleeding or petechiae. GENITOURINARY: Denies any burning micturition, frequency, or urgency. MUSCULOSKELETAL/RHEUMATOLOGICAL: Denies any joint pain, swelling, or any muscle pain. ENDOCRINE: Denies any polyuria or polydipsia. Past Medical History Past Medical History: Atrial Fibrillation, COPD, Diabetes Mellitus, GERD/Reflux, GI Bleed, Hyperlipidemia, Hypertension, Osteoarthritis (OA) Additional Past Medical History / Comment(s): Chronic right hemidiaphragmatic paralysis, history of pacemaker insertion for complete heart block, chronic neck pain, COVID x3 History of Any Multi-Drug Resistant Organisms: None Reported Past Surgical History: Back Surgery, Orthopedic Surgery Additional Past Surgical History / Comment(s): torn rotator cuff, cervical disc removed in neck and fused 3 arthroscopy of the left knee, abdominal surgery, left hand/thumb surgery Past Anesthesia/Blood Transfusion Reactions: No Reported Reaction Past Psychological History: No Psychological Hx Reported Smoking Status: Never smoker Past Alcohol Use History: None Reported Past Drug Use History: None Reported - Past Family History Father History Unknown: Yes Family Medical History: Congestive Heart Failure (CHF) Mother History Unknown: Yes Family Medical History: Myocardial Infarction ([place]) Medications and Allergies Home Medications Medication Instructions Recorded Confirmed Type Gabapentin [Neurontin] 800 mg PO TID 12/20/13 06/08/23 History Lovastatin [Mevacor] 20 mg PO HS 12/20/13 06/08/23 History Glimepiride [Amaryl] 1 mg PO DAILY 12/07/17 06/08/23 History Warfarin [Coumadin] 5 mg PO Q48H 09/06/21 06/08/23 History Albuterol Sulfate [Ventolin HFA] 2 puff INHALATION RT-Q6H PRN 04/27/22 06/08/23 History Metoprolol Succinate [Toprol XL] 50 mg PO TID 04/27/22 06/08/23 History Valsartan 320 mg PO DAILY 04/27/22 06/08/23 History Warfarin [Coumadin] 2.5 mg PO Q48H 04/27/22 06/08/23 History Albuterol Nebulized [Ventolin 2.5 mg INHALATION RT-Q6H PRN 11/10/22 06/08/23 History Nebulized] Flecainide Acetate 50 mg PO TID 11/10/22 06/08/23 History Budesonide-Formot 160-4.5 Mcg 2 puff INHALATION RT-BID 30 Days 11/14/22 06/08/23 Rx [Symbicort 160-4.5 Mcg Inhaler] #1 each Pantoprazole [Protonix] 40 mg PO AC-BRKFST tab 05/13/23 06/08/23 Rx Triamterene/Hydrochlorothiazid 1 cap PO DAILY 06/08/23 06/08/23 History [Triamterene-Hctz 37.5-25 mg Cp] Allergies Allergy/AdvReac Type Severity Reaction Status Date / Time No Known Allergies Allergy Verified 06/08/23 10:42 Physical Exam Vitals: Vital Signs Temp Pulse Pulse Resp BP BP Pulse Ox 06/08/23 15:34 97.3 F L 120 H 18 94/62 95 06/08/23 15:14 98.6 F 121 H 18 85/61 97 06/08/23 14:26 128 H 18 89/56 96 06/08/23 12:21 123 H 18 93/65 97 06/08/23 11:53 128 H 18 75/57 95 06/08/23 11:35 128 H 18 82/63 95 06/08/23 10:59 146 H 18 86/61 98 06/08/23 10:40 98.4 F 136 H 20 97/60 96 Intake and Output 06/08/23 06/08/23 06/08/23 06:59 14:59 22:59 Other: Weight 77.564 kg 77.564 kg -GENERAL: The patient is alert and oriented x3, not in any acute distress. Well developed, well nourished. Generally weak HEENT: Pupils are round and equally reacting to light. EOMI. No scleral icterus. No conjunctival pallor. Normocephalic, atraumatic. No pharyngeal erythema. No thyromegaly. CARDIOVASCULAR: S1 and S2 present. No murmurs, rubs, or gallops. PULMONARY: Chest is clear to auscultation, no wheezing , no crackles. ABDOMEN: Soft, nontender, nondistended, normoactive bowel sounds. No palpable organomegaly. MUSCULOSKELETAL: No joint swelling or deformity. EXTREMITIES: No cyanosis, clubbing, or pedal edema. NEUROLOGICAL: Gross neurological examination did not reveal any focal deficits. SKIN: No rashes. no petechiae. Results CBC & Chem 7: 06/08/23 10:54 06/08/23 10:54 Labs: Abnormal Lab Results - Last 24 Hours (Table) 06/08/23 06/08/23 06/08/23 Range/Units 10:54 10:54 10:54 RBC 3.67 L (4.30-5.90) m/uL Hgb 12.0 L (13.0-17.5) gm/dL Hct 36.1 L (39.0-53.0) % PT 30.1 H (10.0-12.5) sec INR 3.1 H (<1.2) APTT 35.6 H (22.0-30.0) sec BUN 29 H (9-20) mg/dL Creatinine 1.86 H (0.66-1.25) mg/dL Glucose 152 H (74-99) mg/dL POC Glucose (mg/dL) (70-110) mg/dL Troponin I (0.000-0.034) ng/mL Total Protein 6.0 L (6.3-8.2) g/dL 06/08/23 06/08/23 06/08/23 Range/Units 10:54 14:54 16:19 RBC (4.30-5.90) m/uL Hgb (13.0-17.5) gm/dL Hct (39.0-53.0) % PT (10.0-12.5) sec INR (<1.2) APTT (22.0-30.0) sec BUN (9-20) mg/dL Creatinine (0.66-1.25) mg/dL Glucose (74-99) mg/dL POC Glucose (mg/dL) 133 H (70-110) mg/dL Troponin I 0.048 H* 0.046 H* (0.000-0.034) ng/mL Total Protein (6.3-8.2) g/dL Thrombosis Risk Factor Assmnt - Choose All That Apply Any of the Below Risk Factors Present?: Yes Each Factor Represents 1 point: Abnormal pulmonary function (COPD), Obesity (BMI >25) Each Risk Factor Represents 3 Points: Age 75 years or older Thrombosis Risk Factor Assessment Total Risk Factor Score: 5 Thrombosis Risk Factor Assessment Level: High Risk Assessment and Plan Assessment: atrial fibrillation with RVR on Coumadin at home Hypotension secondary to recent infection and over diuresis. Acute kidney injury on chronic kidney disease stage III Diabetes mellitus Hypertension, currently blood pressure is on the low side Hyperlipidemia History of osteoarthritis History of GI bleed History of osteoarthritis Cardiomyopathy History of heart block Plan: Continue with normal saline 75 mL/h Hold diuretics including triamterene/hydrochlorothiazide and valsartan and monitor creatinine Cardiology of the case with increased flecainide 200 mg twice a day and plan for cardioversion tomorrow Labs and medication were reviewed.. Continue same treatment. Continue with symptomatic treatment. Resume home medication. Monitor lytes and vitals. DVT and GI prophylaxis. Further recommendations depends on the clinical course of the patient DVT prophylaxis: on Coumadin GI Prophylaxis: Ppi Prognosis is guarded
[2023-06-08] MEDS: SYMBICORT 160-4.5 MCG INHALER INHALATION SCH (21:07)
[2023-06-08] MEDS: ALBUTEROL NEBULIZED 2.5 MG/3 ML INHALATION PRN (21:09)
[2023-06-08] MEDS: ATORVASTATIN 10 MG TAB PO SCH (21:25)
[2023-06-08] MEDS: FLECAINIDE 50 MG TAB PO SCH (21:25)
[2023-06-09] MEDS: METOPROLOL SUCCINATE (ER) 50 MG TAB.ER.24H PO SCH (06:56)
[2023-06-09] MEDS: FLECAINIDE 50 MG TAB PO SCH ×2 (06:56→21:30)
[2023-06-09] MEDS: PANTOPRAZOLE 40 MG TABLET PO SCH (06:56)
[2023-06-09] MEDS: SODIUM CHLORIDE 0.9% 1,000 ML IV SCH (06:56)
[2023-06-09] MEDS: SYMBICORT 160-4.5 MCG INHALER INHALATION SCH ×2 (07:40→20:49)
[2023-06-09] MEDS: ALBUTEROL NEBULIZED 2.5 MG/3 ML INHALATION PRN ×2 (07:40→20:49)
[2023-06-09 07:46] LABS: Prothrombin Time 29.7 sec (10.0-12.5)
[2023-06-09] MEDS ORDERED: IV FLUID CONTINUATION 1,000 ML IV ONE (10:21)
[2023-06-09] MEDS ORDERED: PROPOFOL 10 MG/ML 20 ML VIAL IV ONE (10:21)
--- NOTE | 2023-06-09 10:50 | P.EPPROC ---
- EP Procedure Note Electrophysiology Procedure Note: Diagnosis Atrial fibrillation/atrial tachycardia with tracking Ventricular rate at the tracking rate Status post BIV ICD, [facility] Details Device was interrogated Atrial tachycardia at 115 beats a minute with tracking Successful electrical cardioversion to an atrial paced rhythm with a 200 J biphasic shock Device was interrogated Atrial pacing threshold 0.75 V at 0.4 ms, pacing impedance 310 ohms, P=1.4 mv RV threshold 0.7 V at 0.5 ms and pacing impedance of 490 ohms LV threshold 2.75 V at 1 ms (M2-Can) Device reprogrammed DDDR 60 08/27/2019 bpm maximum tracking rate of 110 beats a minute Imaging 200 ms LV offset 40 ms Plan Reduce metoprolol to 50 mg twice daily Continue flecainide 100 mg twice daily Reassess LV function tomorrow
[2023-06-09 11:06] LABS: Chol/HDL Ratio 2.77 Ratio; LDL Cholesterol,Calculated 60.8 mg/dL (0.0-131.0); VLDL Calculation 18.38 mg/dL (5.00-40.00)
[2023-06-09] MEDS: FUROSEMIDE 40 MG TAB PO SCH (11:31)
--- NOTE | 2023-06-09 13:56 | P.PN ---
Subjective This is a pleasant 82 years old male with past medical history of Atrial Fibrillation, COPD, Diabetes Mellitus, GERD/Reflux, GI Bleed, Hyperlipidemia, Hypertension, Osteoarthritis ,Chronic right hemidiaphragmatic paralysis, history of pacemaker insertion for complete heart block, chronic neck pain, COVID x3 Patient secondary to Covid infection without evidence of pneumonia, he has regular follow-up with his real time analyst Dr. Larsen today where he was found to be in A. fib and RVR and he was referred to emergency room overt symptoms of chest pain dizziness. He has little short of breath this morning with little cough but denies diarrhea and vomiting abdominal pain, no urinary complaints. He is little dizzy especially when he tries to get up but no limb weakness or numbness. No smoking alcohol or illicit drugs In the emergency room patient was found to be hypotensive with a blood pressure was 85/60 and he was tachycardic with heart rate around 129, EKG showing A. fib with RVR at 129 Labs reviewed showing hemoglobin of 12, INR 3.1 while he is on warfarin He takes Coumadin 5 mg daily and she wants to receive 2.5 mg tonight. Rest of liver enzymes is unremarkable Patient metabolic panel showing worsening creatinine from baseline of 1.3-1.4 up to 1.8 today. Chest x-ray showed chronic changes without acute process. Emergency room preserved bolus of normal saline and continued at a rate of 75 mL/h, also flecainide was increased to 100 mg twice daily. Cardiology on the case and plan for cardioversion tomorrow 06/09/2023 Patient seen and examined by me at bedside after he came back from cardioversion He looks better more relaxed and comfortable. His heart rate came down from 122 down to 60 and blood pressure improved 102/61 He received Coumadin 2.5 mg for his creatinine 3.0 Metoprolol dose was lowered to 50 mg daily, oral Lasix 40 mg added. Discontinue IV fluid. Possible discharge 24-48 once cleared by project superintendent Objective - Vital Signs Vital signs: Vital Signs Temp 97.4 F L 06/09/23 11:20 Pulse 61 06/09/23 11:35 Resp 16 06/09/23 11:20 BP 102/62 06/09/23 11:35 Pulse Ox 94 L 06/09/23 11:35 FiO2 Intake & Output 06/08/23 06/09/23 06/09/23 18:59 06:59 18:59 Intake Total 410 Balance 410 Weight 77.564 kg Intake: IV 300 Oral 110 Other: Voiding Method Toilet Toilet Toilet - Exam GENERAL: The patient is alert and oriented x3, not in any acute distress. Well developed, well nourished. HEENT: Pupils are round and equally reacting to light. EOMI. No scleral icterus. No conjunctival pallor. Normocephalic, atraumatic. No pharyngeal erythema. No thyromegaly. CARDIOVASCULAR: S1 and S2 present. No murmurs, rubs, or gallops. PULMONARY: Chest is clear to auscultation, no wheezing , no crackles. ABDOMEN: Soft, nontender, nondistended, normoactive bowel sounds. No palpable organomegaly. MUSCULOSKELETAL: No joint swelling or deformity. EXTREMITIES: No cyanosis, clubbing, or pedal edema. NEUROLOGICAL: Gross neurological examination did not reveal any focal deficits. SKIN: No rashes. no petechiae. - Labs CBC & Chem 7: 06/08/23 10:54 06/08/23 10:54 Labs: Abnormal Lab Results - Last 24 Hours (Table) 06/08/23 06/08/23 06/08/23 Range/Units 14:54 16:19 17:34 PT (10.0-12.5) sec INR (<1.2) POC Glucose (mg/dL) 133 H (70-110) mg/dL Troponin I 0.046 H* 0.039 H* (0.000-0.034) ng/mL 06/09/23 Range/Units 06:33 PT 29.7 H (10.0-12.5) sec INR 3.0 H (<1.2) POC Glucose (mg/dL) (70-110) mg/dL Troponin I (0.000-0.034) ng/mL Assessment and Plan Assessment: atrial fibrillation with RVR on Coumadin at home, status post cardioversion on 06/09 Hypotension secondary to recent infection and over diuresis. Acute kidney injury on chronic kidney disease stage III Diabetes mellitus Hypertension, currently blood pressure is on the low side Hyperlipidemia History of osteoarthritis History of GI bleed History of osteoarthritis Cardiomyopathy History of heart block Plan: Discontinue IV fluids Continue with metoprolol 50 mg Start Lasix 40 mg daily by project superintendent. Continue dissection as per project superintendent 100 mg twice daily. Hold diuretics including triamterene/hydrochlorothiazide and valsartan and monitor creatinine Cardiology of the case with increased flecainide 200 mg twice a day and plan for cardioversion tomorrow Labs and medication were reviewed.. Continue same treatment. Continue with symptomatic treatment. Resume home medication. Monitor lytes and vitals. DVT and GI prophylaxis. Further recommendations depends on the clinical course of the patient DVT prophylaxis: on Coumadin GI Prophylaxis: Ppi Prognosis is guarded
[2023-06-09] MEDS ORDERED: WARFARIN 2.5 MG TAB PO ONE ×2 (18:00)
[2023-06-09] MEDS: ATORVASTATIN 10 MG TAB PO SCH (21:30)
[2023-06-10] MEDS: PANTOPRAZOLE 40 MG TABLET PO SCH (06:49)
[2023-06-10] MEDS: ALBUTEROL NEBULIZED 2.5 MG/3 ML INHALATION PRN (07:30)
[2023-06-10] MEDS: SYMBICORT 160-4.5 MCG INHALER INHALATION SCH (07:30)
[2023-06-10] MEDS: FUROSEMIDE 40 MG TAB PO SCH (08:40)
[2023-06-10] MEDS: FLECAINIDE 50 MG TAB PO SCH (08:40)
[2023-06-10 08:53] VITALS: TEMP 97.7
[2023-06-10] MEDS ORDERED: METOPROLOL SUCCINATE (ER) 50 MG TAB.ER.24H PO SCH (09:00)
--- NOTE | 2023-06-10 10:27 | CA ---
Transthoracic Echo Report Name: Mahesh Dale Age: 82 Gender: M : 1940 Exam Date: 06/09/2023 11:43 Exam Location: [place] Ht (in): 67 Wt (lb): 171 Ordering Physician: Yeison Toribio MD ([id number]) Attending/Referring Phys: [employer] Superintendent Elisha Shipman RDCS Procedure CPT: Indications: chf Cardiac Hx: pacemaker, limited study Technical Quality: Good Contrast 1: Definity Total Dose (mL): 2 Contrast 2: Total Dose (mL): MEASUREMENTS (Male / Female) Normal Values 2D ECHO RV Internal Dim ED PLAX 3.5 cm LV Diastolic Volume MOD BP 59.0 cm??? 67 - 155 / 56 - 104 cm??? LV Systolic Volume MOD BP 37.8 cm??? 22 - 58 / 19 - 49 cm??? LV Ejection Fraction MOD BP 35.9 % >= 55 % LV Cardiac Index MOD BP 658.6 cm???/min???m??? LV Diastolic Volume MOD 4C 56.4 cm??? LV Systolic Volume MOD 4C 37.4 cm??? LV Ejection Fraction MOD 4C 33.7 % LV Cardiac Index MOD 4C 590.0 cm???/min???m??? LV Diastolic Length 4C 6.9 cm LV Systolic Length 4C 5.9 cm LV Diastolic Volume MOD 2C 52.5 cm??? LV Systolic Volume MOD 2C 34.4 cm??? LV Ejection Fraction MOD 2C 34.4 % LV Cardiac Index MOD 2C 561.5 cm???/min???m??? LV Diastolic Length 2C 6.7 cm LV Systolic Length 2C 5.8 cm LA Volume 78.6 cm??? 18 - 58 / 22 - 52 cm??? LA Volume Index 40.7 cm???/m??? 16 - 28 cm???/m??? DOPPLER AV Peak Velocity 95.9 cm/s AV Peak Gradient 3.7 mmHg AI Peak Velocity 353.5 cm/s AI Peak Gradient 50.0 mmHg AI Pressure Half Time 918.9 ms MV Area PHT 5.5 cm??? Mitral E Point Velocity 100.9 cm/s Mitral A Point Velocity 37.3 cm/s Mitral E to A Ratio 2.7 MV Deceleration Time 138.5 ms TR Peak Velocity 331.6 cm/s TR Peak Gradient 44.0 mmHg Right Ventricular Systolic Press 48.6 mmHg FINDINGS Left Ventricle Left ventricular ejection fraction is estimated at about 40%. Right Ventricle Mild right ventricular dilatation. Moderate pulmonary hypertension. Right ventricular systolic pressure estimated at 49 mm hg. Right Atrium Left Atrium Mitral Valve Mitral valve thickened. Mild mitral annular calcification. [id number] mitral regurgitation. Aortic Valve Trileaflet aortic valve. Mild aortic regurgitation. Tricuspid Valve Structurally normal tricuspid valve. [id number] tricuspid regurgitation. Pulmonic Valve Pericardium No pericardial effusion. Aorta CONCLUSIONS Fair systolic function moderate mitral regurgitation no pericardial effusion. Moderate pulmonary Previewed by: Dr. Guy Mitchell MD (Electronically Signed) Final Date: 10 June 2023 10:26
[2023-06-10 11:05] LABS: Basophils % (A) 0 %; Eosinophils # (A) 0.1 k/uL (0-0.7); Eosinophils % (A) 2 %; HCT 35.1 % (39.0-53.0); HGB 11.3 gm/dL (13.0-17.5); Hypochromasia Slight; Lymphocytes # (A) 0.8 k/uL (1.0-4.8); Lymphocytes % (A) 16 %; MCH 32.4 pg (25.0-35.0); MCHC 32.1 g/dL (31.0-37.0); MCV 100.8 fL (80.0-100.0); Mean Platelet Volume 10.7; Monocytes # (A) 0.3 k/uL (0-1.0); Monocytes % (A) 7 %; Neutrophils # (A) 3.5 k/uL (1.3-7.7); Neutrophils % (A) 72 %; Platelet Count 153 k/uL (150-450); RBC 3.49 m/uL (4.30-5.90); RDW 13.1 % (11.5-15.5); WBC 4.9 k/uL (3.8-10.6)
[2023-06-10 11:15] LABS: Prothrombin Time 29.7 sec (10.0-12.5)
[2023-06-10 11:31] LABS: African American GFR (CKD) 47 (>60 ml/min/1.73 sqM); Anion Gap 10 mmol/L; Blood Urea Nitrogen 30 mg/dL (9-20); Calcium 8.7 mg/dL (8.4-10.2); Carbon Dioxide 29 mmol/L (22-30); Chloride 105 mmol/L (98-107); Glucose 276 mg/dL (74-99); Non-African American GFR(CKD) 41 (>60 ml/min/1.73 sqM); Potassium 3.7 mmol/L (3.5-5.1); Sodium 144 mmol/L (137-145)
[2023-06-10 12:25] VITALS: BP 126/66; PULSE 66; RESP 15
--- NOTE | 2023-06-10 12:29 | P.PN ---
Subjective HISTORY OF PRESENT ILLNESS: This is a 89-year-old male with a past medical history significant for COPD, diabetes, nonischemic cardiomyopathy with recovered EF, complete heart block with biventricular pacemaker implantation, persistent atrial fibrillation, hypertension, hyperlipidemia, and moderate mitral regurgitation. Patient follows in the office with Dr. Toribio. We have been asked to see the patient in consultation for tachycardia. Patient examined at the bedside in the emergency room. It is noted that the patient was hospitalized in April 2023 secondary to Covid 19 and COPD exacerbation. The patient states he has been feeling fairly well since been discharged from the hospital. The patient states yesterd ay evening he felt a little off and felt as though he may be in atrial fibrillation. He states that he went to bed and then was feeling better this morning. He had an appointment with his manager land, Dr. Garnica, today who noted that the patient was in atrial fibrillation with RVR and instructed him to come to the emergency room. The patient currently denies chest pain or pressure. He denies shortness of breath. He denies palpitations. He reports that he never feels when he is in A. fib with RVR. The patient was found to be hypotensive upon arrival to the hospital with a systolic blood pressure in the 70s and 80s. He has received 1 L in fluid boluses. Blood pressure has improved with a systolic in the 90s. Bedside telemetry reveals atrial fibrillation with a heart rate around 120. * EKG reveals ventricular paced rhythm with underlying atrial fibrillation. * Chest xray chronic changes without evidence for acute process * Laboratory data: WBC 6.3. Hemoglobin 12.0. Platelet count 218. INR 3.1. Sodium 140. Potassium 5.1. BUN 29. Creatinine 1.86. Troponin 0.048. * Current home cardiac medications include Coumadin, lovastatin 20 mg at night, valsartan 320 mg daily, Triamterene-hydrochlorothiazide 37.5 mg25 mg daily, metoprolol succinate 50 mg 3 times a day * Most recent echocardiogram obtained in April 2023 revealed ejection fraction 50-55%, moderate mitral regurgitation, moderate aortic insufficiency, mild TR * Cardiac catheterization history: Unknown 06/10/2023 Patient is status post cardioversion. Patient examined this morning at the bed side. Patient denies chest pain or pressure. He denies shortness of breath. INR today is 3.0. Blood pressure stable. Echocardiogram completed revealing ejection fraction 40%. PHYSICAL EXAM: VITAL SIGNS: Reviewed. GENERAL: Well-developed in no acute distress. HEENT: Head is normocephalic. Pupils are equal, round. Sclerae anicteric. Mucous membranes of the mouth are moist. Neck supple. No JVD or thyromegaly LUNGS: Respirations even and unlabored. Lungs essentially clear to auscultation bilaterally. HEART: Regular rate and rhythm. S1 and S2 heard. Systolic murmur noted ABDOMEN: Soft. Nondistended. Nontender. EXTREMITIES: Normal range of motion. No clubbing or cyanosis. Peripheral pulses intact. No lower extremity edema NEUROLOGIC: Awake and alert. Oriented x 3. ASSESSMENT: Persistent atrial fibrillation with RVR, status post cardioversion Hypotension, improved with IVF Acute kidney injury Abnormal troponin, likely secondary to tachycardia and acute kidney injury, no evidence of acute coronary syndrome History of complete heart block with biventricular pacemaker implantation History of nonischemic cardiomyopathy with recovered EF Hypertension Hyperlipidemia Moderate mitral regurgitation Diabetes History of Covid , September, February, and April 2023 PLAN: Continue current cardiac medications Continue flecainide 100 mg twice a day Continue metoprolol succinate 50 mg daily Patient to change Coumadin dosing to the following regimen: 5 mg on Thursday and and 2.5 mg the remaining days Patient may be discharged home today from a cardiac standpoint Nurse practitioner note has been reviewed by physician. Signing provider agrees with the documented findings, assessment, and plan of care. Objective - Vital Signs Vital signs: Vital Signs Temp 97.7 F 06/10/23 08:39 Pulse 66 06/10/23 11:58 Resp 15 06/10/23 11:58 BP 126/66 06/10/23 11:58 Pulse Ox 99 06/10/23 11:58 FiO2 Intake & Output 06/09/23 06/10/23 06/10/23 18:59 06:59 18:59 Intake Total 528 128 Balance 528 128 Intake: IV 300 10 Invasive Line 1 10 Oral 228 118 Other: Voiding Method Toilet Toilet Toilet # Voids 2 1 - Labs CBC & Chem 7: 06/10/23 10:55 06/10/23 10:55 Labs: Abnormal Lab Results - Last 24 Hours (Table) 11/15/23 11/15/23 11/15/23 Range/Units 10:55 10:55 10:55 RBC 3.49 L (4.30-5.90) m/uL Hgb 11.3 L (13.0-17.5) gm/dL Hct 35.1 L (39.0-53.0) % MCV 100.8 H (80.0-100.0) fL Lymphocytes # 0.8 L (1.0-4.8) k/uL PT 29.7 H (10.0-12.5) sec INR 3.0 H (<1.2) BUN 30 H (9-20) mg/dL Creatinine 1.57 H (0.66-1.25) mg/dL Glucose 276 H (74-99) mg/dL
[2023-06-10] MEDS ORDERED: WARFARIN 2.5 MG TAB PO ONE (18:00)
--- NOTE | 2023-06-10 23:42 | P.DS ---
Providers Date of admission: 06/08/23 14:11 Attending physician: Hugo Beltran MD Consults: 06/08/23 13:39 Consult Physician Urgent Consulting Provider: Yeison Toribio Consult Reason/Comments: Tachycardia Do you want consulting provider notified?: Yes Primary care physician: Myles Caban MD Hospital Course: Diagnoses: atrial fibrillation with RVR on Coumadin at home, status post cardioversion on 06/09 Hypotension secondary to recent infection and over diuresis. Acute kidney injury on chronic kidney disease stage III Diabetes mellitus Hypertension, currently blood pressure is on the low side Hyperlipidemia History of osteoarthritis History of GI bleed History of osteoarthritis Cardiomyopathy History of heart block Hospital course: This is a pleasant 82 years old male with past medical history of Atrial Fibrillation, COPD, Diabetes Mellitus, GERD/Reflux, GI Bleed, Hyperlipidemia, Hypertension, Osteoarthritis ,Chronic right hemidiaphragmatic paralysis, history of pacemaker insertion for complete heart block, chronic neck pain, COVID x3 Patient secondary to Covid infection without evidence of pneumonia, he has regular follow-up with his environmental protection geologist Dr. Garnica today where he was found to be in A. fib and RVR and he was referred to emergency room overt symptoms of chest pain dizziness. Patient was found to have with refractory A. fib with RVR, he was evaluated by cardiology service and he underwent cardioversion, today his heart rate and blood pressure improved, his symptoms improved and he was sitting in bed at the more stroke denies any chest pain dyspnea or on other new symptoms feels ready to go home. Patient was evaluated and followed closely by cardiology service for him for discharge today Was discharged on warfarin and diuretics per recommendation of office support specialist Dr. Mejia Labs look stable creatinine improving, TSH 1.4, LDL 60. Problems and management plan were discussed with the patient and he verbalized understanding and acceptance Patient was found stable and can be discharged home in guarded prognosis however he needs follow-up as an outpatient. Patient was instructed to follow up with PCP GENESIS Valenzuela within one week and patient agrees Patient was instructed to follow-up with his office support specialist Dr. Mejia in one week and he agrees to call and make appointment, at bedside and she is agreeable and both confirmed to me they have appointment with Dr. Mejia tomorrow and they tend to follow-up with Physical exam Gen: patient is a AAOx3, no distress CVS: S1-S2, RRR, no murmur Lungs: B/L CTA, no wheezing Abdomen: soft, no distention, no tenderness, positive bowel sounds Extremity: no leg edema or induration Time spent more than 35 minutes Patient Condition at Discharge: Fair Plan - Discharge Summary Discharge Rx Participant: No New Discharge Prescriptions: New Furosemide [Lasix] 40 mg PO DAILY #30 tab Flecainide [Tambocor] 100 mg PO BID #120 tab Metoprolol Succinate (ER) [Toprol XL] 50 mg PO DAILY #30 tab Continue Gabapentin [Neurontin] 800 mg PO TID Lovastatin [Mevacor] 20 mg PO HS Glimepiride [Amaryl] 1 mg PO DAILY Albuterol Sulfate [Ventolin HFA] 2 puff INHALATION RT-Q6H PRN PRN Reason: Shortness Of Breath Pantoprazole [Protonix] 40 mg PO AC-BRKFST tab Albuterol Nebulized [Ventolin Nebulized] 2.5 mg INHALATION RT-Q6H PRN PRN Reason: Shortness Of Breath Budesonide-Formot 160-4.5 Mcg [Symbicort 160-4.5 Mcg Inhaler] 2 puff INHALATION RT-BID 30 Days #1 each Changed Warfarin [Coumadin] 2.5 mg PO DIRECTED #30 tab Warfarin [Coumadin] 5 mg PO DIRECTED #20 tab Discontinued Valsartan 320 mg PO DAILY Flecainide Acetate 50 mg PO TID Metoprolol Succinate [Toprol XL] 50 mg PO TID Triamterene/Hydrochlorothiazid [Triamterene-Hctz 37.5-25 mg Cp] 1 cap PO DAILY Discharge Medication List Gabapentin [Neurontin] 800 mg PO TID 12/20/13 [History] Lovastatin [Mevacor] 20 mg PO HS 12/20/13 [History] Glimepiride [Amaryl] 1 mg PO DAILY 12/07/17 [History] Albuterol Sulfate [Ventolin HFA] 2 puff INHALATION RT-Q6H PRN 04/27/22 [History] Albuterol Nebulized [Ventolin Nebulized] 2.5 mg INHALATION RT-Q6H PRN 11/10/22 [History] Budesonide-Formot 160-4.5 Mcg [Symbicort 160-4.5 Mcg Inhaler] 2 puff INHALATION RT-BID 30 Days #1 each 11/14/22 [Rx] Pantoprazole [Protonix] 40 mg PO AC-BRKFST tab 05/13/23 [Rx] Flecainide [Tambocor] 100 mg PO BID #120 tab 06/10/23 [Rx] Furosemide [Lasix] 40 mg PO DAILY #30 tab 06/10/23 [Rx] Metoprolol Succinate (ER) [Toprol XL] 50 mg PO DAILY #30 tab 06/10/23 [Rx] Warfarin [Coumadin] 2.5 mg PO DIRECTED #30 tab 06/10/23 [Rx] Warfarin [Coumadin] 5 mg PO DIRECTED #20 tab 06/10/23 [Rx] Follow up Appointment(s)/Referral(s): Yeison Toribio MD [STAFF PHYSICIAN] - 06/11/23 Myles Caban MD [Primary Care Provider] - 1-2 days (Please call to schedule follow up appoitment) Patient Instructions/Handouts: Cardioversion (GEN) Activity/Diet/Wound Care/Special Instructions: Patient to change Coumadin dosing to the following regimen: 5 mg on Thursday and and 2.5 mg the remaining days we recommend to check your INR with your office support specialist in 2-3 days Heart healthy diet activity as tolerated Discharge Disposition: HOME WITH HOME HEALTH SERVICES
== END 2023-06-10 14:46 | disposition home or self-care (01) | DRG 309 ==
LOC: EC 10:37 → 3SCARD 14:11
PROVIDERS: ADMIT Internal Medicine; ATTEND Internal Medicine
PROC: 5A2204Z Restoration of Cardiac Rhythm, Single (ICD-10-PCS; principal; 2023-06-09 12:10)
PROC: 4A02XFZ Measurement of Cardiac Rhythm, External Approach (ICD-10-PCS; principal; 2023-06-09 12:10)
PROC: 4A02X4Z Measurement of Cardiac Electrical Activity, External Approach (ICD-10-PCS; principal; 2023-06-09 12:10)
DX: I48.19 Other persistent atrial fibrillation (principal); N17.9 Acute kidney failure, unspecified; I42.8 Other cardiomyopathies; E11.22 Type 2 diabetes mellitus with diabetic chronic kidney disease; I95.9 Hypotension, unspecified; J44.9 Chronic obstructive pulmonary disease, unspecified; N18.30 Chronic kidney disease, stage 3 unspecified; J98.6 Disorders of diaphragm; I44.2 Atrioventricular block, complete; I12.9 Hypertensive chronic kidney disease with stage 1 through stage 4 chronic kidney disease, or unspecified chronic kidney disease; I34.0 Nonrheumatic mitral (valve) insufficiency; E78.5 Hyperlipidemia, unspecified; K21.9 Gastro-esophageal reflux disease without esophagitis; G89.29 Other chronic pain; M54.2 Cervicalgia; M19.90 Unspecified osteoarthritis, unspecified site; R77.8 Other specified abnormalities of plasma proteins; Z79.51 Long term (current) use of inhaled steroids; Z79.01 Long term (current) use of anticoagulants; Z79.84 Long term (current) use of oral hypoglycemic drugs; Z79.899 Other long term (current) drug therapy; Z95.0 Presence of cardiac pacemaker; Z86.16 Personal history of COVID-19; Z82.49 Family history of ischemic heart disease and other diseases of the circulatory system
CPT/HCPCS: 36415; 71046; 80048; 80053; 80061; 83735; 84443; 84484; 85025; 85610; 85730; 92960; 93005; 93308; 94640; 94760; 96360; 96361; 99291

== ENCOUNTER 2023-10-10 08:34 | Emergency (ER) | payer MEDICARE, BC ==
[2023-10-10 08:44] VITALS: TEMP 98.4
--- NOTE | 2023-10-10 09:02 | ED ---
General Adult HPI - General Chief complaint: Upper Respiratory Infection Stated complaint: R Foot swollen, Cough Time Seen by Provider: 10/10/23 08:42 Source: patient, RN notes reviewed Mode of arrival: ambulatory Limitations: no limitations - History of Present Illness Initial comments: 83-year-old male presents emergency department chief complaint of foot swelling, redness and a cough. Patient states that he has had right foot pain for last couple days she states it initially started like his typical gout presentation but states now his redness crosses distal foot swelling of his second digit along with pain at the first MTP. Patient states he also has some symptoms of his left foot he states he has right leg swelling which is unusual for him he is on Coumadin. Patient has no history of DVT denies chest pain denies any significant shortness of breath he states he has COPD which does not bother him but he has bodyaches, mild congestion and a cough. - Related Data Home Medications Medication Instructions Recorded Confirmed Gabapentin [Neurontin] 800 mg PO TID 12/20/13 06/08/23 Lovastatin [Mevacor] 20 mg PO HS 12/20/13 06/08/23 Glimepiride [Amaryl] 1 mg PO DAILY 12/07/17 06/08/23 Albuterol Sulfate [Ventolin HFA] 2 puff INHALATION RT-Q6H PRN 04/27/22 06/08/23 Albuterol Nebulized [Ventolin 2.5 mg INHALATION RT-Q6H PRN 11/10/22 06/08/23 Nebulized] Previous Rx's Medication Instructions Recorded Budesonide-Formot 160-4.5 Mcg 2 puff INHALATION RT-BID 30 Days 11/14/22 [Symbicort 160-4.5 Mcg Inhaler] #1 each Pantoprazole [Protonix] 40 mg PO AC-BRKFST tab 05/13/23 Flecainide [Tambocor] 100 mg PO BID #120 tab 06/10/23 Furosemide [Lasix] 40 mg PO DAILY #30 tab 06/10/23 Metoprolol Succinate (ER) [Toprol 50 mg PO DAILY #30 tab 06/10/23 XL] Warfarin [Coumadin] 2.5 mg PO DIRECTED #30 tab 06/10/23 Warfarin [Coumadin] 5 mg PO DIRECTED #20 tab 11/15/23 Cephalexin [Keflex] 500 mg PO Q6HR #40 cap 10/10/23 Allergies Allergy/AdvReac Type Severity Reaction Status Date / Time No Known Allergies Allergy Verified 10/13/23 07:58 Review of Systems ROS Statement: Those systems with pertinent positive or pertinent negative responses have been documented in the HPI. ROS Other: All systems not noted in ROS Statement are negative. Past Medical History Past Medical History: Atrial Fibrillation, COPD, Diabetes Mellitus, GERD/Reflux, GI Bleed, Hyperlipidemia, Hypertension, Osteoarthritis (OA) Additional Past Medical History / Comment(s): Chronic right hemidiaphragmatic paralysis, history of pacemaker insertion for complete heart block, chronic neck pain, COVID x3 History of Any Multi-Drug Resistant Organisms: None Reported Past Surgical History: Back Surgery, Orthopedic Surgery Additional Past Surgical History / Comment(s): torn rotator cuff, cervical disc removed in neck and fused 3 arthroscopy of the left knee, abdominal surgery, left hand/thumb surgery Past Anesthesia/Blood Transfusion Reactions: No Reported Reaction Past Psychological History: No Psychological Hx Reported Smoking Status: Never smoker Past Alcohol Use History: None Reported Past Drug Use History: None Reported - Past Family History Father History Unknown: Yes Family Medical History: Congestive Heart Failure (CHF) Mother History Unknown: Yes Family Medical History: Myocardial Infarction (IN) General Exam Limitations: no limitations General appearance: alert, in no apparent distress Head exam: Present: atraumatic, normocephalic, normal inspection Neck exam: Present: normal inspection, full ROM. Absent: tenderness, meningi smus, lymphadenopathy Respiratory exam: Present: normal lung sounds bilaterally. Absent: respiratory distress, wheezes, rales, rhonchi, stridor Cardiovascular Exam: Present: regular rate, normal rhythm, normal heart sounds. Absent: systolic murmur, diastolic murmur, rubs, gallop, clicks Extremities exam: Present: other (There is erythema across MTP region, there is swelling of the second digit with mild tenderness diffusely there is swelling of the right leg there are pulses palpable equal bilaterally) Course Vital Signs 10/10/23 10/10/23 10/10/23 08:35 08:57 10:05 Temperature 98.4 F Pulse Rate 68 62 60 Respiratory 18 18 16 Rate Blood Pressure 159/68 135/70 142/69 O2 Sat by Pulse 96 95 96 Oximetry Medical Decision Making - Medical Decision Making Was pt. sent in by a medical professional or institution ([facility], [facility], urgent care, hospital, or retirement...) When possible be specific @ -No Did you speak to anyone other than the patient for history (EMS, parent, family, police, friend...)? What history was obtained from this source @ -No Did you review nursing and triage notes (agree or disagree)? Why? @ -I reviewed and agree with nursing and triage notes Were old charts reviewed (outside hosp., previous admission, EMS record, old EKG, old radiological studies, urgent care reports/EKG's, retirement records)? Report findings @ -No old charts were reviewed Differential Diagnosis (chest pain, altered mental status, abdominal pain women, abdominal pain men, vaginal bleeding, weakness, fever, dyspnea, syncope, headache, dizziness, GI bleed, back pain, seizure, CVA, palpatations, mental health, musculoskeletal)? @ -Cellulitis, gout EKG interpreted by me (3pts min.). @ -None X-rays interpreted by me (1pt min.). @ -Chest x-ray shows no acute cardiopulmonary process CT interpreted by me (1pt min.). @ -None done U/S interpreted by me (1pt. min.). @ -Ultrasound venous Doppler is negative for acute DVT What testing was considered but not performed or refused? (CT, X-rays, U/S, labs)? Why? @ -None What meds were considered but not given or refused? Why? @ -None Did you discuss the management of the patient with other professionals (professionals i.e. [facility] Horton, [facility], lab, RT, psych nurse, social service manager, motion picture photographer, teacher, correction officer head, pillowcase cutter)? Give summary @ -No Was smoking cessation discussed for >3mins.? @ -No Was critical care preformed (if so, how long)? @ -No Were there social determinants of health that impacted care today? How? (Homelessness, low income, unemployed, alcoholism, drug addiction, transportation, low edu. Level, literacy, decrease access to med. care, half-way, rehab)? @ -No Was there de-escalation of care discussed even if they declined (Discuss DNR or withdrawal of care, Hospice)? DNR status @ -No What co-morbidities impacted this encounter? (DM, HTN, Smoking, COPD, CAD, Cancer, CVA, ARF, Chemo, Hep., AIDS, mental health diagnosis, sleep apnea, morbid obesity)? @ -[gout Was patient admitted / discharged? Hospital course, mention meds given and route, prescriptions, significant lab abnormalities, going to OR and other pertinent info. @ -Discharge patient had negative workup. This appears to be more related to cellulitis. Patient was started on oral antibiotics return parameters are discussed. Undiagnosed new problem with uncertain prognosis? @ -No Drug Therapy requiring intensive monitoring for toxicity (Heparin, Nitro, I nsulin, Cardizem)? @ -No Were any procedures done? @ -No Diagnosis/symptom? @ -Cellulitis Acute, or Chronic, or Acute on Chronic? @ -Acute Uncomplicated (without systemic symptoms) or Complicated (systemic symptoms)? @ -Uncomplicated Side effects of treatment? @ -No Exacerbation, Progression, or Severe Exacerbation? @ -No Poses a threat to life or bodily function? How? (Chest pain, [place], [place], pneumonia, PE, COPD, DKA, ARF, appy, cholecystitis, CVA, Diverticulitis, Homicidal, Suicidal, threat to staff... and all critical care pts) @ -No - Lab Data Result diagrams: 10/10/23 08:53 10/10/23 08:53 Lab Results 10/10/23 10/10/23 10/10/23 Range/Units 08:53 08:53 08:53 WBC 9.8 (3.8-10.6) k/uL RBC 4.21 L (4.30-5.90) m/uL Hgb 12.7 L (13.0-17.5) gm/dL Hct 39.0 (39.0-53.0) % MCV 92.7 (80.0-100.0) fL MCH 30.2 (25.0-35.0) pg MCHC 32.6 (31.0-37.0) g/dL RDW 12.9 (11.5-15.5) % Plt Count 158 (150-450) k/uL MPV 9.2 Neutrophils % 78 % Lymphocytes % 10 % Monocytes % 8 % Eosinophils % 1 % Basophils % 0 % Neutrophils # 7.7 (1.3-7.7) k/uL Lymphocytes # 1.0 (1.0-4.8) k/uL Monocytes # 0.8 (0-1.0) k/uL Eosinophils # 0.1 (0-0.7) k/uL Basophils # 0.0 (0-0.2) k/uL PT 19.8 H (10.0-12.5) sec INR 2.0 H (<1.2) Sodium 140 (137-145) mmol/L Potassium 3.9 (3.5-5.1) mmol/L Chloride 107 (98-107) mmol/L Carbon Dioxide 25 (22-30) mmol/L Anion Gap 8 mmol/L BUN 12 (9-20) mg/dL Creatinine 0.84 (0.66-1.25) mg/dL Est GFR (CKD-EPI)AfAm >90 (>60 ml/min/1.73 sqM) Est GFR (CKD-EPI)NonAf 81 (>60 ml/min/1.73 sqM) Glucose 137 H (74-99) mg/dL Plasma Lactic Acid Timbo (0.7-2.0) mmol/L Uric Acid 6.8 (3.5-8.5) mg/dL Calcium 8.9 (8.4-10.2) mg/dL Total Bilirubin 0.7 (0.2-1.3) mg/dL AST 22 (17-59) U/L ALT 17 (4-49) U/L Alkaline Phosphatase 94 (38-126) U/L Total Protein 6.4 (6.3-8.2) g/dL Albumin 3.7 (3.5-5.0) g/dL Influenza Type A (PCR) (Not Detectd) Influenza Type B (PCR) (Not Detectd) RSV (PCR) (Not Detectd) SARS-CoV-2 (PCR) (Not Detectd) 10/10/23 10/10/23 Range/Units 08:53 08:53 WBC (3.8-10.6) k/uL RBC (4.30-5.90) m/uL Hgb (13.0-17.5) gm/dL Hct (39.0-53.0) % MCV (80.0-100.0) fL MCH (25.0-35.0) pg MCHC (31.0-37.0) g/dL RDW (11.5-15.5) % Plt Count (150-450) k/uL MPV Neutrophils % % Lymphocytes % % Monocytes % % Eosinophils % % Basophils % % Neutrophils # (1.3-7.7) k/uL Lymphocytes # (1.0-4.8) k/uL Monocytes # (0-1.0) k/uL Eosinophils # (0-0.7) k/uL Basophils # (0-0.2) k/uL PT (10.0-12.5) sec INR (<1.2) Sodium (137-145) mmol/L Potassium (3.5-5.1) mmol/L Chloride (98-107) mmol/L Carbon Dioxide (22-30) mmol/L Anion Gap mmol/L BUN (9-20) mg/dL Creatinine (0.66-1.25) mg/dL Est GFR (CKD-EPI)AfAm (>60 ml/min/1.73 sqM) Est GFR (CKD-EPI)NonAf (>60 ml/min/1.73 sqM) Glucose (74-99) mg/dL Plasma Lactic Acid Timbo 1.1 (0.7-2.0) mmol/L Uric Acid (3.5-8.5) mg/dL Calcium (8.4-10.2) mg/dL Total Bilirubin (0.2-1.3) mg/dL AST (17-59) U/L ALT (4-49) U/L Alkaline Phosphatase (38-126) U/L Total Protein (6.3-8.2) g/dL Albumin (3.5-5.0) g/dL Influenza Type A (PCR) Not Detected (Not Detectd) Influenza Type B (PCR) Not Detected (Not Detectd) RSV (PCR) Not Detected (Not Detectd) SARS-CoV-2 (PCR) Not Detected (Not Detectd) Disposition Clinical Impression: Acute upper respiratory infection, Cellulitis Disposition: HOME SELF-CARE Condition: Stable Instructions (If sedation given, give patient instructions): Cellulitis (ED) Additional Instructions: Please return to the Emergency Department if symptoms worsen or any other concerns. Prescriptions: Cephalexin [Keflex] 500 mg PO Q6HR #40 cap Is patient prescribed a controlled substance at d/c from ED?: No Referrals: Myles Caban MD [Primary Care Provider] - 1-2 days Time of Disposition: 10:13
[2023-10-10 09:20] LABS: Basophils % (A) 0 %; Eosinophils # (A) 0.1 k/uL (0-0.7); Eosinophils % (A) 1 %; HGB 12.7 gm/dL (13.0-17.5); Lymphocytes % (A) 10 %; MCH 30.2 pg (25.0-35.0); MCHC 32.6 g/dL (31.0-37.0); MCV 92.7 fL (80.0-100.0); Mean Platelet Volume 9.2; Monocytes # (A) 0.8 k/uL (0-1.0); Monocytes % (A) 8 %; Neutrophils # (A) 7.7 k/uL (1.3-7.7); Neutrophils % (A) 78 %; Platelet Count 158 k/uL (150-450); RBC 4.21 m/uL (4.30-5.90); RDW 12.9 % (11.5-15.5); WBC 9.8 k/uL (3.8-10.6)
[2023-10-10 09:34] LABS: Prothrombin Time 19.8 sec (10.0-12.5)
[2023-10-10 09:39] LABS: ALT 17 U/L (4-49); AST 22 U/L (17-59); African American GFR (CKD) >90 (>60 ml/min/1.73 sqM); Albumin 3.7 g/dL (3.5-5.0); Alkaline Phosphatase 94 U/L (38-126); Anion Gap 8 mmol/L; Blood Urea Nitrogen 12 mg/dL (9-20); Calcium 8.9 mg/dL (8.4-10.2); Carbon Dioxide 25 mmol/L (22-30); Chloride 107 mmol/L (98-107); Glucose 137 mg/dL (74-99); Non-African American GFR(CKD) 81 (>60 ml/min/1.73 sqM); Potassium 3.9 mmol/L (3.5-5.1); Sodium 140 mmol/L (137-145); Total Bilirubin 0.7 mg/dL (0.2-1.3); Total Protein 6.4 g/dL (6.3-8.2); Uric Acid 6.8 mg/dL (3.5-8.5)
--- NOTE | 2023-10-10 09:55 | US ---
EXAMINATION TYPE: US venous doppler duplex LE RT DATE OF EXAM: 10/10/2023 9:43 AM COMPARISON: NONE CLINICAL INDICATION: Male, 83 years old with history of pain; Right foot swelling and redness. On bl ood thinners. Hx Gout. SIDE PERFORMED: Right TECHNIQUE: The lower extremity deep venous system is examined utilizing real time linear array sonog elias with graded compression, doppler sonography and color-flow sonography. VESSELS IMAGED: Common Femoral Vein Deep Femoral Vein Greater Saphenous Vein * Femoral Vein Popliteal Vein Small Saphenous Vein * Proximal Calf Veins (* superficial vessels) Right Leg: Negative for DVT. Medial knee fluid collection = 4.5 x 2.2 x 2.7 cm IMPRESSION: Grayscale, color doppler, spectral doppler imaging performed of the deep veins of the lo wer extremities. There is normal flow, compressibility, vascular waveforms.
--- NOTE | 2023-10-10 09:56 | XR ---
EXAMINATION TYPE: XR chest 2V DATE OF EXAM: 10/10/2023 9:07 AM CLINICAL INDICATION:Male, 83 years old with history of cough; [facility] COMPARISON: 06/08/2023 TECHNIQUE: XR chest 2V. Frontal and lateral views of the chest.. FINDINGS: Lines/Tubes/Devices: No indwelling lines are seen. Three lead cardiac conduction device overlying the left hemithorax with lead tips projecting over the right ventricle, right atrium and coronary sinus. Heart/mediastinum: Heart size appears stable, mildly to moderately enlarged. Tortuous ectatic aorta with some wall calcification appears similar to previous. No hilar masses visible. Pulmonary vascularity: Not increased, Lungs/Pleura: Elevated right hemidiaphragm, similar to prior. Mild bibasilar atelectasis suggested. N o dense consolidation, sizable pleural effusion, or pneumothorax demonstrated. Musculoskeletal: No acute osseous abnormality demonstrated in the limits of the exam. Degenerative c hanges of the spine and shoulders. Other findings: None. IMPRESSION: 1. No acute cardiopulmonary abnormality. 2. Cardiomegaly with multilead pacer/ICD in place
[2023-10-10 10:25] VITALS: BP 142/69; PULSE 60; RESP 16
== END 2023-10-10 10:21 | disposition home or self-care (01) ==
LOC: SUPCPDRO 08:34 → EC 08:34
DX: J06.9 Acute upper respiratory infection, unspecified (principal); L03.115 Cellulitis of right lower limb; J44.9 Chronic obstructive pulmonary disease, unspecified; Z79.899 Other long term (current) drug therapy
CPT/HCPCS: 36415; 71046; 80053; 83605; 84550; 85025; 85610; 87636; 99284

== ENCOUNTER 2023-10-13 07:52 | Emergency (ER) | payer MEDICARE, BC ==
[2023-10-13 08:25] VITALS: BP 118/69; PULSE 60; RESP 20; TEMP 98.2
--- NOTE | 2023-10-13 08:49 | ED ---
General Adult HPI - General Chief complaint: Extremity Problem,Nontraumatic Stated complaint: R Leg Swelling Time Seen by Provider: 10/13/23 07:53 Source: patient Mode of arrival: ambulatory Limitations: no limitations - History of Present Illness Initial comments: Dictation was produced using [employer] dictation software. please excuse any grammatical, word or spelling errors. Chief Complaint: 83-year-old male with swelling to the right lower extremity History of Present Illness: Patient is 83-year-old male he was seen here on Thursday for the same complaint. On Thursday he presented to the emergency department for right lower extremity swelling. He does complain of some mild pain. Still able to walk. Had an ultrasound is negative for DVT. No fever, chills or night sweats. He does have history of gout however he denies that his symptoms feel like gout. Denies any shortness of breath. No chest pain. Patient and family were questioned about why did not follow-up with her primary care doctor they state because she is a nurse practitioner and they felt that she was going to be trying to send them to the emergency department anyway. Patient has a history of cyst to his bilateral knees. 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 The ROS documented in this emergency department record has been reviewed and confirmed by me. Those systems with pertinent positive or negative responses have been documented in the HPI. All other systems are other negative and/or noncontributory. - Related Data Home Medications Medication Instructions Recorded Confirmed Gabapentin [Neurontin] 800 mg PO TID 12/20/13 06/08/23 Lovastatin [Mevacor] 20 mg PO HS 12/20/13 06/08/23 Glimepiride [Amaryl] 1 mg PO DAILY 12/07/17 06/08/23 Albuterol Sulfate [Ventolin HFA] 2 puff INHALATION RT-Q6H PRN 04/27/22 06/08/23 Albuterol Nebulized [Ventolin 2.5 mg INHALATION RT-Q6H PRN 11/10/22 06/08/23 Nebulized] Previous Rx's Medication Instructions Recorded Budesonide-Formot 160-4.5 Mcg 2 puff INHALATION RT-BID 30 Days 11/14/22 [Symbicort 160-4.5 Mcg Inhaler] #1 each Pantoprazole [Protonix] 40 mg PO AC-BRKFST tab 05/13/23 Flecainide [Tambocor] 100 mg PO BID #120 tab 06/10/23 Furosemide [Lasix] 40 mg PO DAILY #30 tab 06/10/23 Metoprolol Succinate (ER) [Toprol 50 mg PO DAILY #30 tab 06/10/23 XL] Warfarin [Coumadin] 2.5 mg PO DIRECTED #30 tab 06/10/23 Warfarin [Coumadin] 5 mg PO DIRECTED #20 tab 06/10/23 Cephalexin [Keflex] 500 mg PO Q6HR #40 cap 10/10/23 Allergies Allergy/AdvReac Type Severity Reaction Status Date / Time No Known Allergies Allergy Verified 10/13/23 07:58 Review of Systems ROS Statement: Those systems with pertinent positive or pertinent negative responses have been documented in the HPI. ROS Other: All systems not noted in ROS Statement are negative. Past Medical History Past Medical History: Atrial Fibrillation, COPD, Diabetes Mellitus, GERD/Reflux, GI Bleed, Hyperlipidemia, Hypertension, Osteoarthritis (OA) Additional Past Medical History / Comment(s): Chronic right hemidiaphragmatic paralysis, history of pacemaker insertion for complete heart block, chronic neck pain, COVID x3 History of Any Multi-Drug Resistant Organisms: None Reported Past Surgical History: Back Surgery, Orthopedic Surgery Additional Past Surgical History / Comment(s): torn rotator cuff, cervical disc removed in neck and fused 3 arthroscopy of the left knee, abdominal surgery, left hand/thumb surgery Past Anesthesia/Blood Transfusion Reactions: No Reported Reaction Past Psychological History: No Psychological Hx Reported Smoking Status: Never smoker Past Alcohol Use History: None Reported Past Drug Use History: None Reported - Past Family History Father History Unknown: Yes Family Medical History: Congestive Heart Failure (CHF) Mother History Unknown: Yes Family Medical History: Myocardial Infarction ([place]) General Exam - General Exam Comments Initial Comments: PHYSICAL EXAM: General Impression: Alert and oriented x3, not in acute distress HEENT: Normocephalic atraumatic, extra-ocular movements intact, pupils equal and reactive to light bilaterally, mucous membranes moist. Cardiovascular: Heart regular rate and rhythm Chest: Able to complete full sentences, no retractions, no tachypnea Abdomen: abdomen soft, non-tender, non-distended, no organomegaly Musculoskeletal: Pulses present and equal in all extremities Right lower extremity: Isolated pitting edema to the right lower extremity from mid tibia down to the feet, no palpatory tenderness, no skin lesions, no warmth, mild erythema Motor: no focal deficits noted Neurological: CN II-XII grossly intact, no focal motor or sensory deficits noted Skin: Intact with no visualized rashes Psych: Normal affect and mood Limitations: no limitations Course Vital Signs 10/13/23 07:56 Temperature 98.2 F Pulse Rate 60 Respiratory 20 Rate Blood Pressure 118/69 O2 Sat by Pulse 99 Oximetry Medical Decision Making - Medical Decision Making Was pt. sent in by a medical professional or institution (, [facility], WOOD TYPE FINISHER, urgent care, hospital, or halfway...) When possible be specific @ -[No] Did you speak to anyone other than the patient for history (EMS, parent, family, police, friend...)? What history was obtained from this source @ -[No] Did you review nursing and triage notes (agree or disagree)? Why? @ -I reviewed and agree with nursing and triage notes Were old charts reviewed (outside hosp., previous admission, EMS record, old EKG, old radiological studies, urgent care reports/EKG's, halfway records)? Report findings @ -No old charts were reviewed Differential Diagnosis (chest pain, altered mental status, abdominal pain women, abdominal pain men, vaginal bleeding, musculoskeletal, weakness, fever, dyspnea, syncope, headache, dizziness, GI bleed, back pain, seizure, CVA, palpatations, mental health)? @ -Not applicable EKG interpreted by me (3pts min.). @ -None done X-rays interpreted by me (1pt min.). @ -None done CT interpreted by me (1pt min.). @ -None done U/S interpreted by me (1pt. min.). @ -None done What testing was considered but not performed or refused? (CT, X-rays, U/S, labs)? Why? @ -None What meds were considered but not given or refused? Why? @ -None Did you discuss the management of the patient with other professionals (professionals i.e. ARN[facility] Horton, WOOD TYPE FINISHER, lab, RT, psych nurse, psychotherapist social worker, civil engineer land development, teacher, medical officer psychiatry, outpatient case manager)? Give summary @ -No Was smoking cessation discussed for >3mins.? @ -No Was critical care preformed (if so, how long)? @ -No Were there social determinants of health that impacted care today? How? (Homelessness, low income, unemployed, alcoholism, drug addiction, transportation, low edu. Level, literacy, decrease access to med. care, halfway, rehab)? @ -No Was there de-escalation of care discussed even if they declined (Discuss DNR or withdrawal of care, Hospice)? DNR status @ -No What co-morbidities impacted this encounter? (DM, HTN, Smoking, COPD, CAD, Cancer, CVA, ARF, Chemo, Hep., AIDS, mental health diagnosis, sleep apnea, morbid obesity)? @ -None Was patient admitted / discharged? Hospital course, mention meds given and route, prescriptions, significant lab abnormalities, going to OR and other pertinent info. @ -83-year-old male presents to the emergency department for persistent right lower extremity swelling. He was instructed to follow-up with his primary care doctor on Thursday however has not done so. Vital signs stable. Patient well- appearing at the bedside. Patient denies any changes of his symptoms from Thursday. He is on day 3 of Keflex for presumed cellulitis. At this point no indication to perform any further testing given that his symptoms have not changed and DVT and other life-threatening issues have been ruled out. Patient counseled on following up with his primary care doctor. He was told that perhaps she may benefit from evaluation by orthopedic surgery or vascular surgery. Undiagnosed new problem with uncertain prognosis? @ -No Drug Therapy requiring intensive monitoring for toxicity (Heparin, Nitro, Insulin, Cardizem)? @ -No Were any procedures done? @ -No Diagnosis/symptom? Acute, or Chronic, or Acute on Chronic? Uncomplicated (without systemic symptoms) or Complicated (systemic symptoms)? @ -Leg swelling Side effects of treatment? @ -No Exacerbation, Progression, or Severe Exacerbation? @ -No Poses a threat to life or bodily function? How? (Chest pain, [place], [place], pneumonia, PE, COPD, DKA, ARF, appy, cholecystitis, CVA, Diverticulitis, Homicidal, Suicidal, threat to staff... and all critical care pts) @ -No Disposition Clinical Impression: Leg swelling Disposition: HOME SELF-CARE Condition: Good Instructions (If sedation given, give patient instructions): Leg Edema (ED) Is patient prescribed a controlled substance at d/c from ED?: No Referrals: Myles Caban MD [Primary Care Provider] - 1-2 days Time of Disposition: 08:48
== END 2023-10-13 08:58 | disposition home or self-care (01) ==
LOC: EC 07:52
DX: M79.89 Other specified soft tissue disorders (principal)
CPT/HCPCS: 99283

== ENCOUNTER 2024-02-23 09:31 | Inpatient (IN) | payer MEDICARE, BC ==
--- NOTE | 2024-02-23 10:10 | ED ---
Abdominal Pain HPI - General Chief Complaint: Abdominal Pain Stated Complaint: Weakness, dizziness Time Seen by Provider: 02/23/24 09:49 Source: patient, family, RN notes reviewed Limitations: no limitations - History of Present Illness Initial Comments: 83-year-old male presents emergency department with chief complaint of abdominal discomfort, dizziness, weakness. Patient states that he recently had his medication changed when she started on Jardiance and spironolactone was taken off of Lasix secondary to gout issues. Patient states that he had some abdominal cramping noticed that his stool was dark in color. He is on Coumadin for atrial fibrillation. Patient denies any complaints of chest pain he has had some shortness of breath and dizziness that he describes the room is spinning. Patient denies any complaints of headache no focal weakness. - Related Data Home Medications Medication Instructions Recorded Confirmed Gabapentin [Neurontin] 800 mg PO TID 12/20/13 02/23/24 Lovastatin [Mevacor] 20 mg PO HS 12/20/13 02/23/24 Glimepiride [Amaryl] 1 mg PO DAILY 12/07/17 02/23/24 Albuterol Sulfate [Ventolin HFA] 2 puff INHALATION RT-Q6H PRN 04/27/22 02/23/24 Albuterol Nebulized [Ventolin 2.5 mg INHALATION RT-Q4H PRN 11/10/22 02/23/24 Nebulized] Empagliflozin [Jardiance] 10 mg PO DAILY 02/23/24 02/23/24 Metoprolol Succinate (ER) [Toprol 50 mg PO BID 02/23/24 02/23/24 XL] Spironolactone [Aldactone] 25 mg PO DAILY 02/23/24 02/23/24 Warfarin [Coumadin] 2.5 mg PO SUTUWETHFR@209902/23/24 02/23/24 Warfarin [Coumadin] 5 mg PO MOTH@209902/23/24 02/23/24 Previous Rx's Medication Instructions Recorded Budesonide-Formot 160-4.5 Mcg 2 puff INHALATION RT-BID 30 Days 11/14/22 [Symbicort 160-4.5 Mcg Inhaler] #1 each Allergies Allergy/AdvReac Type Severity Reaction Status Date / Time No Known Allergies Allergy Verified 02/23/24 13:25 Review of Systems ROS Statement: Those systems with pertinent positive or pertinent negative responses have been documented in the HPI. ROS Other: All systems not noted in ROS Statement are negative. Past Medical History Past Medical History: Atrial Fibrillation, COPD, Diabetes Mellitus, GERD/Reflux, GI Bleed, Hyperlipidemia, Hypertension, Osteoarthritis (OA) Additional Past Medical History / Comment(s): Chronic right hemidiaphragmatic paralysis, history of pacemaker insertion for complete heart block, chronic neck pain, COVID x3 History of Any Multi-Drug Resistant Organisms: None Reported Past Surgical History: Back Surgery, Orthopedic Surgery Additional Past Surgical History / Comment(s): torn rotator cuff, cervical disc removed in neck and fused 3 arthroscopy of the left knee, abdominal surgery, left hand/thumb surgery Past Anesthesia/Blood Transfusion Reactions: No Reported Reaction Past Psychological History: No Psychological Hx Reported Smoking Status: Never smoker Past Alcohol Use History: None Reported Past Drug Use History: None Reported - Past Family History Father History Unknown: Yes Family Medical History: Congestive Heart Failure (CHF) Mother History Unknown: Yes Family Medical History: Myocardial Infarction ([place]) General Exam Limitations: no limitations General appearance: alert, in no apparent distress Head exam: Present: atraumatic, normocephalic, normal inspection Eye exam: Present: normal appearance, PERRL, EOMI. Absent: scleral icterus, conjunctival injection, periorbital swelling ENT exam: Present: normal exam, mucous membranes moist Neck exam: Present: normal inspection, full ROM. Absent: tenderness, menin gismus, lymphadenopathy Respiratory exam: Present: normal lung sounds bilaterally. Absent: respiratory distress, wheezes, rales, rhonchi, stridor Cardiovascular Exam: Present: regular rate, normal rhythm, normal heart sounds. Absent: systolic murmur, diastolic murmur, rubs, gallop, clicks GI/Abdominal exam: Present: soft, normal bowel sounds. Absent: distended, tenderness, guarding, rebound, rigid Neurological exam: Present: alert, oriented X3, CN II-XII intact, reflexes normal. Absent: motor sensory deficit Skin exam: Present: warm, dry, intact, normal color. Absent: rash Course Vital Signs 02/23/24 02/23/24 02/23/24 09:34 10:31 10:35 Temperature 97.9 F Pulse Rate 70 70 Pulse Rate [ 70 Sitting Substation Operator Chief] Pulse Rate [ 71 Standing Substation Operator Chief ] Pulse Rate [ 70 Supine Substation Operator Chief] Respiratory 18 18 Rate Blood Pressure 124/74 138/68 Blood Pressure 118/71 [Right Arm Sitting] Blood Pressure 129/66 [Right Arm Standing] Blood Pressure 138/68 [Right Arm Supine] O2 Sat by Pulse 98 98 Oximetry 02/23/24 02/23/24 02/23/24 12:01 13:50 16:22 Temperature Pulse Rate 70 70 70 Pulse Rate [ Sitting Substation Operator Chief] Pulse Rate [ Standing Substation Operator Chief ] Pulse Rate [ Supine Substation Operator Chief] Respiratory 18 18 18 Rate Blood Pressure 108/69 115/70 123/76 Blood Pressure [Right Arm Sitting] Blood Pressure [Right Arm Standing] Blood Pressure [Right Arm Supine] O2 Sat by Pulse 98 96 99 Oximetry Medical Decision Making - Medical Decision Making Was pt. sent in by a medical professional or institution (, PA, DEICER ELEMENT WINDER MACHINE, urgent care, hospital, or assisted...) When possible be specific @ -No Did you speak to anyone other than the patient for history (EMS, parent, family, police, friend...)? What history was obtained from this source @ -No Did you review nursing and triage notes (agree or disagree)? Why? @ -I reviewed and agree with nursing and triage notes Were old charts reviewed (outside hosp., previous admission, EMS record, old EK G, old radiological studies, urgent care reports/EKG's, assisted records)? Report findings @ -No old charts were reviewed Differential Diagnosis (chest pain, altered mental status, abdominal pain women, abdominal pain men, vaginal bleeding, weakness, fever, dyspnea, syncope, headache, dizziness, GI bleed, back pain, seizure, CVA, palpatations, mental health, musculoskeletal)? @ -Differential Abdominal Pain Men: Appendicitis, cholecystitis, diverticulosis, ischemic bowel, pancreatitis, hepa titis, UTI, gastroenteritis, AAA, incarcerated hernia, bowel obstruction, constipation, inflammatory bowel, hepatitis, peptic ulcer disease, splenic infarction, perforated viscus, testicular torsion, this is not meant to be an all-inclusive list EKG interpreted by me (3pts min.). @ -As above X-rays interpreted by me (1pt min.). @ -None done CT interpreted by me (1pt min.). @ -None done U/S interpreted by me (1pt. min.). @ -None done What testing was considered but not performed or refused? (CT, X-rays, U/S, labs)? Why? @ -None What meds were considered but not given or refused? Why? @ -None Did you discuss the management of the patient with other professionals (professionals i.e. , PA, DEICER ELEMENT WINDER MACHINE, lab, RT, psych nurse, certified social workers in health care, fire chief, teacher, vice squad police officer, counseling case manager)? Give summary @ -EMH for admission Was smoking cessation discussed for >3mins.? @ -No Was critical care preformed (if so, how long)? @ -No Were there social determinants of health that impacted care today? How? (H omelessness, low income, unemployed, alcoholism, drug addiction, transportation, low edu. Level, literacy, decrease access to med. care, chcf, rehab)? @ -No Was there de-escalation of care discussed even if they declined (Discuss DNR or withdrawal of care, Hospice)? DNR status @ -No What co-morbidities impacted this encounter? (DM, HTN, Smoking, COPD, CAD, Cancer, CVA, ARF, Chemo, Hep., AIDS, mental health diagnosis, sleep apnea, morbid obesity)? @ -None Was patient admitted / discharged? Hospital course, mention meds given and route, prescriptions, significant lab abnormalities, going to OR and other pertinent info. @ -Admitted patient presented for melena, dizziness patient does have mild anemia patient will be admitted for GI consult, GI bleed. Undiagnosed new problem with uncertain prognosis? @ -No Drug Therapy requiring intensive monitoring for toxicity (Heparin, Nitro, Insulin, Cardizem)? @ -No Were any procedures done? @ -No Diagnosis/symptom? @ -GI bleed Acute, or Chronic, or Acute on Chronic? @ -Acute Uncomplicated (without systemic symptoms) or Complicated (systemic symptoms)? @ -Complicated Side effects of treatment? @ -No Exacerbation, Progression, or Severe Exacerbation? @ -No Poses a threat to life or bodily function? How? (Chest pain, [place], [place], pneumonia, PE, COPD, DKA, ARF, appy, cholecystitis, CVA, Diverticulitis, Homicidal, Suicidal, threat to staff... and all critical care pts) @ -[S GI bleed - Lab Data Result diagrams: 02/24/24 05:01 02/24/24 05:01 Lab Results 02/23/24 02/23/24 02/23/24 Range/Units 10:00 10:00 10:00 WBC 11.3 H (3.8-10.6) k/uL RBC 3.72 L (4.30-5.90) m/uL Hgb 11.8 L (13.0-17.5) gm/dL Hct 36.6 L (39.0-53.0) % MCV 98.1 (80.0-100.0) fL MCH 31.6 (25.0-35.0) pg MCHC 32.2 (31.0-37.0) g/dL RDW 13.8 (11.5-15.5) % Plt Count 154 (150-450) k/uL MPV 9.0 Neutrophils % 85 % Lymphocytes % 7 % Monocytes % 6 % Eosinophils % 0 % Basophils % 0 % Neutrophils # 9.5 H (1.3-7.7) k/uL Lymphocytes # 0.8 L (1.0-4.8) k/uL Monocytes # 0.7 (0-1.0) k/uL Eosinophils # 0.0 (0-0.7) k/uL Basophils # 0.0 (0-0.2) k/uL PT 35.4 H (10.0-12.5) sec INR 3.6 H (<1.2) APTT 30.2 H (22.0-30.0) sec Sodium 137 (137-145) mmol/L Potassium 5.0 (3.5-5.1) mmol/L Chloride 113 H (98-107) mmol/L Carbon Dioxide 17 L (22-30) mmol/L Anion Gap 7 mmol/L BUN 75 H (9-20) mg/dL Creatinine 0.91 (0.66-1.25) mg/dL Est GFR (CKD-EPI)AfAm 90 (>60 ml/min/1.73 sqM) Est GFR (CKD-EPI)NonAf 78 (>60 ml/min/1.73 sqM) Glucose 252 H (74-99) mg/dL Plasma Lactic Acid Timbo (0.7-2.0) mmol/L Calcium 8.6 (8.4-10.2) mg/dL Magnesium 2.6 H (1.6-2.3) mg/dL Total Bilirubin 0.7 (0.2-1.3) mg/dL AST 25 (17-59) U/L ALT 28 (4-49) U/L Alkaline Phosphatase 60 (38-126) U/L Total Protein 5.1 L (6.3-8.2) g/dL Albumin 3.2 L (3.5-5.0) g/dL Lipase 72 (23-300) U/L 02/23/24 Range/Units 10:00 WBC (3.8-10.6) k/uL RBC (4.30-5.90) m/uL Hgb (13.0-17.5) gm/dL Hct (39.0-53.0) % MCV (80.0-100.0) fL MCH (25.0-35.0) pg MCHC (31.0-37.0) g/dL RDW (11.5-15.5) % Plt Count (150-450) k/uL MPV Neutrophils % % Lymphocytes % % Monocytes % % Eosinophils % % Basophils % % Neutrophils # (1.3-7.7) k/uL Lymphocytes # (1.0-4.8) k/uL Monocytes # (0-1.0) k/uL Eosinophils # (0-0.7) k/uL Basophils # (0-0.2) k/uL PT (10.0-12.5) sec INR (<1.2) APTT (22.0-30.0) sec Sodium (137-145) mmol/L Potassium (3.5-5.1) mmol/L Chloride (98-107) mmol/L Carbon Dioxide (22-30) mmol/L Anion Gap mmol/L BUN (9-20) mg/dL Creatinine (0.66-1.25) mg/dL Est GFR (CKD-EPI)AfAm (>60 ml/min/1.73 sqM) Est GFR (CKD-EPI)NonAf (>60 ml/min/1.73 sqM) Glucose (74-99) mg/dL Plasma Lactic Acid Timbo 1.6 (0.7-2.0) mmol/L Calcium (8.4-10.2) mg/dL Magnesium (1.6-2.3) mg/dL Total Bilirubin (0.2-1.3) mg/dL AST (17-59) U/L ALT (4-49) U/L Alkaline Phosphatase (38-126) U/L Total Protein (6.3-8.2) g/dL Albumin (3.5-5.0) g/dL Lipase (23-300) U/L - EKG Data -: EKG Interpreted by Ca EKG Comments: EKG performed at 9: 46 ventricular paced rate of 70 QRS 161 QT/QTc 461/481 Disposition Clinical Impression: GI bleed Disposition: ADMITTED IP TO THIS HOSP
[2024-02-23] MEDS: SODIUM CHLORIDE 0.9% 500 ML 500 ML IV STA (10:16)
[2024-02-23] MEDS: MECLIZINE 12.5 MG TAB PO STA (10:16)
[2024-02-23 10:32] LABS: Basophils % (A) 0 %; Eosinophils % (A) 0 %; HCT 36.6 % (39.0-53.0); HGB 11.8 gm/dL (13.0-17.5); Lymphocytes # (A) 0.8 k/uL (1.0-4.8); Lymphocytes % (A) 7 %; MCH 31.6 pg (25.0-35.0); MCHC 32.2 g/dL (31.0-37.0); MCV 98.1 fL (80.0-100.0); Monocytes # (A) 0.7 k/uL (0-1.0); Monocytes % (A) 6 %; Neutrophils # (A) 9.5 k/uL (1.3-7.7); Neutrophils % (A) 85 %; Platelet Count 154 k/uL (150-450); RBC 3.72 m/uL (4.30-5.90); RDW 13.8 % (11.5-15.5); WBC 11.3 k/uL (3.8-10.6)
[2024-02-23 10:46] LABS: INR 3.6 (<1.2); Partial Thromboplastin Time 30.2 sec (22.0-30.0); Prothrombin Time 35.4 sec (10.0-12.5)
[2024-02-23 10:50] LABS: ALT 28 U/L (4-49); AST 25 U/L (17-59); African American GFR (CKD) 90 (>60 ml/min/1.73 sqM); Albumin 3.2 g/dL (3.5-5.0); Alkaline Phosphatase 60 U/L (38-126); Blood Urea Nitrogen 75 mg/dL (9-20); Calcium 8.6 mg/dL (8.4-10.2); Carbon Dioxide 17 mmol/L (22-30); Glucose 252 mg/dL (74-99); Lipase 72 U/L (23-300); Magnesium 2.6 mg/dL (1.6-2.3); Non-African American GFR(CKD) 78 (>60 ml/min/1.73 sqM); Total Bilirubin 0.7 mg/dL (0.2-1.3); Total Protein 5.1 g/dL (6.3-8.2)
[2024-02-23 10:59] LABS: Anion Gap 7 mmol/L; Chloride 113 mmol/L (98-107); Sodium 137 mmol/L (137-145)
[2024-02-23] MEDS ORDERED: NALOXONE 0.4 MG/ML 1 ML VIAL IV PRN (12:11)
[2024-02-23 19:00] LABS: Basophils % (A) 0 %; Eosinophils % (A) 0 %; HCT 33.8 % (39.0-53.0); HGB 10.9 gm/dL (13.0-17.5); Hypochromasia Slight; Lymphocytes # (A) 1.3 k/uL (1.0-4.8); Lymphocytes % (A) 14 %; MCH 31.6 pg (25.0-35.0); MCHC 32.2 g/dL (31.0-37.0); MCV 98.2 fL (80.0-100.0); Mean Platelet Volume 9.1; Monocytes # (A) 0.6 k/uL (0-1.0); Monocytes % (A) 6 %; Neutrophils # (A) 7.6 k/uL (1.3-7.7); Neutrophils % (A) 77 %; Platelet Count 148 k/uL (150-450); RBC 3.44 m/uL (4.30-5.90); RDW 13.6 % (11.5-15.5); WBC 9.8 k/uL (3.8-10.6)
[2024-02-23 20:22] LABS: Glucose,Whole Blood 233 mg/dL (70-110)
[2024-02-23] MEDS ORDERED: DEXTROSE 50% SYRINGE 50 ML IVP PRN ×2 (20:23)
[2024-02-23] MEDS: INSULIN ASPART (NovoLOG) 100 UNIT/ML VIAL SQ SCH (21:19)
[2024-02-23] MEDS: METOPROLOL SUCCINATE (ER) 50 MG TAB.ER.24H PO SCH (21:19)
[2024-02-23] MEDS: GABAPENTIN 400 MG CAP PO SCH (21:19)
[2024-02-23] MEDS: PANTOPRAZOLE 40 MG/10 ML VIAL IV SCH (21:19)
[2024-02-23] MEDS: ATORVASTATIN 10 MG TAB PO SCH (21:19)
[2024-02-24 00:24] LABS: Basophils % (A) 0 %; Eosinophils # (A) 0.1 k/uL (0-0.7); Eosinophils % (A) 1 %; HCT 33.5 % (39.0-53.0); HGB 10.7 gm/dL (13.0-17.5); Lymphocytes # (A) 1.2 k/uL (1.0-4.8); Lymphocytes % (A) 12 %; MCHC 31.8 g/dL (31.0-37.0); MCV 97.3 fL (80.0-100.0); Mean Platelet Volume 8.9; Monocytes # (A) 0.8 k/uL (0-1.0); Monocytes % (A) 8 %; Neutrophils # (A) 7.7 k/uL (1.3-7.7); Neutrophils % (A) 78 %; Platelet Count 143 k/uL (150-450); RBC 3.44 m/uL (4.30-5.90); RDW 13.7 % (11.5-15.5)
--- NOTE | 2024-02-24 00:58 | P.HPIM ---
History of Present Illness H&P Date: 02/23/24 Chief Complaint: Generalized weakness Patient is a 83-year-old male with known history of atrial fibrillation on anticoagulation with Coumadin, hypertension, hyperlipidemia, diabetes type 2, osteoarthritis, COPD, chronic right hemidiaphragmatic paralysis, history of pacemaker due to complete heart block and chronic neck pain presents to ER with complaints of generalized weakness, sweating and falling. Patient was also having dizziness and abdominal discomfort. Patient states that she was started on Jardiance and spironolactone and was taken off Lasix secondary to gout issues. Patient does have some abdominal cramping and dark color stool. Otherwise denies any complaints of chest pain. No complaints of headache. No fever no chills. EKG showed electronic ventricular paced rhythm. Laboratory data showed WBC 11.3 hemoglobin 11.8 and platelets 154 INR 3.6 sodium 137 potassium 5.0 chloride 113 bicarb is 17 BUN 75 and creatinine 0.91 blood sugar is 252 Review of Systems Constitutional: Patient denies any fever or chills . Generalized weakness and fatigue and sweating.. Abdomen: Patient denied nausea vomiting and diarrhea and abdominal pain. Dark- colored stools. Cardiovascular: Patient denies any chest pain. Positive for mild short of breath no palpitations. Respiratory: patient denied any cough or sputum production. Positive shortness of breath Neurologic: Patient denied any numbness or tingling. no headache. Musculoskeletal: Patient denies any complaints of joint swelling or deformity. Skin: Negative Psychiatric: Negative Endocrine: No heat or cold intolerance. No recent weight gain. Genitourinary: No dysuria or hematuria. All other 14 point ROS negative except the above Past Medical History Past Medical History: Atrial Fibrillation, COPD, Diabetes Mellitus, GERD/Reflux, GI Bleed, Hyperlipidemia, Hypertension, Osteoarthritis (OA) Additional Past Medical History / Comment(s): Chronic right hemidiaphragmatic paralysis, history of pacemaker insertion for complete heart block, chronic neck pain, COVID x3 History of Any Multi-Drug Resistant Organisms: None Reported Past Surgical History: Back Surgery, Orthopedic Surgery Additional Past Surgical History / Comment(s): torn rotator cuff, cervical disc removed in neck and fused 3 arthroscopy of the left knee, abdominal surgery, left hand/thumb surgery Past Anesthesia/Blood Transfusion Reactions: No Reported Reaction Past Psychological History: No Psychological Hx Reported Smoking Status: Never smoker Past Alcohol Use History: None Reported Past Drug Use History: None Reported - Past Family History Father History Unknown: Yes Family Medical History: Congestive Heart Failure (CHF) Mother History Unknown: Yes Family Medical History: Myocardial Infarction ([place]) Medications and Allergies Home Medications Medication Instructions Recorded Confirmed Type Gabapentin [Neurontin] 800 mg PO TID 12/20/13 02/23/24 History Lovastatin [Mevacor] 20 mg PO HS 12/20/13 02/23/24 History Glimepiride [Amaryl] 1 mg PO DAILY 12/07/17 02/23/24 History Albuterol Sulfate [Ventolin HFA] 2 puff INHALATION RT-Q6H PRN 04/27/22 02/23/24 History Albuterol Nebulized [Ventolin 2.5 mg INHALATION RT-Q4H PRN 11/10/22 02/23/24 History Nebulized] Budesonide-Formot 160-4.5 Mcg 2 puff INHALATION RT-BID 30 Days 11/14/22 02/23/24 Rx [Symbicort 160-4.5 Mcg Inhaler] #1 each Empagliflozin [Jardiance] 10 mg PO DAILY 02/23/24 02/23/24 History Metoprolol Succinate (ER) [Toprol 50 mg PO BID 02/23/24 02/23/24 History XL] Spironolactone [Aldactone] 25 mg PO DAILY 02/23/24 02/23/24 History Warfarin [Coumadin] 2.5 mg PO SUTUWETHFR@209902/23/24 02/23/24 History Warfarin [Coumadin] 5 mg PO MOTH@209902/23/24 02/23/24 History Allergies Allergy/AdvReac Type Severity Reaction Status Date / Time No Known Allergies Allergy Verified 02/23/24 13:25 Physical Exam Vitals: Vital Signs Temp Pulse Pulse Pulse Pulse Resp BP 02/23/24 13:50 70 18 115/70 02/23/24 12:01 70 18 108/69 02/23/24 10:35 70 71 70 02/23/24 10:31 70 18 138/68 02/23/24 09:34 97.9 F 70 18 124/74 BP BP BP Pulse Ox 02/23/24 13:50 96 02/23/24 12:01 98 02/23/24 10:35 118/71 129/66 138/68 02/23/24 10:31 98 02/23/24 09:34 98 Intake and Output 02/22/24 02/23/24 02/23/24 22:59 06:59 14:59 Other: Weight 74.843 kg PHYSICAL EXAMINATION: Patient is lying in the bed comfortably, no acute distress, awake alert and oriented. Lethargic and weak. HEENT: Normocephalic. Neck is supple. Pupils reactive. Nostrils clear. Oral cavity is moist. Neck reveals no JVD, carotid bruits, or thyromegaly. CHEST EXAMINATION: Trachea is central. Symmetrical expansion. Bibasilar diminished sounds. No wheezing. n. CARDIAC: Normal S1, S2 with no gallops. No murmurs ABDOMEN: Soft. Bowel sounds normal. Nontender. No organomegaly. No abdominal bruits. Extremities: reveal no edema. No clubbing or cyanosis Neurologically awake, alert, oriented x3 with well-coordinated movements. No focal deficits noted Skin: No rash or skin lesions. Psychiatric: Coperative. Nonsuicidal Musculoskeletal: No joint swelling or deformity. Normal range of motion. Results CBC & Chem 7: 02/24/24 05:01 02/24/24 05:01 Labs: Abnormal Lab Results - Last 24 Hours (Table) 02/23/24 02/23/24 02/23/24 Range/Units 10:00 10:00 10:00 WBC 11.3 H (3.8-10.6) k/uL RBC 3.72 L (4.30-5.90) m/uL Hgb 11.8 L (13.0-17.5) gm/dL Hct 36.6 L (39.0-53.0) % Neutrophils # 9.5 H (1.3-7.7) k/uL Lymphocytes # 0.8 L (1.0-4.8) k/uL PT 35.4 H (10.0-12.5) sec INR 3.6 H (<1.2) APTT 30.2 H (22.0-30.0) sec Chloride 113 H (98-107) mmol/L Carbon Dioxide 17 L (22-30) mmol/L BUN 75 H (9-20) mg/dL Glucose 252 H (74-99) mg/dL Magnesium 2.6 H (1.6-2.3) mg/dL Total Protein 5.1 L (6.3-8.2) g/dL Albumin 3.2 L (3.5-5.0) g/dL Thrombosis Risk Factor Assmnt - DVT/VTE Prophylaxis DVT/VTE Prophylaxis: Mechanical Prophylaxis ordered Assessment and Plan Assessment: Acute GI bleed likely upper GI and mild acute blood loss anemia Atrial fibrillation on anticoagulation with Coumadin. Supratherapeutic INR level COPD not in exacerbation Diabetes type 2 [id number] History of heart block status post pacemaker placement Hyperlipidemia Hypertension Osteoarthritis History of back surgery DVT prophylax with SCDs Plan: Patient will be continued on gentle IV hydration. Monitor H&H. Continue with IV Protonix. Coumadin is on hold. Continue further home medications including statin DuoNebs and Symbicort. Continue with Toprol-XL continue to monitor INR. Follow-up closely. GI was consulted. Time with Patient: Greater than 30
[2024-02-24 06:04] LABS: Glucose,Whole Blood 124 mg/dL (70-110)
[2024-02-24 08:37] LABS: Basophils # (A) 0.03 X 10*3/uL (0.00-0.10); Basophils % (A) 0.3 %; Eosinophils # (A) 0.09 X 10*3/uL (0.04-0.35); Eosinophils % (A) 0.9 %; HCT 33.3 % (39.6-50.0); HGB 10.7 g/dL (13.0-17.0); Lymphocytes # (A) 1.63 X 10*3/uL (0.90-5.00); Lymphocytes % (A) 15.5 %; MCH 31.2 pg (27.0-32.0); MCHC 32.1 g/dL (32.0-37.0); MCV 97.1 FL (80.0-97.0); Mean Platelet Volume 10.9 FL (9.5-12.2); Monocytes % (A) 8.6 %; NRBC Per 100 WBC 0.02 X 10*3/uL (0.00-0.01); Neutrophils % (A) 74.3 %; Platelet Count 139 X 10*3/uL (140-440); RBC 3.43 X 10*6/uL (4.40-5.60); RDW 13.8 % (11.5-14.5); WBC 10.49 X 10*3/uL (4.50-10.00)
[2024-02-24 09:04] LABS: Blood Urea Nitrogen 42.3 mg/dL (9.0-27.0); Carbon Dioxide 17.4 mmol/L (21.6-31.8); Chloride 118 mmol/L (96-109); Glucose 126 mg/dL (70-110); Potassium 4.2 mmol/L (3.5-5.5); Sodium 146 mmol/L (135-145)
[2024-02-24] MEDS: SYMBICORT 160-4.5 MCG INHALER INHALATION SCH (09:38)
[2024-02-24] MEDS: IPRATROPIUM-ALBUTEROL 3 ML NEB INHALATION PRN (09:38)
[2024-02-24 12:36] LABS: Glucose,Whole Blood 190 mg/dL (70-110)
[2024-02-24] MEDS: PHYTONADIONE ORAL 5 MG/5 ML ORAL.SYRG PO STA (14:10)
[2024-02-24 17:29] LABS: Glucose,Whole Blood 178 mg/dL (70-110)
--- NOTE | 2024-02-24 18:01 | P.CONS ---
History of Present Illness - Reason for Consult Consult date: 02/24/24 GI bleed Requesting physician: David Rodriguez - Chief Complaint Abdominal pain, dizziness and weakness. - History of Present Illness This is a pleasant 83-year-old male who presented to the emergency department yesterday with complaints of abdominal pain, dizziness and weakness. Past medical history includes atrial fibrillation on Coumadin, COPD, diabetes mellitus, GERD, previous GI bleed hyperlipidemia hypertension and osteoarthritis. Patient states that he has a history of ulcer diagnosed about 40 years ago. No recent upper endoscopy or colonoscopy. States he has been having black stools for last 2 to 3 days. Denies any NSAID use. Mild anemia with a hemoglobin of 10.7 platelet count 139, INR 3.6 Review of Systems REVIEW OF SYSTEMS: CARDIOPULMONARY: No chest pain or shortness of breath. Gastrointestinal: Abdominal cramping, improved. No nausea or vomiting. No hematemesis, coffee-ground emesis. No rectal bleeding, reports melena. GENITOURINARY: No dysuria or hematuria. MUSCULOSKELETAL: Reports normal range of motion., Joint pain. SKIN: No rashes. No jaundice. ENDOCRINE: No chills, fevers. No excessive weight gain or loss. No polydipsia or polyuria. PSYCHIATRIC: Unremarkable. NEUROLOGY: No change in mental status. Denies dizziness, headache. ENT: Vision unremarkable. CONSTITUTIONAL: No recent weight loss. No fever, chills, night sweats. Past Medical History Past Medical History: Atrial Fibrillation, COPD, Diabetes Mellitus, GERD/Reflux, GI Bleed, Hyperlipidemia, Hypertension, Osteoarthritis (OA) Additional Past Medical History / Comment(s): Chronic right hemidiaphragmatic paralysis, history of pacemaker insertion for complete heart block, chronic neck pain, COVID x3 History of Any Multi-Drug Resistant Organisms: None Reported Past Surgical History: Back Surgery, Orthopedic Surgery Additional Past Surgical History / Comment(s): torn rotator cuff, cervical disc removed in neck and fused 3 arthroscopy of the left knee, abdominal surgery, left hand/thumb surgery Past Anesthesia/Blood Transfusion Reactions: No Reported Reaction Past Psychological History: No Psychological Hx Reported Smoking Status: Never smoker Past Alcohol Use History: None Reported Past Drug Use History: None Reported - Past Family History Father History Unknown: Yes Family Medical History: Congestive Heart Failure (CHF) Mother History Unknown: Yes Family Medical History: Myocardial Infarction ([place]) Medications and Allergies Home Medications Medication Instructions Recorded Confirmed Type Gabapentin [Neurontin] 800 mg PO TID 12/20/13 02/23/24 History Lovastatin [Mevacor] 20 mg PO HS 12/20/13 02/23/24 History Glimepiride [Amaryl] 1 mg PO DAILY 12/07/17 02/23/24 History Albuterol Sulfate [Ventolin HFA] 2 puff INHALATION RT-Q6H PRN 04/27/22 02/23/24 History Albuterol Nebulized [Ventolin 2.5 mg INHALATION RT-Q4H PRN 11/10/22 02/23/24 History Nebulized] Budesonide-Formot 160-4.5 Mcg 2 puff INHALATION RT-BID 30 Days 11/14/22 02/23/24 Rx [Symbicort 160-4.5 Mcg Inhaler] #1 each Empagliflozin [Jardiance] 10 mg PO DAILY 02/23/24 02/23/24 History Metoprolol Succinate (ER) [Toprol 50 mg PO BID 02/23/24 02/23/24 History XL] Spironolactone [Aldactone] 25 mg PO DAILY 02/23/24 02/23/24 History Warfarin [Coumadin] 2.5 mg PO SUTUWETHFR@2100 02/23/24 02/23/24 History Warfarin [Coumadin] 5 mg PO MOTH@2100 02/23/24 02/23/24 History Allergies Allergy/AdvReac Type Severity Reaction Status Date / Time No Known Allergies Allergy Verified 02/23/24 13:25 Physical Exam Vitals: Vital Signs Temp Pulse Pulse Resp BP BP Pulse Ox 02/24/24 09:46 89 02/24/24 09:38 91 02/24/24 07:00 97.9 F 93 17 113/68 02/24/24 02:20 98.2 F 69 19 135/78 96 02/23/24 19:22 98.5 F 70 19 124/86 98 02/23/24 17:20 97.9 F 69 17 134/71 97 02/23/24 16:22 70 18 123/76 99 02/23/24 13:50 70 18 115/70 96 02/23/24 12:01 70 18 108/69 98 Intake and Output 02/23/24 02/24/24 02/24/24 22:59 06:59 14:59 Intake Total 600 624 Balance 600 624 Intake: Oral 600 624 Other: # Voids 1 2 # Bowel Movements 1 General appearance: The patient is alert, oriented, appears in no acute distress. HET: Head is normocephalic and atraumatic. Conjunctiva pink. Sclera anicteric. Neck: Supple without lymphadenopathy. Trachea midline. Heart: Regular. Lungs: Equal expansion, normal respiratory effort. Abdomen: Soft, nontender, nondistended. Skin: No rashes. No jaundice. Extremities: Normal skin color and turgor. No pedal edema. Neurological: No focal deficits. Alert and oriented x3. Results CBC & Chem 7: 02/24/24 05:01 02/24/24 05:01 Labs: Abnormal Lab Results - Last 24 Hours (Table) 02/23/24 02/23/24 02/24/24 Range/Units 18:38 20:20 00:06 WBC (4.50-10.00) X 10*3/uL RBC 3.44 L 3.44 L (4.30-5.90) m/uL Hgb 10.9 L 10.7 L (13.0-17.5) gm/dL Hct 33.8 L 33.5 L (39.0-53.0) % MCV (80.0-97.0) FL Plt Count 148 L 143 L (150-450) k/uL Neutrophils # (1.80-7.70) X 10*3/uL NRBC/100 WBC Diff (0.00-0.01) X 10*3/uL Sodium (135-145) mmol/L Chloride (96-109) mmol/L Carbon Dioxide (21.6-31.8) mmol/L BUN (9.0-27.0) mg/dL BUN/Creatinine Ratio (12.00-20.00) Ratio Glucose (70-110) mg/dL POC Glucose (mg/dL) 233 H (70-110) mg/dL Hemoglobin A1c (<=6.0) % Calcium (8.7-10.3) mg/dL 02/24/24 02/24/24 02/24/24 Range/Units 05:01 05:01 05:01 WBC 10.49 H (4.50-10.00) X 10*3/uL RBC 3.43 L (4.30-5.90) m/uL Hgb 10.7 L (13.0-17.5) gm/dL Hct 33.3 L (39.0-53.0) % MCV 97.1 H (80.0-97.0) FL Plt Count 139 L (150-450) k/uL Neutrophils # 7.80 H (1.80-7.70) X 10*3/uL NRBC/100 WBC Diff 0.02 H (0.00-0.01) X 10*3/uL Sodium 146 H (135-145) mmol/L Chloride 118 H (96-109) mmol/L Carbon Dioxide 17.4 L (21.6-31.8) mmol/L BUN 42.3 H (9.0-27.0) mg/dL BUN/Creatinine Ratio 42.30 H (12.00-20.00) Ratio Glucose 126 H (70-110) mg/dL POC Glucose (mg/dL) (70-110) mg/dL Hemoglobin A1c 8.6 H (<=6.0) % Calcium 8.0 L (8.7-10.3) mg/dL 02/24/24 Range/Units 06:03 WBC (4.50-10.00) X 10*3/uL RBC (4.30-5.90) m/uL Hgb (13.0-17.5) gm/dL Hct (39.0-53.0) % MCV (80.0-97.0) FL Plt Count (150-450) k/uL Neutrophils # (1.80-7.70) X 10*3/uL NRBC/100 WBC Diff (0.00-0.01) X 10*3/uL Sodium (135-145) mmol/L Chloride (96-109) mmol/L Carbon Dioxide (21.6-31.8) mmol/L BUN (9.0-27.0) mg/dL BUN/Creatinine Ratio (12.00-20.00) Ratio Glucose (70-110) mg/dL POC Glucose (mg/dL) 124 H (70-110) mg/dL Hemoglobin A1c (<=6.0) % Calcium (8.7-10.3) mg/dL Assessment and Plan (1) Melena Narrative/Plan: 83-year-old male presenting with complaints of abdominal cramping, weakness and black stools over the last 2 to 3 days duration. He has a history of atrial fibrillation on Coumadin with an INR of 3.6 and a remote history of peptic ulcer disease with no recent endoscopic evaluation. Patient is anemic with an elevated BUN that can be seen in setting of upper GI bleed. Recommend proceeding with direct visualization with endoscopic evaluation to evaluate for GI bleed. Current Visit: Yes Status: Acute Code(s): K92.1 - MELENA SNOMED Code(s): 6369519 (2) Anemia Current Visit: Yes Status: Acute Code(s): D64.9 - ANEMIA, UNSPECIFIED SNOMED Code(s): 392665857 (3) Chronic anticoagulation Narrative/Plan: On Coumadin. Currently on hold Current Visit: Yes Status: Acute Code(s): Z79.01 - CARE HOME (CURRENT) USE OF ANTICOAGULANTS SNOMED Code(s): 003957919 (4) Atrial fibrillation Current Visit: No Status: Acute Code(s): I48.91 - UNSPECIFIED ATRIAL F IBRILLATION SNOMED Code(s): 03800204 Plan: 1. Continue symptomatic and supportive care 2. Daily CBC, transfuse for hemoglobin less than 7 3. Hold Coumadin 4. Give vitamin K 10 mg p.o. 5. Repeat INR in the morning 6. Patient may have consistent carbohydrate diet 7. Continue Protonix 40 mg twice daily 8. Will plan on proceeding with upper endoscopy on Thursday Thank you for this consultation, we will continue to follow. Dr. Yuridia Card I agree with the dictator's note, documented as a scribe by Monica Cid.
[2024-02-24 20:54] LABS: Glucose,Whole Blood 192 mg/dL (70-110)
[2024-02-25] MEDS: SODIUM CHLORIDE 0.45% 1,000 ML IV SCH (03:24)
[2024-02-25 05:51] LABS: Glucose,Whole Blood 185 mg/dL (70-110)
[2024-02-25 09:14] LABS: HCT 27.4 % (39.6-50.0); HGB 8.8 g/dL (13.0-17.0); MCHC 32.1 g/dL (32.0-37.0); MCV 99.6 FL (80.0-97.0); Mean Platelet Volume 11.1 FL (9.5-12.2); NRBC Per 100 WBC 0.02 X 10*3/uL (0.00-0.01); Platelet Count 117 X 10*3/uL (140-440); RBC 2.75 X 10*6/uL (4.40-5.60); RDW 13.6 % (11.5-14.5); WBC 8.19 X 10*3/uL (4.50-10.00)
[2024-02-25 09:36] LABS: INR 1.87 sec (0.93-1.11); Prothrombin Time 19.4 sec (9.9-11.9)
[2024-02-25 11:02] LABS: BUN/Creat Ratio 19.91 Ratio (12.00-20.00); Blood Urea Nitrogen 21.9 mg/dL (9.0-27.0); Calcium 7.9 mg/dL (8.7-10.3); Carbon Dioxide 20.6 mmol/L (21.6-31.8); Chloride 113 mmol/L (96-109); Glucose 190 mg/dL (70-110); Potassium 4.1 mmol/L (3.5-5.5); Sodium 141 mmol/L (135-145)
[2024-02-25 12:06] LABS: Glucose,Whole Blood 183 mg/dL (70-110)
--- NOTE | 2024-02-25 16:15 | P.PN ---
Subjective Progress Note Date: 02/25/24 Principal diagnosis: Anemia, melena This is a pleasant 83-year-old male who presented to the emergency department yesterday with complaints of abdominal pain, dizziness and weakness. Past medical history includes atrial fibrillation on Coumadin, COPD, diabetes mellitus, GERD, previous GI bleed hyperlipidemia hypertension and osteoarthritis. Patient states that he has a history of ulcer diagnosed about 40 years ago. No recent upper endoscopy or colonoscopy. States he has been having black stools for last 2 to 3 days. Denies any NSAID use. Mild anemia with a hemoglobin of 10.7 platelet count 139, INR 3.6 02/25/2024 Patient seen and examined today as a follow-up. He denies any abdominal pain, nausea or vomiting. States he had no bowel movement today. Hemoglobin 8.8 down from 10.7. INR 1.87 Objective - Vital Signs Vital signs: Vital Signs Temp 97.9 F 02/25/24 07:00 Pulse 77 02/25/24 07:00 Resp 18 02/25/24 01:57 BP 108/53 02/25/24 07:00 Pulse Ox 100 02/25/24 07:00 FiO2 Intake & Output 02/24/24 02/25/24 02/25/24 18:59 06:59 18:59 Intake Total 624 1080 658 Balance 624 1080 658 Intake: Oral 624 1080 658 Other: # Voids 1 2 # Bowel Movements 1 - Exam General appearance: The patient is alert, oriented, appears in no acute distress. HET: Head is normocephalic and atraumatic. Conjunctiva pink. Sclera anicteric. Neck: Supple without lymphadenopathy. Abdomen: Soft, nontender, nondistended with bowel sounds. No guarding or rigidity. Extremities: Normal skin color and turgor. No pedal edema Skin: No rashes, no jaundice Neurological: No focal deficits. Alert and oriented. - Labs CBC & Chem 7: 02/25/24 05:29 02/25/24 05:29 Labs: Abnormal Lab Results - Last 24 Hours (Table) 02/24/24 02/24/24 02/24/24 Range/Units 05:01 05:01 05:01 WBC 10.49 H (4.50-10.00) X 10*3/uL RBC 3.43 L (4.40-5.60) X 10*6/uL Hgb 10.7 L (13.0-17.0) g/dL Hct 33.3 L (39.6-50.0) % MCV 97.1 H (80.0-97.0) FL Plt Count 139 L (140-440) X 10*3/uL Neutrophils # 7.80 H (1.80-7.70) X 10*3/uL NRBC/100 WBC Diff 0.02 H (0.00-0.01) X 10*3/uL Sodium 146 H (135-145) mmol/L Chloride 118 H (96-109) mmol/L Carbon Dioxide 17.4 L (21.6-31.8) mmol/L BUN 42.3 H (9.0-27.0) mg/dL BUN/Creatinine Ratio 42.30 H (12.00-20.00) Ratio Glucose 126 H (70-110) mg/dL POC Glucose (mg/dL) (70-110) mg/dL Hemoglobin A1c 8.6 H (<=6.0) % Calcium 8.0 L (8.7-10.3) mg/dL 02/24/24 02/24/24 02/24/24 Range/Units 12:35 17:28 20:52 WBC (4.50-10.00) X 10*3/uL RBC (4.40-5.60) X 10*6/uL Hgb (13.0-17.0) g/dL Hct (39.6-50.0) % MCV (80.0-97.0) FL Plt Count (140-440) X 10*3/uL Neutrophils # (1.80-7.70) X 10*3/uL NRBC/100 WBC Diff (0.00-0.01) X 10*3/uL Sodium (135-145) mmol/L Chloride (96-109) mmol/L Carbon Dioxide (21.6-31.8) mmol/L BUN (9.0-27.0) mg/dL BUN/Creatinine Ratio (12.00-20.00) Ratio Glucose (70-110) mg/dL POC Glucose (mg/dL) 190 H 178 H 192 H (70-110) mg/dL Hemoglobin A1c (<=6.0) % Calcium (8.7-10.3) mg/dL 08/01/24 Range/Units 05:49 WBC (4.50-10.00) X 10*3/uL RBC (4.40-5.60) X 10*6/uL Hgb (13.0-17.0) g/dL Hct (39.6-50.0) % MCV (80.0-97.0) FL Plt Count (140-440) X 10*3/uL Neutrophils # (1.80-7.70) X 10*3/uL NRBC/100 WBC Diff (0.00-0.01) X 10*3/uL Sodium (135-145) mmol/L Chloride (96-109) mmol/L Carbon Dioxide (21.6-31.8) mmol/L BUN (9.0-27.0) mg/dL BUN/Creatinine Ratio (12.00-20.00) Ratio Glucose (70-110) mg/dL POC Glucose (mg/dL) 185 H (70-110) mg/dL Hemoglobin A1c (<=6.0) % Calcium (8.7-10.3) mg/dL Assessment and Plan (1) Melena Narrative/Plan: 83-year-old male presenting with complaints of abdominal cramping, weakness and black stools over the last 2 to 3 days duration. He has a history of atrial fibrillation on Coumadin with an INR of 3.6 and a remote history of peptic ulcer disease with no recent endoscopic evaluation. Patient is anemic with an elevated BUN that can be seen in setting of upper GI bleed. Recommend proceeding with direct visualization with endoscopic evaluation to evaluate for GI bleed. Current Visit: Yes Status: Acute Code(s): K92.1 - MELENA SNOMED Code(s): 2695290 (2) Anemia Current Visit: Yes Status: Acute Code(s): D64.9 - ANEMIA, UNSPECIFIED SNOMED Code(s): 193154252 (3) Chronic anticoagulation Narrative/Plan: On Coumadin. Currently on hold Current Visit: Yes Status: Acute Code(s): Z79.01 - BR[employer]ER SURVEYING (CURRENT) USE OF ANTICOAGULANTS SNOMED Code(s): 467677558 (4) Atrial fibrillation Current Visit: No Status: Acute Code(s): I48.91 - UNSPECIFIED ATRIAL FIBRILLATION SNOMED Code(s): 02858215 Plan: 1. Continue symptomatic and supportive care 2. Daily CBC, transfuse for hemoglobin less than 7 3. Hold Coumadin 4. N.p.o. after midnight 5. Repeat INR in the morning 6. Continue Protonix 40 mg twice daily 7. Will plan on proceeding with upper endoscopy tomorrow with further recommendations to follow Thank you for this consultation. Dr. Yuridia Card I agree with the dictator's note, documented as a scribe by Monica Cid.
[2024-02-25 17:18] LABS: Glucose,Whole Blood 206 mg/dL (70-110)
[2024-02-25 20:38] LABS: Glucose,Whole Blood 202 mg/dL (70-110)
[2024-02-26 06:14] LABS: Glucose,Whole Blood 159 mg/dL (70-110)
--- NOTE | 2024-02-26 06:25 | P.PN ---
Subjective Progress Note Date: 02/25/24 Patient is a 83-year-old male with known history of atrial fibrillation on anticoagulation with Coumadin, hypertension, hyperlipidemia, diabetes type 2, osteoarthritis, COPD, chronic right hemidiaphragmatic paralysis, history of pacemaker due to complete heart block and chronic neck pain presents to ER with complaints of generalized weakness, sweating and falling. Patient was also having dizziness and abdominal discomfort. Patient states that she was started on Jardiance and spironolactone and was taken off Lasix secondary to gout issues. Patient does have some abdominal cramping and dark color stool. Otherwise denies any complaints of chest pain. No complaints of headache. No fever no chills. EKG showed electronic ventricular paced rhythm. Laboratory data showed WBC 11.3 hemoglobin 11.8 and platelets 154 INR 3.6 sodium 137 potassium 5.0 chloride 113 bicarb is 17 BUN 75 and creatinine 0.91 blood sugar is 252 02/25/2024 Patient is seen in follow-up today with at the bedside currently being followed by GI. Hemoglobin did drop with no active bleeding noted and does take Coumadin. Coumadin currently on hold as INR is 1.8 and GI following recommending EGD on 02/26/2024. Patient will n.p.o. at midnight and will await GI report. Patient reports to feeling well and abdominal pain is improved. Review of systems: Constitutional: No reports of fatigue, fever, or chills Cardiovascular: No reports of chest pain or palpitations Respiratory: No reports of shortness of breath or cough GI: No reports of nausea, vomiting, or diarrhea, reports having dark stool : No reports of dysuria or retention Neurovascular: No reports of weakness or numbness All medications have been reviewed Physical exam: Gen: This is a 83-year-old male who is awake, alert and oriented x 3, slightly hard of hearing, well-developed, elderly appearing, gait is steady on exam HEENT: Head is atraumatic, normocephalic. Pupils equal, round. Sclerae is anicteric. NECK: Supple. No JVD. No lymphadenopathy. No thyromegaly. LUNGS: Clear to auscultation. No wheezes or rhonchi. No intercostal retractions. HEART: Regular rate and rhythm. No murmur. ABDOMEN: Soft. Bowel sounds are present. No masses. Nontender on palpation EXTREMITIES: No pedal edema. No calf tenderness. NEUROLOGICAL: Patient is awake, alert and oriented x3. Cranial nerves 2 through 12 are grossly intact. Steady gait on exam Assessment: Acute GI bleed likely upper GI and mild acute blood loss anemia Atrial fibrillation on anticoagulation with Coumadin. Supratherapeutic INR level COPD not in exacerbation Diabetes type 2 [id number] History of heart block status post pacemaker placement Hyperlipidemia Hypertension Osteoarthritis History of back surgery DVT prophylax with SCDs GI prophylaxis Full code Plan: Patient will be continued on gentle IV hydration. Monitor H&H. Continue with IV Protonix. Coumadin is on hold. INR is 1.8 today and we will follow-up with repeat INR. Hemoglobin did drop slightly with no active bleeding noted and GI following recommending EGD. Patient will be n.p.o. at midnight and will await GI report For medications reviewed and resumed as appropriate. Will discuss with GI reg arding resuming Coumadin Patient reports abdominal pain is improved and has been tolerating diet with no reported nausea or vomiting noted. Patient denies diarrhea although does report dark stools Follow-up labs in the a.m. and will await GI clearance for possible discharge planning in the next 24 hours The impression and plan of care has been dictated by Judy Deshpande, Nurse Prac titioner as directed. Dr. Feli MD I have performed a history and examination and MDM of this patient, discussed the same with the dictator, and agree with the dictator's assessment and plan as written ,documented as a scribe. Based on total visit time, I have performed more than 50% of the visit. Objective - Vital Signs Vital signs: Vital Signs Temp 97.9 F 02/26/24 02:00 Pulse 70 02/26/24 02:00 Resp 18 02/26/24 02:00 BP 124/68 02/26/24 02:00 Pulse Ox 93 L 02/26/24 02:00 FiO2 Intake & Output 02/25/24 02/25/24 02/26/24 06:59 18:59 06:59 Intake Total 1080 894 540 Balance 1080 894 540 Intake: Oral 1080 894 540 Other: # Voids 2 1 2 # Bowel Movements 1 1 - Labs CBC & Chem 7: 02/25/24 05:29 02/25/24 05:29 Labs: Abnormal Lab Results - Last 24 Hours (Table) 02/25/24 02/25/24 02/25/24 Range/Units 05:29 05:29 05:29 RBC 2.75 L (4.40-5.60) X 10*6/uL Hgb 8.8 L (13.0-17.0) g/dL Hct 27.4 L (39.6-50.0) % MCV 99.6 H (80.0-97.0) FL Plt Count 117 L (140-440) X 10*3/uL NRBC/100 WBC Diff 0.02 H (0.00-0.01) X 10*3/uL PT 19.4 H (9.9-11.9) sec INR 1.87 H (0.93-1.11) sec Chloride 113 H (96-109) mmol/L Carbon Dioxide 20.6 L (21.6-31.8) mmol/L Glucose 190 H (70-110) mg/dL POC Glucose (mg/dL) (70-110) mg/dL Calcium 7.9 L (8.7-10.3) mg/dL 02/25/24 02/25/24 02/25/24 Range/Units 12:03 17:05 20:32 RBC (4.40-5.60) X 10*6/uL Hgb (13.0-17.0) g/dL Hct (39.6-50.0) % MCV (80.0-97.0) FL Plt Count (140-440) X 10*3/uL NRBC/100 WBC Diff (0.00-0.01) X 10*3/uL PT (9.9-11.9) sec INR (0.93-1.11) sec Chloride (96-109) mmol/L Carbon Dioxide (21.6-31.8) mmol/L Glucose (70-110) mg/dL POC Glucose (mg/dL) 183 H 206 H 202 H (70-110) mg/dL Calcium (8.7-10.3) mg/dL 02/26/24 Range/Units 06:12 RBC (4.40-5.60) X 10*6/uL Hgb (13.0-17.0) g/dL Hct (39.6-50.0) % MCV (80.0-97.0) FL Plt Count (140-440) X 10*3/uL NRBC/100 WBC Diff (0.00-0.01) X 10*3/uL PT (9.9-11.9) sec INR (0.93-1.11) sec Chloride (96-109) mmol/L Carbon Dioxide (21.6-31.8) mmol/L Glucose (70-110) mg/dL POC Glucose (mg/dL) 159 H (70-110) mg/dL Calcium (8.7-10.3) mg/dL
[2024-02-26 07:07] LABS: HCT 26.5 % (39.0-53.0); MCH 33.8 pg (25.0-35.0); MCHC 34.5 g/dL (31.0-37.0); MCV 97.9 fL (80.0-100.0); Mean Platelet Volume 9.3; Platelet Count 115 k/uL (150-450); RBC 2.71 m/uL (4.30-5.90); RDW 14.6 % (11.5-15.5); WBC 7.2 k/uL (3.8-10.6)
[2024-02-26 07:08] LABS: African American GFR (CKD) 87 (>60 ml/min/1.73 sqM); Anion Gap 1 mmol/L; Blood Urea Nitrogen 14 mg/dL (9-20); Calcium 8.4 mg/dL (8.4-10.2); Carbon Dioxide 23 mmol/L (22-30); Chloride 114 mmol/L (98-107); Glucose 156 mg/dL (74-99); Non-African American GFR(CKD) 75 (>60 ml/min/1.73 sqM); Sodium 138 mmol/L (137-145)
[2024-02-26 07:12] LABS: INR 1.1 (<1.2); Prothrombin Time 12.1 sec (10.0-12.5)
[2024-02-26 07:18] LABS: HGB 9.2 gm/dL (13.0-17.5)
--- NOTE | 2024-02-26 07:40 | P.PN ---
Progress Note - Text Progress Note Date: 02/26/24 Patient is seen today as a follow-up. He is scheduled for an upper endoscopy today for anemia and melena. Patient has had a 2 g drop in his hemoglobin since he has been here, his last colonoscopy was about 8 years ago. Recommend proceeding with both EGD and colonoscopy today. Patient is agreeable. Will begin prep this morning. Dr. Yuridia Card I agree with the dictator's note, documented as a scribe by Monica Cid.
[2024-02-26] MEDS: PEG 3350 (236 GM/BTL) + LYTES 4,000 ML BOTTLE PO ONE (08:01)
[2024-02-26 12:41] LABS: Glucose,Whole Blood 156 mg/dL (70-110)
[2024-02-26] MEDS: LACTATED RINGERS 1,000 ML IV ONE ×3 (17:38→18:02)
[2024-02-26] MEDS ORDERED: LIDOCAINE 1% INJ 10MG/ML (20 ML MDV) ONE (17:41)
[2024-02-26] MEDS ORDERED: PROPOFOL 10 MG/ML 20 ML VIAL IV ONE (17:41)
--- NOTE | 2024-02-26 18:07 | P.PCN ---
Date of Procedure: 02/26/24 Procedure(s) Performed: Brief history: Patient is a pleasant 83-year-old white male scheduled for an elective upper endoscopy as well as colonoscopy as a part of evaluation of symptomatic anemia and Hemoccult positive stool. History of Coumadin for A-fib which is currently on hold. Procedure performed: Esophagogastroduodenoscopy with biopsy Colonoscopy polypectomy Preoperative diagnosis: Symptomatic anemia and Hemoccult positive stool Anesthesia: [facility] Procedure: After informed consent was obtained from the patient was brought into the endoscopy unit and IV sedation was administered by anesthesia under continuous monitoring. Initially upper endoscopy was done. The Olympus GF 160 video endos cope was inserted inserted into the mouth and esophagus intubated without any difficulty and was gradually advanced into the stomach and duodenum and carefully examined. The bulb and second part of the duodenum appeared normal. The scope was then withdrawn into the stomach adequately insufflated with air and upon careful examination the antrum images of gastritis and biopsies were done from this area. Mucosa of the body, cardia and fundus appeared normal. The scope was then withdrawn into the esophagus. The GE junction was located at 40 cm to the incisors. It appeared regular with no erythema erosions or ulcerations. Rest of the esophagus appeared normal. Patient tolerated the procedure well. At this time the patient continued to remain sedation. Initial digital rectal examination was normal. Olympus CF 160 video colonoscope was then inserted into the rectum and gradually advanced to the cecum without any difficulty. Careful examination was performed as the scope was gradually being withdrawn. The prep was excellent. The cecum, had a 1 cm polyp removed by snare polypectomy. In the hepatic Exa there was a 5 mm and 7 mm polyp removed by snare polypectomy. Rest of the ascending colon, transverse colon, descending colon, sigmoid colon and rectum appeared normal. Scattered sigmoid diverticulosis retroflexion was performed in the rectum and grade 2 internal hemorrhoids were noted. Patient tolerated the procedure well. Impression: 1. Upper endoscopy revealed antral erosive gastritis but no evidence of peptic ulcer disease 2. Colonoscopy revealed 1 cm cecal polyp, 5 mm and 7 mm hepatic flexure polyp status post polypectomy, small internal hemorrhoids and scattered sigmoid diverticulosis Recommendations: Findings of this examination were discussed with the patient as well as his family. He was advised to follow-up with the biopsy results. Advised to resume Coumadin today. Start on a regular diet. Monitor CBC daily
--- NOTE | 2024-02-26 19:58 | P.PN ---
Subjective Progress Note Date: 02/26/24 Patient is a 83-year-old male with known history of atrial fibrillation on anticoagulation with Coumadin, hypertension, hyperlipidemia, diabetes type 2, osteoarthritis, COPD, chronic right hemidiaphragmatic paralysis, history of pacemaker due to complete heart block and chronic neck pain presents to ER with complaints of generalized weakness, sweating and falling. Patient was also having dizziness and abdominal discomfort. Patient states that she was started on Jardiance and spironolactone and was taken off Lasix secondary to gout issues. Patient does have some abdominal cramping and dark color stool. Otherwise denies any complaints of chest pain. No complaints of headache. No fever no chills. EKG showed electronic ventricular paced rhythm. Laboratory data showed WBC 11.3 hemoglobin 11.8 and platelets 154 INR 3.6 sodium 137 potassium 5.0 chloride 113 bicarb is 17 BUN 75 and creatinine 0.91 blood sugar is 252 02/25/2024 Patient is seen in follow-up today with at the bedside currently being followed by GI. Hemoglobin did drop with no active bleeding noted and does take Coumadin. Coumadin currently on hold as INR is 1.8 and GI following recommending EGD on 02/26/2024. Patient will n.p.o. at midnight and will await GI report. Patient reports to feeling well and abdominal pain is improved. 02/26/2024 Patient is seen and evaluated in follow-up currently n.p.o. just underwent bowel prep with GoLytely per GI as patient did have a drop in hemoglobin and recommended EGD/colonoscopy. Scheduled for this afternoon. Patient hemoglobin is improved today above 9 and Coumadin remains on hold. Patient reports his first bowel movement when starting the prep was black and tarry otherwise has cleared out. No further bleeding has been noted. Will await report. Review of systems: Constitutional: No reports of fatigue, fever, or chills Cardiovascular: No reports of chest pain or palpitations Respiratory: No reports of shortness of breath or cough GI: No reports of nausea, vomiting, or diarrhea, reports having dark stool : No reports of dysuria or retention Neurovascular: No reports of weakness or numbness All medications have been reviewed Physical exam: Gen: This is a 83-year-old male who is awake, alert and oriented x 3, slightly hard of hearing, well-developed, elderly appearing, gait is steady on exam HEENT: Head is atraumatic, normocephalic. Pupils equal, round. Sclerae is anicteric. NECK: Supple. No JVD. No lymphadenopathy. No thyromegaly. LUNGS: Clear to auscultation. No wheezes or rhonchi. No intercostal retractions. HEART: Regular rate and rhythm. No murmur. ABDOMEN: Soft. Bowel sounds are present. No masses. Nontender on palpation EXTREMITIES: No pedal edema. No calf tenderness. NEUROLOGICAL: Patient is awake, alert and oriented x3. Cranial nerves 2 through 12 are grossly intact. Steady gait on exam Assessment: Acute GI bleed likely upper GI and mild acute blood loss anemia Atrial fibrillation on anticoagulation with Coumadin. Supratherapeutic INR level COPD not in exacerbation Diabetes type 2 [id number] History of heart block status post pacemaker placement Hyperlipidemia Hypertension Osteoarthritis History of back surgery DVT prophylax with SCDs GI prophylaxis Full code Plan: Patient hemoglobin today is improved above 9 with no further bleeding noted. Patient did have a bowel movement this morning while starting the GoLytely prep that was dark and tarry and further bowel movements have cleared with no bleedi ng in the stool. Patient due to the drop in hemoglobin will now be going for EGD/colonoscopy with Dr. Card later this afternoon. Continue to hold Coumadin for now and will discuss with GI when to resume. Follow-up CBC is ordered. Continue with IV Protonix. For medications reviewed and resumed as appropriate. Will discuss with GI regarding resuming Coumadin EGD/colonoscopy to be done after 5 PM and will await report and clearance from GI. Likely monitoring overnight with follow-up labs. Await GI clearance for possible discharge planning in the next 24 hours The impression and plan of care has been dictated by Judy Deshpande, Nurse Practitioner as directed. Dr. Feli MD I have performed a history and examination and MDM of this patient, discussed the same with the dictator, and agree with the dictator's assessment and plan as written ,documented as a scribe. Based on total visit time, I have performed more than 50% of the visit. Objective - Vital Signs Vital signs: Vital Signs Temp 98.1 F 02/26/24 08:00 Pulse 70 02/26/24 08:00 Resp 16 08/02/24 08:00 BP 114/64 02/26/24 08:00 Pulse Ox 98 02/26/24 08:00 FiO2 Intake & Output 02/25/24 02/26/24 02/26/24 18:59 06:59 18:59 Intake Total 894 540 Balance 894 540 Intake: Oral 894 540 Other: # Voids 1 2 # Bowel Movements 1 - Labs CBC & Chem 7: 02/26/24 06:26 02/26/24 06:26 Labs: Abnormal Lab Results - Last 24 Hours (Table) 02/25/24 02/25/24 02/25/24 Range/Units 12:03 17:05 20:32 RBC (4.30-5.90) m/uL Hgb (13.0-17.5) gm/dL Hct (39.0-53.0) % Plt Count (150-450) k/uL Chloride (98-107) mmol/L Glucose (74-99) mg/dL POC Glucose (mg/dL) 183 H 206 H 202 H (70-110) mg/dL 02/26/24 02/26/24 02/26/24 Range/Units 06:12 06:26 06:26 RBC 2.71 L (4.30-5.90) m/uL Hgb 9.2 L D (13.0-17.5) gm/dL Hct 26.5 L (39.0-53.0) % Plt Count 115 L (150-450) k/uL Chloride 114 H (98-107) mmol/L Glucose 156 H (74-99) mg/dL POC Glucose (mg/dL) 159 H (70-110) mg/dL
[2024-02-26 20:39] LABS: INR 1.1 (<1.2); Prothrombin Time 11.6 sec (10.0-12.5)
[2024-02-26 21:03] LABS: Glucose,Whole Blood 176 mg/dL (70-110)
[2024-02-26] MEDS: WARFARIN 1.25 MG TAB PO ONE (22:44)
[2024-02-26] MEDS: WARFARIN 2.5 MG TAB PO ONE (22:46)
[2024-02-27 05:32] LABS: Glucose,Whole Blood 142 mg/dL (70-110)
[2024-02-27 07:45] VITALS: BP 118/70; PULSE 71; RESP 16; TEMP 97.6
[2024-02-27 11:37] LABS: HCT 27.1 % (39.6-50.0); HGB 8.7 g/dL (13.0-17.0); MCHC 32.1 g/dL (32.0-37.0); MCV 99.6 FL (80.0-97.0); Mean Platelet Volume 11.3 FL (9.5-12.2); NRBC Per 100 WBC 0 X 10*3/uL (0.00-0.01); Platelet Count 136 X 10*3/uL (140-440); RBC 2.72 X 10*6/uL (4.40-5.60); RDW 14.3 % (11.5-14.5); WBC 7.24 X 10*3/uL (4.50-10.00)
[2024-02-27 11:38] LABS: Basophils # (A) 0.02 X 10*3/uL (0.00-0.10); Basophils % (A) 0.3 %; Eosinophils # (A) 0.08 X 10*3/uL (0.04-0.35); Eosinophils % (A) 1.1 %; Lymphocytes % (A) 16.6 %; Monocytes # (A) 0.69 X 10*3/uL (0.20-1.00); Monocytes % (A) 9.5 %; Neutrophils # (A) 5.23 X 10*3/uL (1.80-7.70); Neutrophils % (A) 72.2 %
[2024-02-27 12:19] LABS: Glucose,Whole Blood 338 mg/dL (70-110)
[2024-02-27 14:56] LABS: INR 1.09 sec (0.93-1.11); Prothrombin Time 11.7 sec (9.9-11.9)
--- NOTE | 2024-03-22 16:39 | CDI ---
Documentation Clarification Form Date: 03/22/2024 04:32:14 PM From: Rossi Urias Phone: Admit Date: 02/25/2024 09:19:00 AM Patient Name: Mahesh Dale Visit Number: [id number] Discharge Date: 02/27/2024 02:13:00 PM ATTENTION: The Clinical Documentation Specialists (CDI) and [facility] Coding Staff appreciate your assistance in clarifying documentation. Please respond to the clarification below the line at the bottom and electronically sign. The CDI & [facility] Coding staff will review the response and follow-up if needed. Please note: Queries are made part of the Legal Health Record. If you have any questions, please contact the author of this message via ITS. Doctor/Provider: Ariel Edmond Your patient has an abnormal lab value: A1C 8.6. Please clarify if there is an additional diagnosis and/or clinical significance related to this value. History/Risk Factors: 83yo M, acute GIB, ABLA, A Fib Coumadin, supratherapeutic INR level, COPD, NIDDMII, Hx AVB w PPM, HLD, HTN, OA Clinical indicators: Glucose: 02/22 252 02/23 124-233 8/ 126-206 8/ 156-206 Treatment: Glimepiride [Amaryl] 1 mg PO DAILY; Empagliflozin [Jardiance] 10 mg PO DAILY Is there an additional diagnosis and/or clinical significance related to the above lab result/information? [x ] Diabetes Mellitus with hyperglycemia [ ] No additional diagnosis/Not clinically significant [ ] Other, please specify [ ] Unable to determine (Template Last Revised: August 2020) MTDD
--- NOTE | 2024-03-22 16:48 | CDI ---
Documentation Clarification Form Date: 03/22/2024 04:40 PM From: Rossi Urias Phone: Admit Date: 02/25/2024 09:19:00 AM Patient Name: Mahesh Dale Visit Number: [id number] Discharge Date: 02/27/2024 02:13:00 PM ATTENTION: The Clinical Documentation Specialists (CDI) and [facility] Coding Staff appreciate your assistance in clarifying documentation. Please respond to the clarification below the line at the bottom and electronically sign. The CDI & [facility] Coding staff will review the response and follow-up if needed. Please note: Queries are made part of the Legal Health Record. If you have any questions, please contact the author of this message via ITS. Doctor/Provider: Ariel Edmond Your patient has an abnormal lab value: INR 3.6. Please clarify if there is an additional diagnosis and/or clinical significance related to this value. History/Risk Factors: 83yo M, acute GIB, ABLA, A Fib on Coumadin, supratherapeutic INR level, COPD, NIDDMII, Hx AVB w PPM, HLD, HTN, OA Clinical indicators: INR: 02/22 3.6 8/1 1.87 Remote history of peptic ulcer disease with no recent endoscopic evaluation. Treatment: Patient will be continued on gentle IV hydration. Monitor H & H. Continue with IV Protonix. Coumadin is on hold. INR is 1. 8 today and we willfollow-upwith repeat INR. Hemoglobin did drop slightlywith noactivebleedingnoted and GI following recommendingEGD. Patient will be n. p. o. at midnight and will await GI report. For medications reviewed and resumed as appropriate. Will discuss with GI regarding resuming Coumadin. Patient reportsabdominal painis improved and has been tolerating dietwith no reportednauseaorvomitingnoted. Patientdeniesdiarrheaalthough does report dark stools Is there an additional diagnosis and/or clinical significance related to the above lab result/information? [ ] Hemorrhagic disorder due to extrinsic circulating anticoagulants [ x ] Abnormal coagulation profile [ ] No additional diagnosis/Not clinically significant [ ] Other, please specify [ ] Unable to determine (Template Last Revised: August 2020) MTDD
--- NOTE | 2024-03-25 20:03 | P.DS ---
Providers Date of admission: 02/25/24 09:19 Attending physician: Ariel Edmond Consults: 02/23/24 12:11 Consult Physician Urgent Consulting Provider: Emily Card Consult Reason/Comments: Gi bleed Do you want consulting provider notified?: Yes Primary care physician: Myles Caban MD Hospital Course: Final Diagnosis Acute GI bleed likely upper GI and mild acute blood loss anemia Atrial fibrillation on anticoagulation with Coumadin. Supratherapeutic INR level COPD not in exacerbation Diabetes type 2 [id number] History of heart block status post pacemaker placement Hyperlipidemia Hypertension Osteoarthritis History of back surgery DVT prophylax with SCDs GI prophylaxis Full code Discharge Disposition Stable for discharge home. Has been resumed on coumadin. Follow up with GI, cardiology and PCP on discharge. Advised to repeat CBC. Hospital Course Patient is a 83-year-old male with known history of atrial fibrillation on anticoagulation with Coumadin, hypertension, hyperlipidemia, diabetes type 2, osteoarthritis, COPD, chronic right hemidiaphragmatic paralysis, history of pacemaker due to complete heart block and chronic neck pain presents to ER with complaints of generalized weakness, sweating and falling. Patient was also having dizziness and abdominal discomfort. Patient states that she was started on Jardiance and spironolactone and was taken off Lasix secondary to gout issues. Patient does have some abdominal cramping and dark color stool. Otherwise denies any complaints of chest pain. No complaints of headache. No fever no chills. EKG showed electronic ventricular paced rhythm. Laboratory data showed WBC 11.3 hemoglobin 11.8 and platelets 154 INR 3.6 sodium 137 potassium 5.0 chloride 113 bicarb is 17 BUN 75 and creatinine 0.91 blood sugar is 252. Admitted for GI evaluation. Underwent bowel prep with GoLytely per GI as patient did have a drop in hemoglobin and recommended EGD/colonoscopy. Scheduled for this afternoon. Patient hemoglobin is improved today above 9 and Coumadin remains on hold. Patient reports his first bowel movement when starting the prep was black and tarry otherwise has cleared out. No further bleeding has been noted. Upper endoscopy revealed antral erosive gastritis but no evidence of peptic ulcer disease. Colonoscopy revealed 1 cm cecal polyp, 5 mm and 7 mm hepatic flexure polyp status post polypectomy, small internal hemorrhoids and scattered sigmoid diverticulosis. Patient can resume coumadin post endoscopy. He is advised for regular diet and will follow up with GI outpatient for biopsy results. Hemoglobin 8.7. Please see medication reconciliation for a list of current medications. Thank you for allowing us to participate in the care of this patient. The impression and plan of care has been dictated by Darlin Gomez, Nurse Practitioner as directed. Dr. Nicholas MD I have performed a history and physical examination and medical decision making of this patient, discussed the same with the dictator, and agree with the dictators assessment and plan as written, documented as a scribe. Based on total visit time, I have performed more than 50% of this visit. Patient Condition at Discharge: Fair Plan - Discharge Summary Discharge Rx Participant: Yes New Discharge Prescriptions: New Pantoprazole Sodium [Protonix] 40 mg PO DAILY #30 tab Warfarin [Coumadin] 2.5 mg PO SUTUWETHFR #30 tab Warfarin [Coumadin] 5 mg PO MOTH #30 tab Continue Gabapentin [Neurontin] 800 mg PO TID Lovastatin [Mevacor] 20 mg PO HS Glimepiride [Amaryl] 1 mg PO DAILY Albuterol Sulfate [Ventolin HFA] 2 puff INHALATION RT-Q6H PRN PRN Reason: Shortness Of Breath Spironolactone [Aldactone] 25 mg PO DAILY Albuterol Nebulized [Ventolin Nebulized] 2.5 mg INHALATION RT-Q4H PRN PRN Reason: Shortness Of Breath Budesonide-Formot 160-4.5 Mcg [Symbicort 160-4.5 Mcg Inhaler] 2 puff INHALATION RT-BID 30 Days #1 each Metoprolol Succinate (ER) [Toprol XL] 50 mg PO BID Empagliflozin [Jardiance] 10 mg PO DAILY Discontinued Warfarin [Coumadin] 2.5 mg PO SUTUWETHFR@2100 Warfarin [Coumadin] 5 mg PO MOTH@2100 Discharge Medication List Gabapentin [Neurontin] 800 mg PO TID 12/20/13 [History] Lovastatin [Mevacor] 20 mg PO HS 12/20/13 [History] Glimepiride [Amaryl] 1 mg PO DAILY 12/07/17 [History] Albuterol Sulfate [Ventolin HFA] 2 puff INHALATION RT-Q6H PRN 04/27/22 [History] Albuterol Nebulized [Ventolin Nebulized] 2.5 mg INHALATION RT-Q4H PRN 11/10/22 [History] Budesonide-Formot 160-4.5 Mcg [Symbicort 160-4.5 Mcg Inhaler] 2 puff INHALATION RT-BID 30 Days #1 each 11/14/22 [Rx] Empagliflozin [Jardiance] 10 mg PO DAILY 02/23/24 [History] Metoprolol Succinate (ER) [Toprol XL] 50 mg PO BID 02/23/24 [History] Spironolactone [Aldactone] 25 mg PO DAILY 02/23/24 [History] Pantoprazole Sodium [Protonix] 40 mg PO DAILY #30 tab 02/26/24 [Rx] Warfarin [Coumadin] 2.5 mg PO SUTUWETHFR #30 tab 02/27/24 [Rx] Warfarin [Coumadin] 5 mg PO MOTH #30 tab 02/27/24 [Rx] Follow up Appointment(s)/Referral(s): Emily Card MD [STAFF PHYSICIAN] - 1 Week Myles Caban MD [Primary Care Provider] - 1-2 days Ambulatory/Diagnostic Orders: Complete Blood Count w/diff [LAB.AMB] Time Frame: 2 Days, Location: None Selected Patient Instructions/Handouts: Gastritis (DC) Activity/Diet/Wound Care/Special Instructions: Coumadin recommendations: Resume as prior. Activity limited until follow-up Follow-up with primary care provider Follow-up with cardiology outpatient Repeat labs in the next few days Discharge Disposition: HOME SELF-CARE
--- NOTE | 2024-03-30 13:32 | CDI ---
Documentation Clarification Form Date: 03/30/2024 01:20:00 PM From: Rossi Urias Phone: Admit Date: 02/25/2024 09:19:00 AM Patient Name: Mahesh Dale Visit Number: [id number] Discharge Date: 02/27/2024 02:13:00 PM ATTENTION: The Clinical Documentation Specialists (CDI) and [facility] Coding Staff appreciate your assistance in clarifying documentation. Please respond to the clarification below the line at the bottom and electronically sign. The CDI & [facility] Coding staff will review the response and follow-up if needed. Please note: Queries are made part of the Legal Health Record. If you have any questions, please contact the author of this message via ITS. 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 Coding guidelines do not allow coding professionals to code based on pathology results; therefore, clarification is requested. History/risk factors: 83yo M, antralerosive gastritis, cecal polyp, hepatic flexurepolyp, A Fib w Coumadin, HTN, HLD, DMII, OA,COPD, chronic right jordan diaphragmaticparalysis,PPM, chronicneck pain Clinical Indicators: melena, 1 cmcecal polyp, 5 mm and 7 mm hepatic flexurepolyp. Treatment: status postpolypectomy. Patient can resume Coumadin postendoscopy. He is advised for regular diet and willfollow upwith GI outpatient forbiopsyresults. 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
== END 2024-02-27 14:13 | disposition home or self-care (01) | DRG 378 ==
LOC: EC 09:31 → SUPCPDRO 09:31 → 6NMEDSUR 12:09 → OBSVTOIN 02-25 09:19
PROVIDERS: ADMIT Internal Medicine; ATTEND Internal Medicine
PROC: 0DBH8ZZ Excision of Cecum, Via Natural or Artificial Opening Endoscopic (ICD-10-PCS; principal; 2024-02-26 14:50)
PROC: 0DB78ZX Excision of Stomach, Pylorus, Via Natural or Artificial Opening Endoscopic, Diagnostic (ICD-10-PCS; 2024-02-26 14:50)
DX: K29.61 Other gastritis with bleeding (principal); D62 Acute posthemorrhagic anemia; I44.2 Atrioventricular block, complete; J98.6 Disorders of diaphragm; J44.9 Chronic obstructive pulmonary disease, unspecified; I48.91 Unspecified atrial fibrillation; E11.65 Type 2 diabetes mellitus with hyperglycemia; I10 Essential (primary) hypertension; R79.1 Abnormal coagulation profile; H91.90 Unspecified hearing loss, unspecified ear; K92.1 Melena; K57.30 Diverticulosis of large intestine without perforation or abscess without bleeding; K64.1 Second degree hemorrhoids; K64.8 Other hemorrhoids; E78.5 Hyperlipidemia, unspecified; G89.29 Other chronic pain; K63.5 Polyp of colon; M10.9 Gout, unspecified; M19.90 Unspecified osteoarthritis, unspecified site; Z79.01 Long term (current) use of anticoagulants; Z79.891 Long term (current) use of opiate analgesic; Z91.81 History of falling; Z95.0 Presence of cardiac pacemaker; Z86.16 Personal history of COVID-19; Z98.1 Arthrodesis status; Z79.84 Long term (current) use of oral hypoglycemic drugs; Z79.51 Long term (current) use of inhaled steroids; Z79.899 Other long term (current) drug therapy
CPT/HCPCS: 36415; 43239; 45385; 80048; 80053; 83036; 83605; 83690; 83735; 85025; 85027; 85610; 85730; 93005; 94640; 99285